=== PATIENT | female | born 1990 | race Caucasian/White ===

== ENCOUNTER 2022-09-09 07:00 | Outpatient (REF) | payer BC, SELFPAY ==
[2022-09-13 16:09] LABS: Age Gdln ACOG Testing Note (.); HPV Aptima Negative (Negative); IGP, Aptima HPV, rfx 16/18,45 Note (.)
== END 2022-09-10 03:10 | disposition home or self-care (01) ==
LOC: FBCO 07:00
PROVIDERS: PCP Obstetrics & Gynecology; Visit Provider Obstetrics & Gynecology
DX: Z01.419 Encounter for gynecological examination (general) (routine) without abnormal findings (principal)
CPT/HCPCS: 87624; G0145

== ENCOUNTER 2023-09-15 20:51 | Outpatient (REF) | payer BC, SELFPAY | END 2023-09-15 20:52 | disposition home or self-care (01) | LOC: LAB 20:51 | PROVIDERS: PCP Obstetrics & Gynecology; Visit Provider Obstetrics & Gynecology | DX: Z01.419 Encounter for gynecological examination (general) (routine) without abnormal findings (principal) | CPT/HCPCS: 87624; 88175 ==

== ENCOUNTER 2023-10-17 07:16 | Emergency (ER) | payer BC, SELFPAY ==
[2023-10-17 07:20] VITALS: BP 108/78; PULSE 108; TEMP 38.3; O2SAT 95; BMI 32.1
--- OUTSIDE RECORDS SUMMARY | 2023-10-17 07:30 | XMS_ITS | CCD ---
Author Organization [facility] Care Team Providers Care Manager Park Name Role Phone HARRISON, DR PEREZ Admitting Unavailable MISC, DR PEREZ Attending Unavailable REQUEST, DR TORREZ LISTED Primary Care Unavaila ble MISC, DR PEREZ Consulting Unavailable NAT, DR GERARD Consulting Unavailable NAT, DR GERARD Primary Care Unavailable NAT, DR GERARD Admitting Unavailable NAT, DR GERARD Attending Unavailable ZIEBER, DR WILMAN Jung Consulting Unavailable NAT, DR GERARD Attending Unavailable NAT, DR GERARD Primary Care Unavailable NAT, DR GERARD Admitting Unavailable WEST, DR ADRIANO Morton Consulting Unavailable NAT, DR GERARD Consulting Unavailable MISC, DR PEREZ Primary Care Unavailable HAY, DR RUBIO Admitting Unavailable HAY, DR RUBIO Attending Unavailable HAY, DR RUBIO Consulting Unavailable WEST, DR ADRIANO Morton Consulting Unavailable NAT, DR GERARD Primary Care Unavailable MIGUEL MORGAN Admitting Unavailable CATHY, MIGUEL Attending Unavailable MIGUEL MORGAN Consulting Unavailable MISC, DR PEREZ Admitting Unavailable MISC, DR PEREZ Attending Unavailable MISC, DR PEREZ Consulting Unavailable NAT, DR GERARD Primary Care Unavailable Unknown, Referring Provider Unavailable Unav ailable Unavailable Unavailable Unavailable Unavailable Unknown, Pcp Unavailable Unavailable Kamari Smith Unavailable Unavailable Unavailable Unavailable UNKNOWN, PCP Primary Care Unavailable Dr. Kamari Smith Attending Unavailable Dr. Kamari Smith Attending Unavailable UNKNOWN, PCP Primary Care Unavailable Torsten Victor Attending Unavailable Torsten Victor Referring Unavailable UNKNOWN, PCP Primary Care Unavailable UNKNOWN, PCP Primary Care Unavailable Dr. Kamari Smith Attending Unavailable UNKNOWN, PCP Primary Care Unavailable Dr. Kamari Smith Attending Unavailable UNKNOWN, PCP Primary Care Unavailable Dr. Kamari Smith Attending Unavailable Dr. YASH BREEN Attending Unavailable UNKNOWN, PCP Primary Care Unavailable UNKNOWN, PCP Primary Care Unavailable Abbas, Dr. Benites Referring Unavailable Lu, Ms. Guzman Attending Unavailable UNKNOWN, PCP Primary Care Unavailable Abbas, Dr. Benites Attending Unavailable UNKNOWN, PCP Primary Care Unavailable Abbas, Dr. Benites Attending Unavailable UNKNOWN, PCP Primary Care Unavailable Abbas, Dr. Benites Attending Unavailable Abbas, Dr. Benites Attending Unavailable Abbas, Dr. Benites Referring Unavailable UNKNOWN, PCP Primary Care Unavailable Abbas, Dr. Benites Attending Unavailable Abbas, Dr. Benites Referring Unavailable Abbas, Dr. Benites Admitting Unavailable UNKNOWN, PCP Primary Care Unavailable UNKNOWN, PCP Primary Care Unavailable Abbas, Dr. Benites Attending Unavailable Abbas, Dr. Benites Referring Unavailable Abbas, Dr. Benites Admitting Unavailable RAJANI JOHNS Attending Unavailable RAJANI JOHNS Attending Unavailable RAJANI JOHNS Attending Unavailable Medications Current Medications Medication Drug Class(es) Dates Sig (Normalized) Sig (Original) acetaminophen 32 mg/ml oral solution (1 source) Start: 02-14-2022 take 20.31 mL by mouth every four hours acetaminophen 160 mg/5 mL oral liquid ; 20.31 milliliter(s) orally every 4 hours Quantity: 0 Refills: 0 Ordered: 14-Feb-2022 Sunday Burrell Start: 14-Feb-2022 Generic Substitution Allowed oxyCODONE hydrochloride 1 mg/ml oral solution (1 source) Opioid Agonist Start: 02-14-2022 take 5 mL by mouth every six hours as needed oxyCODONE 5 mg/5 mL oral solution ; 5 milliliter(s) orally every 6 hours, As needed, Pain - Mod (4-6) Quantity: 0 Refills: 0 Ordered: 14-Feb-2022 Sunday Burrell Start: 14-Feb-2022 Generic Substitution Allowed Completed/Discontinued Medications Medication Drug Class(es) Dates Sig (Normalized) Sig (Original) 24 hr buPROPion hydrochloride 300 mg extended release oral tablet (2 sources) Aminoketone Start: 11-06-2021 take 1 tablet by mouth once daily buPROPion HCl ER (XL) 300 MG Oral Tablet Extended Release 24 Hour TAKE 1 TABLET DAILY DIRECTED. Quantity: 0 Refills: 0 Ordered: 06-Nov-2021 DO Start : 06-Nov-2021 Active calcium chloride 0.0014 meq/ml / potassium chloride 0.004 meq/ml / sodium chloride 0.103 meq/ml / sodium lactate 0.028 meq/ml injectable solution (4 sources) Start: 02-25-2022 Lactated Ringers Intravenous Solution Please infuse 2L of LR over 2-4 hours. Quantity: 2000 Refills: 0 Ordered: 25-Feb-2022 Kamari Smith MD Start : 25-Feb-2022 Active To be adminitered at [facility] omeprazole 40 mg delayed release oral capsule (11 sources) Proton Pump Inhibitor Start: 02-04-2022 take 1 capsule by mouth once daily Omeprazole 40 MG Oral Capsule Delayed Release TAKE 1 CAPSULE Daily Open capsule, sprinkle in SF applesauce or pudding, swallow. DO NOT CHEW Quantity: 30 Refills: 5 Ordered: 07-Feb-2022 Kamari Smith MD Start : 04-Feb-2022 Active ondansetron 4 mg disintegrating oral tablet (11 sources) Serotonin-3 Receptor Antagonist Start: 02-04-2022 Ondansetron 4 MG Oral Tablet Disintegrating 1-2 tablets every 6-8 hours as needed for nausea Quantity: 60 Refills: 5 Ordered: 07-Feb-2022 Kamari Smith MD Start : 04-Feb-2022 Active Problems Active Problems Problem Classification Problem Date Documented Da te Episodic/Chronic Abdominal pain (5 sources) Unspecified abdominal pain; Translations: [Pelvic and perineal pain] Onset: 07-05-2021 Episodic Complications of surgical procedures or medical care (3 sources) Post-surgical malabsorption; Translations: [Other and unspecified postsurgical nonabsorption] Chronic Contraceptive and procreative management (1 source) Presence of (intrauterine) contraceptive device; Translations: [PRESENCE IU CONTRACEPT DEVICE] Onset: 09-04-2021 Episodic Fever of unknown origin (3 sources) Fever, unspecified; Translations: [FEVER UNSPECIFIED] Onset: 08-31-2021 Episodic Fluid and electrolyte disorders (6 sources) Dehydration; Translations: [Dehydration] Episodic Mood disorders (16 sources) Depressive disorder; Translations: [Depressive disorder, not elsewhere classified] Chronic Mood disorders (1 source) Mood disorders; Translations: [Depression, unspecified] Onset: 12-12-2021 Nausea and vomiting (11 sources) Postoperative nausea and vomiting; Translations: [Nausea with vomiting] Episodic Other aftercare (1 source) 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 modeling 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 (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; Translations: [OTH PASTRY SUPERVISOR CURRENT DRUG THERAPY] Onset: 09-04-2021 Episodic Other endocrine disorders (16 sources) Polycystic ovary syndrome; Translations: [Polycystic ovaries] Chronic Other endocrine disorders (1 source) Polycystic ovarian syndrome; Translations: [Polycystic ovarian syndrome] Onset: 02-14-2022 Chronic Other gastrointestinal disorders (16 sources) History of bariatric surgical procedure; Translations: [Bariatric surgery status] Episodic Other gastrointestinal disorders (7 sources) History of sleeve gastrectomy; Translations: [Bariatric surgery status] Episodic Other nervous system disorders (11 sources) Postoperative pain ; Translations: [Other acute postoperative pain] Episodic Other nutritional; endocrine; and metabolic disorders (3 sources) Obesity, unspecified; Translations: [OBESITY UNSPECIFIED] Onset: 09-30-2021 Chronic Other nutritional; endocrine; and metabolic disorders (2 sources) Body mass index (BMI) 40.0-44.9, adult; Translations: [BODY MASS INDEX BMI 40.0-44.9 ADULT] Onset: 09-30-2021 Chronic Other nutritional; endocrine; and metabolic disorders (16 sources) Morbid obesity; Translations: [Morbid obesity] Chronic Other nutritional; endocrine; and metabolic disorders (4 sources) Morbid (severe) obesity due to excess calories; Translations: [Morbid (severe) obesity due to excess calories] Onset: 12-12-2021 Chronic Other screening for suspected conditions (not mental disorders or infectious disease) (16 sources) Patient encounter status; Translations: [Screening for other and unspecified endocrine, nutritional, metabolic, and immunity disorders] Episodic Ovarian cyst (1 source) Other ovarian cyst, left side; Translations: [OTHER OVARIAN CYST LEFT SIDE] Onset: 07-11-2021 Episodic Residual codes; unclassified (1 source) Sleep disorder, unspecified; Translations: [SLEEP DISORDER UNSPECIFIED] Onset: 09-30-2021 Episodic Unclassified (2 sources) COUGH, UNSPECIFIED; Translations: [COUGH, UNSPECIFIED] Onset: 02-05-2021 Unclassified (1 source) PERSONAL HISTORY OF COVID-19; Translations: [PERSONAL HISTORY OF COVID-19] Onset: 02-05-2021 Unclassified (1 source) CONTACT W/AND (SUSP) EXPOS COVID-19; Translations: [CONTACT W/AND (SUSP) EXPOS COVID-19] Onset: 02-05-2021 Unclassified (2 sources) GASTRIC SLEEVE 01-25-2022 Comment on above: GASTRIC SLEEVE Unclassified (6 sources) SLEEVE 02/1301-25-2022 Comment on above: SLEEVE 02/13 Urinary tract infections (1 source) Urinary tract infection, site not specified; Translations: [UTI SITE NOT SPECIFIED] Onset: 09-04-2021 Episodic Viral infection (1 source) COVID-19; Translations: [COVID-19] Onset: 12-11-2020 Past or Other Problems Problem Classification Problem Date Documented Da te Episodic/Chronic Immunizations and screening for infectious disease (3 sources) Contact with and (suspected) exposure to other viral communicable diseases; Translations: [CONTCT EXPS OTH VIRL COMMUNICABL DZ] Onset: 12-01-2020 Episodic Other and unspecified benign neoplasm (1 source) Polyp of stomach and duodenum; Translations: [Polyp of stomach and duodenum] Onset: 12-12-2021 Episodic Other gastrointestinal disorders (3 sources) Heartburn; Translations: [Heartburn] Onset: 12-12-2021 Episodic Other upper respiratory infections (1 source) Acute upper respiratory infection, unspecified; Translations: [ACUTE UP RESPIRATORY INFECTION UNS] Onset: 02-05-2021 Episodic Unclassified (1 source) COUGH, UNSPECIFIED; Translations: [COUGH, UNSPECIFIED] Onset: 02-02-2021 Results Test Name Value Interpretation Reference Range Facility Bariatric Surgery - Follow-U [facility] 08-13-2022 Bariatric Surgery - Follow-Up Diagnoses/Problems Assessed S/P laparoscopic sleeve gastrectomy (V45.86) (Z98.84) Orders S/P laparoscopic sleeve gastrectomy Complete Blood Count + Differential; Status:Active; Requested for:[id number]; Comprehensive Metabolic Panel; Status:Active; Requested for:[id number]; Ferritin, Serum; Status:Active; Requested for:[id number]; Folate, Serum; Status:Active; Requested for:[id number]; Hemoglobin A1C; Status:Active; Requested for:13Aug2022; Iron + TIBC, Serum; Status:Active; Requested for:[id number]; Parathormone Intact, Serum; Status:Active; Requested for:13Aug2022; Vitamin B1 - Thiamine, Whole Blood; Status:Active; Requested for:13Aug2022; Vitamin B12, Serum; Status:Active; Requested for:13Aug2022; Vitamin D 25-Hydroxy; Status:Active; Requested for:13Aug2022; Patient Discussion/Summary Remember to get 60g protein and 64 oz fluid daily Do not eat and drink at the same time. See the can dryer as much as you need too. Continue regular exercise. You can discontinue omeprazole as you have completed 6 months recommended post operatively. Take your Multivitamin, B12 and calcium tablets. 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 The patient is being seen today for a 6 month follow up visit. Type of surgery: Sleeve Gastrectomy . Surgery date: 02/13/22. A telephone visit (audio only) between the patient (at the originating site) and the provider (at the distant site) was utilized to provide this telehealth service. Verbal consent was requested and obtained from LIANE RILEY on this date, 08/13/2022 03:00 PM , for a telehealth visit. s/p sleeve gastrectomy 02/13/22 History of Present Illness Type of Surgery: lap sleeve gastrectomy, surgery Date: 02/13/22. Weight:. Initial weight: 246 lbs. Last visit weight: 192 lbs. Current weight: 182 lbs. The patient's weight was 243 lbs at pre-op visit. [place] weight 131 lbs. Target body weight 160 lbs. Severity of obesity is Class 2 which is a BMI of 35-39.9. 32 year old female presenting today for 6mon FUV s/p sleeve gastrectomy performed 02/13/22. Baseline approximate BMI of 42 with related comorbidities of morbid obesity, PCOS, and Depression. Diet: Meeting fluid AND protein goals with regular diet. 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 Supplements - Flintstones BID, calcium TID AND b12 500mcg every other day Any symptoms of reflux, nausea, vomiting, dysphagia - denies Any symptoms of bowel irregularity, diarrhea, constipation - denies Dumping - denies Smoking - denies Alcohol - denies Caffeine intake - denies NSAIDs - denies No cp, palpitations, sob, LE edema Active Problems Problems Bariatric surgery status (V45.86) (Z98.84) Dehydration (276.51) (E86.0) Depression (311) (F32.A) Encounter for vitamin deficiency screening (V77.99) (Z13.21) Obesity, morbid (more than 100 lbs over ideal weight or BMI > 40) (278.01) (E66.01) PCOS (polycystic ovarian syndrome) (256.4) (E28.2) Post-op pain (338.18) (G89.18) Postoperative malabsorption (579.3) (K91.2) Post-operative nausea and vomiting (787.01) (R11.2,Z98.890) Preoperative cardiovascular examination (V72.81) (Z01.810) Preoperative clearance (V72.84) (Z01.818) S/P laparoscopic sleeve gastrectomy (V45.86) (Z98.84) Surgical History Problems History of Dilation and curettage History of Pilonidal cyst removal History of Tonsillectomy with adenoidectomy Family History Mother No pertinent family history Social History Problems Non-smoker (V49.89) (Z78.9) Allergies NoKnown No Known Allergies Recorded By: Alexa Morton; 10/22/2021 3:08:48 PM Current Meds Medication NameInstruction Omeprazole 40 MG Oral Capsule Delayed ReleaseTAKE 1 CAPSULE Daily Open capsule, sprinkle in SF applesauce or pudding, swallow. DO NOT CHEW Ondansetron 4 MG Oral Tablet Disintegrating1-2 tablets every 6-8 hours as needed for nausea Physical Exam no PE Time Time spent directly with patient/family/caregiver: 11.5 minutes. Signatures Electronically signed by : JEFFERY Childress; Aug 13 2022 3:32PM EST (Author) [facility] Bariatric Surgery - Follow-U [facility] 06-21-2022 Bariatric Surgery - Follow-Up Diagnoses/Problems Assessed S/P laparoscopic sleeve gastrectomy (V45.86) (Z98.84) Orders S/P laparoscopic sleeve gastrectomy Complete Blood Count + Differential; Status:Active; Requested for:21Jun2022; Comprehensive Metabolic Panel; Status:Active; Requested for:21Jun2022; Ferritin, Serum; Status:Active; Requested for:21Jun2022; Folate, Serum; Status:Active; Requested for:21Jun2022; Hemoglobin A1C; Status:Active; Requested for:21Jun2022; Iron + TIBC, Serum; Status:Active; Requested for:21Jun2022; Parathormone Intact, Serum; Status:Active; Requested for:21Jun2022; Vitamin B1 - Thiamine, Whole Blood; Status:Active; Requested for:21Jun2022; Vitamin B12, Serum; Status:Active; Requested for:21Jun2022; Vitamin D 25-Hydroxy; Status:Active; Requested for:21Jun2022; Patient Discussion/Summary Remember to get 60g protein and 64 oz fluid daily Do not eat and drink at the same time. See the can dryer as much as you need too. Continue regular exercise. Take your omeprazole, open the capsule and sprinkle onto applesauce. Do not swallow whole. Take your Multivitamin, B12 and calcium tablets. 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 The patient is being seen today for a 6 month follow up visit. Type of surgery: Sleeve Gastrectomy . Surgery date: 02/13/22. An interactive audio and video telecommunication system which permits real time communications between the patient (at the originating site) and provider (at the distant site) was utilized to provide this telehealth service. Verbal consent was requested and obtained from LIANE RILEY on this date, 06/21/2022 08:15 AM , for a telehealth visit. s/p sleeve gastrectomy 02/13/22 History of Present Illness Type of Surgery: lap sleeve gastrectomy, surgery Date: 02/13/22. Weight:. Initial weight: 246 lbs. Last visit weight: 213 lbs. Current weight: 192 lbs. The patient's weight was 243 lbs at pre-op visit. [place] weight 131 lbs. Target body weight 160 lbs. Severity of obesity is Class 2 which is a BMI of 35-39.9. 32 year old female presenting today FUV s/p sleeve gastrectomy performed 02/13/22. Baseline approximate BMI of 42 with related comorbidities of morbid obesity, PCOS, and Depression. Diet: Meeting fluid AND protein goals with regular diet. 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 Supplements - Flintstones BID, calcium TID AND b12 500mcg every other day Any symptoms of reflux, nausea, vomiting, dysphagia - denies Any symptoms of bowel irregularity, diarrhea, constipation - denies Dumping - denies Smoking - denies Alcohol - denies Caffeine intake - denies NSAIDs - denies No cp, palpitations, sob, LE edema Active Problems Problems Bariatric surgery status (V45.86) (Z98.84) Dehydration (276.51) (E86.0) Depression (311) (F32.A) Encounter for vitamin deficiency screening (V77.99) (Z13.21) Obesity, morbid (more than 100 lbs over ideal weight or BMI > 40) (278.01) (E66.01) PCOS (polycystic ovarian syndrome) (256.4) (E28.2) Post-op pain (338.18) (G89.18) Postoperative malabsorption (579.3) (K91.2) Post-operative nausea and vomiting (787.01) (R11.2,Z98.890) Preoperative cardiovascular examination (V72.81) (Z01.810) Preoperative clearance (V72.84) (Z01.818) S/P laparoscopic sleeve gastrectomy (V45.86) (Z98.84) Surgical History Problems History of Dilation and curettage History of Pilonidal cyst removal History of Tonsillectomy with adenoidectomy Family History Mother No pertinent family history Social History Problems Non-smoker (V49.89) (Z78.9) Allergies NoKnown No Known Allergies Recorded By: Alexa Morton; 10/22/2021 3:08:48 PM Current Meds Medication NameInstruction Omeprazole 40 MG Oral Capsule Delayed ReleaseTAKE 1 CAPSULE Daily Open capsule, sprinkle in SF applesauce or pudding, swallow. DO NOT CHEW Ondansetron 4 MG Oral Tablet Disintegrating1-2 tablets every 6-8 hours as needed for nausea Vitals Vital Signs Recorded: 21Jun2022 08:26AM Anhrmt308 lb BMI Nztjckceuh60.96 BSA Calculated1.92 Physical Exam no PE Signatures Electronically signed by : Linda Nova, (more content not included)... [facility] Bariatric Surgery - Follow-U [facility] 05-10-2022 Bariatric Surgery - Follow-Up No report was sent [facility] Dietition Noteon 03-20-2022 Dietition Note Chief Complaint A telephone visit (audio only) between the patient (at the originating site) and the provider (at the distant site) was utilized to provide this telehealth service. Verbal consent was requested and obtained from LIANE RILEY on this date, 03/20/2022 11:00 AM , for a telehealth visit. S/p sleeve gastrectomy Active Problems Bariatric surgery status (V45.86) (Z98.84) Dehydration (276.51) (E86.0) Depression (311) (F32.A) Encounter for vitamin deficiency screening (V77.99) (Z13.21) Obesity, morbid (more than 100 lbs over ideal weight or BMI > 40) (278.01) (E66.01) PCOS (polycystic ovarian syndrome) (256.4) (E28.2) Post-op pain (338.18) (G89.18) Post-operative nausea and vomiting (787.01) (R11.2,Z98.890) Preoperative cardiovascular examination (V72.81) (Z01.810) Preoperative clearance (V72.84) (Z01.818) S/P laparoscopic sleeve gastrectomy (V45.86) (Z98.84) Surgical History History of Dilation and curettage History of Pilonidal cyst removal History of Tonsillectomy with adenoidectomy Allergies No Known Allergies Recorded By: Alexa Morton; 10/22/2021 3:08:48 PM Current Meds Omeprazole 40 MG Oral Capsule Delayed Release; TAKE 1 CAPSULE Daily Open capsule, sprinkle in SF applesauce or pudding, swallow. DO NOT CHEW; Therapy: 04Feb2022 to (Last Rx:07Feb2022) Requested for: 08Feb2022 Ordered Rx By: Kamari Smith; Dispense: 0 Days ; #:30 Capsule; Refill: 5;For: Bariatric surgery status; GORDO = N; Verified Transmission to [id number] Ondansetron 4 MG Oral Tablet Disintegrating; 1-2 tablets every 6-8 hours as needed for nausea; Therapy: 04Feb2022 to (Last Rx:07Feb2022) Requested for: 08Feb2022 Ordered Rx By: Kamari Smith; Dispense: 0 Days ; #:60 Tablet; Refill: 5;For: Post-operative nausea and vomiting; GORDO = N; Verified Transmission to [id number] Provider Impressions Follow Up Post-Op Bariatric Nutrition Assessment NAME: Liane Riley DATE: 03/15/2022 Surgeon: Cortes Surgery Type/Date: Sleeve on 2022 PROGRESS: Nutrition Interventions for last encounter (02/26/2022): 1.Stay on full liquids for another week- than start purred foods for 2 weeks. Soft comes next 2.Begin soft foods for the next 2 weeks. A soft food is anything you can mash with a fork. Avoid dry meats, stringy and gassy vegetables, and doughy breads/starches as these can be difficult to tolerate. 3.Start to wean self off the protein shakes as you soft/regular protein food intake increases 4.Begin the regular diet 8 weeks post-op. During this phase, you may introduce foods of any texture one at a time and in small amounts to determine tolerance. Eat proteins first, vegetables second, and starches last. 5.Increase to have a good source of protein first at each meal AND snack. Aim for 60-70 grams/day. 6.Increase to have 64oz of calorie-free, caffeine-free and non-carbonated beverages daily-water, powerade zero, crystal light, broth, decaf tea. 7.Stop drinking 30 minutes before meals, nothing with meals and wait 30 minutes after meals to drink again. Make meals last 30 minutes-chew thoroughly. 8.Ok- pause on these- start at 2 weeks post-op. Continue with daily multivitamin (2 Dobson COMPLETE MVI-both at breakfast), 1200-1500mg of calcium citrate per day (500-600mg at lunch, dinner AND before bed) and 500mcg of vitamin B12 per day (at breakfast). 9.Increase physical activity by 10-15 minutes as tolerated to an end goal of 60 minutes 5 x per week. 10.Come to support group monthly CHANGES IN TREATMENT: Patient met goals: MET Actions to implement previous interventions: 24 hour food recall: Breakfast: protein shake, Premier Snack: Lunch: pureed soup or egg salad Snack: Dinner: left over- soup or chili or refried beans Snack: Beverages: water, crystal light, Gatorade- meeting 64 oz READINESS TO LEARN: Motivation to learn: Interested Understanding of instruction: Good Anticipated Compliance: Good Family Support: Unable to assess-family not present EDUCATION MATERIALS: None Pre-op weight: 246# Pre-op Excess body weight: 101# Current weight: 216# Total Weight loss: 30# % Excess body weight loss: 29.7% Patient presents with post-op weight loss surgery a sleeve gastrectomy. Patient has lost 30 pounds since initial assessment accounting for 29.7% loss excess body weight. Patient is tolerating pureed foods with no issues. Diet recall indicates 60g of protein a day. Protein intake is adequate for post-op. Fluid intake is >64oz/day, meeting her requirements. The patient will be upgrading to soft foods per tolerance. She has been educated on the soft food diet. The patient continues to take her vitamin/mineral supplements every day. Noted that she goes back to work next week and her job requires her to walk around all throughout the day. With plans to increase her Physical activity outside of work as tolerated. With a follow up appointment scheduled for May 09. THIS WAS A PHON (more content not included)... Normal [facility] Visiton 03-20-2022 Follow-up visit Diagnoses/Problems S/P laparoscopic sleeve gastrectomy (V45.86) (Z98.84) Patient Discussion/Summary Remember to get 60g protein and 64 oz fluid daily Do not eat and drink at the same time. See the can dryer as must as you need too. Continue regular exercise. Take your omeprazole, open the capsule and sprinkle onto applesauce. Do not swallow whole. Take your Multivitamin, B12 and calcium tablets. Follow-up in 6 weeks for your 3 mo post op visit. Provider Impressions Patient presenting for 6 week POV up s/p LSG Doing well Tolerating diet, meeting protein and fluid goals with occ use of protein shake Taking supplements Taking PPI No GERD mild constipation but no acute issues Exercise:advised cleared to start light/moderate aerobic exercise work way up to 150-200 min/week Weight loss 243 (preop) --> 213 Plan: Continue high protein, low processed carbohydrate diet, follow up with dietitian for diet advancement Continue supplements Add fiber supplement 1-2 times per day to help with bowel regularity PPI will be continued Join support groups Exercise - start exercise, start with ligh/moderate aerobic activity 3x/week 20-30 min/session and increase to goal 5x/week 30-60 minutes per session of next 6-8 weeks Labs: at 3 mo POV Follow up: Chief Complaint An interactive audio and video telecommunication system which permits real time communications between the patient (at the originating site) and provider (at the distant site) was utilized to provide this telehealth service. Verbal consent was requested and obtained from LIANE RILEY on this date, 03/20/2022 01:45 PM , for a telehealth visit. 6 week post op- sleeve gastrectomy 02/13/22 The patient is being seen for post operative visit. The patient is being seen today for a 6 week post-op visit. Type of surgery: Sleeve Gastrectomy . Surgery date: 02/13/22. History of Present Illness 32 year old female presenting today for 6 week post op visit for sleeve gastrectomy performed 02/13/22. Baseline approximate BMI of 42 with related comorbidities of morbid obesity, PCOS, and Depression. Patient did received IV infusion at infusion center in the week following surgery. Diet: Meeting fluid AND protein shakes, still using protein shake here AND there , still on pureed diet. Exercise - Has not yet started exercise Supplements - Flintstones BID, calcium TID AND b12 500mcg Any symptoms of reflux, nausea, vomiting, dysphagia - denies Any symptoms of bowel irregularity, diarrhea, constipation - mild constipation, bm 2x/week Dumping - denies Smoking - denies Alcohol - denies Caffeine intake - denies NSAIDs - denies No cp, palpitations, sob, LE edema Type of Surgery: lap sleeve gastrectomy, surgery Date: 02/13/22. Weight:. Initial weight: 246 lbs. Last visit weight: 243 lbs. Current weight: 213 lbs. The patient's weight was 243 lbs at pre-op visit. [place] weight 131 lbs. Target body weight 160 lbs. Severity of obesity is Class 2 which is a BMI of 35-39.9. Active Problems Bariatric surgery status (V45.86) (Z98.84) Dehydration (276.51) (E86.0) Depression (311) (F32.A) Encounter for vitamin deficiency screening (V77.99) (Z13.21) Obesity, morbid (more than 100 lbs over ideal weight or BMI > 40) (278.01) (E66.01) PCOS (polycystic ovarian syndrome) (256.4) (E28.2) Post-op pain (338.18) (G89.18) Post-operative nausea and vomiting (787.01) (R11.2,Z98.890) Preoperative cardiovascular examination (V72.81) (Z01.810) Preoperative clearance (V72.84) (Z01.818) S/P laparoscopic sleeve gastrectomy (V45.86) (Z98.84) Surgical History History of Dilation and curettage History of Pilonidal cyst removal History of Tonsillectomy with adenoidectomy Allergies No Known Allergies Recorded By: Alexa Motron; 10/22/2021 3:08:48 PM Current Meds Medication NameInstruction Omeprazole 40 MG Oral Capsule Delayed ReleaseTAKE 1 CAPSULE Daily Open capsule, sprinkle in SF applesauce or pudding, swallow. DO NOT CHEW Ondansetron 4 MG Oral Tablet Disintegrating1-2 tablets every 6-8 hours as needed for nausea Vitals Vital Signs Recorded: [id number] 10:13AM Myoush136 lb BMI Xefdptpwsq87.56 BSA Calculated2.01 Physical Exam no PE Signatures Electronically signed by : Linda Nova, JIM-RENE; Mar 20 2022 10:18AM EST (Author) Normal [facility] Infusion Flowshe[place] 022 Infusion Flowsheet 106/71 MG-Amb ulator y [facility] 1599 DO Work Phone: Infusion Flowsheet 73 1 MG-Amb ulator y [place] [address] DO Work Phone: Infusion Flowsheet 18 1 MG-Amb ulator y [facility] 1599 DO Work Phone: Infusion Flowsheet 100% MG-Amb ulator y [facility] 1599 DO Work Phone: Infusion Flowsheet 2000mL 0.9% NaCl MG-Ambulator y Infusion [facility] 1599 DO Work Phone: Infusion Flowsheet Infusion Stopped MG-Ambulator y [place] [address] DO Work Phone: Infusion Flowsheet Infusion complete, tolerated well MG-Ambulator y Infusion [facility] 1599 DO Work Phone: Infusion Flowsheet HB MG-Amb ulator y Infusion [facility] 1599 DO Work Phone: Infusion Flowsheet Lactated Ringers MG-Ambulator y Infusion [facility] 1599 DO Work Phone: Infusion Flowsheet Infusion Started MG-Ambulator y Infusion [facility] 1599 DO Work Phone: Infusion Flowsheet 999mL/hr MG-Amb ulator y Infusion [facility] 1599 DO Work Phone: Infusion Flowsheet Comfort measures off ered, resting in chair, no distress MG-Ambulator y [facility] [address] DO Work Phone: Infusion Flowsheet HB MG-Amb ulator y [facility] 1600 DO Work Phone: Nurse Visit (Infusion-Inject ion Services)on 02-25-2022 Nurse Visit (Infusion-Injection Services) Orders-Cloth Weaver Medications Administered: Lactated Ringers Intravenous Solution Rx By: Kamari Smith;For: Dehydration; Dose of 2000 ML; Intravenous; GORDO = N; Administered by: Megan Leigh ENTRY LEVEL CHEMIST-MILK TREATER: 02/25/2022 1:30:00 PM; Last Updated By: Megan Leigh; 02/25/2022 1:41:26 PM AIC medication Reason For Visit IV fluid infusion post gastric sleeve on 02/13/[address] Smith. LIANE RILEY accompanied by: Self . Patient is here for Infusion. Name of Medication: Lactated Ringers. Diagnosis Assessed Dehydration (276.51) (E86.0) Bariatric surgery status (V45.86) (Z98.84) Allergies NoKnown No Known Allergies Recorded By: Alexa Morton; 10/22/2021 3:08:48 PM Current Meds Medication NameInstruction Lactated Ringers Intravenous SolutionPlease infuse 2L of LR over 2-4 hours. Omeprazole 40 MG Oral Capsule Delayed ReleaseTAKE 1 CAPSULE Daily Open capsule, sprinkle in SF applesauce or pudding, swallow. DO NOT CHEW Ondansetron 4 MG Oral Tablet Disintegrating1-2 tablets every 6-8 hours as needed for nausea Vitals Vital Signs Recorded: [id number] 01:20PM Yqubbzlusqk05.6 F Heart Rate94 Onxzzmrokkp92 Jvedyhnh096 Fakowowcz36 Xdioqq161 lb 15.01 oz BMI Gsowxtfpki71.47 kg/m2 BSA Calculated2.08 O2 Hpyxvbdqoc56, RA Pre-Procedure Checklist Pre-Procedure Checklist Allergies were reviewed: yes Medications were reviewed: yes Contraindications to Treatment: Recent illness: DENIES . Recent dental work: DENIES . Recent surgery: Bariatric sugery 02/13. Recent infections DENIES . Planned dental work: DENIES . Planned surgery: DENIES . : DENIES . PT IS NOT ON ANY ANTIBIOTICS OR ANTIMICROBIALS . Adult Risk Screening Initial Fall Risk Screening: LIANE has not fallen in the last 6 months. Fall Risk Screening: patient is not considered a fall risk. Review of Systems Constitutional: no fever, no chills, alert and oriented x 4 and behavior is appropriate. HEENT: no vision problems, no itchy/burning eyes and no hearing problems. Cardiovascular: no chest pain, no palpitations and no irregular rhythm. Respiratory: no shortness of breath, no cough and no labored breathing. Gastrointestinal: abdominal pain and nausea, but no vomiting and no diarrhea . r/t surgery, provider aware. Genitourinary: no dysuria, no hematuria and no burning when voiding . Reports dark urine r/t dehydration, provider aware. Musculoskeletal: no pain, no joint swelling and no muscle weakness. Integumentary: no rashes, no skin lesions and no itching. Neurological: dizziness, but no headaches and no numbness . due to surgery, provider aware. Infusion Procedure Peripheral IV Insertion IV start date/time: 02/25/22 1325 IV site location: RAC Gauge: #22 Number of attempts: 1 Blood return: Yes Vein visualization device used: No Inserted by: Megan Leigh APRN, FNP-C, RN Labs drawn from PIV? No PIV Patient Education: Yes, patient educated to report PIV pain, discomfort, itching, redness, burning or any IV concerns to nurse. PIV Site Check: Yes, site without redness, warmth, swelling, pain, drainage, dressing clean, dry AND intact, positive blood return, infuses without difficulty. Orders Verified By: (Name RN/DOLL WIG HACKLER) Megan Leigh APRN, FNP-C Orders Checked By: (Name RN/DOLL WIG HACKLER) Nicole Smith Medication: Induction. Pump Programmed By: Megan Leigh APRN, FNP-C Verified By: Nicole Smith Infusion Flowsheet Infusion Flowsheet [id number] 01:30PM Infusion Flowsheet Fluid: Lactated Ringers Infusion: Infusion Started Infusion Rate: 999mL/hr Comments: Comfort measures offered, resting in chair, no distress Initials: HB [id number] 03:35PM Initials: HB Comments: Infusion complete, tolerated well Resp Rate: 18 Pulse: 73 BP: 106/71 Infusion: Infusion Stopped Fluid: 2000mL 0.9% NaCl O2 Sat: 100% Post Infusion Peripheral IV Removal: Blood return: Yes Infiltration: None, Grade 0 Phlebitis: None, Grade 0 IV Discontinue Date/Time: 02/25. Patient Instructions Your Next Visit: One time visit. Instructions: Today you received: Lactated Ringers For: Dehydration (Tell all doctors including dentists that you are taking this medication) Go the emergency room or call 911 if: - You have signs of allergic reaction: o Rash, hives, itching. o Swollen, blistered, peeling skin. o Swelling of face, lips, mouth, tongue or throat. o Tightness of chest, trouble breathing, swallowing or talking Call your doctor: - If IV / injection site gets red, warm, swollen, itchy or leaks fluid or pus. (Leave dressing on your IV site for at least 2 hours and keep area clean and dry) - If you get sick or have symptoms of infection or are not feeling well for any reason. (Wash your hands often, stay away from people who are sick) - If you have side effects from your medication that do not go away or are bothersome. (Refer to the teaching your nurse gave you (more content not included)... Normal [facility] - Follow-U [facility] 02-21-2022 Bariatric Surgery - Follow-Up Diagnoses/Problems Assessed Bariatric surgery status (V45.86) (Z98.84) S/P laparoscopic sleeve gastrectomy (V45.86) (Z98.84) Patient Discussion/Summary Plan: Instructions / Recommendations: You should be drinking at least 60 oz of noncaffeinated fluid daily. Avoid carbonated beverages and those with sugar such as juices. You should be getting around 60 g of protein daily. Try to get as much of this through solid food as possible. Avoid shakes and use them when you are in a re[place] only. You should work your way off of the shakes and try to get all of your protein through food. Be sure to eat regular meals and get protein at every meal and snack. You should plan your meals for the week. You should make grocery lists and pack your lunches. Avoid fast food and picking convenience foods. Try to only eat what you have planned or packed. Do not skip meals. You will not be able to eat a large volume at any one meal. Therefore you will need to eat your protein and vegetables through the day. Aim for 3 meals and 2 snacks daily. Do not eat and drink at the same time. Eat 3 meals and 2 snacks daily. Eat your protein first, vegetables second and starch last. Set alarms to remind you to eat and drink throughout the day. After this surgery many patients do not feel hungry. By setting alarms you will remember it is time to eat or drink. Try to eat on this schedule to avoid weakness and malnutrition. Remember to take your vitamin supplements as directed. If you have any questions or concerns regarding your vitamins, please contact the can dryer. Remember to take your multivitamins 2 times daily, once in the morning and once in the evening. Take your calcium 2-3 times daily, at least 2 hours apart from the multivitamin. You need to increase your daily exercise. Your goal is 60 minutes/day. This is part of a healthy lifestyle. You can try walking, swimming, going to a local gym, or even chair dancing! The more movement you have in your day, the healthier you will feel. Once you reach 60 minutes then increase the intensity of your exercise. Come to support groups. The schedule is online. Instructed to call the office at [phone] for concerns, questions, or problems. The patient was instructed to follow up in 5 weeks. You are doing great! You may shower, let soap and water run over incisions, pat dry. Things will get easier over time. Remember to increase your fluids and protein to goals Do not eat and drink at the same time. Advance your diet to full liquids/pureed foods according to the diet guidelines. See the can dryer as must as you need too. Slowly increase your exercise and activity, as you get all your protein you will be able to have more energy. Take your omeprazole, open the capsule and sprinkle onto applesauce. Do not swallow whole. Take your Multivitamin, B12 and calcium tablets. Follow-up in 5 weeks for your 6 week post op visit. Provider Impressions Patient denies any N,V,F,D,CP or SOB. Tolerating liquid diet 50-60 Oz/day ambulating and eliminating well pain under control incisions healing well no sign of infection taking Vitamins and PPI imp: doing well recs: advance diet as advised advance activity as advised cont Vitamin supplementation, PPI FU with dietitian RTC 5 weeks. Chief Complaint The patient is being seen for post operative visit. The patient is being seen today for a 1 week post-op visit. Type of surgery: Sleeve Gastrectomy . Surgery date: 02/13/22. An interactive audio and video telecommunication system which permits real time communications between the patient (at the originating site) and provider (at the distant site) was utilized to provide this telehealth service. Verbal consent was requested and obtained from LIANE RILEY on this date, 02/21/2022 03:15 PM , for a telehealth visit. 1 week post op- sleeve gastrectomy 02/13/22 Adult Risk ScreeningThere are no spiritual/cultural practices/values/needs that are important to know Initial Fall Risk Screening: LIANE has not fallen in the last 6 months. Living Will. Living Will: No living will on file. Healthcare POA: No healthcare proxy on file. Declaration of Mental Health Treatment: No mental health treatment on file. Tobacco Screening: Has not used tobacco in the past 6 months. History of Present Illness Type of Surgery: lap sleeve gastrectomy, surgery Date: 02/13/22. Weight:. Initial weight: 246 lbs. Last visit weight: 243 lbs. The patient's weight was 243 lbs at pre-op visit. [place] weight 131 lbs. Target body weight 160 lbs. Severity of obesity is Class 3 which is a BMI of greater than or equal to 40. Food: does not drink carbonated beverage Fluid intake: 30 oz. Diet Stage: liquid. Symptoms: The patient reports loss of appetite and abdominal pain, but no hunger, no nausea, no vomiting, no diarrhea and no dumping syndrome. Comorbidities: depressed mood, infertility and polycystic o (more content not included)... Normal [facility] CBC AND DIFFERENTIALon 02-14 % AUTOMATED IMMATURE GRAN 0.6 % Normal 0.0 - 0.9 [facility] Comment on above: Result Comment: Larissa ture Granulocyte Count (IG) includes promyelocytes, myelocytes and metamyelocytes but does not include bands. Percent differential counts (%) should be interpreted in the context of the absolute cell counts (cells/L). Performed By: #### C BCDF #### [facility] [address] [place] [address] Basophils (Bld) [#/Vol] 0.01 10*3/uL Normal 0.00 - 0.10 [facility] Comment on above: Performed By: #### C BCDF #### [address] [address] Basophils/100 WBC (Bld) 0.1 % Normal 0.0 - 2.0 [facility] Comment on above: Performed By: #### C BCDF #### [address] [address] Eosinophils (Bld) [#/Vol] 0.01 10*3/uL Normal 0.00 - 0.70 [facility] Comment on above: Performed By: #### C BCDF #### [address] [address] Eosinophils/100 WBC (Bld) 0.1 % Normal 0.0 - 6.0 [facility] Comment on above: Performed By: #### C BCDF #### [address] [address] Erythrocyte distribution width (RBC) [Ratio] 12.5 % Normal 11.5 - 14.5 [facility] Comment on above: Performed By: #### C BCDF #### [address] [address] Hematocrit (Bld) [Volume fraction] 40.8 % Normal 36.0 - 46.0 [facility] Comment on above: Performed By: #### C BCDF #### [address] [address] Hemoglobin (Bld) [Mass/Vol] 13.2 g/dL Normal 12.0 - 16.0 [facility] Comment on above: Performed By: #### C BCDF #### [address] [address] Lymphocytes (Bld) [#/Vol] 1.90 10*3/uL Normal 1.20 - 4.80 [facility] Comment on above: Performed By: #### C BCDF #### [address] [address] Lymphocytes/100 WBC (Bld) 18.1 % Normal 13.0 - 44.0 [facility] Comment on above: Performed By: #### C BCDF #### [facility] [address] [place] [address], [place] [address] MCHC (RBC) [Mass/Vol] 32.4 g/dL Normal 32.0 - 36.0 [facility] Comment on above: Performed By: #### C BCDF #### [address] [place] [address] MCV (RBC) [Entitic vol] 92 fL Normal 80 - 100 [facility] Comment on above: Performed By: #### C BCDF #### [address] [place] [address] Monocytes (Bld) [#/Vol] 0.57 10*3/uL Normal 0.10 - 1.00 [facility] Comment on above: Performed By: #### C BCDF #### [address] [place] [address] Monocytes/100 WBC (Bld) 5.4 % Normal 2.0 - 10.0 [facility] Comment on above: Performed By: #### C BCDF #### [address] [place] [address] Neutrophils (Bld) [#/Vol] 7.97 10*3/uL High 1.20 - 7.70 [facility] Comment on above: Performed By: #### C BCDF #### [address] [place] [address] Neutrophils/100 WBC (Bld) 75.7 % Normal 40.0 - 80.0 [facility] Comment on above: Performed By: #### C BCDF #### [facility] [address] [place], [place] [address] [address] NUCLEATED RBC 0.0 /100 WBC Normal 0.0 - 0.0 [facility] Comment on above: Performed By: #### C BCDF #### [address] [place] [address] Platelets (Bld) [#/Vol] 317 10*3/uL Normal 150 - 450 [facility] Comment on above: Performed By: #### C BCDF #### [address] [address] RBC 4.43 x10E12/L Normal 4.00 - 5.20 [facility] Comment on above: Performed By: #### C BCDF #### [address] [address] WBC (Bld) [#/Vol] 10.5 10*3/uL Normal 4.4 - 11.3 [facility] Comment on above: Performed By: #### C BCDF #### [address] [address] COMPREHENSIVE PANELon 2021 Albumin [Mass/Vol] 3.8 g/dL Normal 3.4 - 5.0 [facility] Comment on above: Performed By: #### C MP #### [address] [address] ALP [Catalytic activity/Vol] 55 U/L Normal 33 - 110 [facility] Comment on above: Performed By: #### C MP #### [address] [address] ALT [Catalytic activity/Vol] 18 U/L Normal 7 - 45 [facility] Comment on above: Result Comment: [place] ents treated with Sulfasalazine may generate falsely decreased results for ALT. Performed By: #### C MP #### [address] [address] Anion gap [Moles/Vol] 11 mmol/L Normal 10 - 20 [facility] Comment on above: Performed By: #### C MP #### [address] [address] AST [Catalytic activity/Vol] 14 U/L Normal 9 - 39 [facility] Comment on above: Performed By: #### C MP #### [address] [address] Bilirubin [Mass/Vol] 0.3 mg/dL Normal 0.0 - 1.2 [facility] Comment on above: Performed By: #### C MP #### [address] [address] Calcium [Mass/Vol] 8.3 mg/dL Low 8.6 - 10.3 [facility] Comment on above: Performed By: #### C MP #### [address] [address] Chloride [Moles/Vol] 106 mmol/L Normal 98 - 107 [facility] Comment on above: Performed By: #### C MP #### [address] [address] Creatinine [Mass/Vol] 0.70 mg/dL Normal 0.50 - 1.05 [facility] Comment on above: Performed By: #### C MP #### [address] [place] [address] eGFR FEMALE >90 Normal >90 [facility] Comment on above: Result Comment: CALC ULATIONS OF ESTIMATED GFR ARE PERFORMED USING THE 2020 CKD-EPI STUDY REFIT EQUATION WITHOUT THE RACE VARIABLE FOR THE IDMS-TRACEABLE CREATININE METHODS. https://jasn.asnjournals.org/content//ASN.65044904 88 Performed By: #### C MP #### [address] [address] Glucose [Mass/Vol] 114 mg/dL High 74 - 99 [facility] Comment on above: Performed By: #### C MP #### [address] [address] HCO3 (Bld) [Moles/Vol] 27 mmol/L Normal 21 - 32 [facility] Comment on above: Performed By: #### C MP #### [address] [place] [address] Potassium [Moles/Vol] 4.1 mmol/L Normal 3.5 - 5.3 [facility] Comment on above: Performed By: #### C MP #### [address] [place] [address] Protein [Mass/Vol] 6.3 g/dL Low 6.4 - 8.2 [facility] Comment on above: Performed By: #### C MP #### [address] [place] [address] Sodium [Moles/Vol] 140 mmol/L Normal 136 - 145 [facility] Comment on above: Performed By: #### C MP #### [facility] [address] [place] [address] Urea nitrogen [Mass/Vol] 4 mg/dL Low 6 - 23 [facility] Comment on above: Performed By: #### C MP #### [facility] [address] [place] [address] Complete Blood Count + Diffe rentialon 02-14-2022 Basophils/100 WBC (Bld) 0.1 % 0.0 - 2.0 RX-Iluwtvj-V arma [id number] Work Phone: Erythrocyte distribution width (RBC) [Ratio] 12.5 % See Below DY-Ulpzmnw-Q arma MAC[address] Work Phone: Comment on above: Reference Range: 11. 5 - 14.5 Hematocrit (Bld) [Volume fraction] 40.8 % See Below SZ-Epzqvob-A arma MAC2 303 Work Phone: Comment on above: Reference Range: 36. 0 - 46.0 Hemoglobin (Bld) [Mass/Vol] 13.2 g/dL See Below IM-Iimlrxe-I arma MAC[address] Work Phone: Comment on above: Reference Range: 12. 0 - 16.0 Lymphocytes/100 WBC (Bld) 18.1 % See Below OF-Fkcfayc-N arma MAC2 303 Work Phone: Comment on above: Reference Range: 13. 0 - 44.0 MCHC (RBC) [Mass/Vol] 32.4 g/dL See Below SQ-Ezmyzjd-Y arma MAC2 303 Work Phone: Comment on above: Reference Range: 32. 0 - 36.0 MCV (RBC) [Entitic vol] 92 fL 80 - 100 ZF-Eckzepz-M arma [id number] 303 Work Phone: Monocytes/100 WBC (Bld) 5.4 % 2.0 - 10.0 CJ-Otwrrco-A arma [id number] 303 Work Phone: Neutrophils/100 WBC (Bld) 75.7 % See Below ZW-Ejjfuce-A arma [id number] 303 Work Phone: Comment on above: Reference Range: 40. 0 - 80.0 Platelets (Bld) [#/Vol] 317 10*3/uL 150 - 450 VT-Hoxvnqc-H arma MAC2 303 Work Phone: RBC (Bld) [#/Vol] 4.43 {x10E12/L} See Below MG -Surgery-P arma [id number] 303 Work Phone: Comment on above: Reference Range: 4.0 0 - 5.20 WBC (Bld) [#/Vol] 10.5 10*3/uL 4.4 - 11.3 MG-Wright rgery-P arma MAC2 303 Work Phone: Complete Blood Count + Differential 0.01 {x10E9/L} See Below MQ-Orznbyl-P arma MAC2 303 Work Phone: Comment on above: Reference Range: 0.0 0 - 0.10 Reference Range: 0.0 0 - 0.70 Complete Blood Count + Differential 0.57 {x10E9/L} See Below SP-Qnmfflz-Q arma [id number] Work Phone: Comment on above: Reference Range: 0.1 0 - 1.00 Complete Blood Count + Differential 1.90 {x10E9/L} See Below HB-Bhzvomb-N arma [id number] 303 Work Phone: Comment on above: Reference Range: 1.2 0 - 4.80 Complete Blood Count + Differential 7.97 {x10E9/L} above high threshold See Below MM-Wcsnewv-R arma MAC2 303 Work Phone: Comment on above: Reference Range: 1.2 0 - 7.70 Complete Blood Count + Differential 0.1 % 0.0 - 6.0 CL-Gvzzbuf-K arma MAC2 303 Work Phone: Complete Blood Count + Differential 0.6 % 0.0 - 0.9 SK-Khqzngz-N arma MAC2 303 Work Phone: Comment on above: Immature Granulocyte Count (IG) includes promyelocytes, myelocytes and metamyelocytes but does not include bands. Percent differential counts (%) should be interpreted in the context of the absolute cell counts (cells/L). Complete Blood Count + Differential 0.0 {/100_WBC} 0.0 - 0.0 OM-Uqmlhtr-G arma MAC2 303 Work Phone: Daily Progress Note-Surgeryo n 02-14-2022 Daily Progress Note-Surgery Service: Surgery Subjective Data: LIANE RILEY is a 32 year old Female who is Hospital Day # 2 and POD #1 for robotic sleeve gastrectomy;B/l tap block;egd; Additional Information: Patient seen and examined at the bedside. No acute events overnight. Patient denies fevers, chills, chest pain, shortness of breath, or diffuse abdominal pain. Tolerated fluids orally. Patient is ambulating, voiding, and using incentive spirometry. Pain and nausea well controlled with meds. Objective Data: Objective Information: T PRBPMAPSpO2 Value36.601777/745349% Date/Time02/14 4: 4: 4: 20: 4:10 Range(36.2C - 36.9C ) (64 - 88 ) (102 - 130 )/ (71 - 86 ) (83 - 103 ) (94% - 96% ) Highest temp of 36.9 C was recorded at 02/13 20:37 Pain reported at 02/13 22:00: 3 = Mild ---- Intake and Output ----- Mn/Dy/Year [facility]Int[facility]OutputAt[facility] 2022 10:00 [id number] 2022 2:00 [id number] The Intake and Output Totals for the last 24 hours are: IntakeOutnew mexico behavioral [facility] institute at las vegasNet [id number] Physical Exam Narrative: Physical Exam: Physical Exam: Constitutional: Morbid Obesity, no distress, alert and cooperative Eyes: EOMI, clear sclera Head/Neck: Neck supple, no apparent injury, No JVD, trachea midline Respiratory/Thorax: good chest expansion, thorax symmetric Cardiovascular: Regular heart rate Abdominal: Incisions intact and clean, nondistended, soft, normal incisional tenderness, large pannus Musculoskeletal: ROM intact, no joint swelling Extremities: Grossly normal extremities Neurological: alert and oriented x3, intact senses Psychological: Appropriate mood and behavior Skin: Warm and dry, no lesions, no rashes Recent Lab Results: Results: CBC: 02/14/2022 06:30 \ Hgb / \ 13.2 / WBC Plt 10.5 317 / Hct \ / 40.8 \ RBC: 4.43 MCV: 92 Neutrophil %: 75.7 Assessment and Plan: Comorbidities: Comorbidityobesity Obesitymorbid obesity (BMI 40+) BMI41.66 Code Status: Code StatusFull Code Assessment: 32F hx of class 3 obesity s/p robotic sleeve POD 1 - Advance diet to include full liquids if esophagram does not show leak or obstruction - Zofran every 6 hours for nausea - Protonix 40mg IV daily - Tylenol and oxycodone for pain. Dilaudid as needed for breakthrough pain - IV fluid support with lactated ringers - Encourage IS/Ambulation - Begin discharge planning Electronic Signatures: Kamari Smith) (Signed 15-Feb-2022 09:59) Co-Signer: Service, Subjective Data, Objective Data, Assessment and Plan, Note Completion Sunday Burrell) (Signed 14-Feb-2022 07:03) Authored: Service, Subjective Data, Objective Data, Assessment and Plan, Note Completion Last Updated: 15-Feb-2022 09:59 by Kamari Smith) Normal [facility] Discharge Crsyjhp6ly 11-24-2 022 Discharge Profile2 Discharge Orders: Anticipated Discharge Date: Anticipated Discharge [id number] DNAR: Code Status at Discharge: Full Code Additional Orders: Additional Instructions Medications: - Medications should be crushed and mixed with full liquids. Capsules may be opened and mixed with full liquids. - Extended release medications should not be taken. Please contact your primary care physician to convert extended release medications to immediate release form. - Take 650mg Tylenol (liquid preferred) every 6 hours for pain. Take between doses of your opioid pain medication. Try to limit the use of your opioid pain medication and only take as needed. - Slowly add your vitamins to your daily medication regimen as tolerated. You do not have to take them within the first few days after surgery if they are causing you nausea or other problems. - If you have medications that you still cannot tolerate by your first visit with your surgeon or dietitian, please discuss this. - You should be receiving or already have received the following medications for your postoperative course: a proton pump inhibitor for acid suppression (omeprazole, esomeprazole, pantoprazole), antinausea medication (ondansetron, metoclopramide), and pain medication (oxycodone, morphine, hydromorphone, hydrocodone). If you are missing any of these, please call the office immediately so we can prescribe them for you. - OPEN UP OMEPRAZOLE CAPSULES AND SPRINKLE THEM IN WATER PRIOR TO TAKING. IF YOU HAD BARIATRIC SURGERY, YOU WILL CONTINUE THIS MEDICATION FOR AT LEAST 6 MONTHS. Constipation - Take fiber (benefiber or metamucil) twice daily. Please also take colace (docusate) twice a day while taking oxycodone or other opiates. If you remain constipated despite these medications, please take milk of magnesia and call the office to notify us. Activity instructions: - No lifting, pulling, or pushing objects greater than 15 pounds for 4 weeks. - Activity otherwise as tolerated. - You may shower. Soap and water may run over your incisions. Pat dry. No submerging in baths or swimming (activities that keep your incisions underwater) for at least two weeks. - You may not drive while taking narcotics. Diet: - You will go home on a full liquid diet (similar to the diet you were on your final day in the hospital) - You will stay on this full liquid diet for two weeks. Acceptable full liquids include protein shakes, sugar free jello, sugar free pudding, and creamy soups (no chunks). You will continue to drink clear liquids including water and crystal light. You should aim for 64 ounces of fluid per day, with about half of this being full liquids and half of this being clear liquids. Do not exceed 8 oz per hour. - After two weeks, you should have a discussion with the can dryer about progressing to a combination of full liquid and pureed foods. - Follow a healthy bariatric diet. Target 5 meals per day (3 mid size meals and two small meals). Avoid concentrated sweets (candy, soda) and limit carbohydrate intake with a preference for healthy proteins (lean meats, beans - For further information, follow the diet instructions listed in your bariatric surgery instruction packet. Call Provider If: - Breathing faster or harder than normal. - Fever of 100.4 F (38 C) or higher or feeling of chills. - Feeling very sleepy and difficult to awaken. - Inability to drink or significant decrease in ability to drink since discharge. - Vomiting (throwing up) and not able to eat or drink for 12 hours. - Urinating much less than your normal. - More than 4 loose, watery bowel movements in 24 hours (diarrhea). - Any new concerning symptoms. Hospital Course (Home Care/Gold Form): Hospital Course: Hospital Course: include significant abnormal lab values The patient is a pleasant 32y/o female with class 3 obesity and obesity-related comorbidities who presented for elective laparoscopic sleeve gastrectomy on 02/14/22. The patient tolerated the procedure well with no complications post-operatively . The patient tolerated clear liquids. The patient then tolerated full liquids and continued to do well consuming at least 6-8 1oz cups of fluid over 3 hours consecutively, ambulating, voiding, and with pain and nausea under control. The patient was discharged home on POD#1 in satisfactory condition. Provider FINAL REVIEW of Orders: Final Review: Final Review of Medication Reconciliation and Orders Completedby Physician Reviewing ProviderSunday Burrell MD at 14-Feb-2022 07:06:14 Electronic Signatures: Kamari Smith) (Signed 15-Feb-2022 09:59) Co-Signer: Discharge Orders, Hospital Course (Home Care/Gold Form), Provider FINAL REVIEW of Orders, Gold Form - Aquatic Laborer Summary Sunday Burrell) (Signed 14-Feb-2022 07:06) Authored: Discharge Orders, Hospital Course (Home Care/Gold Form), Provide (more content not included)... Normal [facility] Laboratory - Chemistry and C hemistry - challengeon 02-14-2022 Albumin BCP dye [Mass/Vol] 3.8 g/dL 3.4 - 5.0 YL-Jneegeg-T arma [id number] 303 Work Phone: ALP [Catalytic activity/Vol] 55 U/L 33 - 110 KH-Beicxtk-J arma [id number] 303 Work Phone: ALT With P-5'-P [Catalytic activity/Vol] 18 U/L 7 - 45 HO-Eqkebpx-T arma MAC2 303 Work Phone: Comment on above: Patients treated wit h Sulfasalazine may generate falsely decreased results for ALT. Anion gap [Moles/Vol] 11 mmol/L 10 - 20 YQ-Lekebal-P arma MAC2 303 Work Phone: AST With P-5'-P [Catalytic activity/Vol] 14 U/L 9 - 39 RA-Wfqysva-G arma MAC2 303 Work Phone: Bilirubin [Mass/Vol] 0.3 mg/dL 0.0 - 1.2 IF-Znqjltm-Q arma MAC2 303 Work Phone: Calcium [Mass/Vol] 8.3 mg/dL below low threshold 8.6 - 10.3 BQ-Wsrjuiw-E arma MAC2 303 Work Phone: Chloride [Moles/Vol] 106 mmol/L 98 - 107 BB-Rcflqsc-L arma MAC2 303 Work Phone: CO2 [Moles/Vol] 27 mmol/L 21 - 32 MG-Surger y-P arma MAC2 303 Work Phone: Creatinine [Mass/Vol] 0.70 mg/dL See Below UY-Zfxichs-C arma MAC2 303 Work Phone: Comment on above: Reference Range: 0.5 0 - 1.05 Glucose [Mass/Vol] 114 mg/dL above high threshold 74 - 99 UE-Lktdyqo-Y arma MAC2 303 Work Phone: Potassium [Moles/Vol] 4.1 mmol/L 3.5 - 5.3 OS-Rdyjqej-Q arma MAC2 303 Work Phone: Protein [Mass/Vol] 6.3 g/dL below low threshold 6.4 - 8.2 CQ-Mwcmctu-H arma MAC2 303 Work Phone: Sodium [Moles/Vol] 140 mmol/L 136 - 145 MG-Danica jose-P arma MAC2 303 Work Phone: Urea nitrogen [Mass/Vol] 4 mg/dL below low threshold 6 - 23 DD-Ocbobzn-J arma MAC2 303 Work Phone: No Panel Informationon 02-14 >90 >90 GK-Evcxlak-A arma MAC2 303 Work Phone: Comment on above: CALCULATIONS OF YOGI MATED GFR ARE PERFORMED USING THE 2020 CKD-EPI STUDY REFIT EQUATION WITHOUT THE RACE VARIABLE FOR THE IDMS-TRACEABLE CREATININE METHODS.https://jasn.asnjournals.org/content//ASN. 5904032382 Order Reconciliationon 02-14 Order Reconciliation Page 1 Discharge Reconciliation Document Reconciliation Type: Discharge requested on behalf of Sunday Burrell (Physician) done by Sunday Burrell) Discharge - Reconciliation: 14-Feb-2022 07:05 by: Sunday Burrell) Current OrdersDateHOME MEDICATIONS AT DISCHARGE DateReconciliation Comment/ Additional Information Acetaminophen Oral Liquid (TYLENOL)DOSE = 650 mg Oral Every 4 Hours 12-Feb-2022 12:40 acetaminophen 160 mg/5 mL oral liquid 20.31 milliliter(s) orally every 4 hours 14-Feb-2022 07:04 Acetaminophen Oral Liquid is continued as acetaminophen 160 mg/5 mL oral liquid ceFAZolin 2 gram/ D5W 100 mL Premix IVPB (ANCEF)OnceRecommended Infusion Time: 30 minute(s)Clinician Notes: PRE-OP 02/13/2212-Feb-2022 10:09 ceFAZolin 2 gram/ D5W 100 mL Premix IVPB is not required ceFAZolin 2 gram/ D5W 100 mL Premix IVPB (ANCEF)OnceRecommended Infusion Time: 30 minute(s)Clinician Notes: To be given 1 hour preoperatively when patient is placed on-call to the OR. 12-Feb-2022 12:37 ceFAZolin 2 gram/ D5W 100 mL Premix IVPB is not required Dextrose 5% - NaCL 0.45% with Potassium CL 20 mEq Premix Fluid IV Bag Volume = 1,000 mL Run at: 150 mL/hr IntraVenous 13-Feb-2022 13:38 Dextrose 5% - NaCL 0.45% with Potassium CL 20 mEq Premix Fluid is not required Heparin SubCutaneous DOSE = 5,000 unit(s) SubCutaneous Every 8 HoursNotes from Pharmacy: Note Concentration Prior to Administration 12-Feb-2022 12:40 Heparin SubCutaneous is not required hydrALAZINE (APRESOLINE) Injectable DOSE = 5 mg IntraVenous Push Every 4 Hours, PRN SBP >160 12-Feb-2022 12:40 hydrALAZINE (APRESOLINE) Injectable is not required HYDROmorphone Injectable (DILAUDID)DOSE = 0.5 mg IntraVenous Push Every 2 Hours, PRN Breakthrough pain 12-Feb-2022 12:40 HYDROmorphone Injectable is not required Ketorolac Injectable (TORADOL)DOSE = 15 mg IntraVenous Push Every 6 HoursStop After 6 Doses 12-Feb-2022 12:40 Ketorolac Injectable is not required Metoclopramide Injectable (REGLAN)DOSE = 5 mg IntraVenous Push Every 6 Hours 12-Feb-2022 12:40 Metoclopramide Injectable is not required Ondansetron Injectable (ZOFRAN)DOSE = 4 mg IntraVenous Push Every 6 Hours 12-Feb-2022 12:40 Ondansetron Injectable is not required oxyCODONE Oral Liquid (ROXICODONE)DOSE = 5 mg Oral Every 6 Hours, PRN Pain - Mod (4-6) 12-Feb-2022 12:40 oxyCODONE 5 mg/5 mL oral solution 5 milliliter(s) orally every 6 hours, As needed, Pain - Mod (4-6) 14-Feb-2022 07:04 oxyCODONE Oral Liquid is continued as oxyCODONE 5 mg/5 mL oral solution Pantoprazole Injectable (PROTONIX)DOSE = 40 mg IntraVenous Push Every 24 Hours 12-Feb-2022 12:40 Pantoprazole Injectable is not required All Active Home Medications at time of Discharge Reconciliation: 14-Feb-2022 07:05 acetaminophen 160 mg/5 mL oral liquid 20.31 milliliter(s) orally every 4 hours oxyCODONE 5 mg/5 mL oral solution 5 milliliter(s) orally every 6 hours, As needed, Pain - Mod (4-6) Normal [facility] ABO/RH GROUP TESTon 11-23-20 22 ABO TYPE O Normal [facility] Comment on above: Performed By: #### V ERAB #### [facility] [address] [place] [address] RH TYPE Positive Normal [facility] Comment on above: Performed By: #### V ERAB #### [facility] [address] [place] [address] Admission Risk Screen - Adul ton 2022 Admission Risk Screen - Adult Allergies: Allergies: No Known Allergies: Patient Verification: New W ID Band Applied in my Departmentno Type of ID Patient is WearingW wristband, but not applied here Patient Transferred from Other Facility ([facility], [facility],etc)no Patient Identity Verified Bypatient ID Band FULL Name, include Middle, spelling matches patient's ID used for verificationyes ID Band Matches Patient ID used for Verficationyes ID Band MRN Matches EMR MRNyes Visitor Restriction: Coronavirus Visitor Restriction: Reasonable restrictions to in-person visitors will be observed due to current coronavirus pandemic. Travel History: COVID-19 Screening Completedno exposure or symptoms(1) Travel or Exposure Past 30 DaysNO travel to International locations in the past 30 days Ebola AlertFor Ebola-like Symptoms: Isolate Patient and Notify Provider/Hairspring I Inspector For Contact: Notify Provider/Hairspring I Inspector Advance Directive: Advance Directive/DNRno Advance Directive Information Givenpatient/family declined Gray Fall Screen: History of falling (immediate or previous)no (0) Secondary Diagnosisyes (15) Intravenous Therapy/ Heparin/Saline Lockyes (20) Gait/Transferringnormal/be drest/wheelchair (0) Ambulatory Aidsnone/bedrest/nurse assist (0) Mental Statusoriented to own ability (0) Score: Low risk (<25). Moderate risk (25-44). High risk (>44).35 Gray InterventionsMODERATE INTERVENTIONS: *Low Interventions Plus: * falls risk band/sticker applied to patient, *yellow non-skid footwear, *instruct to call for assistance before getting out of bed, *bed/chair/bedside commode/toilet alarms, *sensory devices/ambulatory aides available and in reach, *medications reviewed for potential side effects and care planning. Family Violence Screen: Are you or have you been threatened or abused physically, emotionally, or sexually by anyoneno Do you feel UNSAFE going back to the place where you are livingno Clinical assessment: Are there any apparent signs of injuries/behaviors that could be related to abuse/neglectno Social Service Consult for abuse/neglect needed this visitno Functional Screen: Functional Screen: In the recent/past 2-4 weeks, patient or family have noticedno issues that require a speech/language consult at this time AM-PAC- Basic Mobility/Daily Activity: Patient baseline bedboundno Turning from your back to your side while in a flat bed without using bedrailsnone Moving from lying on your back to sitting on the side of a flat bed without using bedrailsa little Moving to and from bed to chair (including a wheelchair)a little Standing up from a chair using your arms (e.g. wheelchair or bedside chair)a little To walk in hospital rooma little Climbing 3-5 steps with railinga little Basic Mobility - Total Score19 Putting on and taking off regular lower body clothinga little Bathing (including washing, rinsing, drying)a little Putting on and taking off regular upper body clothingnone Toileting, which includes using toilet, bedpan or urinala little Taking care of personal grooming such as brushing teethnone Eating Mealsnone Daily Activity - Total Score21 Learning Assessment (Patient): Patient is Able to be Assessed for Learningyes Factors Influencing Readiness to Learnacuteness of illness Factors that Impact Ability to Learnnone Devices/Methods Used to Communicatenone Learning Preferencesverbal instruction; written material Cultural Considerationsnone Developmental Considerationsnone Shinto Considerationsnone Other Learnerssignificant other Learning Assessment (Other Learner): Other learner availableyes... Learnersignificant other Factors Influencing Readiness to Learnacuteness of illness Factors that Impact Ability to Learnnone Devices/Methods Used to Communicatenone Learning Preferencesverbal instruction, written material Cultural Considerationsnone Developmental Considerationsnone Shinto Considerationsnone Depression Screen: During the past month, have you often been bothered by feeling down, depressed or hopelessno During the past month, have you often had little interest or pleasure in doing thingsno Have you had any thoughts of harming anyone elseno [place] Suicide: Risk Screen Not Applicable/Able to Answerable to be screened In the Past Month: Have you wished you were or could go to sleep and not wake upno(1) In the Past Month: Have you had any actual thoughts of killing yourself no(1) Lifetime: Have you ever done, started to do, or prepared to do anything to end your lifeno(1) [place] Suicide Risknegative Adult Nutrition Screen: Have you recently lost weight without tryingno Have you been eating poorly because of a decreased appetiteno Malnutrition Screening Tool Score0 Malnutrition Screening Tool RiskMST = 0 or 1 Not at risk. Eating well with little or n (more content not included)... Normal [facility] Laboratory - Blood bankon ABO group Nom (Bld) O MG-Wright rgery-P arma MAC2 303 Work Phone: Rh immune globulin screen (Bld) [Interp] Positive RW-Gyqleto-W arma MAC2 303 Work Phone: No Panel Informationon 02-13 GU-Izbdajr-W arma MAC2 303 Work Phone: Order Reconciliationon 02-13 Order Reconciliation Page 1 Admission Reconciliation Document Reconciliation Type: Admission requested on behalf of Sunday Burrell (Physician) done by Sunday Burrell) Admission - Reconciliation: 13-Feb-2022 10:05 by: Sunday Burrell) No Current Medications. Additional Current Orders Acetaminophen Oral Liquid (TYLENOL)DOSE = 650 mg Oral Every 4 Hours ceFAZolin 2 gram/ D5W 100 mL Premix IVPB (ANCEF)Every 8 HoursRecommended Infusion Time: 30 minute(s)Stop After 2 DosesClinician Notes: Start 8 hours after preop dose given. ceFAZolin 2 gram/ D5W 100 mL Premix IVPB (ANCEF)OnceRecommended Infusion Time: 30 minute(s)Clinician Notes: PRE-OP 02/13/22 ceFAZolin 2 gram/ D5W 100 mL Premix IVPB (ANCEF)OnceRecommended Infusion Time: 30 minute(s)Clinician Notes: To be given 1 hour preoperatively when patient is placed on-call to the OR. Dextrose 5% - NaCL 0.45% with Potassium CL 20 mEq Premix Fluid IV Bag Volume = 1,000 mL Run at: 150 mL/hr IntraVenous Dextrose 5% - NaCL 0.45% with Potassium CL 20 mEq Premix Fluid IV Bag Volume = 1,000 mL Run at: 150 mL/hr IntraVenous Heparin SubCutaneous DOSE = 5,000 unit(s) SubCutaneous Every 8 Hours Heparin SubCutaneous DOSE = 5,000 unit(s) SubCutaneous OnceClinician Notes: preop hydrALAZINE (APRESOLINE) Injectable DOSE = 5 mg IntraVenous Push Every 4 Hours, PRN SBP >160 HYDROmorphone Injectable (DILAUDID)DOSE = 0.5 mg IntraVenous Push Every 2 Hours, PRN Breakthrough pain Ketorolac Injectable (TORADOL)DOSE = 15 mg IntraVenous Push Every 6 HoursStop After 6 Doses Metoclopramide Injectable (REGLAN)DOSE = 5 mg IntraVenous Push Every 6 Hours Ondansetron Injectable (ZOFRAN)DOSE = 4 mg IntraVenous Push Every 6 Hours oxyCODONE Oral Liquid (ROXICODONE)DOSE = 5 mg Oral Every 6 Hours, PRN Pain - Mod (4-6) Pantoprazole Injectable (PROTONIX)DOSE = 40 mg IntraVenous Push Every 24 Hours Normal [facility] Patient Profile - Adult v2on 2022 Patient Profile - Adult v2 Profile: Initial Info: How to be AddressedSAM(1) Spoken Language PreferredEnglish (1) Source of Informationpatient; family Stated Reason for AdmissionI had surgery Wants Family/Rep Notified of Admissionn/a; family present Notify PCPnotify PCP Informed of Patient Visiting Rightsyes Arrived Fromemergency department Patient Belongingsremains with patient Patient Belongings Remaining with Patientvision aids Medications Brought to Hospitalno General Health: Blood Avoidance/Restrictionsnone (1) Previous Transfusion Reactionnot applicable(1) Weight in kg110 kilogram(s) Weight in jgv744.5 pound(s) Weight Methodactual (measured) Scale Typestanding Height in cm162.5 centimeter(s) Height in feet5 feet Height in inches3.98 inch(es) Height Methodstated BMI (kg/m2)41.656 square meter RSP Based Care: How would you like to participate in your care/ What is the number one concern for you during this hospitalization/ What is the most important thing we can do to support you during this hospitalization/ Is there anything we need to know to best care for you/ Substance: Smoking Statusnever smoker Alcohol Usedenies Health Mgmt: Symptoms/Conditions Managed at [facility] Are You no (2) Are You Currently Breastfeedingno (2) Relationship/Environ: Resource/Environmental Concernsnone Primary Source of Support/Comfortsignificant other Lives Withsignificant other; dependent child(remi) Living Arrangementshouse Services Anticipated at Transitionnone Anticipated Transition Tohome Significant IndicatorsComplete Information Review: Allergies, Home Meds and Significant Events have been Reviewed and Verified with Patient/Familyyes ALLERGY, INTOLERANCE, ADVERSE EVENT: Allergies: No Known Allergies: Active Electronic Signatures: Sushila Lacey (LIZANDRO) (Signed 13-Feb-2022 12:39) Authored: Initial Info, General Health, RSP Based Care, Substance, Health Mgmt, Relationship/Environ, Additional Information Last Updated: 13-Feb-2022 12:39 by Sushila Lacey (LIZANDRO) References: 1. Data Referenced From Patient Profile - Preop v3 12-Feb-2022 12:08 2. Data Referenced From History and Physical - Surgical Update < 30 days 12-Feb-2022 12:34 Normal [facility] Surgical Pathology Depar tmenton 2022 [facility] Surgical Pathology Department Name LIANE RILEY Pathologist: RILEY ARREDONDO MD Date of Procedure: 2022 Date Received: 2022 Date Reported 02/26/2022 Submitting Physician: KAMARI SMITH MD Location: [facility] Other External # FINAL DIAGNOSIS A. PORTION OF STOMACH, SLEEVE GASTRECTOMY: -- GASTRIC BODY TYPE MUCOSA WITH NO SIGNIFICANT DIAGNOSTIC ALTERATION. -- NO MORPHOLOGIC EVIDENCE OF HELICOBACTER PYLORI-LIKE ORGANISMS. Electronically Signed Out By RILEY ARREDONDO MD/SKRISTA By the signature on this report, the individual or group listed as making the Final Interpretation/Diagnosis certifies that they have reviewed this case. Diagnostic interpretation performed at [facility] [address] [place] [address] Clinical History: Physician Contact Number: [phone] Ischemic Time (A): 09:52 Fixative (A): Formalin Fixative Time (A): 09:59 Clinical Diagnosis History OBESE Specimens Submitted As: A: PORTION OF STOMACH Gross Description: Received in formalin, labeled with the patient's name and hospital number and A, portion of stomach , is an un-oriented portion of stomach with a minimal amount of attached fibroadipose tissue measuring 24.7 x 4.2 x 2.7 cm. The stomach contains blood. Along one edge are multiple staple lines. The serosal aspect is predominantly smooth and glistening. The wall measures 0.2 cm in thickness. The mucosa demonstrates normal rugal folds. Upon palpation of the attached fibroadipose tissue, lymph nodes are not identified. Corporate Trainer sections are submitted in 3 cassettes. ROSHAN roshan/02/14/2022 [facility] Department of Pathology [address] [place] [address] Normal [facility] Comment on above: Performed By: #### P TH #### [address] [id number] CORONAVIRUS 2019, SCREEN ASY MPTOMATICon 02-12-2022 SARS-CoV-2 (COVID-19) RNA SHAR+probe Ql (Unsp spec) Not detected Normal Not Detected [facility] Comment on above: Result Comment: . This assay is designed to detect the ORF1a/b and E genes of SARS-CoV-2 via nucleic acid amplification. A Not Detected result does not preclude 2019-nCoV infection since the adequacy of sample collection and/or low viral burden may result in presence of viral nucleic acids below the clinical sensitivity of this test method. Fact sheet for providers: https://www.fda.gov/media/578839/download Fact sheet for patients: https://www.fda.gov/media/471857/download This test has received FDA Emergency Use Authorization (EUA) and has been verified for use by [facility] ([facility]). This test is only authorized for the duration of time that circumstances exist to justify the authorization of the emergency use of in vitro diagnostic tests for the detection of SARS-CoV-2 virus and/or diagnosis of COVID-19 infection under section 564(b)(1) of the Act, 21 U.S.C. 360bbb-3(b)(1), unless the authorization is terminated or revoked sooner. [facility] is certified under CLIA-88 as qualified to perform high complexity testing. Testing is performed in the [facility] laboratories located at [id number] [place] [address]. Performed By: #### C OVSC #### [address] [place] [address] Covid 19 Resultson 2 SARS-CoV-2 (COVID-19) RNA SHAR+probe Ql (Unsp spec) NEGATIVE COVID-19 Test Coronaviruses are common world-wide and are the cause of many common colds. SARS-COV2 is a new coronavirus that began circulating worldwide in 2019 so we are calling it COVID-19. It has been estimated that four out of five patients with COVID-19 will recover at home without the need for medical attention. Symptoms of COVID-19 may include cough, fever, shortness of breath, loss of taste or smell and other flu-like symptoms including chills, sore muscles, sore throat, and headache. Severe illness is more common in older people and people with other health problems such as high blood pressure, obesity, and immune system problems. If the test is positive, you have COVID-19. You will be contacted by the ordering physicians office and instructed to remain on home isolation, in accordance with CDC guidelines. You may also be contacted by the [place] Department of Health to see if any of your close contacts may have been exposed to the virus and need to quarantine. If the test is negative, you likely do not have COVID-19 at this time, but you still may have a different illness that can spread to other people (like Influenza, or the Flu) and could still be at risk for getting COVID-19. We recommend that you stay away from other people to limit the spread of illness until your symptoms are improving and you are fever-free for 24 hours without the use of fever lowering medications such as acetaminophen or ibuprofen. No test is 100% accurate so if you are still concerned you may have COVID-19, talk to your doctor about the need to continue to stay away from others. Medicines Unless your provider told you not to use the following: Acetaminophen (Tylenol and others) is generally safe. Anti-inflammatory medications, such as Ibuprofen (Advil or Motrin) or Naproxen (Aleve) can also be used. Iexp-lem-bevtzhy cough and cold medicines can be used according to the instructions on the package. Some rzos-mzk-faswzus medicines also contain acetaminophen. Make sure you are not taking more than your recommended dose. For those not hospitalized, there is no specific treatment available for this illness. Antibiotics do not treat Coronaviruses. Follow-Up Follow up with your doctor by scheduling a virtual visit or consider follow-up at one of our urgent care fever clinics. If you are having difficulty breathing, or are very weak and having difficulty standing, this is a medical emergency. Call 911 or have someone take you to the nearest emergency room immediately. If possible, wear a facemask. Additional guidance from the CDC for patients who tested POSITIVE for COVID-19 How to isolate: Isolate yourself in a specific room at home and limit your contact with others. Use a separate bathroom from other members of the household, when possible. Leave home only to get essential medical care. Do not go to work, school or public areas. Avoid using public transportation, ride-sharing, or taxis. Restrict contact with pets and other animals. If you must care for your pet or be around animals while you are sick, wash your hands before and after your interaction and wear a facemask. Make sure that shared spaces in the home have good airflow, such as by an air conditioner or an opened window, weather permitting. Personal Hygiene Procedures: Wear a face mask when in the same room as other people or pets. If a face mask interferes with your breathing, others should wear a mask when sharing space with you. Frequent hand-washing: wash your hands with soap and water for at least 20 seconds. If soap and water are not available, use alcohol-based hand furniture packer. Avoid touching your eyes, nose, and mouth with unwashed hands. Household Hygiene Procedures: Avoid sharing personal household items such as dishes, glassware, cups, eating utensils, towels or bedding with other people or pets in your home. After use, these items should be washed with soap and hot water. Disinfect all high-touch surfaces every day with antibacterial cleaning solutions such as Lysol wipes, bleach, cleansers, etc. High-touch surfaces include tabletops, doorknobs, bathroom fixtures, toilets, phones, keyboards, tablets and bedside tables. Immediately clean any surfaces that may have blood, poop or body fluids on them, using antibacterial cleaning solutions such as Lysol wipes, bleach, cleansers, etc. If clothing or bedding come into contact with blood, poop or body fluids, they should be washed immediately. Follow the directions on the laundry detergent and clothing labels but hot water is recommended when possible. Stopping home isolation precautions: If possible, consult your doctor before stopping home isolation precautions. According to the CDC, you can discontinue home isolation precautions when you have met both of these criteria: Your fever and respiratory symptoms have been gone for 24 yesi (more content not included)... Normal [facility] Patient Profile - Preop v3on 02-12-2022 Patient Profile - Preop v3 Patient Profile - Preop: Initial Info: Patient DemographicsName: LIANE RILEY Date: 1990 [facility] [place] [address] Primary Phone [phone] Call Attemptedleft message Instructions Giventime to arrive, Left message with arrival time of 0745 for surgery time of 0900. Pt instructed to review preop instructions and call back to confirm she received message. How to be AddressedSAM Spoken Language PreferredEnglish Source of Informationpatient Stated Reason for Admissionbariatric sleeve surgery Primary Contact Name and Numbersee face sheet Limitations on Visitors/Phone Callsnone Medications Brought to Hospitalno General Health: Weight in kg110 kilogram(s) Weight in stm315.5 pound(s) Height in feet5 feet Height in inches3.98 inch(es) Height in cm162.5 centimeter(s) BMI (kg/m2)41.656 square meter Patient or Family Member Reaction to Anesthesiano previous reaction Blood Avoidance/Restrictionsnone Previous Transfusion Reactionnot applicable Health Mgmt: Symptoms/Conditions Managed at Homegastrointestinal; obstetric/gynecologic Are You no Are You Currently Breastfeedingno Gastrointestinal Symptoms/ConditionsEGD 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 Symptoms/Conditionsc-secti on Barriers to Managing Healthnone Relationship/Environ: Lives Withsignificant other Living Arrangementshouse Resource/Environmental Concernsnone Anticipated Transition Toinpatient acute unit Services Anticipated at Transitionnone Tobacco Use: Tobacco Useno Pre-op Checklist: Arrival [id number] Arrival Time07:45 Procedure Typesleeve bariatric surgery NPOyes Last Food [id number] 19:00 Last Clear Fluid [id number] 19:00 ID Band On Patientpatient ID (name) Consent Signedyes H&P Completeyes Anesthesia Assessment Completedpending EKG Performedsee results tab Preop Antibioticssent to OR COVID 19 Results in Last 7 daysnegative HCG Urine TestComplete Chlorhexadine Bath Givencompleted at home Surgical Site Infection Preventionyes Pain Scales and Managementyes Additional Information: Information Review: Allergies, Home Meds and Significant Events have been Reviewed and Verified with Patient/Familyyes Allergy, Intolerance, Adverse Event: Allergies: No Known Allergies: Active Electronic Signatures: Lisa Duran (MIKE) (Signed 13-Feb-2022 07:57) Authored: Initial Info, General Health, Health Mgmt, Relationship/Environ, Tobacco Use, Pre-op Checklist, Additional Information Roxanne Leblanc) (Signed 12-Feb-2022 12:11) Authored: Initial Info, Additional Information Last Updated: 13-Feb-2022 07:57 by Lisa Duran (MIKE) Normal [facility] CORONAVIRUS 2019, SCREEN ASY MPTOMATICon 02-11-2022 Lab Specimen Source Nasal, Nasopharyngeal Normal [facility] Comment on above: Performed By: #### C OVSC #### [facility] [address] [place] [address] Coronavirus 2019 RNA by PCR, Screening Asymptomticon 02-11-2022 Coronavirus 2019 RNA by PCR, Screening Asymptomtic Not detected Normal See Below BM-Xqezqio-C arma MAC2 303 Work Phone: Comment on above: SOURCE: Nasal, Nasop haryngealReference Range: Not Detected.This assay is designed to detect the ORF1a/b and E genes of SARS-CoV-2 via nucleic acid amplification. A Not Detected result does not preclude 2019-nCoV infection since the adequacy of sample collection and/or low viral burden may result in presence of viral nucleic acids below the clinical sensitivity of this test method. Fact sheet for providers: https://www.fda.gov/media/909534/download Fact sheet for patients: https://www.fda.gov/media/634648/download This test has received FDA Emergency Use Authorization (EUA) and has been verified for use by [facility] ([facility]). This test is only authorized for the duration of time that circumstances exist to justify the authorization of the emergency use of in vitro diagnostic tests for the detection of SARS-CoV-2 virus and/or diagnosis of COVID-19 infection under section 564(b)(1) of the Act, 21 U.S.C. 360bbb-3(b)(1), unless the authorization is terminated or revoked sooner.[facility] is certified under CLIA-88 as qualified to perform high complexity testing. Testing is performed in the [facility] laboratories located at [address] [place] [address]. Bariatric Surgery - Pre Opon 02-07-2022 Bariatric Surgery - Pre Op Diagnoses/Problems Assessed Bariatric surgery status (V45.86) (Z98.84) Obesity, morbid (more than 100 lbs over ideal weight or BMI > 40) (278.01) (E66.01) PCOS (polycystic ovarian syndrome) (256.4) (E28.2) Orders Bariatric surgery status Start: Omeprazole 40 MG Oral Capsule Delayed Release; TAKE 1 CAPSULE Daily Open capsule, sprinkle in SF applesauce or pudding, swallow. DO NOT CHEW CARE AFTER WEIGHT LOSS SURGERY - SHIRLENE; Status:In Progress; Done: 04Feb2022 Post-operative nausea and vomiting Start: Ondansetron 4 MG Oral Tablet Disintegrating; 1-2 tablets every 6-8 hours as needed for nausea Patient Discussion/Summary Surgery planned: gastric sleeve surgery. Pre Op Patient Discussion Reread your pre op manual to be familiar with pre op and post op expectations. Follow the pre op diet exactly so your liver shrinks down prior to your surgery. Obtain the over the counter items you need in the home prior to your surgery. Purchase a variety of clear and full liquids as your taste may differ after surgery. Freeze foods in ice cube trays so you have meals ready for after surgery. 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 Be certain you have an appointment with your medical doctors who will need to tweak your prescription medications after surgery as you drop weight rapidly. Make sure you have follow up appointments 1-2 weeks after surgery and at the 6 week trace. Call phone # [phone] for any questions. You are scheduled for a: Sleeve Gastrectomy with Dr. Smith on 2022 YOU DO NOT NEED TO DO A BOWEL PREP. You will receive a phone call the day prior to surgery with your OR arrival time. Be sure to read over your Pre-Op book for final preparation for surgery. Make a shopping list and pick up driver your supplements prior to surgery. Electronic prescriptions were sent to your pharmacy. Prescriptions for Omeprazole (antacid), Oxycodone (pain), and Ondansetron (anti-Nausea) have been sent to your retail pharmacy. Pick these up, these are for after surgery. Be sure to take the omeprazole, open the capsule and sprinkle over SF applesauce and take every day. DO NOT MISS A DOSE. Call with any questions! [phone] for Jennifer. COVID-19 Risk Consent for: Provider has reviewed the risk of jonathan COVID-19 and the impact during the post-operative or post-procedure recovery process. Provider Impressions Patient ready for surgery preop assessments reviewed, labs reviewed and no contraindications noted to proceed with surgery. Patient is scheduled for Robotic/laparoscopic SG. RBAs discussed again. All questions answered. Tara-op care discussed. Consent obtained. Scripts given. Life style modification, diet, exercise for custodial success reiterated. Vitamin supplementation and dietitian followup for custodial success reiterated. Will proceed as planned. Risks including and not limited to bleeding, nausea, vomiting, weight regain, suboptimal weight loss, nutritional deficiencies, severe vitamin deficiencies, post op GERD and its sequelae including Vargas's esophagus, hair loss, lose skin, psychiatric issues, drinking problem and even discussed and all question answered. Chief Complaint The patient is being seen for pre operative visit. Type of surgery: Sleeve Gastrectomy . Surgery date: 02/13/22. Final pre op visit - sleeve gastrectomy scheduled for 02/13/22 Adult Risk ScreeningThere are no spiritual/cultural practices/values/needs that are important to know Initial Fall Risk Screening: LIANE has not fallen in the last 6 months. Living Will. Living Will: No living will on file. Healthcare POA: No healthcare proxy on file. Declaration of Mental Health Treatment: No mental health treatment on file. Tobacco Screening: Has not used tobacco in the past 6 months. History of Present Illness Type of Surgery: lap sleeve gastrectomy, surgery Date: 02/13/22. Weight:. Initial weight: 246 lbs. Last visit weight: 241 lbs. [place] weight 131 lbs. Target body weight 160 lbs. Severity of obesity is Class 3 which is a BMI of greater than or equal to 40. The following clearances were received - Cardiac: cleared and Psych: cleared. Sleep study results: no apnea. EGD findings: Z line regular @37; multiple 1-3mm semi-sessile polyps. no hiatal hernia, Vargas's esophagus not present. H. Pylori is negative. Lab results: Hgb: 14.6, Iron: 67/385/17, B12: 244, Vitamin D: 31, Hbg A1C: 5.1 and B1: 136. Lifestyle: tox screen negative. Comorbidities: depressed mood, infertility and polycystic ovarian syndrome. 31 year old female presenting today for final pre-op visit for sleeve gastrectomy. Patient has approximate BMI of 42 with related comorbidities of morbid obesity, PCOS, and Depression. Patient has met insurance requirements and has been medically optimized for surgery. Review of Systems Constitutional: no chills and no fever. Eyes: no blurred vision and no eyesight problems. (more content not included)... Normal [facility] CBC AND DIFFERENTIALon 02-07 % AUTOMATED IMMATURE GRAN 0.1 % Normal 0.0 - 0.9 [facility] Comment on above: Result Comment: Larissa ture Granulocyte Count (IG) includes promyelocytes, myelocytes and metamyelocytes but does not include bands. Percent differential counts (%) should be interpreted in the context of the absolute cell counts (cells/L). Performed By: #### C BCDF ####[facility] [place] [address] Basophils (Bld) [#/Vol] 0.02 10*3/uL Normal 0.00 - 0.10 [facility] Comment on above: Performed By: #### C BCDF ####[facility] [place] [address] Basophils/100 WBC (Bld) 0.2 % Normal 0.0 - 2.0 [facility] Comment on above: Performed By: #### C BCDF ####[address] [address] Eosinophils (Bld) [#/Vol] 0.04 10*3/uL Normal 0.00 - 0.70 [facility] Comment on above: Performed By: #### C BCDF ####[address] [address] Eosinophils/100 WBC (Bld) 0.5 % Normal 0.0 - 6.0 [facility] Comment on above: Performed By: #### C BCDF ####[address] [address] Erythrocyte distribution width (RBC) [Ratio] 12.3 % Normal 11.5 - 14.5 [facility] Comment on above: Performed By: #### C BCDF ####[address] [address] Hematocrit (Bld) [Volume fraction] 42.4 % Normal 36.0 - 46.0 [facility] Comment on above: Performed By: #### C BCDF ####[address] [address] Hemoglobin (Bld) [Mass/Vol] 14.2 g/dL Normal 12.0 - 16.0 [facility] Comment on above: Performed By: #### C BCDF ####[address] [address] Lymphocytes (Bld) [#/Vol] 2.48 10*3/uL Normal 1.20 - 4.80 [facility] Comment on above: Performed By: #### C BCDF ####[address] [address] Lymphocytes/100 WBC (Bld) 30.0 % Normal 13.0 - 44.0 [facility] Comment on above: Performed By: #### C BCDF ####[address] [address] MCHC (RBC) [Mass/Vol] 33.5 g/dL Normal 32.0 - 36.0 [facility] Comment on above: Performed By: #### C BCDF ####[address] [address] MCV (RBC) [Entitic vol] 89 fL Normal 80 - 100 [facility] Comment on above: Performed By: #### C BCDF ####[facility] [place] [address] Monocytes (Bld) [#/Vol] 0.39 10*3/uL Normal 0.10 - 1.00 [facility] Comment on above: Performed By: #### C BCDF ####[address] [address] Monocytes/100 WBC (Bld) 4.7 % Normal 2.0 - 10.0 [facility] Comment on above: Performed By: #### C BCDF ####[address] [address] Neutrophils (Bld) [#/Vol] 5.34 10*3/uL Normal 1.20 - 7.70 [facility] Comment on above: Performed By: #### C BCDF ####[address] [address] Neutrophils/100 WBC (Bld) 64.5 % Normal 40.0 - 80.0 [facility] Comment on above: Performed By: #### C BCDF ####[address] [address] NUCLEATED RBC 0.0 /100 WBC Normal 0.0 - 0.0 [facility] Comment on above: Performed By: #### C BCDF ####[address] [address] Platelets (Bld) [#/Vol] 305 10*3/uL Normal 150 - 450 [facility] Comment on above: Performed By: #### C BCDF ####[facility] [place] [address] RBC 4.74 x10E12/L Normal 4.00 - 5.20 [facility] Comment on above: Performed By: #### C BCDF ####[address] [address] WBC (Bld) [#/Vol] 8.3 10*3/uL Normal 4.4 - 11.3 [facility] Comment on above: Performed By: #### C BCDF ####[facility] [place] [address] COMPREHENSIVE PANELon 2021 Albumin [Mass/Vol] 4.4 g/dL Normal 3.4 - 5.0 [facility] Comment on above: Performed By: #### C MP #### [facility] [address] [place] [address] ALP [Catalytic activity/Vol] 62 U/L Normal 33 - 110 [facility] Comment on above: Performed By: #### C MP #### [facility] [address] [place] [address] ALT [Catalytic activity/Vol] 12 U/L Normal 7 - 45 [facility] Comment on above: Result Comment: [place] ents treated with Sulfasalazine may generate falsely decreased results for ALT. Performed By: #### C MP #### [facility] [address] [place] [address] Anion gap [Moles/Vol] 9 mmol/L Low 10 - 20 [facility] Comment on above: Performed By: #### C MP #### [facility] [address] [place], [place] [address] [address] AST [Catalytic activity/Vol] 13 U/L Normal 9 - 39 [facility] Comment on above: Performed By: #### C MP #### [facility] [address] [place] [address] Bilirubin [Mass/Vol] 0.4 mg/dL Normal 0.0 - 1.2 [facility] Comment on above: Performed By: #### C MP #### [facility] [address] [place] [address] Calcium [Mass/Vol] 9.1 mg/dL Normal 8.6 - 10.3 [facility] Comment on above: Performed By: #### C MP #### [facility] [address] [place] [address] Chloride [Moles/Vol] 104 mmol/L Normal 98 - 107 [facility] Comment on above: Performed By: #### C MP #### [facility] [address] [place] [address] Creatinine [Mass/Vol] 0.62 mg/dL Normal 0.50 - 1.05 [facility] Comment on above: Performed By: #### C MP #### [address] [address] eGFR FEMALE >90 Normal >90 [facility] Comment on above: Result Comment: CALC ULATIONS OF ESTIMATED GFR ARE PERFORMED USING THE 2020 CKD-EPI STUDY REFIT EQUATION WITHOUT THE RACE VARIABLE FOR THE IDMS-TRACEABLE CREATININE METHODS. https://jasn.asnjournals.org/content/early//ASN.22515253 88 Performed By: #### C MP #### [address] [address] Glucose [Mass/Vol] 87 mg/dL Normal 74 - 99 [facility] Comment on above: Performed By: #### C MP #### [address] [address] HCO3 (Bld) [Moles/Vol] 30 mmol/L Normal 21 - 32 [facility] Comment on above: Performed By: #### C MP #### [address] [address] Potassium [Moles/Vol] 4.2 mmol/L Normal 3.5 - 5.3 [facility] Comment on above: Performed By: #### C MP #### [address] [address] Protein [Mass/Vol] 6.9 g/dL Normal 6.4 - 8.2 [facility] Comment on above: Performed By: #### C MP #### [address] [place] [address] Sodium [Moles/Vol] 139 mmol/L Normal 136 - 145 [facility] Comment on above: Performed By: #### C MP #### [address] [address] Urea nitrogen [Mass/Vol] 13 mg/dL Normal 6 - 23 [facility] Comment on above: Performed By: #### C MP #### [address] [place] [address] Complete Blood Count + Diffe rentialon 02-07-2022 Basophils/100 WBC (Bld) 0.2 % 0.0 - 2.0 HV-Rmkkhpa-I arma MAC2 303 Work Phone: Erythrocyte distribution width (RBC) [Ratio] 12.3 % See Below OJ-Jnuzbkw-T arma MAC2 303 Work Phone: Comment on above: Reference Range: 11. 5 - 14.5 Hematocrit (Bld) [Volume fraction] 42.4 % See Below YE-Ekbzpxu-X arma MAC2 303 Work Phone: Comment on above: Reference Range: 36. 0 - 46.0 Hemoglobin (Bld) [Mass/Vol] 14.2 g/dL See Below PR-Qgwbgsl-R arma MAC2 303 Work Phone: Comment on above: Reference Range: 12. 0 - 16.0 Lymphocytes/100 WBC (Bld) 30.0 % See Below MZ-Psnnzlh-F arma MAC2 303 Work Phone: Comment on above: Reference Range: 13. 0 - 44.0 MCHC (RBC) [Mass/Vol] 33.5 g/dL See Below XK-Ncqkggl-O arma MAC2 303 Work Phone: Comment on above: Reference Range: 32. 0 - 36.0 MCV (RBC) [Entitic vol] 89 fL 80 - 100 TH-Pvpbnhl-L arma MAC2 303 Work Phone: Monocytes/100 WBC (Bld) 4.7 % 2.0 - 10.0 QH-Lgqnvwd-F arma MAC2 303 Work Phone: Neutrophils/100 WBC (Bld) 64.5 % See Below YT-Nuznkui-Q arma MAC2 303 Work Phone: Comment on above: Reference Range: 40. 0 - 80.0 Platelets (Bld) [#/Vol] 305 10*3/uL 150 - 450 BS-Dflozrr-L arma MAC2 303 Work Phone: RBC (Bld) [#/Vol] 4.74 {x10E12/L} See Below MG -Surgery-P arma MAC2 303 Work Phone: Comment on above: Reference Range: 4.0 0 - 5.20 WBC (Bld) [#/Vol] 8.3 10*3/uL 4.4 - 11.3 MG-Danica jose-P arma MAC2 303 Work Phone: Complete Blood Count + Differential 0.02 {x10E9/L} See Below NU-Agzpzhm-F arma MAC2 303 Work Phone: Comment on above: Reference Range: 0.0 0 - 0.10 Complete Blood Count + Differential 0.04 {x10E9/L} See Below JL-Ysoewdw-P arma MAC2 303 Work Phone: Comment on above: Reference Range: 0.0 0 - 0.70 Complete Blood Count + Differential 0.39 {x10E9/L} See Below JX-Koftewi-S arma MAC2 303 Work Phone: Comment on above: Reference Range: 0.1 0 - 1.00 Complete Blood Count + Differential 2.48 {x10E9/L} See Below WV-Oqacepb-E arma MAC2 303 Work Phone: Comment on above: Reference Range: 1.2 0 - 4.80 Complete Blood Count + Differential 5.34 {x10E9/L} See Below TB-Sokokfi-Q arma MAC2 303 Work Phone: Comment on above: Reference Range: 1.2 0 - 7.70 Complete Blood Count + Differential 0.5 % 0.0 - 6.0 ZH-Qymfnze-I arma MAC2 303 Work Phone: Complete Blood Count + Differential 0.1 % 0.0 - 0.9 AP-Nxkmtxm-U arma MAC2 303 Work Phone: Comment on above: Immature Granulocyte Count (IG) includes promyelocytes, myelocytes and metamyelocytes but does not include bands. Percent differential counts (%) should be interpreted in the context of the absolute cell counts (cells/L). Complete Blood Count + Differential 0.0 {/100_WBC} 0.0 - 0.0 KX-Pkhqhwe-I arma MAC2 303 Work Phone: Cult, Urineon 02-07-2022 Bacteria identified Cx Nom (U) YH-Idcyedh-O arma MAC2 303 Work Phone: Laboratory - Blood bankon ABO group Nom (Bld) O MG-Wright rgery-P arma MAC2 303 Work Phone: Blood group antibody screen Ql Negative WM-Bkgwzfd-G arma MAC2 303 Work Phone: Rh immune globulin screen (Bld) [Interp] Positive VZ-Awihice-I arma MAC2 303 Work Phone: Laboratory - Chemistry and C hemistry - challengeon 02-07-2022 Albumin BCP dye [Mass/Vol] 4.4 g/dL 3.4 - 5.0 EA-Fwzsaxv-E arma MAC2 303 Work Phone: ALP [Catalytic activity/Vol] 62 U/L 33 - 110 QU-Lbyulrq-A arma MAC2 303 Work Phone: ALT With P-5'-P [Catalytic activity/Vol] 12 U/L 7 - 45 DY-Kxuwusj-F arma MAC2 303 Work Phone: Comment on above: Patients treated wit h Sulfasalazine may generate falsely decreased results for ALT. Anion gap [Moles/Vol] 9 mmol/L below low threshold 10 - 20 WG-Sgvfvif-J arma MAC2 303 Work Phone: AST With P-5'-P [Catalytic activity/Vol] 13 U/L 9 - 39 SF-Wgxhzuj-N arma MAC2 303 Work Phone: Bilirubin [Mass/Vol] 0.4 mg/dL 0.0 - 1.2 OC-Umvzzob-J arma MAC2 303 Work Phone: Calcium [Mass/Vol] 9.1 mg/dL 8.6 - 10.3 MG-Danica jose-P arma MAC2 303 Work Phone: Chloride [Moles/Vol] 104 mmol/L 98 - 107 BO-Bfflqcg-P arma MAC2 303 Work Phone: CO2 [Moles/Vol] 30 mmol/L 21 - 32 MG-Surger y-P arma MAC2 303 Work Phone: Creatinine [Mass/Vol] 0.62 mg/dL See Below PC-Prxtenk-A arma MAC2 303 Work Phone: Comment on above: Reference Range: 0.5 0 - 1.05 Glucose [Mass/Vol] 87 mg/dL 74 - 99 MG-Danica jose-P arma MAC2 303 Work Phone: Potassium [Moles/Vol] 4.2 mmol/L 3.5 - 5.3 WJ-Mteqdmt-W arma MAC2 303 Work Phone: Protein [Mass/Vol] 6.9 g/dL 6.4 - 8.2 MG-Danica jose-P arma MAC2 303 Work Phone: Sodium [Moles/Vol] 139 mmol/L 136 - 145 MG-Danica jose-P arma MAC2 303 Work Phone: Urea nitrogen [Mass/Vol] 13 mg/dL 6 - 23 DF-Thnvrii-P arma MAC2 303 Work Phone: No Panel Informationon 02-07 >90 >90 CB-Xlftkyp-T arma MAC2 303 Work Phone: Comment on above: CALCULATIONS OF YOGI MATED GFR ARE PERFORMED USING THE 2020 CKD-EPI STUDY REFIT EQUATION WITHOUT THE RACE VARIABLE FOR THE IDMS-TRACEABLE CREATININE METHODS.https://jasn.asnjournals.org/content//ASN. 0238032275 TYPE + SCREENon 02-07-2022 ABO TYPE O Normal [facility] Comment on above: Performed By: #### T +S ####[facility] [place] [address] RH TYPE Positive Normal [facility] Comment on above: Performed By: #### T +S ####[facility] [place] [address] Tobacco Screening.on 022 Fall risk assessment a) No falls within the last year XZ-Xaxqttt-Y arma MAC2 303 Work Phone: Tobacco use status CPHS b) No MM-Wwbynhv-R arma MAC2 303 Work Phone: Tobacco Screening. Large MG-Danica jose-P arma MAC2 303 Work Phone: UA MICROSCOPICon 02-07-2022 BACTERIA 1+ /HPF Abnormal [facility] Comment on above: Performed By: #### U AMIC #### [facility] [address] [place] [address] Mucus Ql (Urine sed) 3+ /LPF Normal [facility] Comment on above: Performed By: #### U AMIC #### [address] [address] RBC 2 /HPF Normal 0-5 [facility] Comment on above: Performed By: #### U AMIC #### [address] [address] SQUAMOUS EPITH. CELLS 7 /HPF Normal [facility] Comment on above: Performed By: #### U AMIC #### [facility] [address] [place] [address], [place] [address] WBC 1 /HPF Normal 0-5 [facility] Comment on above: Performed By: #### U AMIC #### [address] [address] URINALYSIS WITH CULTURE IF I NDICATEDon 02-07-2022 Appearance (U) HAZY Normal CLEAR [facility] Comment on above: Performed By: #### U ARFX #### [facility] [address] [place] [address] Bilirubin Ql (U) Negative Normal NEGATIVE [facility] Comment on above: Performed By: #### U ARFX #### [address] [place] [address] Color (U) YELLOW Normal STRAW,YELLO W [facility] Comment on above: Performed By: #### U ARFX #### [address] [address] Glucose Ql (U) Negative Normal NEGATIVE [facility] Comment on above: Performed By: #### U ARFX #### [address] [address] Hemoglobin Ql (U) Negative Normal NEGATIVE [facility] Comment on above: Performed By: #### U ARFX #### [address] [address] Ketones Ql (U) 20 (1+) Abnormal NEGATIVE [facility] Comment on above: Performed By: #### U ARFX #### [address] [address] Leukocyte esterase Test strip Ql (U) TRACE Abnormal NEGATIVE [facility] Comment on above: Performed By: #### U ARFX #### [address] [address] Nitrite Ql (U) Negative Normal NEGATIVE [facility] Comment on above: Performed By: #### U ARFX #### [address] [address] pH (U) 5.0 [pH] Normal 5.0 - 8.0 [facility] Comment on above: Performed By: #### U ARFX #### [address] [address] Protein Ql (U) Negative Normal NEGATIVE [facility] Comment on above: Performed By: #### U ARFX #### [address] [address] Specific gravity (U) [Rel density] 1.024 Normal 1.005 - 1.035 [facility] Comment on above: Performed By: #### U ARFX #### [address] [address] Urobilinogen (U) [Mass/Vol] mg/dL Normal 0.0 - 1.9 [facility] Comment on above: Performed By: #### U ARFX #### [address] [address] Lab Specimen Source Normal [facility] Comment on above: Performed By: #### U ARFX #### [facility] [address] [place] [address] Performed By: #### U AMIC #### [facility] [address] [place] [address] Color (U) YELLOW See Below HG-Iyiwhid-M arma MAC2 303 Work Phone: Comment on above: SOURCE: Reference Ra nge: STRAW,YELLOW Glucose Ql (U) Negative NEGATIVE MG-Surgery -P arma MAC2 303 Work Phone: Ketones Ql (U) 20 (1+) Abnormal NEGATIVE MG-Surgery -P arma MAC2 303 Work Phone: Leukocyte esterase Test strip Ql (U) TRACE Abnormal NEGATIVE HM-Auqbjma-Y arma MAC2 303 Work Phone: pH (U) 5.0 [pH] 5.0 - 8.0 LZ-Cjcwndr-N arma MAC2 303 Work Phone: Protein (U) [Mass/Vol] Negative NEGATIVE ZT-Ncdtyqd-C arma MAC2 303 Work Phone: RBC (U) [#/Vol] Negative NEGATIVE MG-Surger y-P arma MAC2 303 Work Phone: Specific gravity (U) [Rel density] 1.024 1 See Below VS-Uxmlwpn-U arma MAC2 303 Work Phone: Comment on above: Reference Range: 1.0 05 - 1.035 URINALYSIS WITH CULTURE IF INDICATED Negative NEGATIVE IM-Cbnpojn-V arma MAC2 303 Work Phone: URINALYSIS WITH CULTURE IF INDICATED <2.0 0.0 - 1.9 NA-Mywpwug-T arma MAC2 303 Work Phone: URINALYSIS WITH CULTURE IF INDICATED HAZY CLEAR FX-Rencqst-R arma MAC2 303 Work Phone: URINE CULTURE,BACTERIALon URINE CULTURE,BACTERIAL PATIENT: LIANE RILEY LOCATION: [facility] BILL#: [id number] : 89 AGE: SEX: F ORDERED BY: KAMARI SMITH SOURCE: URINE COLLECTED: 02/07/22 11:16 ANTIBIOTICS AT [facility].: RECEIVED : 02/07/22 17:54 SITE: [facility] URINE CULTURE,BACTERIAL FINAL 02/09/22 08:31 MIXED URETHRAL BRITANY. Normal [facility] Comment on above: Performed By: #### U [facility] ####[id number] [place] [address] Urinalysis, Microscopicon Urinalysis, Microscopic 3+ TH-Ffopgqs-G arma MAC2 303 Work Phone: Urinalysis, Microscopic 1+ Abnormal NZ-Kicqbma-R arma MAC2 303 Work Phone: Urinalysis, Microscopic 7 {/HPF} UL-Wtdlrzj-B arma MAC2 303 Work Phone: Urinalysis, Microscopic 2 {/HPF} 0-5 IN-Htqevgl-C arma MAC2 303 Work Phone: Urinalysis, Microscopic 1 {/HPF} 0-5 XS-Gxdaxux-S arma MAC2 303 Work Phone: Comment on above: SOURCE: Dietition Noteon 12-20-2021 Dietition Note Chief Complaint A telephone visit (audio only) between the patient (at the originating site) and the provider (at the distant site) was utilized to provide this telehealth service. pre-op weight loss surgery (Gastric sleeve) nutrition follow-up session Active Problems Bariatric surgery status (V45.86) (Z98.84) Depression (311) (F32.A) Encounter for vitamin deficiency screening (V77.99) (Z13.21) Obesity, morbid (more than 100 lbs over ideal weight or BMI > 40) (278.01) (E66.01) PCOS (polycystic ovarian syndrome) (256.4) (E28.2) Preoperative cardiovascular examination (V72.81) (Z01.810) Preoperative clearance (V72.84) (Z01.818) Surgical History History of Dilation and curettage History of Pilonidal cyst removal History of Tonsillectomy with adenoidectomy Allergies No Known Allergies Recorded By: Alexa Morton; 10/22/2021 3:08:48 PM Provider Impressions Follow Up Bariatric Nutrition Assessment NAME: Liane Riley DATE: 12-20-2021 Surgeon: Cortes PROGRESS: Nutrition Interventions for last encounter (date): 11-07-2021 1.Structure meal patterns, eating three meals and 1-2 snacks per day. No skipping meals- Ok to use a protein shake for a meal replacement 2.Have a good source of protein first at each meal AND snack. Aim for 60-70 grams/day. 3.Drink 64oz of calorie-free, caffeine-free, and non-carbonated beverages- crystal light, Gatorade zero is best, watch the coffee and unsweet ice tea. 4.Stop drinking 30 minutes before meals, nothing with meals and wait 30 minutes after meals to drink again. Make meals last 30 minutes-chew thoroughly. 5.Increase daily multivitamin (2 a day), increase 1200-1500mg of calcium citrate per day (500-600mg at lunch, dinner AND before bed), steps 500mcg of vitamin B12 per day (at breakfast) or monthly vitamin B12 6.Continue with tracking steps -20,000 steps a day. Pre-op Goal weight: need to lose #10-15 by your final pre-op appointment CHANGES IN TREATMENT: Patient met goals: Yes Actions to implement previous interventions: 24 HOUR RECALL/DIET HISTORY: Breakfast: protein shake (fairlife) Snack: fruit Lunch: stuffed pepper with beef Snack: crackers Dinner: chicken enqudials Snack: none Beverages: water, crystal light, Gatorade zero Alcohol: none Vitamins: daily MVI (1), calcium (three a day) Physical Activity: tracking steps still 20,000 steps a day Motivation to learn: Interested Understanding of instruction: Good Anticipated Compliance: Good Family Support: Unable to assess-family not present Educational Materials Provided: None Patient presents with excessive calorie obesity seeking weight loss surgery-Gastric sleeve. Weight loss of #4 past 1 month. Less amount of tea and coffee- having 32 oz of water and crystal light first before the caffeine intake, Then finish the rest of non- caffeinated fluids. Meals are consistent- protein at all meals now. Using the right protein shakes for pre-op and post-op. Patient is taking most of the vitamins needed for post-op. Movement is high with 20,000 steps a day- tracking on fit bit. Patient is following the nutrition goals well- high compliance is expected to continue. Patient was receptive to nutritional recommendations, asked numerous questions, and verbalized understanding of the weight loss surgery diet. Patient expressed understanding about the importance of strict dietary compliance post-surgery to avoid nutritional deficiencies and achieve optimal weight loss and verbalized intent to follow dietary recommendations. Pre-op: #246 Current weight: #241 Excess body weight: #126 Target Post-Op weight goal: #164-183 (50-65% EBW Sleeve) THIS WAS A PHONE SESSION DUE TO COVID 19 Malnutrition Screening: Significant unintentional weight loss? No Eating less than 75% of usual intake for more than 2 weeks? No Nutrition Diagnosis: 1.Overweight/obesity related to excess energy intake as evidenced by BMI = 40 kg/m2. 2.Food- and nutrition-related knowledge deficit related to lack of prior exposure to surgical weight loss information as evidenced pt new to surgical program. Nutrition Interventions: 1.Modify type and amount of food and nutrients within meals and snacks. 2.Comprehensive Nutrition Education Recommendations 1.Continue with structure meal patterns, eating three meals and 1-2 snacks per day. 2.Continue to have a good source of protein first at each meal AND snack. Aim for 60-70 grams/day. 3.Continue to drink 64oz of calorie-free, caffeine-free, and non-carbonated beverages-water, Gatorade zero. 4.Continue with these: Stop drinking 30 minutes before meals, nothing with meals and wait 30 minutes after meals to drink again. Make meals last 30 minutes-chew thoroughly. 5.Increase to daily multivitamin (2 Dobson COMPLETE MVI-both at breakfast), continue with 1200-1500mg of calcium citrate per day (500-600mg at lunch, dinner AND before bed), start 500mcg of vitamin B12 per day (at breakfast) 6.Continue with (more content not included)... Normal [facility] VITAMIN Aon 12-20-2021 VITAMIN A 33.1 ug/dL Normal 18.9-57.3 [facility] Comment on above: Result Comment: Refe rence intervals for vitamin A determined from [facility] internal studies. Individuals with vitamin A less than 20 ug/dL are considered vitamin A deficient and those with serum concentrations less than 10 ug/dL are considered severely deficient. This test was developed and its performance characteristics determined by [facility]. It has not been cleared or approved by the Food and Drug Administration. Performed By: #### V TA #### [facility] [address] [place], [place] [id number] VIT B1-THIAMINE WHOLE BLDon 12-17-2021 VIT B1-THIAMINE WHOLE BLD 136 nmol/L Normal 70-180 [facility] Comment on above: Result Comment: INTE RPRETIVE INFORMATION: Vitamin B1, Whole Blood This assay measures the concentration of thiamine diphosphate (TDP), the primary active form of vitamin B1. Approximately 90 percent of vitamin B1 present in whole blood is TDP. Thiamine and thiamine monophosphate, which comprise the remaining 10 percent, are not measured. This test was developed and its performance characteristics determined by [facility]. It has not been cleared or approved by the [place] Food and Drug Administration. This test was performed in a CLIA certified laboratory and is intended for clinical purposes. Performed By: [facility] [address] [place] [address] [employer] Business Development Officer: Alberto Yusuf MD, PhD Performed By: #### P TH #### [address] [id number] COPPERon 12-14-2021 COPPER 123 ug/dL Normal 80-158 [facility] Comment on above: Result Comment: Dete ction Limit = 5 Test(s) 383343-Cjrvrn, Serum or Plasma; 706567-Admj, Plasma or Serum was developed and its performance characteristics determined by [facility]. It has not been cleared or approved by the Food and Drug Administration. Performed By: #### D RUGR #### [address] [id number] NICOTINE+METABOLITES,Son COTININE <5 Normal [facility] Comment on above: Performed By: #### N I+ME #### [facility] [address] [place] [address] NICOTINE <5 Normal [facility] Comment on above: Result Comment: Cons istent with abstinence from nicotine-containing products for at least 1 week. INTERPRETIVE INFORMATION: Nicotine and Metabolites, Serum or Plasma, Quantitative Methodology: Quantitative Liquid Chromatography-Tandem Mass Spectrometry Positive cutoff: 5 ng/mL For medical purposes only; not valid for forensic use. This test is designed to evaluate recent use of nicotine-containing products. Passive and active exposure cannot be discriminated definitively, although a cutoff of 10 ng/mL cotinine is frequently used for surgery qualification purposes. For smoking cessation programs or compliance testing, the absence of expected drug(s) and/or drug metabolite(s) may indicate non-compliance, inappropriate timing of specimen collection relative to drug administration, poor drug absorption, or limitations of testing. This test cannot distinguish between use of tobacco and purified nicotine products. The concentration value must be greater than or equal to the cutoff to be reported as positive. This test was developed and its performance characteristics determined by [facility]. It has not been cleared or approved by the [place] Food and Drug Administration. This test was performed in a CLIA certified laboratory and is intended for clinical purposes. Performed By: [facility] [address] [place] [address] [employer] Business Development Officer: Alberto Yusuf MD, PhD Performed By: #### N I+ME #### [facility] [address] [place] [address] ZINCon 12-14-2021 ZINC 75 ug/dL Normal 44-115 [facility] Comment on above: Result Comment: Dete ction Limit = 5 Test(s) 293138-Rmkrmi, Serum or Plasma; 835930-Evex, Plasma or Serum was developed and its performance characteristics determined by [facility]. It has not been cleared or approved by the Food and Drug Administration. Performed By: #### Z INC #### [facility] [place] [facility] [place], [place] [id number] No Panel Informationon 12-12 VS-Ofapqns-E arma MAC2 303 Work Phone: [email or web address]} KP-Lvoxqtn-E arma MAC2 303 Work Phone: FQ-Bwhdgps-A arma MAC2 303 Work Phone: [facility] Surgical Pathology Depar tmenton 12-12-2021 [facility] Surgical Pathology Department Name LIANE RILEY Pathologist: TRACE BURTON MD Date of Procedure: 12/12/2021 Date Received: 12/12/2021 Date Reported 12/17/2021 Submitting Physician: KAMARI SMITH MD Location: [facility] Other External # FINAL DIAGNOSIS A. STOMACH, BIOPSIES: --OXYNTIC AND ANTRAL MUCOSA WITH NO SIGNIFICANT HISTOPATHOLOGICAL ABNORMALITIES. --HELICOBACTER IS NOT IDENTIFIED. B. GASTRIC FUNDUS, POLYPECTOMY: --FUNDIC GLAND POLYP, NO DYSPLASIA IDENTIFIED. Electronically Signed Out By TRACE BURTON MD/[facility] By the signature on this report, the individual or group listed as making the Final Interpretation/Diagnosis certifies that they have reviewed this case. Diagnostic interpretation performed at [place] [address] Clinical History: Pre-op screening and heartburn A)Rule out H.Pylori Specimens Submitted As: A: ANTRUM,COLD BIOPSY B: FUNDUS POLYPS,COLD BIOPSY Gross Description: A: Received in formalin, labeled with the patient's name and hospital number and antrum biopsy , are multiple fragments of calderón, soft tissue aggregating to 0.5 x 0.3 x 0.2 cm. The specimen is submitted in toto in one cassette. RCC B: Received in formalin, labeled with the patient's name and hospital number and fundus polyps bxs , is a fragment of calderón, soft tissue measuring 0.4 x 0.3 x 0.2 cm. The specimen is submitted in toto in one cassette. RCC rcc/12/13/2021 [facility] Department of Pathology [id number] [place] [address] Normal [facility] Comment on above: Performed By: #### P #### [address] [id number] Upper GI endoscopyon 022 Upper GI endoscopy PATIENTNAME Patient Name: Liane Riley EXAMDATE Procedure Date: 12/12/2021 8:14 AM PATIENTID PATIENTACCOUNTNUM PATIENTDOB Date of : 1990 ADMITTYPE Admit Type: Outpatient PATIENTROOM Site: [facility] Endoscopy Room 2 ETHNICITY Ethnicity: Unknown RACE Race: White PROVDR Attending MD: Kamari Smith MD ENDOPROCEDURENAME Procedure: Upper GI endoscopy INDICATION Indications: Heartburn, Preoperative assessment for bariatric surgery to treat morbid obesity, obesity PRIMARYPROVIDER Providers: Kamari Smith MD (Doctor), Sushila Gallegos RN (Nurse) , Rosita Henry RN (Nurse) , Jen Salter LPN EDREFPROVIDER Referring: CURRENT_MEDS Medicines: Monitored Anesthesia Care COMPLIC Complications: No immediate complications. ENDOPROCEDURETEXT Procedure: Pre-Anesthesia Assessment: - Prior to the procedure, a History and Physical was performed, and patient medications and allergies were reviewed. The patient's tolerance of previous anesthesia was also reviewed. The risks and benefits of the procedure and the sedation options and risks were discussed with the patient. All questions were answered, and informed consent was obtained. Prior Anticoagulants: The patient has taken no anticoagulant or antiplatelet agents. ASA Grade Assessment: II - A patient with mild systemic disease. After reviewing the risks and benefits, the patient was deemed in satisfactory condition to undergo the procedure. After obtaining informed consent, the endoscope was passed under direct vision. Throughout the procedure, the patient's blood pressure, pulse, and oxygen saturations were monitored continuously. The endoscope was introduced through the mouth, and advanced to the second part of duodenum. The upper GI endoscopy was accomplished without difficulty. The patient tolerated the procedure well. FINDING Findings: The Z-line was regular and was found 37 cm from the incisors. The gastroesophageal flap valve was visualized endoscopically and classified as Hill Grade II (fold present, opens with respiration). Multiple 1-3 mm semi-sessile polyps ( hyperplastic in appearance) with no bleeding and no stigmata of recent bleeding were found in the entire examined stomach, mostly along greater curvature. Biopsies were taken with a cold forceps for histology. Estimated blood loss was minimal. The exam of the stomach was otherwise normal. Biopsies were taken with a cold forceps in the prepyloric region of the stomach for Helicobacter pylori testing. Estimated blood loss was minimal. The ampulla, duodenal bulb, first portion of the duodenum and second portion of the duodenum were normal. EBL Estimated Blood Loss: Estimated blood loss was minimal. IMPRESS Impression: - Z-line regular, 37 cm from the incisors. - Gastroesophageal flap valve classified as Hill Grade II (fold present, opens with respiration). - Multiple gastric polyps. Biopsied. - Normal ampulla, duodenal bulb, first portion of the duodenum and second portion of the duodenum. - Biopsies were taken with a cold forceps for Helicobacter pylori testing. ENDORECOMMENDATION Recommendation: - Resume previous diet. - Continue present medications. - Await pathology results. CPT_CODES Procedure Code(s): --- Professional --- 46668, Esophagogastroduodenoscopy , flexible, transoral; with biopsy, single or multiple ICD_CODES Diagnosis Code(s): --- Professional --- K31.7, Polyp of stomach and duodenum R12, Heartburn Z01.818, Encounter for other preprocedural examination E66.01, Morbid (severe) obesity due to excess calories CODINGSTMT CPT copyright 2020 [employer]. All rights reserved. The codes documented in this report are preliminary and upon hedge fund manager review may be revised to meet current compliance requirements. ATTDRPART Attending Participation: I was present and participated during the entire procedure, including non-tavarez portions. SIGNATURENAME Kamari Smith MD SIGNATUREDATE 12/12/2021 8:38:53 AM SIGNATUREONFILEIND This report has been signed electronically. NUMADDENDA Number of Addenda: 0 INITIATEDON Note Initiated On: 12/12/2021 8:14 AM TOTPROCTIME Total Procedure Duration Time 0 hours 7 minutes 20 seconds Normal [facility] FERRITINon 12-11-2021 FERRITIN 61 ug/L Normal 8 - 150 [facility] Comment on above: Performed By: #### D RUGR #### [address] [id number] FREE T4 INDEXon 12-11-2021 FREE T4 INDEX 2.6 Normal 1.6 - 4.7 [facility] Comment on above: Performed By: #### D RUGR #### [address] [id number] T3 UPTAKE 30 % Normal 24 - 41 [facility] Comment on above: Performed By: #### D RUGR #### [address], [place] [id number] T4 [Mass/Vol] 8.8 ug/dL Normal 4.5 - 11.1 [facility] Comment on above: Performed By: #### D RUGR #### [address] [id number] H. PYLORI BREATH TESTon 11-23 H. PYLORI BREATH TEST Negative Normal NEGATIVE [facility] Comment on above: Result Comment: ANTI MICROBIALS, PROTON PUMP INHIBITORS AND BISMUTH PREPARATIONS ARE KNOWN TO SUPPRESS H. PYLORI AND INGESTION OF THESE WITHIN 2 WEEKS PRIOR TO PERFORMING THE BREATHTEK BUT MAY GIVE FALSE NEGATIVES. THE BREATHTEK UBT SHOULD NOT BE USED UNTIL 4 WEEKS OR MORE AFTER THE END OF TREATMENT FOR THE ERADICATION OF H. PYLORI, EARLIER POST-TREATMENT ASSESSMENT MAY GIVE FALSE NEGATIVES. Performed By: #### D RUGR #### [address] [id number] HEMOGLOBIN A1Con 12-11-2021 Glucose [Mass/Vol] 100 mg/dL Normal [facility] Comment on above: Performed By: #### H BA1E #### [facility] [address] [place] [address] HbA1c (Bld) [Mass fraction] 5.1 % Normal [facility] Comment on above: Result Comment: Diag nosis of Diabetes-Adults Non-Diabetic: < or = 5.6% Increased risk for developing diabetes: 5.7-6.4% Diagnostic of diabetes: > or = 6.5% . Monitoring of Diabetes Age (y) Therapeutic Goal (%) Adults: >18 <7.0 Pediatrics: 13-18 <7.5 7-12 <8.0 0- 6 7.5-8.5 [employer]. Diabetes Care 33(S1), Mar 2009. Performed By: #### H BA1E #### [facility] [address] [place] [address] C Reactive Protein, Serumon 12-10-2021 CRP [Mass/Vol] 0.57 mg/dL [facility]-Surgery -P arma [id number] Work Phone: Comment on above: REF VALUE< 1.00 C-REACTIVE PROTEINon 022 C-REACTIVE PROTEIN 0.57 mg/dL Normal [facility] Comment on above: Result Comment: REF VALUE < 1.00 Performed By: #### P TH #### [address] [id number] CBC AND DIFFERENTIALon 12-10 % AUTOMATED IMMATURE GRAN 0.3 % Normal 0.0 - 0.9 [facility] Comment on above: Result Comment: Larissa ture Granulocyte Count (IG) includes promyelocytes, myelocytes and metamyelocytes but does not include bands. Percent differential counts (%) should be interpreted in the context of the absolute cell counts (cells/L). Performed By: #### P TH #### [address] [id number] Basophils (Bld) [#/Vol] 0.04 10*3/uL Normal 0.00 - 0.10 [facility] Comment on above: Performed By: #### P TH #### [address] [id number] Basophils/100 WBC (Bld) 0.4 % Normal 0.0 - 2.0 [facility] Comment on above: Performed By: #### P TH #### [address] [id number] Eosinophils (Bld) [#/Vol] 0.05 10*3/uL Normal 0.00 - 0.70 [facility] Comment on above: Performed By: #### P TH #### [address] [id number] Eosinophils/100 WBC (Bld) 0.5 % Normal 0.0 - 6.0 [facility] Comment on above: Performed By: #### P TH #### [address] [id number] Erythrocyte distribution width (RBC) [Ratio] 12.7 % Normal 11.5 - 14.5 [facility] Comment on above: Performed By: #### P TH #### [address] [id number] Hematocrit (Bld) [Volume fraction] 43.3 % Normal 36.0 - 46.0 [facility] Comment on above: Performed By: #### P TH #### [address] [id number] Hemoglobin (Bld) [Mass/Vol] 14.6 g/dL Normal 12.0 - 16.0 [facility] Comment on above: Performed By: #### P TH #### [address] [id number] Lymphocytes (Bld) [#/Vol] 2.79 10*3/uL Normal 1.20 - 4.80 [facility] Comment on above: Performed By: #### P TH #### [address] [id number] Lymphocytes/100 WBC (Bld) 26.0 % Normal 13.0 - 44.0 [facility] Comment on above: Performed By: #### P TH #### [address] [id number] MCHC (RBC) [Mass/Vol] 33.7 g/dL Normal 32.0 - 36.0 [facility] Comment on above: Performed By: #### P TH #### [address] [id number] MCV (RBC) [Entitic vol] 91 fL Normal 80 - 100 [facility] Comment on above: Performed By: #### P TH #### [address] [id number] Monocytes (Bld) [#/Vol] 0.50 10*3/uL Normal 0.10 - 1.00 [facility] Comment on above: Performed By: #### P TH #### [address] [id number] Monocytes/100 WBC (Bld) 4.7 % Normal 2.0 - 10.0 [facility] Comment on above: Performed By: #### P TH #### [address] [place] [id number] Neutrophils (Bld) [#/Vol] 7.33 10*3/uL Normal 1.20 - 7.70 [facility] Comment on above: Performed By: #### P TH #### [address] [id number] Neutrophils/100 WBC (Bld) 68.1 % Normal 40.0 - 80.0 [facility] Comment on above: Performed By: #### P TH #### [address] [id number] Platelets (Bld) [#/Vol] 357 10*3/uL Normal 150 - 450 [facility] Comment on above: Performed By: #### P TH #### [address] [id number] RBC 4.76 x10E12/L Normal 4.00 - 5.20 [facility] Comment on above: Performed By: #### P TH #### [address] [id number] WBC (Bld) [#/Vol] 10.7 10*3/uL Normal 4.4 - 11.3 [facility] Comment on above: Performed By: #### P TH #### [address] [id number] COAGULATION SCREENon 022 aPTT Coag (Bld) [Time] 40 s High 26 - 39 [facility] Comment on above: Result Comment: THE APTT IS NO LONGER USED FOR MONITORING UNFRACTIONATED HEPARIN THERAPY. FOR MONITORING HEPARIN THERAPY, USE THE HEPARIN ASSAY. Performed By: #### D RUGR #### [address] [phone] PT Coag (PPP) [Time] 12.0 s Normal 9.8 - 13.4 [facility] Comment on above: Performed By: #### D RUGR #### [address] [id number] PT, INR 1.0 Normal 0.9 - 1.1 [facility] Comment on above: Performed By: #### D RUGR #### [address] [id number] COMPREHENSIVE PANELon 2021 Albumin [Mass/Vol] 4.3 g/dL Normal 3.4 - 5.0 [facility] Comment on above: Performed By: #### P TH #### [address] [id number] ALP [Catalytic activity/Vol] 70 U/L Normal 33 - 110 [facility] Comment on above: Performed By: #### P TH #### [address] [id number] ALT [Catalytic activity/Vol] 13 U/L Normal 7 - 45 [facility] Comment on above: Result Comment: [place] ents treated with Sulfasalazine may generate falsely decreased results for ALT. Performed By: #### P TH #### [address] [id number] Anion gap [Moles/Vol] 12 mmol/L Normal 10 - 20 [facility] Comment on above: Performed By: #### P TH #### [address] [id number] AST [Catalytic activity/Vol] 14 U/L Normal 9 - 39 [facility] Comment on above: Performed By: #### P TH #### [address] [id number] Bilirubin [Mass/Vol] 0.5 mg/dL Normal 0.0 - 1.2 [facility] Comment on above: Performed By: #### P TH #### [address] [id number] Calcium [Mass/Vol] 8.9 mg/dL Normal 8.6 - 10.3 [facility] Comment on above: Performed By: #### P TH #### [address] [id number] Chloride [Moles/Vol] 101 mmol/L Normal 98 - 107 [facility] Comment on above: Performed By: #### P TH #### [address] [id number] Creatinine [Mass/Vol] 0.61 mg/dL Normal 0.50 - 1.05 [facility] Comment on above: Performed By: #### P TH #### [address] [id number] eGFR FEMALE >90 Normal >90 [facility] Comment on above: Result Comment: CALC ULATIONS OF ESTIMATED GFR ARE PERFORMED USING THE 2020 CKD-EPI STUDY REFIT EQUATION WITHOUT THE RACE VARIABLE FOR THE IDMS-TRACEABLE CREATININE METHODS. https://jasn.asnjournals.org/content/early//ASN.81487826 88 Performed By: #### P TH #### [address] [id number] Glucose [Mass/Vol] 86 mg/dL Normal 74 - 99 [facility] Comment on above: Performed By: #### P TH #### [address] [id number] HCO3 (Bld) [Moles/Vol] 29 mmol/L Normal 21 - 32 [facility] Comment on above: Performed By: #### P TH #### [address] [id number] Potassium [Moles/Vol] 3.8 mmol/L Normal 3.5 - 5.3 [facility] Comment on above: Performed By: #### P TH #### [address] [id number] Protein [Mass/Vol] 7.2 g/dL Normal 6.4 - 8.2 [facility] Comment on above: Performed By: #### P TH #### [address] [id number] Sodium [Moles/Vol] 138 mmol/L Normal 136 - 145 [facility] Comment on above: Performed By: #### P TH #### [address] [id number] Urea nitrogen [Mass/Vol] 9 mg/dL Normal 6 - 23 [facility] Comment on above: Performed By: #### P #### [address] [id number] Complete Blood Count + Diffe palak 12-10-2021 Basophils/100 WBC (Bld) 0.4 % 0.0 - 2.0 MO-Orwvhud-S arma [id number] 303 Work Phone: Erythrocyte distribution width (RBC) [Ratio] 12.7 % See Below UT-Aexvdnv-Z arma MAC2 [address] Work Phone: Comment on above: Reference Range: 11. 5 - 14.5 Hematocrit (Bld) [Volume fraction] 43.3 % See Below SY-Uaeiejg-K arma MAC2 [address] Work Phone: Comment on above: Reference Range: 36. 0 - 46.0 Hemoglobin (Bld) [Mass/Vol] 14.6 g/dL See Below EY-Alrdvde-T arma MAC2 [address] Work Phone: Comment on above: Reference Range: 12. 0 - 16.0 Lymphocytes/100 WBC (Bld) 26.0 % See Below TZ-Bfiefvw-W arma MAC2 [address] Work Phone: Comment on above: Reference Range: 13. 0 - 44.0 MCHC (RBC) [Mass/Vol] 33.7 g/dL See Below FI-Ctiwtnh-S arma MAC2 [address] Work Phone: Comment on above: Reference Range: 32. 0 - 36.0 MCV (RBC) [Entitic vol] 91 fL 80 - 100 NI-Fsrcoqv-P arma MAC2 303 Work Phone: Monocytes/100 WBC (Bld) 4.7 % 2.0 - 10.0 XN-Fvzztek-Q arma MAC2 [address] Work Phone: Neutrophils/100 WBC (Bld) 68.1 % See Below WZ-Ghgspnm-M arma MAC2 [address] Work Phone: Comment on above: Reference Range: 40. 0 - 80.0 Platelets (Bld) [#/Vol] 357 10*3/uL 150 - 450 BO-Nmscfty-F arma MAC2 303 Work Phone: RBC (Bld) [#/Vol] 4.76 {x10E12/L} See Below MG -Surgery-P arma MAC2 [address] Work Phone: Comment on above: Reference Range: 4.0 0 - 5.20 WBC (Bld) [#/Vol] 10.7 10*3/uL 4.4 - 11.3 MG-Wright rgery-P arma MAC2 303 Work Phone: Complete Blood Count + Differential 0.04 {x10E9/L} See Below AO-Kahsmww-I arma MAC2 [address] Work Phone: Comment on above: Reference Range: 0.0 0 - 0.10 Complete Blood Count + Differential 0.05 {x10E9/L} See Below BD-Hiqxfad-B arma MAC2 [address] Work Phone: Comment on above: Reference Range: 0.0 0 - 0.70 Complete Blood Count + Differential 0.50 {x10E9/L} See Below CD-Szlafod-V arma MAC2 [address] Work Phone: Comment on above: Reference Range: 0.1 0 - 1.00 Complete Blood Count + Differential 2.79 {x10E9/L} See Below QC-Aahkajw-K arma MAC2 [address] Work Phone: Comment on above: Reference Range: 1.2 0 - 4.80 Complete Blood Count + Differential 7.33 {x10E9/L} See Below BI-Ndbrcji-I arma MAC2 [address] Work Phone: Comment on above: Reference Range: 1.2 0 - 7.70 Complete Blood Count + Differential 0.5 % 0.0 - 6.0 WM-Xkiyugz-S arma MAC2 303 Work Phone: Complete Blood Count + Differential 0.3 % 0.0 - 0.9 VV-Zmnyvve-R arma MAC2 303 Work Phone: [phone] Comment on above: Immature Granulocyte Count (IG) includes promyelocytes, myelocytes and metamyelocytes but does not include bands. Percent differential counts (%) should be interpreted in the context of the absolute cell counts (cells/L). Copper, Serumon 12-10-2021 Copper [Mass/Vol] 123 ug/dL 80-158 MG-Surg leonel-P arma MAC2 303 Work Phone: Comment on above: Detection Limit = 5T est(s) 205525-Fheudm, Serum or Plasma; 029937-Mrxk, Plasma or Serumwas developed and its performance characteristics determinedby [employer]!. It has not been cleared or approved by the Foodand Drug Administration. DRUG SCREEN,URINE WITH REFLE X TO CONFIRMATIONon 12-10-2021 AMPHETAMINE SCREEN,U Negative Normal NEGATIVE [facility] Comment on above: Result Comment: CUTO FF LEVEL: 500 NG/ML Cross-reactivity has been reported with high concentrations of the following drugs: buproprion, chloroquine, chlorpromazine, ephedrine, mephentermine, fenfluramine, phentermine, phenylpropanolamine, pseudoephedrine, and propranolol. Performed By: #### D RUGR #### [address] [id number] BARBITURATES SCREEN,U Negative Normal NEGATIVE [facility] Comment on above: Result Comment: CUTO FF LEVEL: 200 NG/ML Performed By: #### D RUGR #### [address] [id number] BENZODIAZEPINES SCREEN,U Negative Normal NEGATIVE [facility] Comment on above: Result Comment: CUTO FF LEVEL: 200 NG/ML Performed By: #### D RUGR #### [address] [id number] CANNABINOIDS SCREEN,U Negative Normal NEGATIVE [facility] Comment on above: Result Comment: CUTO FF LEVEL: 50 NG/ML Performed By: #### D RUGR #### [address] [id number] COCAINE METABOLITE SCREEN,U Negative Normal NEGATIVE [facility] Comment on above: Result Comment: CUTO FF LEVEL: 150 NG/ML Performed By: #### D RUGR #### [address] [id number] DRUG SCREEN COMMENT SEE BELOW Normal [facility] Comment on above: Result Comment: Drug screen results are presumptive and should not be used to assess compliance with prescribed medication. Definitive confirmatory drug testing has been added to this sample for any positive screen result and will be reported separately. . Toxicology screening results are reported qualitatively. The concentration must be greater than or equal to the cutoff to be reported as positive. The concentration at which the screening test can detect an individual drug or metabolite varies. The absence of expected drug(s) and/or drug metabolite(s) may indicate non-compliance, inappropriate timing of specimen collection relative to drug administration, poor drug absorption, diluted/adulterated urine, or limitations of testing. For medical purposes only; not valid for forensic use. . Interpretive questions should be directed to the laboratory medical directors. Performed By: #### D RUGR #### [address] [id number] FENTANYL SCREEN,URINE Negative Normal NEGATIVE [facility] Comment on above: Result Comment: CUTO FF LEVEL: 5 NG/ML Performed By: #### D RUGR #### [address] [id number] METHADONE SCREEN,U Negative Normal NEGATIVE [facility] Comment on above: Result Comment: CUTO FF LEVEL: 150 NG/ML The metabolite U-hifku-lnefqztirlvunw (LAAM) is not detected by this method in concentrations that would be found in the urine of patients on LAAM therapy. Performed By: #### D RUGR #### [address] [id number] OPIATES SCREEN,U Negative Normal NEGATIVE [facility] Comment on above: Result Comment: CUTO FF LEVEL: 300 NG/ML The opiate screen does not detect fentanyl, meperidine, or tramadol. Oxycodone is not consistently detected (refer to Oxycodone Screen, Urine result). Performed By: #### D RUGR #### [address] [place] [id number] OXYCODONE SCREEN,U Negative Normal NEGATIVE [facility] Comment on above: Result Comment: CUTO FF LEVEL: 100 NG/ML This test will accurately detect both oxycodone and oxymorphone. Performed By: #### D RUGR #### [address] [id number] PCP SCREEN,U Negative Normal NEGATIVE [facility] Comment on above: Result Comment: CUTO FF LEVEL: 25 NG/ML Cross-reactivity has been reported with dextromethorphan. Performed By: #### D RUGR #### [address] [id number] FOLATE, SERUMon 12-10-2021 Folate [Mass/Vol] 9.0 ng/mL Normal >5.0 [facility] Comment on above: Result Comment: Low <3.4 Borderline 3.4-5.0 Normal >5.0 . Patients receiving more than 5 mg/day of biotin may have interference in test results. A sample should be taken no sooner than eight hours after previous dose. Contact the testing laboratory for additional information. Performed By: #### P TH #### [address] [id number] Ferritin, Serumon 12-10-2021 Ferritin [Mass/Vol] 61 ug/L 8 - 150 MG-Wright rgery-P arma MAC2 303 Work Phone: Folate, Serumon 12-10-2021 Folate [Mass/Vol] 9.0 ng/mL >5.0 MG-Surg leonel-P arma MAC2 303 Work Phone: Comment on above: Low <3.4Borderline 3 .4-5.0Normal >5.0. Patients receiving more than 5 mg/day of biotin may have interference in test results. A sample should be taken no sooner than eight hours after previous dose. Contact the testing laboratory for additional information. HELICOBACTER PYLORI BREATH T ESTon 12-10-2021 CO2 post dose urea Ql (Exhl gas) Negative NEGATIVE YL-Hnzjzqa-A arma MAC2 303 Work Phone: Comment on above: ANTIMICROBIALS, PROT ON PUMP INHIBITORS ANDBISMUTH PREPARATIONS ARE KNOWN TO SUPPRESSH. PYLORI AND INGESTION OF THESE WITHIN 2WEEKS PRIOR TO PERFORMING THE BREATHTEK BUTMAY GIVE FALSE NEGATIVES.THE BREATHTEK UBT SHOULD NOT BE USED UNTIL4 WEEKS OR MORE AFTER THE END OF TREATMENTFOR THE ERADICATION OF H. PYLORI, ASEARLIER POST-TREATMENT ASSESSMENT MAY GIVEFALSE NEGATIVES. Hemoglobin A1Con 12-10-2021 Glucose [Mass/Vol] 100 mg/dL MG-Danica jose-P arma MAC2 303 Work Phone: HbA1c (Bld) [Mass fraction] 5.1 % CN-Sprwtdy-F arma MAC2 303 Work Phone: Comment on above: Diagnosis of Diabete s-Adults Non-Diabetic: < or = 5.6% Increased risk for developing diabetes: 5.7-6.4% Diagnostic of diabetes: > or = 6.5%. Monitoring of Diabetes Age (y) Therapeutic Goal (%) Adults: >18 <7.0 Pediatrics: 13-18 <7.5 7-12 <8.0 0- 6 7.5-8.5 [employer]. Diabetes Care 33(S1), Mar 2009. IRON + TIBCon 12-10-2021 % SATURATION 17 % Low 25 - 45 [facility] Comment on above: Performed By: #### D RUGR #### [address] [id number] Iron [Mass/Vol] 67 ug/dL Normal 35 - 150 [facility] [place] Comment on above: Performed By: #### D RUGR #### [address] [id number] TIBC 385 ug/dL Normal 240 - 445 [facility] Comment on above: Performed By: #### D RUGR #### [address] [id number] LIPID PANEL (CORONARY RISK 2 )on 12-10-2021 Cholesterol [Mass/Vol] 174 mg/dL Normal 0 - 199 [facility] Comment on above: Result Comment: . AGE DESIRABLE BORDERLINE HIGH HIGH 0-19 Y 0 - 169 170 - 199 >/= 200 20-24 Y 0 - 189 190 - 224 >/= 225 >24 Y 0 - 199 200 - 239 >/= 240 All ranges are based on fasting samples. Specific therapeutic targets will vary based on patient-specific cardiac risk. . Pediatric guidelines reference:Pediatrics 2011, 128(S5). Adult guidelines reference: NCEP ATPIII Guidelines, RUSSEL 2001, 258:2486-97 . Venipuncture immediately after or during the administration of Metamizole may lead to falsely low results. Testing should be performed immediately prior to Metamizole dosing. Performed By: #### L IPID #### [address] [id number] Cholesterol in HDL [Mass/Vol] 39.0 mg/dL Abnormal [facility] Comment on above: Result Comment: . AGE VERY LOW LOW NORMAL HIGH 0-19 Y < 35 < 40 40-45 ---- 20-24 Y ---- < 40 >45 ---- >24 Y ---- < 40 40-60 >60 . Performed By: #### L IPID #### [address] [id number] Cholesterol in LDL [Mass/Vol] 101 mg/dL High 0 - 99 [facility] Comment on above: Result Comment: . NEAR BORD AGE DESIRABLE OPTIMAL HIGH HIGH VERY HIGH 0-19 Y 0 - 109 --- 110-129 >/= 130 ---- 20-24 Y 0 - 119 --- 120-159 >/= 160 ---- >24 Y 0 - 99 100-129 130-159 160-189 >/=190 . Performed By: #### L IPID #### [address] [id number] Cholesterol in VLDL [Mass/Vol] 34 mg/dL Normal 0 - 40 [facility] Comment on above: Performed By: #### L IPID #### [address] [id number] Cholesterol.total/C holesterol in HDL [Mass ratio] 4.5 {ratio} Normal [facility] Comment on above: Result Comment: REF VALUES DESIRABLE < 3.4 HIGH RISK > 5.0 Performed By: #### L IPID #### [facility] [address] [place], [place] [id number] Triglyceride [Mass/Vol] 169 mg/dL High 0 - 149 [facility] Comment on above: Result Comment: . AGE DESIRABLE BORDERLINE HIGH HIGH VERY HIGH 0 D-90 D 19 - 174 ---- ---- ---- 91 D- 9 Y 0 - 74 75 - 99 >/= 100 ---- 10-19 Y 0 - 89 90 - 129 >/= 130 ---- 20-24 Y 0 - 114 115 - 149 >/= 150 ---- >24 Y 0 - 149 150 - 199 200- 499 >/= 500 . Venipuncture immediately after or during the administration of Metamizole may lead to falsely low results. Testing should be performed immediately prior to Metamizole dosing. Performed By: #### L IPID #### [address] [id number] Laboratory - Chemistry and C hemistry - challengeon 12-10-2021 Albumin BCP dye [Mass/Vol] 4.3 g/dL 3.4 - 5.0 HE-Mrbobpo-Z arma MAC2 303 Work Phone: ALP [Catalytic activity/Vol] 70 U/L 33 - 110 MY-Erjmzfv-W arma MAC2 303 Work Phone: ALT With P-5'-P [Catalytic activity/Vol] 13 U/L 7 - 45 LE-Rnsmfyn-L arma MAC2 303 Work Phone: Comment on above: Patients treated wit h Sulfasalazine may generate falsely decreased results for ALT. Anion gap [Moles/Vol] 12 mmol/L 10 - 20 IK-Cxsgnfz-G arma MAC2 303 Work Phone: AST With P-5'-P [Catalytic activity/Vol] 14 U/L 9 - 39 DL-Amyygjx-V arma MAC2 303 Work Phone: Bilirubin [Mass/Vol] 0.5 mg/dL 0.0 - 1.2 RT-Owueelk-K arma MAC2 [address] Work Phone: Calcium [Mass/Vol] 8.9 mg/dL 8.6 - 10.3 MG-Danica jose-P arma MAC2 [address] Work Phone: Chloride [Moles/Vol] 101 mmol/L 98 - 107 PR-Bpnfxgm-M arma MAC2 303 Work Phone: CO2 [Moles/Vol] 29 mmol/L 21 - 32 MG-Surger y-P arma MAC2 303 Work Phone: Creatinine [Mass/Vol] 0.61 mg/dL See Below KI-Tnaunwq-O arma MAC2 [address] Work Phone: Comment on above: Reference Range: 0.5 0 - 1.05 Glucose [Mass/Vol] 86 mg/dL 74 - 99 MG-Danica jose-P arma MAC2 [address] Work Phone: Iron [Mass/Vol] 67 ug/dL 35 - 150 MG-Surger y-P arma MAC2 303 Work Phone: Iron binding capacity [Mass/Vol] 385 ug/dL 240 - 445 KI-Msbrtfj-F arma MAC2 [address] Work Phone: Potassium [Moles/Vol] 3.8 mmol/L 3.5 - 5.3 VP-Jgwkbsp-O arma MAC2 [address] Work Phone: Protein [Mass/Vol] 7.2 g/dL 6.4 - 8.2 MG-Danica jose-P arma MAC2 [address] Work Phone: Sodium [Moles/Vol] 138 mmol/L 136 - 145 MG-Danica jose-P arma MAC2 303 Work Phone: T3RU 30 % 24 - 41 VC-Ddyefbu-Q arma MAC2 303 Work Phone: T4 [Mass/Vol] 8.8 ug/dL 4.5 - 11.1 MG-Surgery- P arma MAC2 303 Work Phone: Thiamine (Bld) [Mass/Vol] 136 nmol/L 70-180 CC-Yloiwyk-B arma MAC2 303 Work Phone: Comment on above: INTERPRETIVE INFORMA TION: Vitamin B1, Whole BloodThis assay measures the concentration of thiamine diphosphate (TDP), the primary active form of vitamin B1. Approximately 90 percent of vitamin B1 present in whole blood is TDP. Thiamine and thiamine monophosphate, which comprise the remaining 10 percent, are not measured.This test was developed and its performance characteristics determined by [employer]. It has not been cleared or approved by the [place] Food and Drug Administration. This test was performed in a CLIA certified laboratory and is intended for clinical purposes.Performed By: [employer] [place] [address] [id number] Director: Alberto Yusuf MD, PhD Urea nitrogen [Mass/Vol] 9 mg/dL 6 - 23 YE-Pbsferi-C arma MAC2 303 Work Phone: Laboratory - Coagulationon 0 12-10-2021 aPTT Coag (PPP) [Time] 40 s above high threshold 26 - 39 ZJ-Fgbheva-D arma MAC2 [address] Work Phone: Comment on above: THE APTT IS NO LONGE R USED FOR MONITORING UNFRACTIONATED HEPARIN THERAPY. FOR MONITORING HEPARIN THERAPY, USE THE HEPARIN ASSAY. INR Coag (PPP) [Relative time] 1.0 {INR} 0.9 - 1.1 RC-Kjmkjxo-R arma [id number] 303 Work Phone: PT Coag (PPP) [Time] 12.0 s 9.8 - 13.4 EW-Wmdunib-J arma MAC2 303 Work Phone: Laboratory - Drug toxicology on 12-10-2021 Amphetamines Screen Ql (U) Negative NEGATIVE YU-Hjuobfs-C arma MAC2 303 Work Phone: Comment on above: CUTOFF LEVEL: 500 NG /ML Cross-reactivity has been reported with high concentrations of the following drugs: buproprion, chloroquine, chlorpromazine, ephedrine, mephentermine, fenfluramine, phentermine, phenylpropanolamine, pseudoephedrine, and propranolol. Barbiturates Screen Ql (U) Negative NEGATIVE NW-Rwlbpnj-R arma MAC2 303 Work Phone: Comment on above: CUTOFF LEVEL: 200 NG /ML Benzodiazepines Ql (U) Negative NEGATIVE CO-Maxwwfo-D arma MAC2 303 Work Phone: Comment on above: CUTOFF LEVEL: 200 NG /ML Benzoylecgonine Screen Ql (U) Negative NEGATIVE UH-Ecdpovq-Q arma MAC2 303 Work Phone: Comment on above: CUTOFF LEVEL: 150 NG /ML Cannabinoids Screen Ql (U) Negative NEGATIVE GM-Dkwgeie-T arma MAC2 303 Work Phone: Comment on above: CUTOFF LEVEL: 50 NG/ ML Methadone Screen Ql (U) Negative NEGATIVE SF-Zmvctnd-B arma MAC2 303 Work Phone: Comment on above: CUTOFF LEVEL: 150 NG /ML The metabolite E-ubkkn-ezgzyuqkeceoui (LAAM) is not detected by this method in concentrations that would be found in the urine of patients on LAAM therapy. Opiates Screen Ql (U) Negative NEGATIVE YI-Zsdlhgl-M arma MAC2 303 Work Phone: Comment on above: CUTOFF LEVEL: 300 NG /ML The opiate screen does not detect fentanyl, meperidine, or tramadol. Oxycodone is not consistently detected (refer to Oxycodone Screen, Urine result). oxyCODONE+oxyMORpho ne Screen Ql (U) Negative NEGATIVE DM-Spsougz-Y arma MAC2 303 Work Phone: Comment on above: CUTOFF LEVEL: 100 NG /ML This test will accurately detect both oxycodone and oxymorphone. Phencyclidine Ql (U) Negative NEGATIVE UM-Erlrnhb-H arma MAC2 303 Work Phone: Comment on above: CUTOFF LEVEL: 25 NG/ ML Cross-reactivity has been reported with dextromethorphan. Lipid Panelon 12-10-2021 Cholesterol [Mass/Vol] 174 mg/dL 0 - 199 KS-Dbsfcfq-V arma MAC2 303 Work Phone: Comment on above: . AGE DESIRABLE BORD MARICRUZ HIGH HIGH 0-19 Y 0 - 169 170 - 199 >/= 200 20-24 Y 0 - 189 190 - 224 >/= 225 >24 Y 0 - 199 200 - 239 >/= 240 All ranges are based on fasting samples. Specific therapeutic targets will vary based on patient-specific cardiac risk.. Pediatric guidelines reference:Pediatrics 2011, 128(S5). Adult guidelines reference: NCEP ATPIII Guidelines, RUSSEL 2001, 258:2486-97. Venipuncture immediately after or during the administration of Metamizole may lead to falsely low results. Testing should be performed immediately prior to Metamizole dosing. Cholesterol in HDL [Mass/Vol] 39.0 mg/dL Abnormal ZE-Bgjndwi-P arma MAC2 303 Work Phone: Comment on above: . AGE VERY LOW LOW N ORMAL HIGH 0-19 Y < 35 < 40 40-45 ---- 20- 24 Y ---- < 40 >45 ---- >24 Y ---- < 40 40-60 >60. Cholesterol in LDL [Mass/Vol] 101 mg/dL above high threshold 0 - 99 ZS-Zwqaznl-J arma MAC2 303 Work Phone: Comment on above: . NEAR BORD AGE MINDA RABLE OPTIMAL HIGH HIGH VERY HIGH 0-19 Y 0 - 109 --- 110-129 >/= 130 ---- 20-24 Y 0 - 119 --- 120-159 >/= 160 ---- >24 Y 0 - 99 100-129 130-159 160-189 >/=190. Cholesterol.total/C holesterol in HDL [Mass ratio] 4.5 {ratio} RN-Nfqrxwd-L arma MAC2 303 Work Phone: Comment on above: REF VALUESDESIRABLE < 3.4HIGH RISK > 5.0 Triglyceride [Mass/Vol] 169 mg/dL above high threshold 0 - 149 YK-Ilvlpbe-A arma MAC2 303 Work Phone: Comment on above: . AGE DESIRABLE BORD MARICRUZ HIGH HIGH VERY HIGH 0 D-90 D 19 - 174 ---- ---- ----91 D- 9 Y 0 - 74 75 - 99 >/= 100 ---- 10-19 Y 0 - 89 90 - 129 >/= 130 ---- 20-24 Y 0 - 114 115 - 149 >/= 150 ---- >24 Y 0 - 149 150 - 199 200- 499 >/= 500. Venipuncture immediately after or during the administration of Metamizole may lead to falsely low results. Testing should be performed immediately prior to Metamizole dosing. Lipid Panel 34 mg/dL 0 - 40 BQ-Ybppqsn-I arma MAC2 303 Work Phone: Nicotine+Metabolites, Serumo n 12-10-2021 Cotinine [Mass/Vol] <5 MG-Wright rgery-P arma MAC2 303 Work Phone: Nicotine [Mass/Vol] <5 MG-Wright rgery-P arma MAC2 303 Work Phone: Comment on above: Consistent with abst inence from nicotine-containingproducts for at least 1 week.INTERPRETIVE INFORMATION: Nicotine and Metabolites, Serum or Plasma, QuantitativeMethodology: Quantitative Liquid Chromatography-Tandem Mass SpectrometryPositive cutoff: 5 ng/mLFor medical purposes only; not valid for forensic use. This test is designed to evaluate recent use of nicotine-containing products. Passive and active exposure cannot be discriminated definitively, although a cutoff of 10 ng/mL cotinine is frequently used for surgery qualification purposes. For smoking cessation programs or compliance testing, the absence of expected drug(s) and/or drug metabolite(s) may indicate non-compliance, inappropriate timing of specimen collection relative to drug administration, poor drug absorption, or limitations of testing. This test cannot distinguish between use of tobacco and purified nicotine products. The concentration value must be greater than or equal to the cutoff to be reported as positive. This test was developed and its performance characteristics determined by [facility]. It has not been cleared or approved by the [place] Food and Drug Administration. This test was performed in a CLIA certified laboratory and is intended for clinical purposes.Performed By: [facility] [place] [address] [id number] Director: Alberto Yusuf MD, PhD No Panel Informationon 12-10 >90 >90 SX-Nnzfksf-V arma MAC2 303 Work Phone: Comment on above: CALCULATIONS OF YOGI MATED GFR ARE PERFORMED USING THE 2020 CKD-EPI STUDY REFIT EQUATION WITHOUT THE RACE VARIABLE FOR THE IDMS-TRACEABLE CREATININE METHODS.https://jasn.asnjournals.org/content//ASN. 1130463363 Negative NEGATIVE UX-Rxsrhhi-J arma MAC2 303 Work Phone: Comment on above: CUTOFF LEVEL: 5 NG/M L SEE BELOW QJ-Lhgdpsz-B arma MAC2 303 Work Phone: Comment on above: Drug screen results are presumptive and should not be used to assess compliance with prescribed medication. Definitive confirmatory drug testing has been added to this sample for any positive screen result and will be reported separately. .Toxicology screening results are reported qualitatively. The concentration must be greater than or equal to the cutoff to be reported as positive. The concentration at which the screening test can detect an individual drug or metabolite varies. The absence of expected drug(s) and/or drug metabolite(s) may indicate non-compliance, inappropriate timing of specimen collection relative to drug administration, poor drug absorption, diluted/adulterated urine, or limitations of testing. For medical purposes only; not valid for forensic use. .Interpretive questions should be directed to the laboratory medical directors. 2.6 1 1.6 - 4.7 PZ-Fmflssw-O arma MAC2 303 Work Phone: 17 % below low threshold 25 - 45 XL-Vwqvewa-C arma MAC2 303 Work Phone: Office Visit (Cardiology)on 12-10-2021 Follow-up visit Diagnoses/Problems Assessed Preoperative cardiovascular examination (V72.81) (Z01.810) Patient Instructions Continue current medications Monitor blood pressure and pulse rate Remain as active as possible Call if problems or questions Follow-up as needed Please note that due to the inherent weaknesses of voice recognition technology and human error, the above note may not accurately reflect the care of the patient Chief Complaint Cardiac clearance for Bariatrics surgery Adult Risk Screening Initial Fall Risk Screening: LIANE has not fallen in the last 6 months. Her fall did not result in injury. LIANE does not have a fear of falling. She does not need assistance with sitting, standing or walking. Does not need assistance walking in her home. She does not need assistance in an unfamiliar setting. The patient is not using an assistive device. History of Present Illness 31-year-old woman needs an evaluation prior to gastric bypass surgery from a cardiac standpoint. She is physically very active. She walks 12,000 steps per day. 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 She had no angina syncope chest pain leg edema cough mopped to sputum production wheeze or arrhythmias. Past medical history is negative hypertension, diabetes, stroke, heart attack, reticulocyte fever, heart murmur, claudication or deep vein thrombosis. She did have gestational diabetes. Past surgical hist includes a pilonidal cyst x6, she had a tonsillectomy adenoidectomy, DANDC, . No known drug allergies Medications reviewed Active Problems Problems Bariatric surgery status (V45.86) (Z98.84) Depression (311) (F32.A) Encounter for vitamin deficiency screening (V77.99) (Z13.21) Obesity, morbid (more than 100 lbs over ideal weight or BMI > 40) (278.01) (E66.01) PCOS (polycystic ovarian syndrome) (256.4) (E28.2) Preoperative clearance (V72.84) (Z01.818) Surgical History Problems History of Dilation and curettage History of Pilonidal cyst removal History of Tonsillectomy with adenoidectomy Allergies NoKnown No Known Allergies Recorded By: Alexa Morton; 10/22/2021 3:08:48 PM Review of Systems She lives in a house with her boyfriend and her son. 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 Occasional Alcohol. No tobacco history. Brother is healthy. Father is 57 has hypertension and prediabetes. Mother is 55 and healthy. Gen.: There is no weight change, appetite is normal, there are no colds, flus, fevers or chills. Significantly overweight Eyes: Vision is normal and there is no eye pain. ENT: No sore throat, sinus congestion or nasal drainage Cardiac: See history of present illness Pulmonary: No shortness of breath, cough, hemoptysis, sleep apnea, wheeze, asthma or emphysema Heme/lymph: No swollen glands, cancer GI: No abdominal pain, change in bowel habits, melena, hematemesis, hematochezia, nausea, vomiting, diarrhea. : No discharge, dysuria, frequency, urgency, hematuria, kidney failure or kidney stones. She has polycystic ovarian syndrome Musculoskeletal: No limb pain, joint pain, joint swelling, arthritis Skin: No rashes, bruising or bleeding Psych: History of depression but no anxiety. There is no memory loss Endocrine; no diabetes or thyroid disease, she had gestational diabetes. Neurologic: No weakness, numbness, loss of balance, seizure disorder or history of stroke Review of systems is otherwise negative unless stated above or in history of present illness. Vitals Vital Signs Recorded: [id number] 12:30PM Heart Rate77 Uxyklwse972 Qemmdospo56 Height5 ft 4 in Ojzzsy504 lb BMI Onhnkztbsv36.4 kg/m2 BSA Calculated2.14 Tobacco Useb) No Falls Screening (Age 18+)a) No falls within the last year O2 Qzpzndmtct22 Physical Exam Physical Exam: Significantly overweight Appearance: Well-developed, well-nourished in no apparent distress Skin: Intact, dry skin, no lesions, rash, petechiae or purpura. Skin is warm and dry with good color Eyes: PERRLA, EOMs intact, Conjunctiva pink with no redness or exudates, Eyelids without lesions. No scleral icterus. ENT: Hearing grossly intact. Mask Neck: Supple, without meningismus. Thyroid not palpable. Trachea at midline. No lymphadenopathy. Normal carotid upstroke without bruit no jugular venous distention Pulmonary: Clear bilaterally with good chest wall excursion. No rales, rhonchi or wheezing. No accessory muscle use or stridor. No deformity Cardiac: Normal S1, S2 without murmur, rub, gallop or extrasystole. Point of maximal impulse is not palpable Abdomen: Soft, nontender, active bowel sounds. No palpable organomegaly. No rebound or guarding. No CVA tenderness. Genitourinary: Exam deferred. Musculoskeletal: No obvious deformity. Extremities: No cyanosis, clubbing, edema Neurological: Facial muscles symmetric, p (more content not included)... Normal Touchworks PARATHYROID HORMONE,INTACTon 12-10-2021 PARATHYROID HORMONE,INTACT 81.8 pg/mL Normal 12.0 - 88.0 [facility] Comment on above: Performed By: #### P TH #### [address] [id number] Parathormone Intact, Serumon 12-10-2021 Parathyrin.intact [Mass/Vol] 81.8 pg/mL See Below VA-Gsblcjq-N arma MAC2 303 Work Phone: Comment on above: Reference Range: 12. 0 - 88.0 TSHon 12-10-2021 TSH Qn 1.87 m[IU]/L Normal 0.44 - 3.98 [facility] Comment on above: Result Comment: TSH testing is performed using different testing methodology at [facility] than at other [facility]. Direct result comparisons should only be made within the same method. Performed By: #### P TH #### [address] [id number] TSH - Thyroid Stimulating Ho rmone, Serumon 12-10-2021 TSH Qn 1.87 m[IU]/L See Below DO-Rrnxjlz-P arma MAC2 303 Work Phone: Comment on above: Reference Range: 0.4 4 - 3.98 TSH testing is performed using different testing methodology at [facility] than at other [facility]. Direct result comparisons should only be made within the same method. Tobacco Screening.on 022 Fall risk assessment a) No falls within the last year [facility] [address] Work Phone: Tobacco use status [facility] b) No [facility] [address] Work Phone: VITAMIN B12on 12-10-2021 Cobalamin (Vitamin B12) [Mass/Vol] 244 pg/mL Normal 211 - 911 [facility] Comment on above: Performed By: #### V TB12 #### [address] [phone] VITAMIN D, 25-HYDROXYon 11-22 VITAMIN D, 25-HYDROXY 31 ng/mL Normal [facility] Comment on above: Result Comment: . DEFICIENCY: < 20 NG/ML INSUFFICIENCY: 20-29 NG/ML SUFFICIENCY: 30-100 NG/ML THIS ASSAY ACCURATELY QUANTIFIES THE SUM OF VITAMIN D3, 25-HYDROXY AND VIT D2,25-HYDROXY. Performed By: #### V TDOH #### [address] [id number] Vitamin B12, Serumon 022 Cobalamin (Vitamin B12) [Mass/Vol] 244 pg/mL 211 - 911 BP-Okinnnv-P arma MAC2 303 Work Phone: Vitamin D 25-Hydroxyon 12-10 25-hydroxyvitamin D3 [Mass/Vol] 31 ng/mL RX-Enncssh-W arma MAC2 303 Work Phone: Comment on above: .DEFICIENCY: < 20 NG /MLINSUFFICIENCY: 20-29 NG/MLSUFFICIENCY: 30-100 NG/MLTHIS ASSAY ACCURATELY QUANTIFIES THE SUM OFVITAMIN D3, 25-HYDROXY AND VIT D2,25-HYDROXY. Zinc, Serumon 12-10-2021 Zinc [Mass/Vol] 75 ug/dL 44-115 MG-Surger y-P arma MAC2 303 Work Phone: Comment on above: Detection Limit = 5T est(s) 301936-Tffpqg, Serum or Plasma; 959125-Zocg, Plasma or Serumwas developed and its performance characteristics determinedby [employer]. It has not been cleared or approved by the Foodand Drug Administration. Narrative Note - Outpatiento n 12-03-2021 Narrative Note - Outpatient Narrative Note: Description I spoke with pt reminding her of her upcoming EGD procedure with Dr Smith on 12/12. 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 Electronic Signatures: Zayra Gabriel (MIKE) (Signed 03-Dec-2021 14:23) Authored: Narrative Note - OP Last Updated: 03-Dec-2021 14:23 by Zayra Gabriel) Normal [facility] Dietition Noteon 11-07-2021 Dietition Note Chief Complaint A telephone visit (audio only) between the patient (at the originating site) and the provider (at the distant site) was utilized to provide this telehealth service. pre-op weight loss surgery (Gastric sleeve) initial nutrition session Active Problems Bariatric surgery status (V45.86) (Z98.84) Depression (311) (F32.A) Encounter for vitamin deficiency screening (V77.99) (Z13.21) Obesity, morbid (more than 100 lbs over ideal weight or BMI > 40) (278.01) (E66.01) PCOS (polycystic ovarian syndrome) (256.4) (E28.2) Preoperative clearance (V72.84) (Z01.818) Surgical History History of Dilation and curettage History of Pilonidal cyst removal History of Tonsillectomy with adenoidectomy Allergies No Known Allergies Recorded By: Alexa Morton; 10/22/2021 3:08:48 PM Current Meds buPROPion HCl ER (XL) 300 MG Oral Tablet Extended Release 24 Hour; TAKE 1 TABLET DAILY DIRECTED; Therapy: [id number] to Recorded Dispense: 0 Days ; #: Sufficient Tablet; Refill: 0;For: Depression; GORDO = N; Record; Last Updated By: Alexa Morton; 11/06/2021 3:32:04 PM Provider Impressions Initial Bariatric Nutrition Assessment NAME:Liane Phillip: 11-07-2021 Surgeon: Cortes Patient is considering: RNYGB Gastric sleeve Current weight: #246 Height: 5?4 Food allergies/intolerance: None Chewing/Swallowing/Dentiti on: None Nausea / Vomiting / Hx Gastroparesis: None Diarrhea/ Constipation: None Exercise level: walking at work and home 3 times a week- tracking steps-20,000 steps a day Smoking/Tobacco use: none Vitamins/Minerals supplements: daily MVI, calcium Past diet attempts: keto, weight watchers, intermittent fasting Hours of sleep/night: 5-6 hrs 24 HOUR RECALL/DIET HISTORY: Breakfast: skips Snack: none Lunch: ham and cheese sandwich or skips or brownie or candy Snack: none Dinner: meatloaf, mashed potatoes and corn Snack: none Beverages: coffee, crystal light, unsweet ice tea, Gatorade (zero or regular) Alcohol: on occasion- 1-2 drinks a week Person responsible for cooking AND shopping: self How often do you eat sweet snacks? Yes- a couple times a week How often do you eat savory snacks? None How often do you eat out? 1 time a week Do you feel overly stuffed? No Binge Eating? No Night Eating? No Emotional Eating? No READINESS TO LEARN: Motivation to learn: Interested Understanding of instruction: Good Anticipated Compliance: Good Family Support: Unable to assess-family not present Educational Materials Provided: 2 week Pre-op Diet Nutrition Guidelines for Gastric Bypass and Sleeve Gastrectomy Support Group info Patient presents with excessive calorie obesity seeking weight loss surgery-Gastric sleeve. Meals are inconsistent-usually eating 1 meal a day. Patient has used protein shakes in the past. Main fluid is crystal light- is aware of caffeine post-op. Patient is aware if following the 30-30-30 rule. Patient is very activity- tracks steps and obtains 20,000 steps a day. Patient is taking most of the vitamins needed for post-op. Patient has been on keto diet in the past- is aware of protein sources. Patient has been attending the [facility] classes. Very motivated and asking several questions today. Provider hopes to clear patient at next nutrition session. Patient was receptive to nutritional recommendations, asked numerous questions, and verbalized understanding of the weight loss surgery diet. Patient expressed understanding about the importance of strict dietary compliance post-surgery to avoid nutritional deficiencies and achieve optimal weight loss and verbalized intent to follow dietary recommendations. Pre-op/current weight: #246 [place] body weight: #120 Excess body weight: #126 Target Post-Op weight goal: #164-183 (50-65% EBW Sleeve) Malnutrition Screening: Significant unintentional weight loss? No Eating less than 75% of usual intake for more than 2 weeks? No Nutrition Diagnosis: Food- and nutrition-related knowledge deficit related to lack of prior exposure to bariatric surgery-specific dietary information as evidenced by a new patient to the program and Overweight/obesity related to excess energy intake as evidenced by BMI > 25. Recommendations 1.Structure meal patterns, eating three meals and 1-2 snacks per day. No skipping meals- Ok to use a protein shake for a meal replacement 2.Have a good source of protein first at each meal AND snack. Aim for 60-70 grams/day. 3.Drink 64oz of calorie-free, caffeine-free, and non-carbonated beverages- crystal light, Gatorade zero is best, watch the coffee and unsweet ice tea. 4.Stop drinking 30 minutes before meals, nothing with meals and wait 30 minutes after meals to drink again. Make meals last 30 minutes-chew thoroughly. 5.Increase daily multivitamin (2 a day), increase 1200-1500mg of calcium citrate per day (500-600mg at lunch, dinner AND before bed), steps 500mcg of vitamin B12 per day (at breakfast) or monthly vitami (more content not included)... Normal Touchworks Bariatric Surgery - Initialo n 11-06-2021 Bariatric Surgery - Initial Diagnoses/Problems Assessed Bariatric surgery status (V45.86) (Z98.84) Obesity, morbid (more than 100 lbs over ideal weight or BMI > 40) (278.01) (E66.01) PCOS (polycystic ovarian syndrome) (256.4) (E28.2) Encounter for vitamin deficiency screening (V77.99) (Z13.21) *Orders Bariatric surgery status, Obesity, morbid (more than 100 lbs over ideal weight or BMI > 40), Preoperative clearance Adult Sleep Medicine Referral Evaluation and Treatment Evaluate AND Treat prior to Bariatric Surgery. CPAP download as needed. Status: Hold For - Scheduling,Retrospective By Protocol Authorization Requested for: [id number] Cardiology - General Referral Evaluation and Treatment Evaluate AND Treat to provide clearance letter with risk stratification for Bariatric Surgery. Status: Active Requested for: [id number] AMA Intake Activity Log Entry by Jenelle Ugalde ([email or web address]) on 2021-11-05 19:05 Status Change: To Closed - Unable To Schedule-Patient Will Schedule With Encounter for vitamin deficiency screening C Reactive Protein, Serum; Status:Active - Retrospective By Protocol Authorization; Requested for:[id number]; Coagulation Screen; Status:Active - Retrospective By Protocol Authorization; Requested for:[id number]; Complete Blood Count + Differential; Status:Active - Retrospective Authorization; Requested for:[id number]; Comprehensive Metabolic Panel; Status:Active - Retrospective Authorization; Requested for:30Oct2021; Copper, Serum; Status:Active - Retrospective Authorization; Requested for:30Oct2021; Drug Screen, Urine With Reflex To Confirmation; Status:Active - Retrospective Authorization; Requested for:[id number]; Ferritin, Serum; Status:Active - Retrospective Authorization; Requested for:30Oct2021; Folate, Serum; Status:Active - Retrospective Authorization; Requested for:30Oct2021; Free T4 Index; Status:Active - Retrospective Authorization; Requested for:30Oct2021; HELICOBACTER PYLORI BREATH TEST; Status:Active - Retrospective By Protocol Authorization; Requested for:30Oct2021; Hemoglobin A1C; Status:Active - Retrospective Authorization; Requested for:30Oct2021; Iron + TIBC, Serum; Status:Active - Retrospective Authorization; Requested for:30Oct2021; Lipid Panel; Status:Active - Retrospective Authorization; Requested for:30Oct2021; Nicotine+Metabolites, Serum; Status:Active - Retrospective Authorization; Requested for:30Oct2021; Parathormone Intact, Serum; Status:Active - Retrospective Authorization; Requested for:30Oct2021; TSH - Thyroid Stimulating Hormone, Serum; Status:Active - Retrospective Authorization; Requested for:30Oct2021; Vitamin A, Serum; Status:Active - Retrospective Authorization; Requested for:30Oct2021; Vitamin B1 - Thiamine, Whole Blood; Status:Active - Retrospective By Protocol Authorization; Requested for:30Oct2021; Vitamin B12, Serum; Status:Active - Retrospective Authorization; Requested for:30Oct2021; Vitamin D 25-Hydroxy; Status:Active - Retrospective Authorization; Requested for:30Oct2021; Zinc, Serum; Status:Active - Retrospective Authorization; Requested for:30Oct2021; Obesity, morbid (more than 100 lbs over ideal weight or BMI > 40) (278.01) (E66.01) Bariatric surgery status (V45.86) (Z98.84) Preoperative clearance (V72.84) (Z01.818) Patient Discussion/Summary Eliminate soda and other carbonated beverages from your diet. Carbonation will not be well tolerated after surgery. Try Propel, Vitamin Water Zero, Sobe Lifewater, Crystal Light or water. Increase fluid consumption to 64 oz daily. Do not drink within 30 minutes of eating as this will liquefy your food and make you hungry more quickly. Exercise for 30-60 minutes daily. Brisk walking, bike riding and swimming are all examples of healthy exercise. If you are unable to exercise we recommend seated exercise. Do not skip meals. Take a multivitamin daily. Lose weight. In preparation for your surgery it is important that you begin making healthier food choices now. Our dietitian will meet with you to help you select foods lower in calories and higher in nutrition. We would like you to lose at least 1015 lbs prior to surgery. Increase your protein intake to 60 grams per day. Get Your HgA1C <8 . Alcohol is empty calories. Please eliminate while preparing for surgery. Plan your meals. Stop smoking. General Instruction: 1) Use the information we gave you today to work through your insurance requirements and medical clearances. 2) These documents need to get faxed to the program navigators so they can submit them for approval from your insurance company. 3) Obtain labs today at a facility. We will call you with any abnormalities and corrections you need to make. 4) Continue to work with your primary care doctor and other specialist so your other health problems are well controlled prior to your surgery. 5) Adopt the recommendations of the program can dryer so you develop healthy eating patterns. 6) Work with t (more content not included)... Normal [facility] AMYLASEon 08-31-2021 Amylase [Catalytic activity/Vol] 39 U/L Normal 25-115 [facility] Comment on above: Performed By: #### C VDTBH #### [facility] [address] [place] [address] Dr. Candi Bhatti CBC AUTO DIFFon 08-31-2021 BASO # 0.0 103/ul Normal 0.0-0.1 [facility] Comment on above: Performed By: #### C VDTBH #### [facility] [address] [place] [address] Dr. Candi Bhatti Basophils/100 WBC (Bld) 0.5 % Normal 0.2-2.0 [facility] Comment on above: Performed By: #### C VDTBH #### [facility] [address] [place] [address] Dr. Candi Bhatti EO # 0.0 103/ul Normal 0.0-0.7 [facility] Comment on above: Performed By: #### C VDTBH #### [facility] [address] [place] [address] Dr. Candi Bhatti Eosinophils/100 WBC (Bld) 0.3 % Critically low 0.9-7.0 [facility] Comment on above: Performed By: #### C VDTBH #### [facility] [address] [place] [address] Dr. Candi Bhatti Erythrocyte distribution width (RBC) [Ratio] 12.2 % Normal 11.0-15.0 [facility] Comment on above: Performed By: #### C VDTBH #### [facility] [address] [place] [address] Dr. Candi Bhatti Hematocrit (Bld) [Volume fraction] 46.3 % Normal 36.0-48.0 [facility] Comment on above: Performed By: #### C VDTBH #### [facility] [address] [place] [address] Dr. Candi Bhatti Hemoglobin (Bld) [Mass/Vol] 15.8 g/dL Normal 12.0-16.0 [facility] Comment on above: Performed By: #### C VDTBH #### [facility] [address] [place] [address] Dr. Candi Bhatti IG # 0.03 10e3/ul Normal 0.00-0.03 [facility] Comment on above: Performed By: #### C VDTBH #### [facility] [address] [place] [address] Dr. Candi Bhatti IG % 0.5 % Normal 0.0-0.5 [facility] Comment on above: Performed By: #### C VDTBH #### [facility] [address] [place] [address] Dr. Candi Bhatti LYMPH # 0.8 103/ul Critically low 1.2-3.8 [facility] Comment on above: Performed By: #### C VDTBH #### [facility] [address] [place] [address] Dr. Candi Bhatti Lymphocytes/100 WBC (Bld) 12.3 % Critically low 20.5-60.0 [facility] Comment on above: Performed By: #### C VDTBH #### [facility] [address] [place] [address] Dr. Candi Bhatti MANUAL DIFF REQ NO Normal [facility] Comment on above: Performed By: #### C VDTBH #### [facility] [address] [place] [address] Dr. Candi Bhatti MCH (RBC) [Entitic mass] 30.8 pg Normal 26.7-34.0 [facility] Comment on above: Performed By: #### C VDTBH #### [facility] [address] [place] [address] Dr. Candi Bhatti MCHC (RBC) [Mass/Vol] 34.1 g/dL Normal 29.9-35.2 [facility] Comment on above: Performed By: #### C VDTBH #### [facility] [address] [place] [address] Dr. Candi Bhatti MCV (RBC) [Entitic vol] 90.3 fL Normal 81.0-99.0 [facility] Comment on above: Performed By: #### C VDTBH #### [facility] [address] [place] [address] Dr. Candi Bhatti MONO # 0.4 103/ul Normal 0.3-0.8 [facility] Comment on above: Performed By: #### C VDTBH #### [facility] [address] [place] [address] Dr. Candi Bhatti Monocytes/100 WBC (Bld) 6.3 % Normal 1.7-12.0 [facility] Comment on above: Performed By: #### C VDTBH #### [facility] [address] [place] [address] Dr. Candi Bhatti NEUT # 5.1 103/ul Normal 1.4-6.5 [facility] Comment on above: Performed By: #### C VDTBH #### [facility] [address] [place] [address] Dr. Candi Bhatti Neutrophils/100 WBC (Bld) 80.1 % Critically high 43.0-75.0 [facility] Comment on above: Performed By: #### C VDTBH #### [facility] [address] [address] [address] Candi Bhatti Platelet mean volume (Bld) [Entitic vol] 9.8 fL Normal 9.5-13.5 [facility] Comment on above: Performed By: #### C VDTBH #### [facility] [address] [place] [address] Dr. Candi Bhatti PLT 207 103/ul Normal 150-450 [facility] Comment on above: Performed By: #### C VDTBH #### [facility] [address] [place] [address] Dr. Candi Bhatti RBC 5.13 106/ul Normal 4.20-5.40 [facility] Comment on above: Performed By: #### C VDTBH #### [facility] [address] [place] [address] Dr. Candi Bhatti WBC 6.3 103/ul Normal 4.0-11.0 [facility] Comment on above: Performed By: #### C VDTBH #### [facility] [address] [place] [address] Dr. Candi Bhatti CULTURE URINEon 08-31-2021 CULTURE URINE Culture Observations : LIGHT GROWTH OF MIXED GENITAL BRITANY. NO POTENTIAL PATHOGENS SEEN. Normal [facility] Comment on above: Performed By: #### U RCX #### [facility] [address] [place] [address] Dr. Candi Bhatti ER URINE PROFILEon 2 Bilirubin Ql (U) Negative Normal NEGATIVE [facility] Comment on above: Performed By: #### P REGUBRICERO, ERUR #### [facility] [address] [place] [address] Dr. Candi Bhatti Clarity (U) CLEAR Normal CLEAR [facility] Comment on above: Performed By: #### P REGUDIPTIICRO, ERUR #### [facility] [address] [place] [address] Dr. Candi Bhatti Color (U) LT. YELLOW Normal YELLOW [facility] Comment on above: Performed By: #### P REGUDIPTIICSAHIL, ERUR #### [facility] [address] [address] [address] Candi AL A micrscopic examina tion will be performed if indicated. Normal [facility] Comment on above: Performed By: #### P REGU UMICRO, ERUR #### [facility] [address] [address] [address] Candi Bhatti Glucose Ql (U) Negative Normal NEGATIVE [facility] Comment on above: Performed By: #### P REGU UMICRO, ERUR #### [facility] [address] [address] [address] Candi Bhatti Hemoglobin Ql (U) Negative Normal NEGATIVE [facility] Comment on above: Performed By: #### P REGAngela UMICRO, ERUR #### [facility] [address] [address] [address] Candi Bhatti Ketones Ql (U) Negative Normal NEGATIVE [facility] Comment on above: Performed By: #### P REGAngela UMICRO, ERUR #### [facility] [address] [address] [address] Candi Bhatti LEUKOCYTES SMALL Abnormal NEGATIVE [facility] Comment on above: Performed By: #### P DIPTI RICARDOICRO, ERUR #### [facility] [address] [address] [address] Candi Bhatti Nitrite Ql (U) Negative Normal NEGATIVE [facility] Comment on above: Performed By: #### P REGDIPTI MillerICRO, ERUR #### [facility] [address] [address] [address] Candi Bhatti pH (U) 6.0 [pH] Normal 5-9 [facility] Comment on above: Performed By: #### P REGUDIPTIICRO, ERUR #### [facility] [address] [address] [address] Candi Bhatti SPEC GRAVITY 1.025 Normal 1.005-<=1.0 25 [facility] Comment on above: Performed By: #### P MALAUDIPTIICRO, ERUR #### [facility] [address] [place] [address] Dr. Candi Bhatti UA PROTEIN Negative Normal NEGATIVE/ TRACE [facility] Comment on above: Performed By: #### P SHERIE RICARDO, ERUR #### [facility] [address] [place] [address] Dr. Candi Bhatti UR MICRO IND INDICATED Normal [facility] Comment on above: Performed By: #### P SHERIE RICARDO, ERUR #### [facility] [address] [place] [address] Dr. Candi Bhatti Urobilinogen Qn (U) 0.2 {Tsering'U}/dL Normal 0.2 - 1. 0 [facility] Comment on above: Performed By: #### P SHERIE RICARDO, ERUR #### [facility] [address] [place] [address] Dr. Candi Bhatti LIPASEon 08-31-2021 Lipase [Catalytic activity/Vol] 56.0 U/L Critically low 73.0-393.0 [facility] Comment on above: Performed By: #### C MP, SOLEDAD, LIPA #### [facility] [address] [place] [address] Dr. Candi Bhatti URon 08-31-2021 , QUAL Negative Normal NEGATIVE [facility] Comment on above: Performed By: #### P SHERIE RICARDO, ERUR #### [facility] [address] [place] [address] Dr. Candi Bhatti PROF 14(COMP METB)on 022 Albumin [Mass/Vol] 3.9 g/dL Normal 3.4-5.0 [facility] Comment on above: Performed By: #### C VDTBH #### [facility] [address] [place] [address] Dr. Candi Bhatti Albumin/Globulin [Mass ratio] 0.9 {ratio} Normal [facility] Comment on above: Performed By: #### C VDTBH #### [facility] [address] [place] [address] Dr. Candi Bhatti ALP [Catalytic activity/Vol] 86 U/L Normal 46-116 [facility] Comment on above: Performed By: #### C VDTBH #### [facility] [address] [place] [address] Dr. Candi Bhatti ALT [Catalytic activity/Vol] 21 U/L Normal 14-59 [facility] Comment on above: Performed By: #### C VDTBH #### [facility] [address] [place] [address] Dr. Candi Bhatti Anion gap [Moles/Vol] 11.5 mmol/L Normal [facility] Comment on above: Performed By: #### C VDTBH #### [facility] [address] [place] [address] Dr. Candi Bhatti AST [Catalytic activity/Vol] 13 U/L Critically low 15-37 [facility] Comment on above: Performed By: #### C VDTBH #### [facility] [address] [place] [address] Dr. Candi Bhatti Bilirubin [Mass/Vol] 0.5 mg/dL Normal 0.2-1.0 [facility] Comment on above: Performed By: #### C VDTBH #### [facility] [address] [place] [address] Dr. Candi hBatti Calcium [Mass/Vol] 8.6 mg/dL Normal 8.5-10.1 [facility] Comment on above: Performed By: #### C VDTBH #### [facility] [address] [place] [address] Dr. Candi Bhatti Chloride [Moles/Vol] 100 mmol/L Normal 98-107 [facility] Comment on above: Performed By: #### C VDTBH #### [facility] [address] [place] [address] Dr. Candi Bhatti CO2 [Moles/Vol] 28.1 mmol/L Normal 21.0-32.0 [facility] Comment on above: Performed By: #### C VDTBH #### [facility] [address] [place] [address] Dr. Candi Bhatti Creatinine [Mass/Vol] 0.79 mg/dL Normal 0.55-1.02 [facility] Comment on above: Performed By: #### C VDTBH #### [facility] [address] [place] [address] Dr. Candi Bhatti EGFR-AF RWANDAN >60 Normal >=60 [facility] Comment on above: Performed By: #### C VDTBH #### [facility] [address] [place] [address] Dr. Candi Bhatti EGFR-NON AF RWANDAN >60 Normal >=60 [facility] Comment on above: Performed By: #### C VDTBH #### [facility] [address] [place] [address] Dr. Candi Bhatti Globulin (S) [Mass/Vol] 4.4 g/dL Normal [facility] Comment on above: Performed By: #### C VDTBH #### [facility] [address] [place] [address] Dr. Candi Bhatti Glucose [Mass/Vol] 99 mg/dL Normal 74-106 [facility] Comment on above: Performed By: #### C VDTBH #### [facility] [address] [place] [address] Dr. Candi Bhatti Potassium [Moles/Vol] 3.6 mmol/L Normal 3.5-5.1 [facility] Comment on above: Performed By: #### C VDTBH #### [facility] [address] [place] [address] Dr. Candi Bhatti Protein [Mass/Vol] 8.3 g/dL Critically high 6.4-8.2 [facility] Comment on above: Performed By: #### C VDTBH #### [facility] [address] [place] [address] Dr. Candi Bhatti Sodium [Moles/Vol] 136 mmol/L Normal 136-145 [facility] Comment on above: Performed By: #### C VDTBH #### [facility] [address] [place] [address] Dr. Candi Bhatti Urea nitrogen [Mass/Vol] 7.0 mg/dL Normal 7.0-18.0 [facility] Comment on above: Performed By: #### C VDTBH #### [facility] [address] [place] [address] Dr. Candi Bhatti Urea nitrogen/Creatinine [Mass ratio] 8.9 mg/mg Normal [facility] Comment on above: Performed By: #### C VDTBH #### [facility] [address] [place] [address] Dr. Candi Bhatti URINE MICROSCOPIC ONLYon BACTERIA SMALL Abnormal NONE SEEN [facility] Comment on above: Performed By: #### P REGU, UMICRO, ERUR #### [facility] [address] [place] [address] Dr. Candi Bhatti Bacteria identified Cx Nom (U) INDICATED Normal [facility] Comment on above: Performed By: #### P REGU, UMICRO, ERUR #### [facility] [address] [place] [address] Dr. Candi Bhatti CAST NONE SEEN Normal NONE SEEN [facility] Comment on above: Performed By: #### P REGU, UMICRO, ERUR #### [facility] [address] [place] [address] Dr. Candi Bhatti Crystals LM Nom (Urine sed) NONE SEEN Normal NONE SEEN [facility] Comment on above: Performed By: #### P REGU, UMICRO, ERUR #### [facility] [address] [place] [address] Dr. Candi Bhatti Epithelial cells LM Ql (Urine sed) MODERATE Abnormal NONE SEEN /RARE [facility] Comment on above: Performed By: #### P REGU, UMICRO, ERUR #### [facility] [address] [place] [address] Dr. Candi Bhatti MUCOUS MODERATE Abnormal NONE SEEN [facility] Comment on above: Performed By: #### P REGU, UMICRO, ERUR #### [facility] [address] [place] [address] Dr. Candi Bhatti RBC NONE SEEN Abnormal 0-2 [facility] Comment on above: Performed By: #### P SHERIE RICARDO ERUR #### [facility] [address] [place], [place] [address] Dr. Candi Bhatti WBC 2-5 Abnormal NONE SEEN [facility] Comment on above: Performed By: #### P SHERIE RICARDO, PERRIR #### [facility] [address] [place], [place] [address] Dr. Candi Bhatti XR ABD FLAT UP_PA Xu 08-31 XR ABD FLAT UP_PA CH EXAMINATION: XR ABD FLAT UP_PA CH HISTORY: NAUSEA WITH VOMITING, UNSPECIFIED COMPARISON: No relevant comparison available. FINDINGS: LUNGS: No infiltrate, pneumothorax, or pleural effusion. MEDIASTINUM: No abnormal widening. BOWEL GAS PATTERN: Non-obstructed. Paucity of air in the bowel FREE AIR: None. CALCIFICATIONS: None significant. BONES: No fracture or visible bone lesion. OTHER: IUD projects of the pelvis IMPRESSION: Clear lungs Nonobstructive bowel gas pattern Electronically authenticated by: ADRIANO MARSHALL Date: 2021-08-31 13:14 Normal [facility] US PELVIS AND TRANSVAGon US PELVIS AND TRANSVAG EXAMINATION: US PELVIS AND TRANSVAG HISTORY: Pelvic and perineal pain COMPARISON: 03/14/2021 FINDINGS: The uterus is normal in size, contour and echotexture measuring 7.7 x 3.0 x 4.3 cm. Anteverted. Linear hyperechogenicity within the endometrial cavity with acoustic shadowing, normally positioned IUD limiting evaluation of the posterior endometrium. Endometrium is grossly normal measuring 6.4 mm thick. The right ovary is normal in size, contour and echotexture measuring 3.3 x 1.7 x 1.7 cm. Normal color and Doppler flow. Normal resistive index of 0.37. The left ovary is normal in size, contour and echotexture measuring 2.7 x 2.7 x 2.6 cm. Normal color and Doppler flow. Normal resistive index of 0.56. Area of anechoic echogenicity measuring 1.7 x 1.5 x 1.0 cm, simple cyst. IMPRESSION: Interval resolution of right ovarian cystic lesion 1.7 cm left ovarian simple cyst Electronically authenticated by: ADRIANO MARSHALL Date: 2021-07-05 14:43 Normal [facility] US PELVIS AND TRANSVAGon US PELVIS AND TRANSVAG EXAMINATION: US PELVIS AND TRANSVAG HISTORY: Pelvic and perineal pain COMPARISON: No relevant comparison available. TECHNIQUE: Transabdominal and transvaginal sonographic examination. FINDINGS: UTERUS: Normal size and appearance. Uterus size: 8.4 x 3.6 x 5.1 cm ENDOMETRIUM: IUD within endometrial cavity appearing in appropriate position. Normal homogeneous appearance. Endometrial thickness: 6 mm RIGHT OVARY: Contains an irregular thick-walled cystic structure, 4.0 x 1.3 x 1.8 cm. Duplex Doppler demonstrates normal waveform and flow; resistive index 0.47. Ovary size: 4.0 x 1.9 x 1.8 cm LEFT OVARY: Normal size and appearance. Duplex Doppler demonstrates normal waveform and flow; resistive index 0.61. Ovary size: 3.3 x 1.7 x 1.6 cm CUL-DE-SAC: Moderate amount of free fluid within the cul-de-sac and right adnexa. BLADDER: Unremarkable. OTHER: None. IMPRESSION: 1. Suspect collapsing complex cyst within right ovary accounting for appearance of right ovary and free fluid. 2. Normal-appearing uterus and endometrium with IUD in place. 3. Unremarkable left ovary. Electronically authenticated by: WILMAN SIMEON Date: 2021-03-15 08:47 Normal [facility] CULTURE THROATon 02-02-2021 CULTURE THROAT Culture Observations : NORMAL RESPIRATORY BRITANY. Normal [facility] Comment on above: Performed By: #### C VDTB #### [facility] [address] [place] [address] Dr. Candi Bhatti Covid-19 PCR ([facility])on 01-22 SARS-CoV-2 (COVID-19) RNA SHAR+probe Ql (Unsp spec) Not detected Normal NOT DETECTED [facility] Comment on above: Result Comment: This test is not yet approved or cleared by the [place] FDA. When there are no FDA-approved or cleared tests available, and other criteria are met, FDA can make tests available under an emergency access mechanism called an Emergency Use Authorization (EUA). The EUA for this test is supported by the [place] of Health and Human Service's (HHS's) declaration that circumstances exist to justify the emergency use of in vitro diagnostics for the detection and/or diagnosis of the virus that causes COVID-19. This EUA will remain in effect (meaning this test can be used) for the duration of the COVID-19 declaration justifying emergency of IVDs, unless it is terminated or revoked by FDA (after which the test may no longer be used). When diagnostic testing is negative, the possibility of a false negative should be considered in the context of a patient's recent exposures and the presence of clinical signs and symptoms consistent with SARS-CoV-2. Performed By: #### C VDTBH #### [facility] [address] [place] [address] Dr. Candi Bhatti INFLUENZA A AND B [facility] 02-02 [facility] SEE BELOW Normal [facility] Comment on above: Result Comment: Nega tive for Flu A protein angiten. Infection due to Flu A cannot be ruled out. Flu A angiten in the sample may be below the detection limit of the test. Performed By: #### C VDTBH #### [facility] [address] [place] [address] Dr. Candi Bhatti [facility] SEE BELOW Normal [facility] Comment on above: Result Comment: Nega tive for Flu B protein antigen. Infection due to Flu B cannot be ruled out. Flu B antigen in the sample may be below the detection limit of the test. Performed By: #### C VDTBH #### [facility] [address] [place] [address] Dr. Candi Bhatti INFLUENZA A AG Negative Normal NEGATIVE SEE COMMENT [facility] Comment on above: Performed By: #### C VDTBH #### [facility] [address] [place] [address] Dr. Candi Bhatti INFLUENZA B AG Negative Normal NEGATIVE SEE COMMENT [facility] Comment on above: Performed By: #### C VDTBH #### [facility] [address] [place] [address] Dr. Candi Bhatti INTERNAL CONTROLS Within Normal Limits Normal Wi thin Normal Limits [facility] Comment on above: Performed By: #### C VDTBH #### [facility] [address] [place], [place] [id number] Dr. Candi Bhatti STREPT SCREENon 02-02-2021 STREP SCREEN A Negative Normal NEGATIVE [facility] Comment on above: Performed By: #### C VDTB #### [facility] [address] [place] [address] Dr. Candi Bhatti Covid-19 PCR ([facility])on 11-22 SARS-CoV-2 (COVID-19) RNA SHAR+probe Ql (Unsp spec) Detected Critically abnormal NOT DETECTED [facility] Comment on above: Result Comment: This test is not yet approved or cleared by the [place] FDA. When there are no FDA-approved or cleared tests available, and other criteria are met, FDA can make tests available under an emergency access mechanism called an Emergency Use Authorization (EUA). The EUA for this test is supported by the [place] of Health and Human Service's (HHS's) declaration that circumstances exist to justify the emergency use of in vitro diagnostics for the detection and/or diagnosis of the virus that causes COVID-19. This EUA will remain in effect (meaning this test can be used) for the duration of the COVID-19 declaration justifying emergency of IVDs, unless it is terminated or revoked by FDA (after which the test may no longer be used). Performed By: #### C VDTBH #### [facility] [address] [place], [place] [id number] Carol Short Vital Signs Date Time Vital Sign Value Performing Clinician Facility 06-21-2022 08:26-0400 Body mass index (BMI) [Ratio] 32.96 kg/m2 Referring Provider Unknown VQ-Ghdrvok-Kivyxxhq [address]99[facility] Work Phone: 06-21-2022 08:26-0400 Body surface area Derived from formula 1.92 m2 Referring Provider Unknown WI-Ninndzf-Pjkjmpbq [address] [facility] Work Phone: 06-21-2022 08:26-0400 Body weight 87.09 kg Referring Provider Unknown VG-Xzyfezi-Yooggblt [address] [facility] Work Phone: 03-20-2022 10:13-0500 Body mass index (BMI) [Ratio] 36.56 kg/m2 Referring Provider Unknown YK-Cemicqu-Uuxvk MAC2 303 Work Phone: 03-20-2022 10:13-0500 Body surface area Derived from formula 2.01 m2 Referring Provider Unknown CP-Cgguhii-Tmkrt MAC2 303 Work Phone: 03-20-2022 10:13-0500 Body weight 96.62 kg Referring Provider Unknown EE-Jvycwtc-Zkkxf MAC2 303 Work Phone: 02-25-2022 13:20-0500 Body mass index (BMI) [Ratio] 39.47 kg/m2 Referring Provider Unknown [facility] [place] [address] DO Work Phone: 02-25-2022 13:20-0500 Body surface area Derived from formula 2.08 m2 Referring Provider Unknown [facility] [place] 1600 DO Work Phone: 02-25-2022 13:20-0500 Body temperature 97.6 [degF] Referring Provider Unknown [facility] [place] 1600 DO Work Phone: 02-25-2022 13:20-0500 Body weight 104.3 kg Referring Provider Unknown [facility] [place] [address] DO Work Phone: 02-25-2022 13:20-0500 Diastolic blood pressure 76 mm[Hg] Referring Provider Unknown [facility] [place] 1600 DO Work Phone: 02-25-2022 13:20-0500 Heart rate 94 /min Referring Provider Unknown [facility] [place] 1600 DO Work Phone: 02-25-2022 13:20-0500 Respiratory rate 20 /min Referring Provider Unknown [facility] [place] 1600 DO Work Phone: 02-25-2022 13:20-0500 SaO2% (BldA) [Mass fraction] 98 % Referring Provider Unknown [facility] [place] 1600 DO Work Phone: 02-25-2022 13:20-0500 Systolic blood pressure 110 mm[Hg] Referring Provider Unknown [facility] [place] 1600 DO Work Phone: 02-14-2022 18:47-0500 Body temperature 99.86 [degF] Pcp Unknown [facility] Other Phone (unformatted): [phone] 02-14-2022 18:47-0500 Diastolic blood pressure 69 mm[Hg] Pcp Unknown [facility] Other Phone (unformatted): [phone] 02-14-2022 18:47-0500 Heart rate 72 /min Pcp Unknown [facility] Other Phone (unformatted): [phone] 02-14-2022 18:47-0500 Respiratory rate 18 /min Pcp Unknown [facility] Other Phone (unformatted): [phone] 02-14-2022 18:47-0500 SaO2% (BldA) [Mass fraction] 95 % Pcp Unknown [facility] Other Phone (unformatted): [phone] 02-14-2022 18:47-0500 Systolic blood pressure 122 mm[Hg] Pcp Unknown [facility] Other Phone (unformatted): [phone] 02-07-2022 10:15-0500 Body height 162.56 cm Referring Provider Unknown ER-Dwbikak-Hhyrp MAC2 303 Work Phone: 02-07-2022 10:15-0500 Body mass index (BMI) [Ratio] 41.71 kg/m2 Referring Provider Unknown IP-Cqgwfof-Zlomx MAC2 303 Work Phone: 02-07-2022 10:15-0500 Body surface area Derived from formula 2.12 m2 Referring Provider Unknown NP-Hxkvznd-Rvafs MAC2 303 Work Phone: 02-07-2022 10:15-0500 Body weight 110.22 kg Referring Provider Unknown KH-Oovausd-Ndgyt MAC2 303 Work Phone: 02-07-2022 10:15-0500 Diastolic blood pressure 77 mm[Hg] Referring Provider Unknown HW-Tvrwlck-Yceze MAC2 303 Work Phone: 02-07-2022 10:15-0500 Heart rate 68 /min Referring Provider Unknown SD-Ucofppm-Amoun MAC2 303 Work Phone: 02-07-2022 10:15-0500 SaO2% (BldA) [Mass fraction] 98 % Referring Provider Unknown FI-Qxlokhz-Lswme MAC2 303 Work Phone: 02-07-2022 10:15-0500 Systolic blood pressure 111 mm[Hg] Referring Provider Unknown FR-Bnjijcx-Migqw MAC2 303 Work Phone: 12-10-2021 12:30-0400 Body height 162.56 cm Referring Provider Unknown CA-Iomggohmjt-Eozvy martha 320 Work Phone: 12-10-2021 12:30-0400 Body mass index (BMI) [Ratio] 42.4 kg/m2 Referring Provider Unknown GS-Nrsiumezlx-Bwbjk martha 320 Work Phone: 12-10-2021 12:30-0400 Body surface area Derived from formula 2.14 m2 Referring Provider Unknown RF-Kixctnkaiq-Cpnhj martha 320 Work Phone: 12-10-2021 12:30-0400 Body weight 112.04 kg Referring Provider Unknown JA-Fwahfztydp-Wjmol martha 320 Work Phone: 12-10-2021 12:30-0400 Diastolic blood pressure 90 mm[Hg] Referring Provider Unknown WC-Mxajlfhspe-Bqoip martha 320 Work Phone: 12-10-2021 12:30-0400 Heart rate 77 /min Referring Provider Unknown MB-Tjdibhrrag-Cyvbu martha 320 Work Phone: 12-10-2021 12:30-0400 SaO2% (BldA) [Mass fraction] 98 % Referring Provider Unknown RF-Ozkidhkgpb-Pzjzd martha 320 Work Phone: 12-10-2021 12:30-0400 Systolic blood pressure 116 mm[Hg] Referring Provider Unknown KL-Jwgkhigveh-Ffpri martha 320 Work Phone: 11-06-2021 13:28-0400 Body height 162.56 cm Referring Provider [facility] [address] [facility] Work Phone: 11-06-2021 13:28-0400 Body mass index (BMI) [Ratio] 42.23 kg/m2 Referring Provider Unknown [facility] [address] [facility] Work Phone: 11-06-2021 13:28-0400 Body surface area Derived from formula 2.14 m2 Referring Provider Unknown [facility] [address] [facility] Work Phone: [phone] Body weight 111.59 kg Referring Provider Unknown SA-Vqgtjwk-Dlievli[address] Work Phone: Encounters Encounter Date Encounter Type Care Provider Facility Start: 09-15-2023 End: 09-15-2023 ambulatory RAJANI NAT Not Available Start: 07-28-2023 End: 07-28-2023 ambulatory RAJANI NAT Not Available Start: 03-12-2023 End: 03-12-2023 ambulatory RAJANI NAT Not Available Start: 06-21-2022 Office outpatient vi sit 25 minutes Referring Provider Unknown AP-Yhueoto-Fjwqckcp [address] Work Phone: Start: 06-21-[address] Kamari Smith Faci lity:[id number] Start: 05-24-2022 Patient encounter procedure Referring Provider Unknown [facility]mcm[facility]ct[facility] Work Phone: Start: 05-10-2022 Current tobacco non- user cad cap copd pv dm Referring Provider Unknown GN-Wjbmuqw-Kyztl MAC2 303 Work Phone: Start: 03-20-2022 ambulatory PCP UNKNOWN Facility:1 5395 Start: 03-20-2022 Postop follow up vis it related to original px Referring Provider Unknown TU-Rvcmqyg-Xewlt MAC2 303 Work Phone: Start: 03-20-2022 ambulatory PCP UNKNOWN Facility:1 53 Start: 02-25-2022 Patient encounter procedure Referring Provider Unknown [facility] 1600 DO Work Phone: Start: 02-25-2022 ambulatory PCP UNKNOWN Facility:1 9810 Start: 02-21-2022 ambulatory PCP UNKNOWN Facility:1 5388 Start: 02-21-2022 Patient encounter procedure Referring Provider [facility] [address] [facility] Work Phone: Start: 02-21-2022 ambulatory PCP UNKNOWN Facility:1 5338 Start: 02-15-2022 Chart Update Referring Prov ider Unknown VL-Fwrqlnz-Wrurt MAC2 303 Work Phone: Start: 2022 End: 02-14-2022 Evaluation and management of inpatient Nubiad Cortes [facility] 734 01 Other Phone (unformatted): [phone] Start: 02-12-2022 Chart Update Referring Prov ider Unknown VR-Adtixww-Rqcsy MAC2 303 Work Phone: Start: 02-07-2022 ambulatory PCP UNKNOWN Facility:9 531 Start: 02-07-2022 [facility] Start: 02-07-2022 Encounter for preprocedural laboratory examination [facility] Start: 02-07-2022 Office outpatient vi sit 25 minutes Referring Provider Unknown JH-Fwjiopi-Qekez MAC2 303 Work Phone: Start: 02-07-2022 ambulatory PCP UNKNOWN Facility:9 545 Start: 12-20-[address] YASH Cano ity:[id number] Start: 12-20-2021 Patient encounter procedure Referring Provider Unknown [facility] [address] [facility] Work Phone: Start: 12-20-2021 YAMILETH, Provider : Lexi Gannon, Status: Pen, Time: 2:00 PM Referring Provider Unknown KW-Zkbwyyw-Wkpmr MAC2 303 Work Phone: Start: 12-18-2021 Chart Update Referring Prov ider Unknown TJ-Kbgkswt-Zqrxh MAC2 303 Work Phone: Start: 12-12-2021 Encounter for other preprocedural examination Dr. Kamari Smith [facility] Start: 12-12-2021 EGDANS, Provider: Kamari Smith, Status: Pen, Time: 7:30 AM Referring Provider Unknown GW-Rqnhrcrpxs-Jekfyax e 320 Work Phone: Start: 12-12-2021 End: 12-12-2021 ambulatory PCP UNKNOWN Facility:9531 Start: 12-10-2021 Office outpatient ne w 30 minutes Referring Provider Unknown KP-Ucfmestytv-Owdgsyt e 320 Work Phone: Start: 12-10-2021 ambulatory Torsten Kayleigh Facility:9 360 Start: 11-07-2021 Patient encounter procedure Referring Provider Unknown [facility] I Work Phone: Start: 11-07-2021 ambulatory PCP UNKNOWN Facility:1 5338 Start: 11-06-[address] Kamari Smith Faci lity:[facility] Start: 10-31-2021 AUDIT Referring Prov ider Unknown LI-Odjauob-Ygjaa MAC2 303 Work Phone: Start: 09-30-2021 Encounter for other preprocedural examination DR DOCTOR TERRY [facility] Start: 09-25-2021 End: 09-26-[address] DOCTOR TERRY Facility:H1 Start: 09-25-2021 End: 09-26-2021 Encounter for other preprocedural examination DR DOCTOR TERRY Facility:H1 Start: 08-31-2021 End: 08-31-[address] ADRIANO MARSHALL Facility:H1 Start: 07-05-2021 End: 07-06-[address] RAJANI JOHNS Facility:H1 Start: 03-14-2021 End: 03-15-[address] RAJANI JOHNS Facility:H1 Start: 02-02-2021 End: 02-02-[address] DOCTOR TERRY Facility:H1 Start: 12-01-2020 End: 12-01-[address] DOCTOR TERRY Facility:H1 Patient encounter status Referri ng Provider Unknown NW-Ddmazovyyj-Iaedrmr e 320 Work Phone: Preoperative state Referring Pro vider Unknown TE-Nvdswud-Vwkgxkp [facility] [address] [facility] Work Phone: Procedures Date Procedure Procedure Detail Performing Clinician Start: 02-07-2022 Antibody screen PCP BISHOP SALCEDO Comment on above: Performed By: #### T +S ####[facility] [place] [id number] Dilation and curettage Refer ring Provider Unknown Removal of pilonidal cyst Re ferring Provider Unknown Tonsillectomy and adenoidectomy Referring Provider Unknown Plan of Treatment Date Care Activity Detail Author Start: 08-13-2022 VIRFUVHOME, Provider : Linda Nova, Status: Pen, Time: 3:00 PM VIRFUVDIAE, Provider: Linda Nova, Status: Pen, Time: 3:00 PM OJ-Vvyhcql-M[facility]my [facility] Work Phone: Start: 08-13-2022 VIRFUSARAE, Provider : Meredith Snider, Status: Pen, Time: 2:00 PM VIRFUVHOME, Provider: Meredith Snider, Status: Pen, Time: 2:00 PM [facility] Work Phone: Start: 06-20-2022 VIRFUVHOME, Provider : Kamari Smith, Status: Pen, Time: 3:15 PM VIRFUVHOME, Provider: Kamari Smith, Status: Pen, Time: 3:15 PM HB[facility]rmpvni[facility] Work Phone: Start: 05-10-2022 Patient encounter procedure [facility] Start: 05-10-2022 VIRFUVDIAE, Provider : Kamari Smith, Status: Pen, Time: 8:45 AM VIRFUVHOME, Provider: Kamari Smith, Status: Pen, Time: 8:45 AM HZ-Lsczcxm-Opdcg MAC2 303 Work Phone: Start: 05-09-2022 Patient encounter procedure [facility] Start: 05-09-2022 VIRFUVHOME, Provider : Lexi Gannon, Status: Pen, Time: 9:30 AM VIRFUVHOME, Provider: Lexi Gannon, Status: Pen, Time: 9:30 AM OH-Wydkelm-Rjbgp MAC2 303 Work Phone: Start: 03-28-2022 VIRFUVHOME, Provider : Lexi Gannon, Status: Pen, Time: 9:30 AM VIRFUVHOME, Provider: Lexi Gannon, Status: Pen, Time: 9:30 AM MJ-Zsfzbth-Klrwhyp [facility] [address] [facility] Work Phone: Start: 03-20-2022 VIRFUVHOME, Provider : Linda Nova, Status: Pen, Time: 1:45 PM VIRFUVHOME, Provider: Linda Nova, Status: Pen, Time: 1:45 PM WW-Pjlhzbi-Htpfn MAC2 303 Work Phone: Start: 03-20-2022 Patient encounter procedure [facility] Start: 03-20-2022 VIRFUVHOME, Provider : Lexi Gannon, Status: Pen, Time: 11:00 AM VIRFUVHOME, Provider: Lexi Gannon, Status: Pen, Time: 11:00 AM EG-Suhiduh-Mvrgp MAC2 303 Work Phone: Start: 02-21-2022 Patient encounter procedure [facility] Start: 02-21-2022 VIRFUVHOME, Provider : Kamari Smith, Status: Pen, Time: 3:15 PM VIRFUVHOME, Provider: Kamari Smith, Status: Pen, Time: 3:15 PM SH-Tvuotzv-Gmceg MAC2 303 Work Phone: Start: 02-21-2022 Patient encounter procedure [facility] Start: 02-21-2022 VIRFUVHOME, Provider : Lexi Gannon, Status: Pen, Time: 8:30 AM VIRFUVHOME, Provider: Lexi Gannon, Status: Pen, Time: 8:30 AM SF-Rmjltla-Lfiha MAC2 303 Work Phone: Start: 2022 End: 02-14-2023 [facility] Other Phone (unformatted): [phone] Comment on above: PRE-OP 02/13/22 To be given 1 hour p reoperatively when patient is placed on-call to the OR. Start: 12-20-2021 VIRFUDARCY, Provider : Lexi Gannon, Status: Pen, Time: 2:00 PM VIRFUVASH, Provider: Lexi Gannon, Status: Pen, Time: 2:00 PM KX-Gvafhoh-Uusbh MAC2 303 Work Phone: Start: 12-12-2021 VIRNILDA, Provider : Lexi Gannon, Status: Pen, Time: 3:00 PM VIRFUDARCY, Provider: Lexi Gannon, Status: Pen, Time: 3:00 PM [facility] [address] [facility] Work Phone: Start: 12-12-2021 EGDANS, Provider: Kamari Smith, Status: Pen, Time: 7:30 AM EGDANS, Provider: Kamari Smith, Status: Pen, Time: 7:30 AM PM-Ontvnpg-Zemqu MAC2 303 Work Phone: Start: 12-10-2021 NPV, Provider: Torsten Victor, Status: Pen, Time: 12:30 PM NPV, Provider: Torsten Victor, Status: Pen, Time: 12:30 PM [facility] [address] [facility] Work Phone: Payers Date Payer Category Payer Unknown [id number] 2.16.84 [id number] 1990 Unknown [id number] 2.16.84 0.1.734260.3.579.2.593 1990 Unknown [id number] 2.16.84 0.1.220505.3.579.2.593 1990 Unknown [id number] 2.16.84 0.1.468089.3.579.2.593 1990 Unknown [id number] 2.16.84 0.1.455124.3.579.2.593 1990 Unknown [id number] 2.16.84 0.1.770203.3.579.2.593 1990 Unknown [id number] 2.16. 840.1.171442.3.579.2.356 1990 Unknown [id number] 2.16. 840.1.339532.3.579.2.356 1990 Unknown [id number] 2.16. 840.1.992190.3.579.2.356 1990 Unknown [id number] 2.16. 840.1.876772.3.579.2.356 1990 Unknown [id number] 2.16. 840.1.291416.3.579.2.356 1990 Unknown [id number] 2.16. 840.1.167774.3.579.2.356 1990 Unknown [id number] 2.16. 840.1.570686.3.579.2.356 1990 Unknown [id number] 2.16. 840.1.077714.3.579.2.356 1990 Unknown [id number] 2.16. 840.1.420357.3.579.2.356 1990 Unknown [id number] 2.16.8 40.1.482200.3.579.2.1046 1990 Unknown [id number] 2.16.8 40.1.921234.3.579.2.6 1990 Unknown [id number] 2.16.8 40.1.658827.3.579.2.1046 1990 Unknown [id number] 2.16.8 40.1.744834.3.579.2.1046 1990 Unknown [id number] 2.16.8 40.1.785321.3.579.2.1046 1990 Unknown [id number] 2.16.84 0.1.776625.3.579.2.1259 1990 Unknown [id number] 2.16.84 0.1.146406.3.579.2.9 1990 Unknown [id number] 2.16.840 .1.274726.3.579.2.1259 1959 Unknown [id number] Unknown Social History Date Type Detail Facility [facility] Other Phone (unformatted): [phone] Tobacco smoking consumption unknown [facility] Other Phone (unformatted): [phone] Non-smoker Non-smoker QY-Fccmlix-Kyoh a MAC2 303 Work Phone: Functional Status Date Assessment Result Facility Functional observable [facility] Other Phone (unformatted): [phone] Mental Status Date Assessment Result Facility 02-14-2022 Cognitive functi ons :04 [facility] Other Phone (unformatted): [phone] Clinical Notes 02-12-2022 to 08-13-2022 <item> Note Date & Type Note Facility 08-13-2022 Note Chief Complaint An interactive audio and video telecommunication system which permits real time communications between the patient (at the originating site) and provider (at the distant site) was utilized to provide this telehealth service. Verbal consent was requested and obtained from LIANE RILEY on this date, 08/13/2022 02:00 PM , for a telehealth visit. obesity nutrition follow-up post-op sleeve gastrectomy Active Problems Bariatric surgery status (V45.86) (Z98.84) Dehydration (276.51) (E86.0) Depression (311) (F32.A) Encounter for vitamin deficiency screening (V77.99) (Z13.21) Obesity, morbid (more than 100 lbs over ideal weight or BMI > 40) (278.01) (E66.01) PCOS (polycystic ovarian syndrome) (256.4) (E28.2) Post-op pain (338.18) (G89.18) Postoperative malabsorption (579.3) (K91.2) Post-operative nausea and vomiting (787.01) (R11.2,Z98.890) Preoperative cardiovascular examination (V72.81) (Z01.810) Preoperative clearance (V72.84) (Z01.818) S/P laparoscopic sleeve gastrectomy (V45.86) (Z98.84) Surgical History History of Dilation and curettage History of Pilonidal cyst removal History of Tonsillectomy with adenoidectomy Family History No pertinent family history Social History Non-smoker (V49.89) (Z78.9) Allergies No Known Allergies Recorded By: Alexa Morton; 10/22/2021 3:08:48 PM Current Meds Omeprazole 40 MG Oral Capsule Delayed Release; TAKE 1 CAPSULE Daily Open capsule, sprinkle in SF applesauce or pudding, swallow. DO NOT CHEW; Therapy: 04Feb2022 to (Last Rx:07Feb2022) Requested for: 08Feb2022 Ordered Rx By: Kamari Smith; Dispense: 0 Days ; #:30 Capsule; Refill: 5;For: Bariatric surgery status; GORDO = N; Verified Transmission to [facility] Ondansetron 4 MG Oral Tablet Disintegrating; 1-2 tablets every 6-8 hours as needed for nausea; Therapy: 04Feb2022 to (Last Rx:07Feb2022) Requested for: 08Feb2022 Ordered Rx By: Kamari Smith; Dispense: 0 Days ; #:60 Tablet; Refill: 5;For: Post-operative nausea and vomiting; GORDO = N; Verified Transmission to [facility] Provider Impressions Surgery Date:02-13-22 Surgeon: Cortes Procedure: sleeve gastrectomy ASSESSMENT: Current weight: 182 lbs Ht: 64 in. BMI: 31 Previous weight: 199.8 lbs (3..) Initial start weight in pounds: 246.0 11-06-21 EBW in pounds: 101.0 Total weight change: -64 lbs %EBW Lost: 63% PROGRESS: Nutrition Interventions for last encounter (3.3.23) 1. Continue to eat 60 to 70 g of protein per day 2. Continue to drink 64 oz. of zero calorie beverages per day 3. Continue no drinking 30 min before, during the meal and for 30 minutes after the meal 4. Increase intensity and duration of exercise 5. Continue current vit/min regimen and lower B12 to 500 mcg. daily. 6. Complete lab order as directed. 7. Great job! Attend support groups as needed. CHANGES IN TREATMENT: Patient met goals: Yes Actions to meet previous goals: 24 hour food recall: 64oz, Breakfast: 1-1.5 egg bites (turkey sausage, cheese, peppers) Snack: deli meat and cheese Lunch: leftovers - 1-2 oz bison burger, veggies - no bun Snack: Dinner: 2oz salmon fillet, vegetable Snack: Beverages: 32oz x2 water CL Alcohol: none Vitamins: 2 MVI, 1500 mg calcium, and 500 mcg. B12 Medications: see list Physical Activity: walking in afternoon with son, not enough energy for resistance training Nausea/Vomiting/Diarrhea/Constipat ion: none READINESS TO LEARN: Motivation to learn: Interested Understanding of instruction: Good Anticipated Compliance: Good Family Support: Unable to assess-family not present Patient presents with post--op sleeve gastrectomy. Pt is 6 months postop. Weight today is self reported. Patient has lost 64 pounds since initial assessment accounting for 63 loss excess body weight. Tolerating a Regular diet without difficulty. Protein intake is adequate for post-op individual. Encouraged to aim for 3oz protein at meals. Fluid consumption is adequate. Patient is supplementing recommended vitamin/minerals. Pt states no concerns/difficulties at this time. Feels exercise is hard to incorporate at this time d/t busier workload. Encouraged Resistance training in the next few months as she can fit in more time. Encouraged monthly SG meetings. Malnutrition Screening Significant unintentional weight loss? n/a Eating less than 75% of usual intake for more than 2 weeks? n/a Nutrition Diagnosis: 1.Increased protein and nutrition needs related to altered GI function as evidenced by pt. s/p sleeve gastrectomy. 2.Food- and nutrition-related knowledge deficit related to lack of prior exposure to surgical weight loss information as evidenced by diet recall. Nutrition Interventions: 1.Modify type and amount of food and nutrients within meals and snacks. 2.Comprehensive Nutrition Education -Nutrition education materials: SG Schedule, today's recap Recommendations: 1. Great Job! You have lost (more content not included)... [place] 05-24-2022 Chief complaint Narrative - Reported An interactive audio and video telecommunication system which permits real time communications between the patient (at the originating site) and provider (at the distant site) was utilized to provide this telehealth service.Verbal consent was requested and obtained from LIANE RILEY on this date, 05/24/2022 03:30 PM , for a telehealth visit.obesitynutrition follow-up post-op sleeve gastrectomy SA-Wdmjwrj-Hqogqr [facility] Work Phone: 05-24-2022 Note Chief Complaint An interactive audio and video telecommunication system which permits real time communications between the patient (at the originating site) and provider (at the distant site) was utilized to provide this telehealth service. Verbal consent was requested and obtained from LIANE RILEY on this date, 05/24/2022 03:30 PM , for a telehealth visit. obesity nutrition follow-up post-op sleeve gastrectomy Active Problems Bariatric surgery status (V45.86) (Z98.84) Dehydration (276.51) (E86.0) Depression (311) (F32.A) Encounter for vitamin deficiency screening (V77.99) (Z13.21) Obesity, morbid (more than 100 lbs over ideal weight or BMI > 40) (278.01) (E66.01) PCOS (polycystic ovarian syndrome) (256.4) (E28.2) Post-op pain (338.18) (G89.18) Postoperative malabsorption (579.3) (K91.2) Post-operative nausea and vomiting (787.01) (R11.2,Z98.890) Preoperative cardiovascular examination (V72.81) (Z01.810) Preoperative clearance (V72.84) (Z01.818) S/P laparoscopic sleeve gastrectomy (V45.86) (Z98.84) Surgical History History of Dilation and curettage History of Pilonidal cyst removal History of Tonsillectomy with adenoidectomy Family History No pertinent family history Social History Non-smoker (V49.89) (Z78.9) Allergies No Known Allergies Recorded By: Alexa Morton; 10/22/2021 3:08:48 PM Current Meds Omeprazole 40 MG Oral Capsule Delayed Release; TAKE 1 CAPSULE Daily Open capsule, sprinkle in SF applesauce or pudding, swallow. DO NOT CHEW; Therapy: 04Feb2022 to (Last Rx:07Feb2022) Requested for: 08Feb2022 Ordered Rx By: Kamari Smith; Dispense: 0 Days ; #:30 Capsule; Refill: 5;For: Bariatric surgery status; GORDO = N; Verified Transmission to [facility] Ondansetron 4 MG Oral Tablet Disintegrating; 1-2 tablets every 6-8 hours as needed for nausea; Therapy: 04Feb2022 to (Last Rx:07Feb2022) Requested for: 08Feb2022 Ordered Rx By: Kamari Smith; Dispense: 0 Days ; #:60 Tablet; Refill: 5;For: Post-operative nausea and vomiting; GORDO = N; Verified Transmission to [facility] Provider Impressions Follow Up Bariatric Nutrition Assessment Surgery Date:02-13-22 Surgeon: Cortes Procedure: sleeve gastrectomy ASSESSMENT: Current weight in pounds: 199.8 Ht: 64 in. BMI: Previous weight in pounds: 216.0 03-04-23 Initial start weight in pounds: 246.0 11-06-21 EBW in pounds: 101.0 Total weight change in pounds: 46.3 %EBW Lost: 45.8 PROGRESS: Nutrition Interventions for last encounter: 03-20-22 Recommendations: 1.Focus on having a good source of protein first at each meal AND snack. Aim for 60-70 grams/day. 2.Upgrade to soft foods per tolerance. 3.Upgrade to regular foods per tolerance starting on 04/03/2022. 4.Continue to have 64oz of calorie-free, caffeine free and non-carbonated beverages daily. 5.Stop drinking 30 minutes before meals, nothing with meals and wait 30 minutes after meals to drink again. Make meals last 30 minutes-chew thoroughly. 6.Continue with daily multivitamin (suggest purchasing 2 Dobson COMPLETE MVI-both at breakfast), 4598-6507 mg of calcium citrate per day (500-600 mg at lunch, dinner AND before bed) and 500 mcg of vitamin B12 per day (at breakfast). 7.Increase physical activity by 10-15 minutes as tolerated to an end goal of 60 minutes 5 x per week outside of work. 8.Come to support group monthly CHANGES IN TREATMENT: Patient met goals: Yes Actions to meet previous goals: 64 oz. fluid and 60 grams protein 24 hour food recall: Breakfast: egg muffin with cheese, peppers and low sodium ham , turkey sausage Snack: string cheese and 2 salami Lunch: 2 oz. salmon with lettuce with light dressing Snack: same as morning Dinner: same as lunch Snack: no Beverages: water, CL. tea Alcohol: no Vitamins: 2 MVI, 1500 mg calcium, and 3000 mcg. B12 (will lower to 500 mcg. 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 READINESS TO LEARN: Motivation to learn: Interested Understanding of instruction: Good Anticipated Compliance: Good Family Support: Unable to assess-family not present Patient presents with post-op weight loss surgery sleeve gastrectomy. Patient is 3 months post op. Patient has lost 46.3 pounds since initial assessment accounting for 45.8% loss excess body weight. Tolerating regular diet without difficulty. Protein intake is adequate for post-op individual. Fluid consumption is adequate. Patient is supplementing recommended vitamin/minerals, with the exception of B12. Patient states she is feeling well and is not having any difficulties. Malnutrition Screening Significant unintentional weight loss? n/a Eating less than 75% of usual intake for more than 2 weeks? n/a Nutrition Diagnosis: 1. Increased protein and nutrition needs related to altered GI function as evidenced by pt. s/p sleeve gastrectomy. 2. Food- and nutrition-related knowledge deficit r (more content not included)... [facility] 03-20-2022 Chief complaint Narrative - Reported An interactive audio and video telecommunication system which permits real time communications between the patient (at the originating site) and provider (at the distant site) was utilized to provide this telehealth service.Verbal consent was requested and obtained from LIANE RILEY on this date, 03/20/2022 01:45 PM , for a telehealth visit.6 week post op- sleeve gastrectomy 02/13/22The patient is being seen for post operative visit.The patient is being seen today for a 6 week post-op visit. Type of surgery: Sleeve Gastrectomy . Surgery date: 02/13/22. EY-Plftyvy-Vanxm MAC[facility] [address] Work Phone: 02-21-2022 Note Chief Complaint An interactive audio and video telecommunication system which permits real time communications between the patient (at the originating site) and provider (at the distant site) was utilized to provide this telehealth service. post-op weight loss surgery (Gastric sleeve) 1 week nutrition follow-up session Active Problems Bariatric surgery status (V45.86) (Z98.84) Depression (311) (F32.A) Encounter for vitamin deficiency screening (V77.99) (Z13.21) Obesity, morbid (more than 100 lbs over ideal weight or BMI > 40) (278.01) (E66.01) PCOS (polycystic ovarian syndrome) (256.4) (E28.2) Post-op pain (338.18) (G89.18) Post-operative nausea and vomiting (787.01) (R11.2,Z98.890) Preoperative cardiovascular examination (V72.81) (Z01.810) Preoperative clearance (V72.84) (Z01.818) Surgical History History of Dilation and curettage History of Pilonidal cyst removal History of Tonsillectomy with adenoidectomy Allergies No Known Allergies Recorded By: Alexa Morton; 10/22/2021 3:08:48 PM Current Meds Omeprazole 40 MG Oral Capsule Delayed Release; TAKE 1 CAPSULE Daily Open capsule, sprinkle in SF applesauce or pudding, swallow. DO NOT CHEW; Therapy: 04Feb2022 to (Last Rx:07Feb2022) Requested for: 08Feb2022 Ordered Rx By: Kamari Smith; Dispense: 0 Days ; #:30 Capsule; Refill: 5;For: Bariatric surgery status; GORDO = N; Verified Transmission to [facility] Ondansetron 4 MG Oral Tablet Disintegrating; 1-2 tablets every 6-8 hours as needed for nausea; Therapy: 04Feb2022 to (Last Rx:07Feb2022) Requested for: 08Feb2022 Ordered Rx By: Kamari Smith; Dispense: 0 Days ; #:60 Tablet; Refill: 5;For: Post-operative nausea and vomiting; GORDO = N; Verified Transmission to [facility] Provider Impressions Follow Up Bariatric Nutrition Assessment NAME:Liane Riley DATE: 02-21-2022 Surgery Date/Procedure: Gastric sleeve 2022 Surgeon:Cortes PROGRESS: Nutrition Interventions for last encounter (12-20-2021): 1.Continue with structure meal patterns, eating three meals and 1-2 snacks per day. 2.Continue to have a good source of protein first at each meal AND snack. Aim for 60-70 grams/day. 3.Continue to drink 64oz of calorie-free, caffeine-free, and non-carbonated beverages-water, Gatorade zero. 4.Continue with these: Stop drinking 30 minutes before meals, nothing with meals and wait 30 minutes after meals to drink again. Make meals last 30 minutes-chew thoroughly. 5.Increase to daily multivitamin (2 Dobson COMPLETE MVI-both at breakfast), continue with 1200-1500mg of calcium citrate per day (500-600mg at lunch, dinner AND before bed), start 500mcg of vitamin B12 per day (at breakfast) 6.Continue with tracking steps- 20,000 a day. 7.Start the pre-op diet 2 weeks before surgery and follow the post-op diet progression after surgery CHANGES IN TREATMENT: Patient met goals: Yes Actions to implement previous interventions: 24 hour food recall: Breakfast: premier or failife (1 to 1 ) Snack: Lunch: Snack: Dinner: Snack: Beverages: powderzero zero, broth, water, crystal light Alcohol: READINESS TO LEARN: Motivation to learn: Interested Understanding of instruction: Good Anticipated Compliance: Good Family Support: Unable to assess-family not present EDUCATION MATERIALS: None Pre-op weight: #246 Pre-op Excess body weight: #241 Target Post-Op weight goal: #164-183 (50-65% EBW Sleeve) Patient presents with post-op weight loss surgery Gastric sleeve. Tolerating full liquid diet without difficulty. Diet recall indicates small sips multiple times a day. Protein intake is 30-40 gram a day, inadequate for post-op. Protein amount has been improving each day. Patient ordered unflavored protein powder (coming in 2 day) to add to drinks/purred foods also to increase protein amount. Fluid consumption 52 oz per day, inadequate for post-op. Counting protein shakes are well. Each day drinking more and more water, crystal light and broth. Patient is taking calcium only vitamin/mineral supplements. Vitamins are times are harder to get down with nausea. Patient states difficulty or concerns with Nausea- taking Zofran in AM to prevent. No vomiting or dry heaves. Urine clearer as day goes on and with increased fluid. Patient had a rough first few days but seems to be improving. Patient is well educated on the purred and soft diet texture phase. Discussed timing and restrictions of soft food phase and regular food phase in depth. Identified good high protein foods for each stage. Malnutrition Screening Significant unintentional weight loss? No-post-op weight loss surgery Eating less than 75% of usual intake for more than 2 weeks? No-post-op weight loss surgery Nutrition Diagnosis: Overweight related to excess energy intake as evidence by BMI/age>25, Inadequate protein intake related to weight loss surgery as evidence by reports of insufficient protein intake Nutrition Interventions: 1.Modif (more content not included)... Touchworks 02-14-2022 Note Send Summary: Discharge Summary Providers: Provider RoleProvider Name Kamari Dumont ReferringKamari Smith PrimaryUnknown, Pcp Note Recipients: Kamari Smith MD Unknown, Pcp, Discharge: Summary: Admission Date: .13-Feb-2022 07:35:00 Discharge Date: 14-Feb-2022 Admission Reason: morbid obesity Final Discharge Diagnoses: morbid obesity Procedures: Date: 13-Feb-2022 10:03:00 Procedure Name: robotic sleeve gastrectomy B/l tap block egd Hospital Course: The patient is a pleasant 32y/o female with class 3 obesity and obesity-related comorbidities who presented for elective laparoscopic sleeve gastrectomy on 02/14/22. The patient tolerated the procedure well with no complications post-operatively . The patient tolerated clear liquids. The patient then tolerated full liquids and continued to do well consuming at least 6-8 1oz cups of fluid over 3 hours consecutively, ambulating, voiding, and with pain and nausea under control. The patient was discharged home on POD#1 in satisfactory condition. Discharge Information: and Continuing Care: Lab Results - Pending: Comprehensive Metabolic Panel Drawn at 14-Feb-2022 06:30:00 Surgical Pathology Drawn at 13-Feb-2022 09:52:00 Radiology Results - Pending: None Discharge Instructions: Additional Orders: Additional Instructions: Medications: - Medications should be crushed and mixed with full liquids. Capsules may be opened and mixed with full liquids. - Extended release medications should not be taken. Please contact your primary care physician to convert extended release medications to immediate release form. - Take 650mg Tylenol (liquid preferred) every 6 hours for pain. Take between doses of your opioid pain medication. Try to limit the use of your opioid pain medication and only take as needed. - Slowly add your vitamins to your daily medication regimen as tolerated. You do not have to take them within the first few days after surgery if they are causing you nausea or other problems. - If you have medications that you still cannot tolerate by your first visit with your surgeon or dietitian, please discuss this. - You should be receiving or already have received the following medications for your postoperative course: a proton pump inhibitor for acid suppression (omeprazole, esomeprazole, pantoprazole), antinausea medication (ondansetron, metoclopramide), and pain medication (oxycodone, morphine, hydromorphone, hydrocodone). If you are missing any of these, please call the office immediately so we can prescribe them for you. - OPEN UP OMEPRAZOLE CAPSULES AND SPRINKLE THEM IN WATER PRIOR TO TAKING. IF YOU HAD BARIATRIC SURGERY, YOU WILL CONTINUE THIS MEDICATION FOR AT LEAST 6 MONTHS. Constipation - Take fiber (benefiber or metamucil) twice daily. Please also take colace (docusate) twice a day while taking oxycodone or other opiates. If you remain constipated despite these medications, please take milk of magnesia and call the office to notify us. Activity instructions: - No lifting, pulling, or pushing objects greater than 15 pounds for 4 weeks. - Activity otherwise as tolerated. - You may shower. Soap and water may run over your incisions. Pat dry. No submerging in baths or swimming (activities that keep your incisions underwater) for at least two weeks. - You may not drive while taking narcotics. Diet: - You will go home on a full liquid diet (similar to the diet you were on your final day in the hospital) - You will stay on this full liquid diet for two weeks. Acceptable full liquids include protein shakes, sugar free jello, sugar free pudding, and creamy soups (no chunks). You will continue to drink clear liquids including water and crystal light. You should aim for 64 ounces of fluid per day, with about half of this being full liquids and half of this being clear liquids. Do not exceed 8 oz per hour. - After two weeks, you should have a discussion with the can dryer about progressing to a combination of full liquid and pureed foods. - Follow a healthy bariatric diet. Target 5 meals per day (3 mid size meals and two small meals). Avoid concentrated sweets (candy, soda) and limit carbohydrate intake with a preference for healthy proteins (lean meats, beans - For further information, follow the diet instructions listed in your bariatric surgery instruction packet. Call Provider If: - Breathing faster or harder than normal. - Fever of 100.4 F (38 C) or higher or feeling of chills. - Feeling very sleepy and difficult to awaken. - Inability to drink or significant decrease in ability to drink since discharge. - Vomiting (throwing up) and not able to eat or drink for 12 hours. - Urinating much less than your normal. - More than 4 loose, watery bowel movements in 24 hours (diarrhea). - Any new concerning symptoms. Discharge Medications (more content not included)... [facility] 2022 History of Present illness Narrative 32 year old female presenting today for 6 week post op visit for sleeve gastrectomy performed 02/13/22.Baseline approximate BMI of 42 with related comorbidities of morbid obesity, PCOS, and Depression.Patient did received IV infusion at infusion center in the week following surgery.Diet: Meeting fluid & protein shakes, still using protein shake here & there , still on pureed diet.Exercise - Has not yet started exerciseSupplements - Flintstones BID, calcium TID & b12 500mcgAny symptoms of reflux, nausea, vomiting, dysphagia - deniesAny symptoms of bowel irregularity, diarrhea, constipation - mild constipation, bm 2x/weekDumping - deniesSmoking - deniesAlcohol - deniesCaffeine intake - deniesNSAIDs - deniesNo cp, palpitations, sob, LE edemaType of Surgery: lap sleeve gastrectomy, surgery Date: 02/13/22.Weight:.Initial weight: 246 lbs.Last visit weight: 243 lbs.Current weight: 213 lbs.The patient's weight was 243 lbs at pre-op visit.[place] weight 131 lbs.Target body weight 160 lbs.Severity of obesity is Class 2 which is a BMI of 35-39.9. OW-Nctebbl-Pgnhx MAC2 303 Work Phone: 2022 History of Present illness Narrative Type of Surgery: lap sleeve gastrectomy, surgery Date: 02/13/22.Weight:.Initial weight: 246 lbs.Last visit weight: 243 lbs.Current weight: 213 lbs.The patient's weight was 243 lbs at pre-op visit.[place] weight 131 lbs.Target body weight 160 lbs.Severity of obesity is Class 2 which is a BMI of 35-39.9.Diet Stage: regular food.Supplements: taking Omeprazole.Patient is using medications for reflux omeprazole.32 year old female presenting today for 3 month post op visit for sleeve gastrectomy performed 02/13/22.Baseline approximate BMI of 42 with related comorbidities of morbid obesity, PCOS, and Depression.3 month labs ordered [facility] [address] Work Phone: 2022 History of Present illness Narrative Type of Surgery: lap sleeve gastrectomy, surgery Date: 02/13/22.Weight:.Initial weight: 246 lbs.Last visit weight: 213 lbs.Current weight: 192 lbs.The patient's weight was 243 lbs at pre-op visit.[place] weight 131 lbs.Target body weight 160 lbs.Severity of obesity is Class 2 which is a BMI of 35-39.9.32 year old female presenting today FUV s/p sleeve gastrectomy performed 02/13/22.Baseline approximate BMI of 42 with related comorbidities of morbid obesity, PCOS, and Depression.Diet: Meeting fluid & protein goals with regular diet.Exercise - No exercise 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, 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.Supplements - Flintstones BID, calcium TID & b12 500mcg every other dayAny symptoms of reflux, nausea, vomiting, dysphagia - deniesAny symptoms of bowel irregularity, diarrhea, constipation - deniesDumping - deniesSmoking - deniesAlcohol - deniesCaffeine intake - deniesNSAIDs - deniesNo cp, palpitations, sob, LE edema KE-Atkrngz-Vshra[facility] [address] [facility] Work Phone: 2022 Note PROCEDURE DETAILS Preoperative Diagnosis: class 3 obesity Postoperative Diagnosis: class 3 obesity Surgeon: cortes Resident/Fellow/Other Installer Helper: [place] Procedure: robotic sleeve gastrectomy B/l tap block egd Estimated Blood Loss: 20cc Findings: Sleeve gastrectomy created in standard fashion with 36Fr ViSiGi tube; EGD hemostatic with no narrowing at incisura, negative leak test. Specimens(s) Collected: yes, gastric sleeve Operative Report: Ms. Riley was scheduled on elective basis for a sleeve gastrectomy and related procedures. On the day of surgery after verification of informed consent and anesthesia evaluation she was given subcutaneous heparin and was taken to the operating room and placed in supine position on the table. Timeout was done. Preoperative antibiotic was given, general anesthesia was established, standard sterile prepping and draping of abdominal area was performed. Entry into abdominal cavity was obtained after a pre-incision was using 0 5 mm scope through an optical trocar in the left MCL without technical problems. Pneumoperitoneum was established and there was no iatrogenic injuries. 12 mm port was placed above umbilicus, additional 8 mm robotic trocars were placed in the right upper quadrant and left anterior axillary line areas. Entry site trocar was replaced with a robotic trocar as well. Hiatus was inspected and no gross hiatal hernia was identified. Xi Robot was docked now from right side of pt. Dissection was started in the prepyloric area using vessel sealer device the omentum was dissected from greater curvature of stomach all the way to the fundus and fundus was completely mobilized and left lizbeth was dissected to make sure there was no hiatal hernia . 36 Tajik ViSiGi tube was inserted by anesthesiologist and guided into the pyloric channel. Now a sleeve gastrectomy was created. First black load was fired starting 5 cm from the pylorus in the antrum area staying at least 3 centimeter away from lesser curve line. Second Black load was fired against the incisura making sure no narrowing was created. Then serially green loads covered with seam guard were fired all the way to the angle of His leaving a cuff of stomach tissue in that area. Seamguard was used on all loads. Staple line was inspected and no technical issues were noted. Robot was undocked at this point. And leak test was performed through the ViSiGi-tube which was negative. Specimen was retrieved through the 12 mm port site. Fascial defect in that area was closed with 2 interrupted 0 Vicryl sutures. Now the tube was removed and a gastroscopy was performed and scope was advanced all the way to the gastric pylorus, there was no narrowing, active bleeding or other technical issues and leak test was negative again. Scope was removed fluid was aspirated, local anesthetic was injected at all the incision sites and in tap block fashion. After final satisfactory examination abdominal cavity, there was no iatrogenic injuries or any active bleeding noted. Trocars were removed. Pneumoperitoneum was discontinued. Skin was closed with 3-0 Monocryl. Liquid bandage was applied. Patient tolerated the operation well and was extubated in the OR and transferred to recovery room in stable condition. Dr. Burrell was scrubbed and actively assisted in entire case with introduction of laparoscopic and robotic instruments, dissection, stapling and performing of endoscopy. There was no qualified resident available. Attestation: Note Completion: Attending AttestationI was present for the entire procedure Electronic Signatures: Kamari Smith) (Signed 15-Feb-2022 10:47) Authored: Post-Operative Note, Chart Review, Note Completion Sunday Burrell) (Signed 13-Feb-2022 10:05) Authored: Post-Operative Note, Chart Review, Note Completion Last Updated: 15-Feb-2022 10:47 by Kamari Smith) [facility] 02-12-2022 Note History & Physical R eviewed: /Lactating: Are You no Are You Currently Breastfeedingno I have reviewed the History and Physical dated: 07-Feb-2022 History and Physical reviewed and relevant findings noted. Patient examined to review pertinent physical findings.: No significant changes Home Medications Reviewed: no changes noted Allergies Reviewed: no changes noted ERAS (Enhanced Recovery After Surgery): ERAS Patient: no Consent: COVID-19 Consent: COVID-19 Risk ConsentSurgeon has reviewed tavarez risks related to the risk of jonathan COVID-19 and if they contract COVID-19 what the risks are. Electronic Signatures: Kamari Smith) (Signed 13-Feb-2022 07:49) Co-Signer: History & Physical Reviewed, ERAS, Consent, Note Completion Sunday Burrell) (Signed 12-Feb-2022 12:35) Authored: History & Physical Reviewed, ERAS, Consent, Note Completion Last Updated: 13-Feb-2022 07:49 by Kamari Smith) [facility] Chief complaint Narrative - Reported An interactive audio and video telecommunication system which permits real time communications between the patient (at the originating site) and provider (at the distant site) was utilized to provide this telehealth service.post-op weight loss surgery (Gastric sleeve) 1 week nutrition follow-up session [facility] [address] [facility] Work Phone: History of Present illness Narrative 31-year-old woman needs an evaluation prior to gastric bypass surgery from a cardiac standpoint. She is physically very active. She walks 12,000 steps per day. 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 She had no angina syncope chest pain leg edema cough mopped to sputum production wheeze or arrhythmias.Past medical history is negative hypertension, diabetes, stroke, heart attack, reticulocyte fever, heart murmur, claudication or deep vein thrombosis. She did have gestational diabetes.Past surgical hist includes a pilonidal cyst x6, she had a tonsillectomy adenoidectomy, D&C, .No known drug allergiesMedications reviewed GA-Lgccwtbyfz-Gbxxtutd [address] Work Phone: History of Present illness Narrative Type of Surgery: lap sleeve gastrectomy, surgery Date: 02/13/22.Weight:.Initial weight: 246 lbs.Last visit weight: 241 lbs.[place] weight 131 lbs.Target body weight 160 lbs.Severity of obesity is Class 3 which is a BMI of greater than or equal to 40.The following clearances were received - Cardiac: cleared and Psych: cleared.Sleep study results: no apnea.EGD findings: Z line regular @37; multiple 1-3mm semi-sessile polyps.no hiatal hernia, Vargas's esophagus not present.H. Pylori is negative.Lab results: Hgb: 14.6, Iron: 67/385/17, B12: 244, Vitamin D: 31, Hbg A1C: 5.1 and B1: 136.Lifestyle: tox screen negative.Comorbidities: depressed mood, infertility and polycystic ovarian syndrome.31 year old female presenting today for final pre-op visit for sleeve gastrectomy. Patient has approximate BMI of 42 with related comorbidities of morbid obesity, PCOS, and Depression. Patient has met insurance requirements and has been medically optimized for surgery. YI-Inpavzr-Phewv MAC2 [address] Work Phone: History of Present illness Narrative Type of Surgery: lap sleeve gastrectomy, surgery Date: 02/13/22.Weight:.Initial weight: 246 lbs.Last visit weight: 241 lbs.[place] weight 131 lbs.Target body weight 160 lbs.Severity of obesity is Class 3 which is a BMI of greater than or equal to 40.The following clearances were received - Cardiac: cleared and Psych: cleared.Sleep study results: no apnea.EGD findings: Z line regular @37; multiple 1-3mm semi-sessile polyps.no hiatal hernia, Vargas's esophagus not present.H. Pylori is negative.Lab results: Hgb: 14.6, Iron: 67/385/17, B12: 244, Vitamin D: 31, Hbg A1C: 5.1 and B1: 136.Lifestyle: tox screen negative.Comorbidities: depressed mood, infertility and polycystic ovarian syndrome.31 year old female presenting today for final pre-op visit for sleeve gastrectomy. Patient has approximate BMI of 42 with related comorbidities of morbid obesity, PCOS, and Depression. Patient has met insurance requirements and has been medically optimized for surgery. [facility] [address] Work Phone: History of Present illness Narrative Pre-Procedure ChecklistAllergies were reviewed: yesMedications were reviewed: yesContraindications to Treatment:Recent illness: DENIES .Recent dental work: DENIES .Recent surgery: Bariatric sugery 02/13.Recent infections DENIES .Planned dental work: DENIES .Planned surgery: DENIES .: DENIES .PT IS NOT ON ANY ANTIBIOTICS OR ANTIMICROBIALS . [facility] [address] DO Work Phone: History of Present illness Narrative Pre-Procedure ChecklistAllergies were reviewed: yesMedications were reviewed: yesContraindications to Treatment:Recent illness: DENIES .Recent dental work: DENIES .Recent surgery: Bariatric sugery 02/13.Recent infections DENIES .Planned dental work: DENIES .Planned surgery: DENIES .: DENIES .PT IS NOT ON ANY ANTIBIOTICS OR ANTIMICROBIALS . [id number] Work Phone: Hospital Discharge instructions Additional Orders:Additional Instructions: Medications:- Medications should be crushed and mixed with full liquids. Capsules may be opened and mixed with full liquids.- Extended release medications should not be taken. Please contact your primary care physician to convert extended release medications to immediate release form. - Take 650mg Tylenol (liquid preferred) every 6 hours for pain. Take between doses of your opioid pain medication. Try to limit the use of your opioid pain medication and only take as needed.- Slowly add your vitamins to your daily medication regimen as tolerated. You do not have to take them within the first few days after surgery if they are causing you nausea or other problems. - If you have medications that you still cannot tolerate by your first visit with your surgeon or dietitian, please discuss this. - You should be receiving or already have received the following medications for your postoperative course: a proton pump inhibitor for acid suppression (omeprazole, esomeprazole, pantoprazole), antinausea medication (ondansetron, metoclopramide), and pain medication (oxycodone, morphine, hydromorphone, hydrocodone). If you are missing any of these, please call the office immediately so we can prescribe them for you.- OPEN UP OMEPRAZOLE CAPSULES AND SPRINKLE THEM IN WATER PRIOR TO TAKING. IF YOU HAD BARIATRIC SURGERY, YOU WILL CONTINUE THIS MEDICATION FOR AT LEAST 6 MONTHS.Constipation- Take fiber (benefiber or metamucil) twice daily. Please also take colace (docusate) twice a day while taking oxycodone or other opiates. If you remain constipated despite these medications, please take milk of magnesia and call the office to notify us.Activity instructions: - No lifting, pulling, or pushing objects greater than 15 pounds for 4 weeks.- Activity otherwise as tolerated. - You may shower. Soap and water may run over your incisions. Pat dry. No submerging in baths or swimming (activities that keep your incisions underwater) for at least two weeks. - You may not drive while taking narcotics. Diet: - You will go home on a full liquid diet (similar to the diet you were on your final day in the hospital)- You will stay on this full liquid diet for two weeks. Acceptable full liquids include protein shakes, sugar free jello, sugar free pudding, and creamy soups (no chunks). You will continue to drink clear liquids including water and crystal light. You should aim for 64 ounces of fluid per day, with about half of this being full liquids and half of this being clear liquids. Do not exceed 8 oz per hour.- After two weeks, you should have a discussion with the can dryer about progressing to a combination of full liquid and pureed foods. - Follow a healthy bariatric diet. Target 5 meals per day (3 mid size meals and two small meals). Avoid concentrated sweets (candy, soda) and limit carbohydrate intake with a preference for healthy proteins (lean meats, beans- For further information, follow the diet instructions listed in your bariatric surgery instruction packet. Call Provider If:- Breathing faster or harder than normal. - Fever of 100.4 F (38 C) or higher or feeling of chills. - Feeling very sleepy and difficult to awaken. - Inability to drink or significant decrease in ability to drink since discharge. - Vomiting (throwing up) and not able to eat or drink for 12 hours. - Urinating much less than your normal.- More than 4 loose, watery bowel movements in 24 hours (diarrhea). - Any new concerning symptoms. [facility] Other Phone (unformatted): [phone] Summary Purpose Family History No Family History Records FoundUnknown Family Member Name Dates Details No pertinent family history: Mother(V49.89, Z78.9) Status:Active Unknown Family Member Name Dates Details No pertinent family history: Mother(V49.89, Z78.9) Status:Active Unknown Family Member Name Dates Details No pertinent family history: Mother(V49.89, Z78.9) Status:Active Advance Directives No Advanced Directives Records FoundNo Advanced Directives Records FoundNo Advanced Directives Records FoundNo Advanced Directives Records FoundNo Advanced Directives Records Found Chief Complaint * A telephone visit (audio only) between the patient (at the originating site) and the provider (at the distant site) was utilized to provide this telehealth service. * pre-op weight loss surgery (Gastric sleeve) initial nutrition session Cardiac clearance for Bariatrics surgery* A telephone visit (audio only) between the patient (at the originating site) and the provider (at the distant site) was utilized to provide this telehealth service. * pre-op weight loss surgery (Gastric sleeve) nutrition follow-up session * The patient is being seen for pre operative visit. Type of surgery: Sleeve Gastrectomy . Surgery date: 02/13/22. * Final pre op visit - sleeve gastrectomy scheduled for 02/13/22 * The patient is being seen for pre operative visit. Type of surgery: Sleeve Gastrectomy . Surgery date: 02/13/22. * Final pre op visit - sleeve gastrectomy scheduled for 02/13/22 * The patient is being seen for post operative visit. * The patient is being seen today for a 3 month post-op visit. Type of surgery: Sleeve Gastrectomy . Surgery date: 02/13/22. * An interactive audio and video telecommunication system which permits real time communications between the patient (at the originating site) and provider (at the distant site) was utilized to providethis telehealth service. * Verbal consent was requested and obtained from LIANE RILEY on this date, 05/10/2022 08:45 AM , for a telehealth visit. * 3 month post op- sleeve gastrectomy 02/13/22 * The patient is being seen for follow up. * The patient is being seen today for a 6 month follow up visit. Type of surgery: Sleeve Gastrectomy . Surgery date: 02/13/22. * An interactive audio and video telecommunication system which permits real time communications between the patient (at the originating site) and provider (at the distant site) was utilized to providethis telehealth service. * Verbal consent was requested and obtained from LIANE RILEY on this date, 06/21/2022 08:15 AM , for a telehealth visit. * s/p sleeve gastrectomy 02/13/22 Additional Source Comments INFORMATION SOURCE (unrecogn ized section and content) DATE CREATED AUTHOR 09/30/2021 [facility] DATE CREATED AUTHOR AUTHOR'S ORGANIZ ATION 03/20/2022 [facility] DATE CREATED AUTHOR AUTHOR'S ORGANIZ ATION 06/24/2022 [facility] DATE CREATED AUTHOR AUTHOR'S ORGANIZ ATION 08/31/2022 [facility] DATE CREATED AUTHOR AUTHOR'S ORGANIZ ATION 09/16/2023 [facility] EPIC <item> Privacy Markings (unrecogniz ed section and content) Section Author: Elizabeth Boateng PROHIBITION ON REDISCLOSURE OF CONFIDENTIAL INFORMATION This notice accompanies a disclosure of information concerning a client made to you with the consent of such client. Reason for Visit (unrecogniz ed section and content) IV fluid infusion post gastr ic sleeve on 02/13/22Ordered by Dr. Smith.LIANE RILEY accompanied by: Self .Patient is here for Infusion.Name of Medication: Lactated Ringers.IV fluid infusion post gastric sleeve on 02/13/22Ordered by Dr. Smith.LIANE RILEY accompanied by: Self .Patient is here for Infusion.Name of Medication: Lactated Ringers. FOR RECORDS PERTAINING TO PATIENTS WHO ARE OR HAVE BEEN ENROLLED IN A CHEMICAL DEPENDENCY/SUBSTANCEABUSE PROGRAM, SOME INFORMATION MAY BE OMITTED. This clinical summary was aggregated from multiple sources. Caution should be exercised in using it in the provision of clinical care. This summary normalizes information from multiple sources, and as a consequence, information in this document may materially change the coding, format and clinical context of patient data. In addition, data may be omitted in some cases. CLINICAL DECISIONS SHOULD BE BASED ON THE PRIMARY CLINICAL RECORDS. [employer] provides no warranty or guarantee of the accuracy or completeness of information in this document.
--- NOTE | 2023-10-17 07:32 | ED_ITS ---
HPI - Fever General Chief Complaint: Fever Stated Complaint: FEVER/ GENERAL WEAKNESS Time Seen by Provider: 10/17/23 07:20 Source: patient Mode of arrival: walk-in Limitations: no limitations History of Present Illness HPI Narrative: 33-year-old female presents to the emergency department for a fever that she has had for 4 days. She last had Tylenol last night. She has had some tingling in her fingers and the fever but no other specific symptoms such as cough or vomiting. She feels like some of her lymph nodes are enlarged but she does not have a sore throat. No ear pain. No known ill contacts and she took a home COVID test last night and she states it was negative. Related Data Home Medications ?Medication ?Instructions ?Recorded ?Confirmed bupropion HCl 300 mg 24 hr tablet, 300 mg PO DAILY 10/17/23 10/17/23 extended release escitalopram oxalate 10 mg tablet 10 mg PO DAILY 10/17/23 10/17/23 Allergies Allergy/AdvReac Type Severity Reaction Status Date / Time NSAIDS (Non-Steroidal AdvReac Severe Unknown Verified 10/17/23 07:20 Anti-Inflamma Review of Systems ROS Narrative A ten point review of systems is negative except as noted above. Exam Narrative Exam Narrative: Nurses note and vital signs reviewed and patient is not hypoxic. General: The patient appears well and in no apparent distress. Patient is resting comfortably on cart. Skin: Warm, dry, no pallor noted. There is no rash noted. Head: Normocephalic, atraumatic Eye: Normal conjunctiva, no drainage Ears, Nose, Mouth, and Throat: oral mucosa is moist. Nares patent. No pharyngeal erythema or exudate. No appreciable cervical adenopathy Cardiovascular: Regular Rate and Rhythm Respiratory: Patient is in no distress, no accessory muscle use, lungs are clear to auscultation, no wheezing, rales or rhonchi Back: non-tender GI: Soft and nontender Musculoskeletal: The patient has no evidence of calf tenderness, no pitting edema, symmetrical pulses noted bilaterally Neurological: A&O, normal speech Psychiatric: Cooperative Constitutional Vital Signs, click to edit/add: Last Vital Signs Temp 101 F H 10/17/23 07:20 Pulse 108 H 10/17/23 07:20 Resp 16 10/17/23 07:20 BP 108/78 10/17/23 07:20 Pulse Ox 98 07/26/24 07:41 O2 Del Method Room Air 10/17/23 07:41 Course Vital Signs Vital signs: Vital Signs Temperature 101 F H 10/17/23 07:20 Pulse Rate 108 H 10/17/23 07:20 Respiratory Rate 16 10/17/23 07:20 Blood Pressure 108/78 10/17/23 07:20 Pulse Oximetry 95 10/17/23 07:20 Oxygen Delivery Method Room Air 10/17/23 07:20 Temperature 101 F H 10/17/23 07:20 Pulse Rate 108 H 10/17/23 07:20 Respiratory Rate 16 10/17/23 07:20 Blood Pressure 108/78 10/17/23 07:20 Pulse Oximetry 98 10/17/23 07:41 Oxygen Delivery Method Room Air 10/17/23 07:41 MDM - Fever MDM Narrative Medical decision making narrative: Her workup including COVID and Monospot are negative. My clinical impression is that she has a viral illness. Treatment diagnosis and follow-up were discussed with the patient. There is no indication for an antibiotic. Differential Diagnosis Differential diagnosis: Likely fever of unknown origin, viral infection and other (COVID, mono) Lab Data Attestation: I reviewed the patient's lab results. Labs: Lab Results 10/17/23 10/17/23 Range/Units 07:36 07:41 WBC 4.3 (4.0-11.0) 10^3/uL RBC 4.68 (4.20-5.40) 10^6/uL Hgb 14.9 (12.0-16.0) g/dL Hct 42.3 (36.0-48.0) % MCV 90.4 (81.0-99.0) fL MCH 31.8 (26.7-34.0) pg MCHC 35.2 (29.9-35.2) g/dL RDW 11.8 (11.0-15.0) % Plt Count 153 (150-450) 10^3/uL MPV 9.1 L (9.5-13.5) fL Sodium 137 (136-145) mmol/L Potassium 3.7 (3.5-5.1) mmol/L Chloride 102 (98-107) mmol/L Carbon Dioxide 26.6 (21.0-32.0) mmol/L Anion Gap 12.1 BUN 9.0 (7.0-18.0) mg/dL Creatinine 0.78 (0.55-1.02) mg/dL Est GFR ( Amer) >60 (>=60) Est GFR (Non-Af Amer) >60 (>=60) BUN/Creatinine Ratio 11.5 Glucose 115 H (74-106) mg/dL Calcium 8.4 L (8.5-10.1) mg/dL Monoscreen Negative (NEGATIVE) SARS-CoV-2 Ag (CV2AG) Negative (NEGATIVE) Discharge Plan Discharge Stand Alone Forms: Portal Instructions Chief Complaint: Fever Clinical Impression: Viral infection Patient Disposition: Home, Self-Care Time of Disposition Decision: 08:22 Condition: Good Mode of Transportation: Private Vehicle Prescriptions / Home Meds: No Action bupropion HCl 300 mg tablet extended release 24 hr 300 mg PO DAILY escitalopram oxalate 10 mg tablet 10 mg PO DAILY Print Language: Belizean Instructions: Viral Syndrome (ED) Referrals: Physician,Non-Staff, MD [Primary Care Provider] - 1 week
[2023-10-17] MEDS: ACETAMINOPHEN 325 MG TABLET 650 MG PO (07:38)
[2023-10-17 07:41] VITALS: O2SAT 98
[2023-10-17 07:46] LABS: Hematocrit 42.3 % (36.0-48.0); Hemoglobin 14.9 g/dL (12.0-16.0); Mean Corpuscular HGB Conc 35.2 g/dL (29.9-35.2); Mean Corpuscular Hemoglobin 31.8 pg (26.7-34.0); Mean Corpuscular Volume 90.4 fL (81.0-99.0); Mean Platelet Volume 9.1 fL (9.5-13.5); Platelet Count 153 10^3/uL (150-450); Red Blood Count 4.68 10^6/uL (4.20-5.40); Red Cell Distribution Width 11.8 % (11.0-15.0); White Blood Count 4.3 10^3/uL (4.0-11.0)
[2023-10-17 08:05] LABS: Anion Gap 12.1; BUN Creatinine Ratio 11.5; Calcium 8.4 mg/dL (8.5-10.1); Carbon Dioxide 26.6 mmol/L (21.0-32.0); Chloride 102 mmol/L (98-107); Estimated GFR (African America >60 (>=60); Estimated GFR (Non-African Ame >60 (>=60); Glucose 115 mg/dL (74-106); Potassium 3.7 mmol/L (3.5-5.1); Sodium 137 mmol/L (136-145)
[2023-10-17 08:07] LABS: Internal Control Within Normal Limits; Mono Screen NEGATIVE (NEGATIVE)
[2023-10-17 08:07] LABS: Internal Control Within Normal Limits; SARS-CoV-2 Ag NEGATIVE (NEGATIVE)
[2023-10-17 08:23] LABS: Lymphocytes Absolute Manual 0.38 10^3/uL (1.20-3.80); Monocytes Absolute Manual 0.21 10^3/uL (0.30-0.80); Segmented Neut Absolute Manual 3.69 10^3/uL (1.4-6.5)
[2023-10-17 08:28] VITALS: PULSE 100; TEMP 37.2; O2SAT 97
== END 2023-10-17 08:31 | disposition home or self-care (01) ==
PROVIDERS: Emergency Provider Emergency Medicine
DX: B34.9 Viral infection, unspecified (principal); Z20.822 Contact with and (suspected) exposure to COVID-19
CPT/HCPCS: 36415; 80048; 85007; 85027; 86308; 87811; 99283

== ENCOUNTER 2024-09-20 21:55 | Outpatient (REF) | payer BC, SELFPAY ==
--- OUTSIDE RECORDS SUMMARY | 2012-05-07 12:30 | XMS_ITS | Continuity of Care Document ---
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 Role Phone iLnda Jose DO Unavailable Unavailable Medications Medication Instructions Dosage Effective Dates (start - stop) Status Comments Cipro 500 mg Tab take 1 tablet (500MG ) by oral route every 12 hours 500 MG - Active Motrin 800 mg Tab Take one tablet by mouth three times per day - Active phenazopyridine 100 mg Tab take 1 tablet (100MG) by ORAL route 3 times every day after meals 100 MG - Active Procedures Procedure Date PREVENTIVE COUNSELING, INDIV URINE TEST URINE TEST URINALYSIS, AUTO, W/O SCOPE PREV VISIT, EST, AGE 18-39 OBTAINING PAP SMEAR URINALYSIS, AUTO, W/O SCOPE SMEAR, WET MOUNT, SALINE/INK ASSAY OF BODY FLUID ACIDITY Office/outpatient visit,est, mod 2010 Urinalysis, automated, w/o scope 2010 Urinalysis, automated, w/o scope 2010 Office/outpatient visit,est, mod 2010 Urinalysis, automated, w/o scope 2010 Office/outpatient visit,est, mod 2010 Urine test Urinalysis, automated, w/o scope 2010 Office/outpatient visit,est, mod 2010 Office/outpatient visit,est, mod 2010 Preventive checkup, est,12-17 yrs Office/outpatient visit,laron lowry 2005 Advance Directives Directive Yes / No Effective Date File Name No Information Encounters Encounter Description Practice Location Reason(s) For Visit Diagnoses Date Provider Providers Copied on Encounter PREVENTIVE COUNSELING, INDIV [facility], [address], [place], [place], [id number] , tel: [phone] [facility] No Information [address] [place], [place], [id number], [place]. tel:[phone] Referring Provider: Linda Cronin, [address] [place], [address]. tel:[phone] [facility], [address] [place] [address] [address], [place], [place], [id number] , tel: [phone] [facility] No Information [address] [place], [place], [id number], [place]. tel:[phone] Referring Provider: Linda Cronin, [address] [place], [address]. tel:[phone] PREV VISIT, EST, AGE 18-39 [facility], [address] [place] [address] Rd [address], [place], [place], [id number] , [place] tel: [phone] [facility] No Information 2 No Information Office/outpa tient visit,est, [facility], [address], [place], [place], [address] , [place] tel: [phone] [facility] back pain (chief complaint) Urinary tract infectionPelv ic pain in femaleConstip ation 1 No Information Office/outpa tient visit,[facility], [facility], [address] [place] [address] [address], [place], [place], [address] , [place] tel:[phone] Lilian Almeida [facility] back pain (chief complaint) BackacheFrequ ency of urination 3 1 Deyanira er RENE Patel. [facility], [place], [place], [id number], [place]. [phone] Referring Provider: Amanda kaplan CNP, [facility], [place], [address]. [phone] Office/outpa tient visit,[facility], [facility], [address] [place] [address] [address], [place], [place], [address] , [place] tel:[phone] Lilian Almeida [facility] urinary frequency (chief complaint) URINARY FREQUENCYAbse nce of menstruation 1 Elba er RENE Patel. [facility], [place], [place], [id number], [place]. tel:[phone] Referring Provider: Amanda kaplan CNP, [facility], [place], [address]. tel:[phone] [facility], [address] [place] [address] B, [place], [place], [id number] , [place] tel:[phone] Lilian Almeida [facility] No Information 1 Gwendolyn Mortensen. [facility], [place], [place], [id number], [place]. [phone] Office/outpa tient visit,[facility], [address] [place] [address] [address], [place], [place], [address] , [place] tel:[phone] Lilian Almeida [facility] UTI (chief complaint) Frequent urination 1 Vic Sarmiento. [address] [facility] [address] [facility], [place], [address], [place]. [phone] Referring Provider: Torsten Ho MD, [address], [address]. tel:[phone] Office/outpa tient visit,[facility], [address] [place] [address] [address], [place], [place], [address] , tel:[phone] [facility] CYST (chief complaint) OPEN WOUND OF BUTTOCK Mar-0 8-201 1 Vic Sarmiento. [address] [place] [address], [address], [place]. tel:[phone] Referring Provider: Torsten Ho MD, [address] [place] [address], [place], [address]. tel:[phone] [facility], [address] [place] [address] [address], [place], [place], [id number] , [place] tel:[phone] [facility] Cough / URI (chief complaint) ACUTE SINUSITIS NOSACUTE PHARYNGITISTH ROAT PAINCOUGH 9-200 8 Gwendolyn Mortensen. [facility] [address], [place], [place], [address], [place]. tel:[phone] Referring Provider: Balbina Hollingsworth, [address], [place], [address]. tel:[phone] Preventive checkup, [facility],12-17 [facility], [address] [place] [address] [address], [place], [place], [address] , [place] tel:[phone] [facility] sports physical (chief complaint)c yst on buttocks (chief complaint) LOCAL SKIN INFECTION NOSLOCAL SKIN INFECTION NOS Steven- 4-200 6 Gwendolyn Mortensen. [facility], [place], [place], [address], [place]. tel:[phone] Referring Provider: Balbina Hollingsworth, [address], [place], [address]. tel:[phone] Office/outpa tient visit,[facility], [address] [place] [address] [address], [place], [place], [address] , tel:[phone] [facility] hemorrhoid (chief complaint) LOCAL SKIN INFECTION NOS 1-200 6 Gwendolyn Mortensen. [address], [place], [place], [id number], [place]. tel:[phone] Referring Provider: Balbina Hollingsworth, [address], [place], [address]. tel:[phone] Family History Family Member Type Diagnosis Age At Onset Paternal grandfather Problem (finding) raised blood li pids Maternal grandmother Problem (finding) Diabetes mellit us Father Problem (finding) Alive and well Mother Problem (finding) Alive and well Payers Payer name Insurance type Covered republican ID Vanna galeano(s) [facility] [id number] Social History Type Description Quantity Date Captured Comments Sex Female Smoking Status No Information Chief Complaint And Reason For Visit No Information Reason For Referral Reason For Referral No Information Plan Of Treatment Date Type Action Status Referral Ordered: Ultrasnd Pelvis, Transvaginal If Needed ordered History Of Present Illness Encounter Date Complaint History Of Prese nt Illness No Information Functional Status Date Functional Assessmen t No Information Instructions Date Instruction Additional Infor mation Review medication side effects Prescribe medications Call if symptoms persist Related to ACUTE SINUSITIS NOS Review medication side effects R elated to ACUTE SINUSITIS NOS Prescribe medications Related to ACUTE SINUSITIS NOS Review medication side effects R elated to Routine /Child Health Visit Prescribe medications Related to Routine /Child Health Visit Assessments Type Assessment Date No Information Patient Care Teams Name Effective Dates (start - stop) Status Members No Information
--- OUTSIDE RECORDS SUMMARY | 2024-09-20 14:00 | XMS_ITS | Encounter Summary ---
Author Organization [facility] Address [address] [place] [address] Care Team Providers Care Silverware Etcher Name Role Phone Tsering Richmond Neil LARSON Unavailable [phone] Reason for Visit * Reason Comments Gynecologic Exam Encounter Details Date Type Department Care Team (Late Contact Info) Description 09/20/2024 2:00 PM EDT Office Visit [facility] [address] [place] [address] Rachid Starr, DO [address] [place] [address] Well woman exam with routine gynecological exam Social History Tobacco Use Types Packs/Day Years Used Date Smoking Tobacco: Never Comments No Sex and Gender Information Value Date Recorded Sex Assigned at Female 09/08/2022 11:34 AM EDT Legal Sex Female 11:22 PM EDT Gender Identity Female 09/08/2022 11:34 AM EDT Sexual Orientation Not on file documented as of this encounter Last Filed Vital Signs Vital Sign Reading Time Taken Comments Blood Pressure 116/76 09/20/2024 2:30 PM EDT Pulse - - Temperature - - Respiratory Rate - - Oxygen Saturation - - Inhaled Oxygen Concentration - - Weight 92.5 kg (204 lb) 09/20/2024 2:30 PM EDT Height 162.6 cm (5' 4 ) 09/20/2024 2:30 PM EDT Body Mass Index 35.02 09/20/2024 2:30 PM EDT documented in this encounter Plan of Treatment Upcoming Encounters Date Type Department Care Team (Late Contact Info) Description 08/31/2025 1:30 PM EDT Procedure Visit [facility] [address] [place] [id number] Rachid Starr, DO [address] [place] [address] 09/28/2025 1:00 PM EDT Office Visit [facility] [address] [place] [address] Rachid Starr, DO [address] [place] [place], [place] [id number] Scheduled Orders Name Type Priority Associated Diagnoses Orde r Schedule Pap Smear Pathology and Cytology Routine Well woman exam with routine gynecological exam Ordered: 09/20/2024 HPV DNA probe, amplified Microbiology Routine Well woman exam with routine gynecological exam Ordered: 09/20/2024 documented as of this encounter Visit Diagnoses Diagnosis Well woman exam with routine gynecological exam Routine gynecological examination documented in this encounter Care Teams Silverware Etcher Relationship Specialty Start Date End Date Tsering Richmond NP [address] [place] [address] PCP - Perez Costa 07/22/24 documented as of this encounter
--- OUTSIDE RECORDS SUMMARY | 2024-09-20 21:58 | XMS_ITS | Encounter Summary ---
Author Organization [facility] Address [address] [place] [address] Phone Care Team Providers Care Steam Drier Tender Name Role Phone Linda Nova APRN-RENE Unavailable Unavai lable Encounter Details Date Type Department Care Team (Late st Contact Info) Description 09/25/2023 Patient Risk Score ACO Care Management [address] [place] [address] Social History Tobacco Use Types Packs/Day Years Used Date Smoking Tobacco: Never Assessed Comments Unknown Sex and Gender Information Value Date Recorded Sex Assigned at Not on file Legal Sex Female 2:25 PM EST Gender Identity Not on file Sexual Orientation Not on file documented as of this encounter Plan of Treatment Not on file documented as of this encounter Visit Diagnoses Not on filedocumented in this encounter Care Teams Steam Drier Tender Relationship Specialty Start Date End Date Linda Nova APRN-CNP Office Address Unavailable as of 05/20/2023 PCP - Perez ACO PCP 11/22/22 documented as of this encounter
--- OUTSIDE RECORDS SUMMARY | 2024-09-20 21:58 | XMS_ITS | Encounter Summary ---
Author Organization [facility] Address [address] [place] [address] Phone Care Team Providers Care Measurement Advisor Name Role Phone Linda Nova APRN-RENE Unavailable Unavai lable Encounter Details Date Type Department Care Team (Late st Contact Info) Description 03/26/2023 Patient Risk Score ACO Care Management [address] [place] [address] Social History Tobacco Use Types [...] on filedocumented in this encounter Care Teams Measurement Advisor Relationship Specialty Start Date End Date Linda Nova APRN-CNP Office Address Unavailable as of 05/20/2023 PCP - Perez ACO PCP 11/22/22 documented as of this encounter
--- OUTSIDE RECORDS SUMMARY | 2024-09-20 21:58 | XMS_ITS | Encounter Summary ---
Author Organization [facility] Address [address] [place] [address] Phone Care Team Providers Care Folder Machine Name Role Phone Linda Nova APRN-RENE Unavailable Unavai lable Encounter Details Date Type Department Care Team (Late st Contact Info) Description 08/26/2023 Patient Risk Score ACO Care Management [address] [place] [address] Social History Tobacco Use Types [...] on filedocumented in this encounter Care Teams Folder Machine Relationship Specialty Start Date End Date Linda Nova APRN-CNP Office Address Unavailable as of 05/20/2023 PCP - Perez ACO PCP 11/22/22 documented as of this encounter
--- OUTSIDE RECORDS SUMMARY | 2024-09-20 21:58 | XMS_ITS | Encounter Summary ---
Author Organization [facility] Address [address] [place] [address] Phone Care Team Providers Care Handstitching Machine Armhole Feller Name Role Phone Linda Nova APRN-RENE Unavailable Unavai lable Encounter Details Date Type Department Care Team (Late st Contact Info) Description 02/23/2023 Patient Risk Score ACO Care Management [address] [place] [address] Social History Tobacco Use Types [...] on filedocumented in this encounter Care Teams Handstitching Machine Armhole Feller Relationship Specialty Start Date End Date Linda Nova APRN-CNP Office Address Unavailable as of 05/20/2023 PCP - Perez ACO PCP 11/22/22 documented as of this encounter
--- OUTSIDE RECORDS SUMMARY | 2024-09-20 21:58 | XMS_ITS | Encounter Summary ---
Author Organization [facility] Address [address] [place] [address] Phone Care Team Providers Care Drapery Operator Name Role Phone Linda Nova APRN-RENE Unavailable Unavai lable Encounter Details Date Type Department Care Team (Late st Contact Info) Description 04/27/2023 Patient Risk Score ACO Care Management [address] [place] [address] Social History Tobacco Use Types [...] on filedocumented in this encounter Care Teams Drapery Operator Relationship Specialty Start Date End Date Linda Nova APRN-CNP Office Address Unavailable as of 05/20/2023 PCP - Perez ACO PCP 11/22/22 documented as of this encounter
--- OUTSIDE RECORDS SUMMARY | 2024-09-20 21:59 | XMS_ITS | Clinical Summary ---
Author Organization [facility] Address [address] [place] [address] Care Team Providers Care Warehouse Distribution Associate Name Role Phone Tsering [place] Neil FINANCIAL COMPLIANCE MANAGER Unavailable [phone] Allergies Active Allergy Reactions Criticality Noted Date Comments Nsaids 03/29/2024 Pt had bariatric surgery and cannot have Medications Levonorgestrel (Mirena, 52 MG,) 20 MCG/DAY intrauterine device 1 Intra Uterine Device by Intrauterine route yearly. Active FLUoxetine (PROzac) 10 MG capsuleIndicatio ns:Anxiety, generalized Take 1 capsule (10 mg) by mouth in the morning. 30 capsule 11 3 Active Additional Information Patient not taking.Reported on 03/29/2024 valACYclovir (Valtrex) 1 g tablet TAKE 2 TABLETS BY MOUTH EVERY 12 HOURS for 1 day. This dose is for when you have an outbreak. this is enough for 3 outbreaks 3 Active azithromycin (Zithromax) 250 MG tabletIndication s:Cough, unspecified type,Bronchitis Take 1 tablet (250 mg) by mouth Daily Take 2 tabs on day 1 and 1 tab on days 2-5 then stop 6 tablet 5 Active buPROPion XL (Wellbutrin XL) 300 MG 24 hr tabletIndication s:Encounter for medication refill,Anxiety, generalized Take 1 tablet (300 mg) by mouth Daily Do not crush, chew, or split. 30 tablet 6 5 025 Active escitalopram (Lexapro) 10 MG tabletIndication s:Encounter for medication refill,Anxiety, generalized Take 1 tablet (10 mg) by mouth Daily 30 tablet 11 026 Active Encounters Date Type Department Care Team Description 09/20/2024 2:00 PM EDT Office Visit [facility] [address] [place] [address] Rachid Starr DO Well woman exam with routine gynecological exam 09/20/2024 Bamboo flowsheet [facility] [address] [place] [address] Rachid Starr DO 07/05/2024 1:50 PM EDT Office Visit [facility] [address] [place] [address] Rachid Starr DO Encounter for medication refill; Anxiety, generalized 07/05/2024 Bamboo flowsheet [facility] [address] [facility] [place] [address] Rachid Starr DO from Last 3 Months Family History Medical History Relation Name Comments Hypertension Father Relation Name Status Comments Brother (1) Father Alive Mother Alive Son Alive Social History Tobacco Use Types Packs/Day Years Used Date Smoking Tobacco: Never Tobacco Cessation:Counseling Given: Not Answered Comments No Sex and Gender Information Value Date Recorded Sex Assigned at Female 09/08/2022 11:34 AM EDT Legal Sex Female 11:22 PM EDT Gender Identity Female 09/08/2022 11:34 AM EDT Sexual Orientation Not on file Last Filed Vital Signs Vital Sign Reading Time Taken Comments Blood Pressure 116/76 09/20/2024 2:30 PM EDT Pulse 89 03/29/2024 3:32 PM EST Temperature 36.7 C (98 F) 03/29/2024 3:32 PM EST Respiratory Rate - - Oxygen Saturation - - Inhaled Oxygen Concentration - - Weight 92.5 kg (204 lb) 09/20/2024 2:30 PM EDT Height 162.6 cm (5' 4 ) 09/20/2024 2:30 PM EDT Body Mass Index 35.02 09/20/2024 2:30 PM EDT Plan of Treatment Upcoming Encounters Date Type Department Care Team (Late st Contact Info) Description 08/31/2025 1:30 PM EDT Procedure Visit [facility] [address] [facility] [place] [id number] Rachid Starr, [address] [place], [place] [id number] 09/28/2025 1:00 PM EDT Office Visit [facility] [address] [facility] [place] [address] Rachid Starr, [address] [place] [place], [place] [id number] Health Maintenance Due Date Last Done Comments Cervical Cancer Screening 09/14/2024 HPV/Cotest 09/14/2024 Pap Smear 09/14/2024 09/15/2023, 09/09/2022 Influenza Vaccine (Season Ended) 2024 Procedures Procedure Name Priority Date/Time Associated Diagnosis Comments POCT URINALYSIS DIPSTICK Routine 07/05/2024 2:12 PM EDT Encounter for medication refill PAP SMEAR Routine 09/15/2023 12:00 AM EDT from Last 3 Months or Most Recently Relevant to Health Maintenance Results * POCT urinalysis dipstick manually resulted (07/05/2024 2:12 PM EDT) Color, UA Yellow Clarity, UA Clear Glucose, UA Negative Negative - 1999(110) ++++ mg/dL Bilirubin, UA Negative Negative - 4(70) +++ mg/dL Ketones, UA Negative Negative - 160(16) ++++ mg/dL Spec Grav, UA 1.030 1 - 1.03 Blood, UA Negative Negative - 50 Brian/mcL pH, UA 6.0 5 - 9 Protein, UA Negative Negative - 1999(20) ++++ mg/dL Urobilinogen, UA 0.2 0.2 - 12 mg/dL Leukocytes, UA Negative Negative - 500+++ Salena/mcL Nitrite, UA Negative Negative - Positive Urine 07/05/2024 2:12 PM EDT us Rachid Matty DO POINT OF CARE TEST ENTER/EDIT OR DERABLES Final Result * Pap Smear (09/15/2023 12:00 AM EDT) Swab Cervical swab / Unknown us Rachid Matty DO LAB CYTOLOGY ORDERABLES Final Re sult EXTERNAL LAB from Last 3 Months or Most Recently Relevant to Health Maintenance Insurance [facility] Care Teams Warehouse Distribution Associate Relationship Specialty Start Date End Date Tsering Richmond NP [address] [place] [address] PCP - [place] Commercial 07/22/24
--- OUTSIDE RECORDS SUMMARY | 2024-09-20 21:59 | XMS_ITS | Encounter Summary ---
Author Organization [facility] Address [address] [place] [address] Phone Care Team Providers Care Purchasing Internship Name Role Phone Linda Nova APRN-RENE Unavailable Unavai lable Encounter Details Date Type Department Care Team (Late st Contact Info) Description 08/25/2024 Patient Risk Score ACO Care Management [address] [place] [address] Social History Tobacco Use Types [...] on filedocumented in this encounter Care Teams Purchasing Internship Relationship Specialty Start Date End Date Linda Nova APRN-CNP Office Address Unavailable as of 05/20/2023 PCP - Perez ACO PCP 11/22/22 documented as of this encounter
--- OUTSIDE RECORDS SUMMARY | 2024-09-20 21:59 | XMS_ITS | Encounter Summary ---
Author Organization [facility] Address [address] [place] [address] Phone Care Team Providers Care Medical Massage Therapist Name Role Phone Linda Nova APRN-RENE Unavailable Unavai lable Encounter Details Date Type Department Care Team (Late st Contact Info) Description 07/25/2024 Patient Risk Score ACO Care Management [address] [place] [address] Social History Tobacco Use Types [...] on filedocumented in this encounter Care Teams Medical Massage Therapist Relationship Specialty Start Date End Date Linda Nova APRN-CNP Office Address Unavailable as of 05/20/2023 PCP - Perez ACO PCP 11/22/22 documented as of this encounter
--- OUTSIDE RECORDS SUMMARY | 2024-09-20 21:59 | XMS_ITS | Encounter Summary ---
Author Organization [facility] Address [address] [place] [address] Phone Care Team Providers Care Ecological Modeler Name Role Phone Linda Nova APRN-RENE Unavailable Unavai lable Encounter Details Date Type Department Care Team (Late st Contact Info) Description 04/27/2024 Patient Risk Score ACO Care Management [address] [place] [address] Social History Tobacco Use Types [...] on filedocumented in this encounter Care Teams Ecological Modeler Relationship Specialty Start Date End Date Linda Nova APRN-CNP Office Address Unavailable as of 05/20/2023 PCP - Perez ACO PCP 11/22/22 documented as of this encounter
--- OUTSIDE RECORDS SUMMARY | 2024-09-20 21:59 | XMS_ITS | Encounter Summary ---
Author Organization [facility] Address [address] [place] [address] Phone Care Team Providers Care Trial Consultant Name Role Phone Linda Nova APRN-RENE Unavailable Unavai lable Encounter Details Date Type Department Care Team (Late st Contact Info) Description 06/25/2024 Patient Risk Score ACO Care Management [address] [place] [address] Social History Tobacco Use Types [...] on filedocumented in this encounter Care Teams Trial Consultant Relationship Specialty Start Date End Date Linda Nova APRN-CNP Office Address Unavailable as of 05/20/2023 PCP - Perez ACO PCP 11/22/22 documented as of this encounter
--- OUTSIDE RECORDS SUMMARY | 2024-09-20 21:59 | XMS_ITS | Encounter Summary ---
Author Organization [facility] Address [address] [place] [address] Phone Care Team Providers Care Endocrinology Teacher Name Role Phone Linda Nova APRN-RENE Unavailable Unavai lable Encounter Details Date Type Department Care Team (Late st Contact Info) Description 11/26/2023 Patient Risk Score ACO Care Management [address] [place] [address] Social History Tobacco Use Types [...] on filedocumented in this encounter Care Teams Endocrinology Teacher Relationship Specialty Start Date End Date Linda Nova APRN-CNP Office Address Unavailable as of 05/20/2023 PCP - Perez ACO PCP 11/22/22 documented as of this encounter
--- OUTSIDE RECORDS SUMMARY | 2024-09-20 21:59 | XMS_ITS | Encounter Summary ---
Author Organization [facility] Address [address] [place] [address] Care Team Providers Care Air Export Logistics Manager Name Role Phone Tsering Richmond UTILITY ASSEMBLER Unavailable [phone] Encounter Details Date Type Department Care Team (Late st Contact Info) Description 10/31/2022 Abstract [facility] [address] [place] [address] Rachid Starr DO [facility] [address] [place], [facility] Social History Tobacco Use Types Packs/Day Years Used Date Smoking Tobacco: Never Comments Unknown Sex and Gender Information Value Date Recorded Sex Assigned at Female 09/08/2022 11:34 AM EDT Legal Sex Female 11:22 PM EDT Gender Identity Female 09/08/2022 11:34 AM EDT Sexual Orientation Not on file documented as of this encounter Plan of Treatment Upcoming Encounters Date Type Department Care Team (Late st Contact Info) Description 08/31/2025 1:30 PM EDT Procedure Visit [facility] [address] [place] [address] Rachid Starr DO [address] [place], [facility] 09/28/2025 1:00 PM EDT Office Visit [facility] [address] [place] [address] Rachid Starr DO [address] [place] [address] documented as of this encounter Visit Diagnoses Not on filedocumented in this encounter Care Teams Air Export Logistics Manager Relationship Specialty Start Date End Date Tsering [place] NP [address] [place] [address] PCP - [place] Commercial 07/22/24 documented as of this encounter
--- OUTSIDE RECORDS SUMMARY | 2024-09-20 21:59 | XMS_ITS | Clinical Summary ---
Author Organization [facility] Address [address] [place] [address] Phone Care Team Providers Care Offender Job Retention Specialist Name Role Phone Mikel Novavanita Cronin PIPE MAKER-SYSTEM DESIGNER Unavailable Unavai lable Encounters Date Type Department Care Team Description 08/25/2024 Patient Risk Score ACO Care Management [address] [place] [address] 07/25/2024 Patient Risk Score ACO Care Management [address] [facility] [address] [place] [address] 06/25/2024 Patient Risk Score ACO Care Management [address] [facility] [address] [place] [address] from Last 3 Months Social History Tobacco Use Types Packs/Day Years Used Date Smoking Tobacco: Never Assessed Comments Unknown Sex and Gender Information Value Date Recorded Sex Assigned at Not on file Legal Sex Female 2:25 PM EST Gender Identity Not on file Sexual Orientation Not on file Last Filed Vital Signs Vital Sign Reading Time Taken Comments Blood Pressure 110/76 02/25/2022 1:20 PM EST Pulse 94 02/25/2022 1:20 PM EST Temperature 36.4 C (97.6 F) 02/25/2022 1:20 PM EST Respiratory Rate 20 02/25/2022 1:20 PM EST Oxygen Saturation 98% 02/25/2022 1:20 PM EST Inhaled Oxygen Concentration - - Weight 87.1 kg (192 lb) 06/21/2022 8:26 AM EDT Height 162.6 cm (5' 4 ) 02/07/2022 10:15 AM EST Body Mass Index 32.96 02/07/2022 10:15 AM EST Plan of Treatment Health Maintenance Due Date Last Done Comments HIV Screening 1990 MMR Vaccines (1 of 1 - Standard series) 1991 Varicella Vaccines (1 of 2 - 13+ 2-dose series) 2003 Hepatitis C Screening 02/14/2008 Hepatitis B Vaccines (1 of 3 - 19+ 3-dose series) 2009 HPV/Cotest 2011 DTaP/Tdap/Td Vaccines (1 - Tdap) 02/14/2012 COVID-19 Vaccine (1 - season) 2023 Yearly Adult Physical 09/15/2024 09/15/2023 , 09/09/2022, 07/04/2021, Additional history exists Influenza Vaccine (Season Ended) 2024 Cervical Cancer Screening 09/14/2026 Pap Smear 09/14/2026 09/15/2023, 09/09/2022 Lipid Panel 12/10/2026 12/10/2021 Zoster Vaccines (1 of 2) 02/14/2040 Irritable Bowel Syndrome Discontinued 12/12/2021 HIB Vaccines Aged Out No longer eligi ble based on patient's age to complete this topic HPV Vaccines (No Doses Required) Completed Hepatitis A Vaccines Aged Out No long er eligible based on patient's age to complete this topic IPV Vaccines Aged Out No longer eligi ble based on patient's age to complete this topic Meningococcal Vaccine Aged Out No ed elham eligible based on patient's age to complete this topic Pneumococcal Vaccine: Pediatrics and At-Risk Adult Patients Aged Out No longer eligible based on patient's age to complete this topic Rotavirus Vaccines Aged Out No longer eligible based on patient's age to complete this topic Procedures Procedure Name Priority Date/Time Associated Diagnosis Comments EGD Routine 12/12/2021 8:14 AM EDT LIPID PANEL Routine 12/10/2021 2:18 PM EDT from Last 3 Months or Most Recently Relevant to Health Maintenance Results * Esophagogastroduodenoscopy (EGD) (12/12/2021 8:14 AM EDT) Anatomical Region Laterality Modality Endoscopy 12/12/2021 8:14 AM EDT Narrative 05/02/2022 10:02 AM EST Patient Name: Liane Riley Procedure Date: 12/12/2021 8:14 AM Date of : 1990 Admit Type: Outpatient Site: [facility] Endoscopy Room 2 Ethnicity: Unknown Race: White Attending MD: Kamari Bauman MD, [id number] Procedure: Upper GI endoscopy Indications: Heartburn, Preoperative assessment for bariatric surgery to treat morbid obesity, obesity Providers: Kamari Bauman MD (Doctor), Sushila Gallegos RN (Nurse) , Rosita Henry RN (Nurse) , Jen Salter LPN Referring: Medicines: Monitored Anesthesia Care Complications: No immediate complications. Procedure: Pre-Anesthesia Assessment: - Prior to the [...] difficulty. The patient tolerated the procedure well. Findings: The Z-line was regular and was [...] second portion of the duodenum were normal. Estimated Blood Loss: Estimated blood loss was minimal. Impression: - Z-line regular, 37 cm from the incisors. - Gastroesophageal flap valve classified as Hill Grade II (fold present, opens with respiration). - Multiple gastric polyps. Biopsied. - Normal ampulla, duodenal bulb, first portion of the duodenum and second portion of the duodenum. - Biopsies were taken with a cold forceps for Helicobacter pylori testing. Recommendation: - Resume previous diet. - Continue present medications. - Await pathology results. Procedure Code(s): --- Professional --- 53120, Esophagogastroduodenoscopy, flexible, transoral; with biopsy, single or multiple Diagnosis Code(s): --- Professional --- K31.7, Polyp of stomach and duodenum R12, Heartburn Z01.818, Encounter for other preprocedural examination E66.01, Morbid (severe) obesity due to excess calories CPT copyright 2021 [employer]. All rights reserved. The codes documented in this report are preliminary and upon china decorator review may be revised to meet current compliance requirements. Attending Participation: I was present and participated during the entire procedure, including non-tavarez portions. Kamari Bauman MD 12/12/2021 8:38:53 AM This report has been signed electronically. Number of Addenda: 0 Note Initiated On: 12/12/2021 8:14 AM Total Procedure Duration Time 0 hours 7 minutes 20 seconds Procedure Note Kamari Bauman MD - 04/26/2024 Patient Name: Liane Riley Procedure Date: 12/12/2021 8:14 AM Date of : 1990 Admit Type: Outpatient Site: [facility] Endoscopy Room 2 Ethnicity: Unknown Race: White Attending MD: Kamari Bauman MD, [id number] Procedure: Upper GI endoscopy Indications: Heartburn, Preoperative assessment for bariatric surgery to treat morbid obesity, obesity Providers: Kamari Bauman MD (Doctor), Sushila Gallegos RN(Nurse) , Rosita Henry RN (Nurse) , Jen Salter LPN Referring: Medicines: Monitored Anesthesia Care Complications: No immediate complications. Procedure: Pre-Anesthesia Assessment: - Prior to the procedure, a History and Physicalwas performed, and patient medications and allergieswere reviewed. The patient's tolerance of previous anesthesia was also reviewed. The risks andbenefits of the procedure and the sedation options and risks were discussed with the patient. All questions were answered, and informed consent was obtained. Prior Anticoagulants: The patient has taken noanticoagulant or antiplatelet agents. ASA Grade Assessment: II -A patient with mild systemic disease. After reviewing the risks and benefits, the patient was deemed in satisfactory condition to undergo the procedure. After obtaining informed consent, the endoscope was passed under direct vision. Throughout theprocedure, the patient's blood pressure, pulse, and oxygen saturations were monitored continuously. Theendoscope was introduced through the mouth, and advanced tothe second part of duodenum. The upper GI endoscopy was accomplished without difficulty. The patienttolerated the procedure well. Findings: The Z-line was regular and was found 37 cm from the incisors. The gastroesophageal flap valve was visualized endoscopically and classified as Hill Grade II (fold present, opens with respiration). Multiple 1-3 mm semi-sessile polyps ( hyperplastic in appearance)with no bleeding and no stigmata of recent bleeding were found in theentire examined stomach, mostly along greater curvature. Biopsies were taken with a cold forceps for histology. Estimated blood loss wasminimal. The exam of the stomach was otherwise normal. Biopsies were taken with a cold forceps in the prepyloric region ofthe stomach for Helicobacter pylori testing. Estimated blood loss was minimal. The ampulla, duodenal bulb, first portion of the duodenum and second portion of the duodenum were normal. Estimated Blood Loss: Estimated blood loss was minimal. Impression: - Z-line regular, 37 cm from the incisors. - Gastroesophageal flap valve classified as HillGrade II (fold present, opens with respiration). - Multiple gastric polyps. Biopsied. - Normal ampulla, duodenal bulb, first portion ofthe duodenum and second portion of the duodenum. - Biopsies were taken with a cold forceps for Helicobacter pylori testing. Recommendation: - Resume previous diet. - Continue present medications. - Await pathology results. Procedure Code(s): --- Professional --- 83477, Esophagogastroduodenoscopy, flexible, transoral; with biopsy, single or multiple Diagnosis Code(s): --- Professional --- K31.7, Polyp of stomach and duodenum R12, Heartburn Z01.818, Encounter for other preproceduralexamination E66.01, Morbid (severe) obesity due to excesscalories CPT copyright 2021 [employer]. All rights reserved. The codes documented in this report are preliminary and upon china decorator reviewmay be revised to meet current compliance requirements. Attending Participation: I was present and participated during the entire procedure, including non-tavarez portions. Kamari Bauman MD 12/12/2021 8:38:53 AM This report has been signed electronically. Number of Addenda: 0 Note Initiated On: 12/12/2021 8:14 AM Total Procedure Duration Time 0 hours 7 minutes 20 seconds us Provation Conversion ENDOSCOPY PROCEDURE ORDERAB LES Edited Result - Final * (ABNORMAL) Lipid Panel (12/10/2021 2:18 PM EDT) Cholesterol 174 0 - 199 mg/dL [facility] Comment: . AGE DESIRABLE BORDERLINE HIGH HIGH [...] be performed immediately prior to Metamizole dosing. HDL 39.0(A) mg/dL [facility] Comment: . AGE VERY LOW LOW NORMAL HIGH 0-19 Y < 35 < 40 40-45 ---- 20-24 Y ---- < 40 >45 ---- >24 Y ---- < 40 40-60 >60 . Cholesterol/HDL Ratio 4.5 [facility] Comment: REF VALUES DESIRABLE < 3.4 HIGH RISK > 5.0 LDL 101(H) 0 - 99 mg/dL [facility] Comment: . NEAR BORD AGE DESIRABLE OPTIMAL HIGH HIGH VERY HIGH 0-19 Y 0 - 109 --- 110-129 >/= 130 ---- 20-24 Y 0 - 119 --- 120-159 >/= 160 ---- >24 Y 0 - 99 100-129 130-159 160-189 >/=190 . VLDL 34 0 - 40 mg/dL [facility] Triglycerides 169(H) 0 - 149 mg/dL [facility] Comment: . AGE DESIRABLE BORDERLINE HIGH HIGH [...] be performed immediately prior to Metamizole dosing. 12/10/2021 2:18 PM EDT 12/10/2021 8:27 PM EDT us Kamari Bauman MD LAB BLOOD ORDERABLES Final Res ult [facility] [address] [place], [place] [id number] from Last 3 Months or Most Recently Relevant to Health Maintenance Care Teams Offender Job Retention Specialist Relationship Specialty Start Date End Date Linda Nova, PIPE MAKER-SYSTEM DESIGNER Office Address Unavailable as of 05/20/2023 PCP - Perez SAM PCP 11/22/22
--- OUTSIDE RECORDS SUMMARY | 2024-09-20 21:59 | XMS_ITS | Encounter Summary ---
Author Organization [facility] Address [address] [place] [address] Phone Care Team Providers Care Talent Development Manager Name Role Phone Linda Nova APRN-RENE Unavailable Unavai lable Encounter Details Date Type Department Care Team (Late st Contact Info) Description 12/26/2023 Patient Risk Score ACO Care Management [address] [place] [address] Social History Tobacco Use Types [...] on filedocumented in this encounter Care Teams Talent Development Manager Relationship Specialty Start Date End Date Linda Nova APRN-CNP Office Address Unavailable as of 05/20/2023 PCP - Perez ACO PCP 11/22/22 documented as of this encounter
--- OUTSIDE RECORDS SUMMARY | 2024-09-20 21:59 | XMS_ITS | Encounter Summary ---
Author Organization [facility] Address [address] [place] [address] Phone Care Team Providers Care Call Box Wirer Name Role Phone Linda Nova APRN-RENE Unavailable Unavai lable Encounter Details Date Type Department Care Team (Late st Contact Info) Description 05/25/2024 Patient Risk Score ACO Care Management [address] [place] [address] Social History Tobacco Use Types [...] on filedocumented in this encounter Care Teams Call Box Wirer Relationship Specialty Start Date End Date Linda Nova APRN-CNP Office Address Unavailable as of 05/20/2023 PCP - [place] ACO PCP 11/22/22 documented as of this encounter
--- OUTSIDE RECORDS SUMMARY | 2024-09-20 21:59 | XMS_ITS | Encounter Summary ---
Author Organization [facility] Address [address] [place] [address] Phone Care Team Providers Care Meat Press Operator Name Role Phone Linda Nova APRN-RENE Unavailable Unavai lable Encounter Details Date Type Department Care Team (Late st Contact Info) Description 05/26/2023 Patient Risk Score ACO Care Management [address] [place] [address] Social History Tobacco Use Types [...] on filedocumented in this encounter Care Teams Meat Press Operator Relationship Specialty Start Date End Date Linda Nova APRN-CNP Office Address Unavailable as of 05/20/2023 PCP - Perez ACO PCP 11/22/22 documented as of this encounter
--- OUTSIDE RECORDS SUMMARY | 2024-09-20 21:59 | XMS_ITS | Encounter Summary ---
Author Organization [facility] Address [address] [place] [address] Phone Care Team Providers Care Cashier And Waiter/Waitress Name Role Phone Linda Nova APRN-RENE Unavailable Unavai lable Encounter Details Date Type Department Care Team (Late st Contact Info) Description 10/26/2023 Patient Risk Score ACO Care Management [address] [place] [address] Social History Tobacco Use Types [...] on filedocumented in this encounter Care Teams Cashier And Waiter/Waitress Relationship Specialty Start Date End Date Linda Nova APRN-CNP Office Address Unavailable as of 05/20/2023 PCP - Perez ACO PCP 11/22/22 documented as of this encounter
--- OUTSIDE RECORDS SUMMARY | 2024-09-20 21:59 | XMS_ITS | Encounter Summary ---
Author Organization [facility] Address [address] [place] [address] Care Team Providers Care Sweater Operator Name Role Phone Tsering Richmond GLASS FINISHER Unavailable [phone] Encounter Details Date Type Department Care Team (Late st Contact Info) Description 09/20/2024 Bamboo flowsheet [facility] [address] [place] [address] Rachid Starr DO [facility] [place], [id number] Social History Tobacco Use Types Packs/Day Years [...] EDT Procedure Visit [facility] [address] [place] [address] Rachid Starr DO [address] [place] [address] [place] [address] 09/28/2025 1:00 PM EDT Office Visit [facility] [address] [place] [address] Rachid Starr [address] [place] [address] documented as of this encounter Visit Diagnoses Not on filedocumented in this encounter Care Teams Sweater Operator Relationship Specialty Start Date End Date Tsering Richmond NP [address] [place] [address] PCP - Perez Commercial 07/22/24 documented as of this encounter
--- OUTSIDE RECORDS SUMMARY | 2024-09-20 21:59 | XMS_ITS | Encounter Summary ---
Author Organization [facility] Address [address] [place] [address] Phone Care Team Providers Care Automobile Travel Club Counselor Name Role Phone Linda Nova APRN-RENE Unavailable Unavai lable Encounter Details Date Type Department Care Team (Late st Contact Info) Description 06/26/2023 Patient Risk Score [facility] Care Management [address] [place] [address] Social History Tobacco Use Types [...] on filedocumented in this encounter Care Teams Automobile Travel Club Counselor Relationship Specialty Start Date End Date Linda Nova APRN-CNP Office Address Unavailable as of 05/20/2023 PCP - Perez ACO PCP 11/22/22 documented as of this encounter
--- OUTSIDE RECORDS SUMMARY | 2024-09-20 21:59 | XMS_ITS | Encounter Summary ---
Author Organization [facility] Address [address] [place] [address] Phone Care Team Providers Care Oracle Soa Developer Name Role Phone Linda Nova APRN-RENE Unavailable Unavai lable Encounter Details Date Type Department Care Team (Late st Contact Info) Description 03/26/2024 Patient Risk Score ACO Care Management [address] [place] [address] Social History Tobacco Use Types [...] on filedocumented in this encounter Care Teams Oracle Soa Developer Relationship Specialty Start Date End Date Linda Nova APRN-CNP Office Address Unavailable as of 05/20/2023 PCP - Perez ACO PCP 11/22/22 documented as of this encounter
--- OUTSIDE RECORDS SUMMARY | 2024-09-20 21:59 | XMS_ITS | Encounter Summary ---
Author Organization [facility] Address [address] [place] [address] Phone Care Team Providers Care Keeper Head Name Role Phone Linda Nova APRN-RENE Unavailable Unavai lable Encounter Details Date Type Department Care Team (Late st Contact Info) Description 07/26/2023 Patient Risk Score ACO Care Management [address] [place] [address] Social History Tobacco Use Types [...] on filedocumented in this encounter Care Teams Keeper Head Relationship Specialty Start Date End Date Linda Nova APRN-CNP Office Address Unavailable as of 05/20/2023 PCP - Perez ACO PCP 11/22/22 documented as of this encounter
--- OUTSIDE RECORDS SUMMARY | 2024-09-20 21:59 | XMS_ITS | Encounter Summary ---
Author Organization [facility] Address [address] [place] [address] Phone Care Team Providers Care Industrial Engineering Analyst Name Role Phone Linda Nova APRN-RENE Unavailable Unavai lable Encounter Details Date Type Department Care Team (Late st Contact Info) Description 01/26/2024 Patient Risk Score ACO Care Management [address] [place] [address] Social History Tobacco Use Types [...] on filedocumented in this encounter Care Teams Industrial Engineering Analyst Relationship Specialty Start Date End Date Linda Nova APRN-CNP Office Address Unavailable as of 05/20/2023 PCP - Perez ACO PCP 11/22/22 documented as of this encounter
--- OUTSIDE RECORDS SUMMARY | 2024-09-20 21:59 | XMS_ITS | Encounter Summary ---
Author Organization [facility] Address [address] [place] [address] Phone Care Team Providers Care Autocad Draftsman Name Role Phone Linda Nova APRN-RENE Unavailable Unavai lable Encounter Details Date Type Department Care Team (Late st Contact Info) Description 02/25/2024 Patient Risk Score ACO Care Management [address] [place] [address] Social History Tobacco Use Types [...] on filedocumented in this encounter Care Teams Autocad Draftsman Relationship Specialty Start Date End Date Linda Nova APRN-CNP Office Address Unavailable as of 05/20/2023 PCP - Perez ACO PCP 11/22/22 documented as of this encounter
--- OUTSIDE RECORDS SUMMARY | 2024-09-20 22:00 | XMS_ITS | CCD ---
Author Organization [facility] Care Team Providers Care Global Program Manager Name Role Phone BERTC, DR PEREZ Admitting Unavailable MISC, DR PEREZ Attending Unavailable REQUEST, DR TORREZ LISTED Primary Care Unavaila ble MISC, DR PEREZ Consulting Unavailable MATTY, DR GERARD Consulting Unavailable MATTY, DR GERARD Primary Care Unavailable MATTY, DR GERARD Admitting Unavailable MATTY, DR GERARD Attending Unavailable ZIEBER, DR WILMAN Jung Consulting Unavailable MATTY, DR GERARD Attending Unavailable MATTY, DR GERARD Primary Care Unavailable MATTY, DR GERARD Admitting Unavailable WEST, DR ADRIANO Morton Consulting Unavailable MATTY, DR GERARD Consulting Unavailable MISC, DR PEREZ Primary Care Unavailable HAY, DR RUBIO Admitting Unavailable HAY, DR RUBIO Attending Unavailable HAY, DR RUBIO Consulting Unavailable WEST, DR ADRIANO Morton Consulting Unavailable MATTY, DR GERARD Primary Care Unavailable CATHY, MIGUEL Admitting Unavailable CATHY, MIGUEL Attending Unavailable CATHY, MIGUEL Consulting Unavailable MISC, DR PEREZ Admitting Unavailable MISC, DR PEREZ Attending Unavailable MISC, DR PEREZ Consulting Unavailable MATTY, DR GERARD Primary Care Unavailable Unknown, Referring [...] Unavailable UNKNOWN, PCP Primary Care Unavailable Dr. Nubia Smithd Attending Unavailable NUHA, Dr. BERRIOS Attending Unavailable UNKNOWN, PCP Primary Care Unavailable UNKNOWN, PCP Primary Care Unavailable Cortes, Dr. Benites Referring Unavailable Lu Rogerio Megan Attending Unavailable UNKNOWN, PCP Primary Care Unavailable [...] Care Unavailable UNKNOWN, PCP Primary Care Unavailable Abbvijaya, Dr. Benites Attending Unavailable Abbas, Dr. Benites Referring Unavailable Abbas, Dr. Benites Admitting Unavailable Unavailable Primary Care Provider UnavailRACHID Crews Attending Unavailable RACHID STARR Attending Unavailable STEVE MAJOR Attending Unavailable RACHID STARR Attending Unavailable Basilio BOTANY TECHNICIANSteve Unavailable [phone] Allergies Allergy Classification Reported Allergen(s) Allergy Type Date of Onset Reaction(s) Facility (6 sources) Non-steroidal anti-inflammator y agent Propensity to adverse reactions 5 [facility] Medications Current Medications Medication Drug Class(es) Dates Sig (Normalized) Sig (Original) acetaminophen 32 mg/ml oral solution (1 source) Start: 02-14-2022 take 20.31 mL by mouth every four hours acetaminophen 160 mg/5 mL oral liquid ; 20.31 milliliter(s) orally every 4 hours Quantity: 0 Refills: 0 Ordered: 14-Feb-2022 Sunday Burrell Start: 14-Feb-2022 Generic Substitution Allowed azithromycin 250 mg oral tablet (6 sources) Macrolide Antimicrobial Start: 03-29-2024 azithromycin (Zithromax) 250 MG tablet Indications: Cough, unspecified type , Bronchitis Take 1 tablet (250 mg) by mouth Daily Take 2 tabs on day 1 and 1 tab on days 2-5 then stop 6 tablet 03/29/2024 Active 24 hr buPROPion hydrochloride 300 mg extended release oral tablet (10 sources) Aminoketone Start: 08-06-2023 End: 01-31-2025 take 1 tablet by mouth once daily for anxiety buPROPion XL (Wellbutrin XL) 300 MG 24 hr tablet Indications: Encounter for medication refill , Anxiety, generalized Take 1 tablet (300 mg) by mouth Daily Do not crush, chew, or split. 30 tablet 07/05/2024 01/31/2025 Active Start: 11-06-2021 take 1 tablet by brodie th once daily buPROPion HCl ER (XL) 300 MG Oral Tablet Extended Release 24 Hour TAKE 1 TABLET DAILY DIRECTED. Quantity: 0 Refills: 0 Ordered: 06-Nov-2021 DO Start : 06-Nov-2021 Active escitalopram 10 mg oral tablet (8 sources) Serotonin Reuptake Inhibitor Start: 07-28-2023 End: 07-05-2025 take 1 tablet by mouth once daily for anxiety escitalopram (Lexapro) 10 MG tablet Indications: Encounter for medication refill , Anxiety, generalized Take 1 tablet (10 mg) by mouth Daily 30 tablet 07/05/2024 07/05/2025 Active FLUoxetine 10 mg oral capsule (6 sources) Serotonin Reuptake Inhibitor Start: 02-17-2023 take 1 capsule by mouth in the morning FLUoxetine (PROzac) 10 MG capsule Indications: Anxiety, generalized Take 1 capsule (10 mg) by mouth in the morning. 30 capsule 02/17/2023 Active levonorgestrel 0.561191 mg/hr intrauterine system (6 sources) Progestin, Progestin-containi ng Intrauterine Device Levonorgestrel (Mirena, 52 MG,) 20 MCG/DAY intrauterine device 1 Intra Uterine Device by Intrauterine route yearly. Active oxyCODONE hydrochloride 1 mg/ml oral solution (1 source) Opioid Agonist Start: 02-14-2022 take 5 mL by mouth every six hours as needed oxyCODONE 5 mg/5 mL oral solution ; 5 milliliter(s) orally every 6 hours, As needed, Pain - Mod (4-6) Quantity: 0 Refills: 0 Ordered: 14-Feb-2022 Sunady Burrell Start: 14-Feb-2022 Generic Substitution Allowed valACYclovir 1000 mg oral tablet (6 sources) Herpesvirus Nucleoside Analog DNA Polymerase Inhibitor, Herpes Simplex Virus Nucleoside Analog DNA Polymerase Inhibitor, Herpes Zoster Virus Nucleoside Analog DNA Polymerase Inhibitor Start: 04-27-2022 valACYclovir (Valtrex) 1 g tablet TAKE 2 TABLETS BY MOUTH EVERY 12 HOURS for 1 day. This dose is for when you have an outbreak. this is enough for 3 outbreaks 04/27/2022 Active Completed/Discontinued Medications Medication Drug Class(es) Dates Sig (Normalized) Sig (Original) calcium chloride 0.0014 meq/ml / potassium chloride 0.004 meq/ml / sodium chloride 0.103 meq/ml / sodium lactate 0.028 meq/ml injectable solution (4 sources) Start: 02-25-2022 Lactated Ringers Intravenous Solution Please infuse 2L of LR over 2-4 hours. Quantity: 2000 Refills: 0 Ordered: 25-Feb-2022 Kamari Smith MD Start : 25-Feb-2022 Active To be adminitered at [facility] omeprazole 40 mg delayed [...] [Pelvic and perineal pain] Onset: 07-05-2021 Episodic Administrative/social admission (2 sources) Repeated prescription; Translations: [Encounter for issue of repeat prescription] 07-05-2024 Episodic Anxiety disorders (2 sources) Generalized anxiety disorder; Translations: [Generalized anxiety disorder] 07-05-2024 Chronic Chronic obstructive pulmonary disease and bronchiectasis (2 sources) Bronchitis; Translations: [Bronchitis, not specified as acute or chronic] 03-29-2024 Episodic Complications of surgical procedures or medical [...] vomiting] Episodic Other aftercare (1 source) Other assisted (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; Translations: [OTH INTERMEDIATE CURRENT DRUG THERAPY] Onset: 09-04-2021 Episodic Other endocrine disorders (16 sources) Polycystic ovary syndrome; Translations: [Polycystic ovaries] Chronic Other endocrine disorders (1 source) Polycystic ovarian syndrome; Translations: [Polycystic ovarian syndrome] Onset: 02-14-2022 Chronic Other gastrointestinal disorders (16 sources) History of bariatric surgical procedure; Translations: [Bariatric surgery status] Episodic Other gastrointestinal disorders (7 sources) History of sleeve gastrectomy; Translations: [Bariatric surgery status] Episodic Other lower respiratory disease (2 sources) Cough; Translations: [Cough, unspecified type] 03-29-2024 Episodic Other nervous system disorders (11 sources) [...] Test Name Value Interpretation Reference Range Facility Urinalysis macro (dipstick) panel (U)on 07-05-2024 Bilirubin, UA Negative Negative - 4(70) +++ mg/dL [facility] Blood, UA Negative Negative - 50 Brian/mcL [facility] Clarity, UA Clear [facility] Color, UA Yellow [facility] Glucose, UA Negative Negative - 2000(110) ++++ mg/dL [facility] Interpretation and review of laboratory results Normal [facility] Ketones, UA Negative Negative - 160(16) ++++ mg/dL [facility] Leukocytes, UA Negative Negative - 500+++ Salena/mcL [facility] Nitrite, UA Negative Negative - Positive [facility] pH, UA 6 5 - 9 [facility] Protein, UA Negative Negative - 2000(20) ++++ mg/dL [facility] Spec Grav, UA 1.03 1 - 1.03 [facility] Urobilinogen, UA 0.2 0.2 - 12 mg/dL [facility] - Microbiology an d Antimicrobial susceptibilityon 03-29-2024 SARS-CoV-2 (COVID-19) RNA SHAR+probe Ql (Unsp spec) Negative [facility] No Panel Informationon 03-29 FLU A Negative [facility] FLU B Negative [facility] Interpretation and review of laboratory results Normal [facility] Cytology Cervical or vaginal smear or scraping studyOrdered By: Philly Cortez on 09-15-2023 [facility] Bariatric Surgery - Follow-U lidya 08-13-2022 Bariatric Surgery - Follow-Up Diagnoses/Problems Assessed S/P laparoscopic sleeve gastrectomy (V45.86) (Z98.84) Orders S/P laparoscopic sleeve gastrectomy Complete Blood Count + Differential; Status:Active; Requested for:13Aug2022; Comprehensive Metabolic Panel; Status:Active; Requested for:13Aug2022; Ferritin, Serum; Status:Active; Requested for:13Aug2022; Folate, Serum; Status:Active; Requested for:13Aug2022; Hemoglobin A1C; Status:Active; Requested for:13Aug2022; Iron + TIBC, Serum; Status:Active; Requested for:13Aug2022; Parathormone Intact, Serum; Status:Active; Requested for:13Aug2022; Vitamin B1 - Thiamine, Whole Blood; Status:Active; Requested for:13Aug2022; Vitamin B12, Serum; Status:Active; Requested for:13Aug2022; Vitamin D 25-Hydroxy; Status:Active; Requested for:13Aug2022; Patient Discussion/Summary Remember to get 60g protein and 64 oz fluid daily Do not eat and drink at the same time. See the staking press operator as much as you need too. Continue [...] weight was 243 lbs at pre-op visit. [place] weight 131 lbs. Target body weight 160 [...] Aug 13 2022 3:32PM EST (Author) Normal [facility] Bariatric Surgery - Follow-U lidya 06-21-2022 Bariatric [...] drink at the same time. See the staking press operator as much as you need too. Continue [...] weight was 243 lbs at pre-op visit. [place] weight 131 lbs. Target body weight 160 [...] NoKnown No Known Allergies Recorded By: Alexa oMrton; 10/22/2021 3:08:48 PM Current Meds Medication NameInstruction Omeprazole 40 MG Oral Capsule Delayed ReleaseTAKE 1 CAPSULE Daily Open capsule, sprinkle in SF applesauce or pudding, swallow. DO NOT CHEW Ondansetron 4 MG Oral Tablet Disintegrating1-2 tablets every 6-8 hours as needed for nausea Vitals Vital Signs Recorded: 21Jun2022 08:26AM Xtktkv985 lb BMI Olitaoijqa57.96 BSA Calculated1.92 Physical Exam no PE Signatures Electronically signed by : Linda Nova, (more content not included)... Normal [facility] Bariatric Surgery - Follow-U lidya 05-10-2022 Bariatric Surgery - Follow-Up No report was sent Normal [facility] Dietition Noteon 03-20-2022 Dietition Note Chief Complaint [...] status; GORDO = N; Verified Transmission to [facility] Ondansetron 4 MG Oral Tablet Disintegrating; 1-2 tablets every 6-8 hours as needed for nausea; Therapy: 04Feb2022 to (Last Rx:07Feb2022) Requested for: 08Feb2022 Ordered Rx By: Kamari Smith; Dispense: 0 Days ; #:60 Tablet; Refill: 5;For: Post-operative nausea and vomiting; GORDO = N; Verified Transmission to [facility] Provider Impressions Follow Up Post-Op Bariatric Nutrition Assessment NAME: Liane Osvaldo DATE: 03/15/2022 Surgeon: Cortes Surgery Type/Date: Sleeve [...] weeks post-op. Continue with daily multivitamin (2 Riner COMPLETE MVI-both at breakfast), 1200-1500mg of calcium [...] A PHON (more content not included)... Normal [facility] Office Visiton 03-20-2022 Follow-up visit Diagnoses/Problems S/P laparoscopic sleeve gastrectomy (V45.86) (Z98.84) Patient Discussion/Summary Remember to get 60g protein and 64 oz fluid daily Do not eat and drink at the same time. See the staking press operator as must as you need too. Continue [...] weight was 243 lbs at pre-op visit. [place] weight 131 lbs. Target body weight 160 [...] needed for nausea Vitals Vital Signs Recorded: [id number] 10:13AM Xzvpzl627 lb BMI Qielptgdan25.56 BSA Calculated2.01 Physical Exam no PE Signatures Electronically signed by : Linda Nova APRN-RENE; Mar 20 2022 10:18AM EST (Author) Normal [facility]eton 022 Infusion Flowsheet 106/71 MG-Amb ulator y [facility] 1600 DO Work Phone: Infusion Flowsheet 73 1 MG-Amb ulator y [facility] 1599 DO Work Phone: Infusion Flowsheet 18 1 MG-Amb ulator y [facility] 1599 DO Work Phone: Infusion Flowsheet 100% MG-Amb ulator y [facility] 1599 DO Work Phone: Infusion Flowsheet 2000mL 0.9% NaCl MG-Ambulator y Infusion [facility] 1599 DO Work Phone: Infusion Flowsheet Infusion Stopped MG-Ambulator y [facility] 1599 DO Work Phone: Infusion Flowsheet Infusion complete, tolerated well MG-Ambulator y [facility] 1599 DO Work Phone: Infusion Flowsheet HB MG-Amb ulator y Infusion [facility] 1599 DO Work Phone: Infusion Flowsheet Lactated Ringers MG-Ambulator y Infusion [facility] 1600 DO Work Phone: Infusion Flowsheet Infusion Started MG-Ambulator y Infusion [facility] 1599 DO Work Phone: Infusion Flowsheet 999mL/hr MG-Amb ulator y Infusion [facility] 1600 DO Work Phone: Infusion Flowsheet Comfort measures off ered, resting in chair, no distress MG-Ambulator y [facility] 1600 DO Work Phone: Infusion Flowsheet HB MG-Amb ulator y [facility]fusion [facility] 1600 DO Work Phone: Nurse Visit (Infusion-Inject ion Services)on 02-25-2022 Nurse Visit (Infusion-Injection Services) Orders-Aquarium Tank Attendant Medications Administered: Lactated Ringers Intravenous Solution Rx By: Kamari Smith;For: Dehydration; Dose of 2000 ML; Intravenous; GORDO = N; Administered by: Megan Leigh WAITER WAITRESS-LOGGING EQUIPMENT MECHANIC: 02/25/2022 1:30:00 PM; Last Updated By: Megan [...] needed for nausea Vitals Vital Signs Recorded: 26Ovd4686 01:20PM Epllozncvls20.6 F Heart Rate94 Czyxqwcznsu14 Jynedtcp950 Lnozkqqnd40 Ucrbfp761 lb 15.01 oz BMI Njxkpceuui33.47 kg/m2 BSA Calculated2.08 O2 Kjsbfqgbeq26, RA Pre-Procedure Checklist Pre-Procedure Checklist Allergies were [...] infuses without difficulty. Orders Verified By: (Name RN/INSEAM TRIMMER) Megan Leigh APRN, FNP-C Orders Checked By: (Name RN/INSEAM TRIMMER) Nicole Smith Medication: Induction. Pump Programmed By: Megan Leigh APRN, FNP-C Verified By: Nicole Smith Infusion Flowsheet Infusion Flowsheet [id number] 01:30PM Infusion Flowsheet Fluid: Lactated Ringers Infusion: Infusion Started Infusion Rate: 999mL/hr Comments: Comfort measures offered, resting in chair, no distress Initials: HB [id number] 03:35PM Initials: HB Comments: Infusion complete, tolerated [...] gave you (more content not included)... Normal [employer] Bariatric Surgery - Follow-U [facility] 02-21-2022 Bariatric Surgery - Follow-Up Diagnoses/Problems Assessed [...] concerns regarding your vitamins, please contact the staking press operator. Remember to take your multivitamins 2 times [...] online. Instructed to call the office at [phone] for concerns, questions, or problems. The patient [...] according to the diet guidelines. See the staking press operator as must as you need too. Slowly [...] weight was 243 lbs at pre-op visit. [place] weight 131 lbs. Target body weight 160 [...] polycystic o (more content not included)... Normal [employer] CBC AND DIFFERENTIALon 02-14 % AUTOMATED IMMATURE GRAN 0.6 % Normal 0.0 - 0.9 [facility] Comment on above: Result Comment: Larissa ture Granulocyte Count (IG) includes promyelocytes, myelocytes and metamyelocytes but does not include bands. Percent differential counts (%) should be interpreted in the context of the absolute cell counts (cells/L). Performed By: #### C BCDF #### [facility] [address] [place] [address] Basophils (Bld) [#/Vol] 0.01 10*3/uL Normal 0.00 - 0.10 [facility] Comment on above: Performed By: #### C BCDF #### [facility] [address] [place] [address] Basophils/100 WBC (Bld) 0.1 % Normal 0.0 - 2.0 [facility] Comment on above: Performed By: #### C BCDF #### [facility] [address] [place] [address] Eosinophils (Bld) [#/Vol] 0.01 10*3/uL Normal 0.00 - 0.70 [facility] Comment on above: Performed By: #### C BCDF #### [facility] [address] [place] [address] Eosinophils/100 WBC (Bld) 0.1 % Normal 0.0 - 6.0 [facility] Comment on above: Performed By: #### C BCDF #### [address] [place] [address] Erythrocyte distribution width (RBC) [Ratio] 12.5 % Normal 11.5 - 14.5 [facility] Comment on above: Performed By: #### C BCDF #### [facility] [address] [place] [address] Hematocrit (Bld) [Volume fraction] 40.8 % Normal 36.0 - 46.0 [facility] Comment on above: Performed By: #### C BCDF #### [facility] [address] [place] [address] Hemoglobin (Bld) [Mass/Vol] 13.2 g/dL Normal 12.0 - 16.0 [facility] Comment on above: Performed By: #### C BCDF #### [facility] [address] [place] [address] Lymphocytes (Bld) [#/Vol] 1.90 10*3/uL Normal 1.20 - 4.80 [facility] Comment on above: Performed By: #### C BCDF #### [facility] [address] [place] [address] Lymphocytes/100 WBC (Bld) 18.1 % Normal 13.0 - 44.0 [facility] Comment on above: Performed By: #### C BCDF #### [facility] [address] [place] [address], [place] [address] MCHC (RBC) [Mass/Vol] 32.4 g/dL Normal 32.0 - 36.0 [facility] Comment on above: Performed By: #### C BCDF #### [address] [place] [address] MCV (RBC) [Entitic vol] 92 fL Normal 80 - 100 [facility] Comment on above: Performed By: #### C BCDF #### [address] [place] [address] Monocytes (Bld) [#/Vol] 0.57 10*3/uL Normal 0.10 - 1.00 [facility] Comment on above: Performed By: #### C BCDF #### [address] [place] [address] Monocytes/100 WBC (Bld) 5.4 % Normal 2.0 - 10.0 [facility] Comment on above: Performed By: #### C BCDF #### [address] [place] [address] Neutrophils (Bld) [#/Vol] 7.97 10*3/uL High 1.20 - 7.70 [facility] Comment on above: Performed By: #### C BCDF #### [address] [place] [address] Neutrophils/100 WBC (Bld) 75.7 % Normal 40.0 - 80.0 [facility] Comment on above: Performed By: #### C BCDF #### [address] [place] [address] NUCLEATED RBC 0.0 /100 WBC Normal 0.0 - 0.0 [facility] Comment on above: Performed By: #### C BCDF #### [address] [place] [address] Platelets (Bld) [#/Vol] 317 10*3/uL Normal 150 - 450 [facility] Comment on above: Performed By: #### C BCDF #### [address] [place] [address] RBC 4.43 x10E12/L Normal 4.00 - 5.20 [facility] Comment on above: Performed By: #### C BCDF #### [address] [address] WBC (Bld) [#/Vol] 10.5 10*3/uL Normal 4.4 - 11.3 [facility] Comment on above: Performed By: #### C BCDF #### [address] [address] COMPREHENSIVE PANELon 2021 Albumin [Mass/Vol] 3.8 g/dL Normal 3.4 - 5.0 [facility] Comment on above: Performed By: #### C MP #### [address] [address] ALP [Catalytic activity/Vol] 55 U/L Normal 33 - 110 [facility] Comment on above: Performed By: #### C MP #### [address] [address] ALT [Catalytic activity/Vol] 18 U/L Normal 7 - 45 [facility] Comment on above: Result Comment: [place] ents treated with Sulfasalazine may generate falsely decreased results for ALT. Performed By: #### C MP #### [address] [address] Anion gap [Moles/Vol] 11 mmol/L Normal 10 - 20 [facility] Comment on above: Performed By: #### C MP #### [address] [address] AST [Catalytic activity/Vol] 14 U/L Normal 9 - 39 [facility] Comment on above: Performed By: #### C MP #### [address] [address] Bilirubin [Mass/Vol] 0.3 mg/dL Normal 0.0 - 1.2 [facility] Comment on above: Performed By: #### C MP #### [address] [address] Calcium [Mass/Vol] 8.3 mg/dL Low 8.6 - 10.3 [facility] Comment on above: Performed By: #### C MP #### [address] [address] Chloride [Moles/Vol] 106 mmol/L Normal 98 - 107 [facility] Comment on above: Performed By: #### C MP #### [address] [address] Creatinine [Mass/Vol] 0.70 mg/dL Normal 0.50 - 1.05 [facility] Comment on above: Performed By: #### C MP #### [address] [address] eGFR FEMALE >90 Normal >90 [facility] Comment on above: Result Comment: CALC ULATIONS OF ESTIMATED GFR ARE PERFORMED USING THE 2020 CKD-EPI STUDY REFIT EQUATION WITHOUT THE RACE VARIABLE FOR THE IDMS-TRACEABLE CREATININE METHODS. https://jasn.asnjournals.org/content/early//ASN.85486852 88 Performed By: #### C MP #### [address] [address] Glucose [Mass/Vol] 114 mg/dL High 74 - 99 [facility] Comment on above: Performed By: #### C MP #### [address] [address] HCO3 (Bld) [Moles/Vol] 27 mmol/L Normal 21 - 32 [facility] Comment on above: Performed By: #### C MP #### [address] [address] Potassium [Moles/Vol] 4.1 mmol/L Normal 3.5 - 5.3 [facility] Comment on above: Performed By: #### C MP #### [address] [address] Protein [Mass/Vol] 6.3 g/dL Low 6.4 - 8.2 [facility] Comment on above: Performed By: #### C MP #### [address] [address] Sodium [Moles/Vol] 140 mmol/L Normal 136 - 145 [facility] Comment on above: Performed By: #### C MP #### [facility] [address] [place] [address] Urea nitrogen [Mass/Vol] 4 mg/dL Low 6 - 23 [facility] Comment on above: Performed By: #### C MP #### [facility] [address] [place], [place] [id number] Complete Blood Count + Diffe rentialon 02-14-2021 Basophils/100 WBC (Bld) 0.1 % 0.0 - 2.0 TZ-Ejvgbym-S arma MAC[address] Work Phone: Erythrocyte distribution width (RBC) [Ratio] 12.5 % See Below IJ-Wjkchvh-I arma [facility] Work Phone: Comment on above: Reference Range: 11. 5 - 14.5 Hematocrit (Bld) [Volume fraction] 40.8 % See Below SW-Zrktmau-W arma [facility] Work Phone: Comment on above: Reference Range: 36. 0 - 46.0 Hemoglobin (Bld) [Mass/Vol] 13.2 g/dL See Below KG-Vippymk-Q arma [facility] Work Phone: Comment on above: Reference Range: 12. 0 - 16.0 Lymphocytes/100 WBC (Bld) 18.1 % See Below BX-Qsblrry-P arma [facility] Work Phone: Comment on above: Reference Range: 13. 0 - 44.0 MCHC (RBC) [Mass/Vol] 32.4 g/dL See Below XM-Teycvrl-O arma [facility] [address] Work Phone: Comment on above: Reference Range: 32. 0 - 36.0 MCV (RBC) [Entitic vol] 92 fL 80 - 100 KH-Foilmsl-K arma [facility] Work Phone: Monocytes/100 WBC (Bld) 5.4 % 2.0 - 10.0 BW-Tdkvxou-Z arma [facility] Work Phone: Neutrophils/100 WBC (Bld) 75.7 % See Below EO-Inqrbon-Y arma [facility] [address] Work Phone: Comment on above: Reference Range: 40. 0 - 80.0 Platelets (Bld) [#/Vol] 317 10*3/uL 150 - 450 XL-Lcfiqbx-Q arma [facility] [address] Work Phone: RBC (Bld) [#/Vol] 4.43 {x10E12/L} See Below MG -Surgery-P arma [facility] [address] Work Phone: Comment on above: Reference Range: 4.0 0 - 5.20 WBC (Bld) [#/Vol] 10.5 10*3/uL 4.4 - 11.3 MG-Wright rgery-P arma MAC[facility] [address] Work Phone: Complete Blood Count + Differential 0.01 {x10E9/L} See Below ZU-Eaqxpdn-O arma MAC[facility] [address] Work Phone: Comment on above: Reference Range: 0.0 0 - 0.10 Reference Range: 0.0 0 - 0.70 Complete Blood Count + Differential 0.57 {x10E9/L} See Below SR-Bxtlxmb-B arma [facility] [address] Work Phone: Comment on above: Reference Range: 0.1 0 - 1.00 Complete Blood Count + Differential 1.90 {x10E9/L} See Below PA-Vcaqvvy-M arma [facility] [address] Work Phone: Comment on above: Reference Range: 1.2 0 - 4.80 Complete Blood Count + Differential 7.97 {x10E9/L} above high threshold See Below MK-Guvyknp-D arma MAC2 303 Work Phone: Comment on above: Reference Range: 1.2 0 - 7.70 Complete Blood Count + Differential 0.1 % 0.0 - 6.0 YZ-Juggfvw-O arma MAC2 303 Work Phone: Complete Blood Count + Differential 0.6 % 0.0 - 0.9 OQ-Tyemafe-G arma MAC2 303 Work Phone: Comment on above: Immature Granulocyte Count (IG) includes promyelocytes, myelocytes and metamyelocytes but does not include bands. Percent differential counts (%) should be interpreted in the context of the absolute cell counts (cells/L). Complete Blood Count + Differential 0.0 {/100_WBC} 0.0 - 0.0 AM-Vpqntqf-N arma MAC2 303 Work Phone: Daily Progress [...] meds. Objective Data: Objective Information: T PRBPMAPSpO2 Value36.203582/327297% Date/Time02/14 4: 4: 4: 20: 4:10 Range(36.2C - 36.9C ) (64 - 88 ) (102 - 130 )/ (71 - 86 ) (83 - 103 ) (94% - 96% ) Highest temp of 36.9 C was recorded at 02/13 20:37 Pain reported at 02/13 22:00: 3 = Mild ---- Intake and Output ----- Mn/Dy/[facility]Int[facility]OutputNov[facility] 20[facility] 10:00 [id number] 2022 2:00 [id number] The Intake and Output Totals for the last 24 hours are: IntakeOutputNet [id number] Physical Exam Narrative: Physical Exam: Physical Exam: [...] Last Updated: 15-Feb-2022 09:59 by Kamari Smith) [facility] Discharge Zsseruz9xs -24-2 022 Discharge Profile2 Discharge Orders: Anticipated Discharge Date: Anticipated Discharge [id number] DNAR: Code Status at Discharge: Full Code [...] you should have a discussion with the staking press operator about progressing to a combination of full [...] FINAL REVIEW of Orders, Gold Form - Cutting Machine Tender Summary Sunday Burrell) (Signed 14-Feb-2022 07:06) Authored: Discharge Orders, Hospital Course (Home Care/Gold Form), Provide (more content not included)... Normal [facility] Laboratory - Chemistry and C hemistry - challengeon 02-14-2022 Albumin BCP dye [Mass/Vol] 3.8 g/dL 3.4 - 5.0 TH-Joqmdfl-D arma MAC2 303 Work Phone: ALP [Catalytic activity/Vol] 55 U/L 33 - 110 CG-Yisuldf-D arma MAC2 303 Work Phone: ALT With P-5'-P [Catalytic activity/Vol] 18 U/L 7 - 45 CY-Szrpqcc-Y arma MAC2 303 Work Phone: Comment on above: Patients treated wit h Sulfasalazine may generate falsely decreased results for ALT. Anion gap [Moles/Vol] 11 mmol/L 10 - 20 OF-Xzpecze-P arma MAC2 303 Work Phone: AST With P-5'-P [Catalytic activity/Vol] 14 U/L 9 - 39 QS-Shtbwtx-Y arma MAC2 303 Work Phone: Bilirubin [Mass/Vol] 0.3 mg/dL 0.0 - 1.2 LZ-Ioqamts-M arma MAC2 303 Work Phone: Calcium [Mass/Vol] 8.3 mg/dL below low threshold 8.6 - 10.3 WZ-Axohplm-R arma MAC2 303 Work Phone: Chloride [Moles/Vol] 106 mmol/L 98 - 107 QF-Mxxaxdd-B arma MAC2 303 Work Phone: CO2 [Moles/Vol] 27 mmol/L 21 - 32 MG-Surger y-P arma MAC2 303 Work Phone: Creatinine [Mass/Vol] 0.70 mg/dL See Below FH-Daiewwp-I arma MAC2 303 Work Phone: Comment on above: Reference Range: 0.5 0 - 1.05 Glucose [Mass/Vol] 114 mg/dL above high threshold 74 - 99 BS-Ditucej-B arma MAC2 303 Work Phone: Potassium [Moles/Vol] 4.1 mmol/L 3.5 - 5.3 TM-Lvjrpvp-M arma MAC2 303 Work Phone: Protein [Mass/Vol] 6.3 g/dL below low threshold 6.4 - 8.2 YT-Tfngtwe-O arma MAC2 303 Work Phone: Sodium [Moles/Vol] 140 mmol/L 136 - 145 MG-Danica jose-P arma MAC2 303 Work Phone: Urea nitrogen [Mass/Vol] 4 mg/dL below low threshold 6 - 23 PA-Fvrbvlp-Z arma MAC2 303 Work Phone: No Panel Informationon 02-14 >90 >90 KZ-Kuhfycq-K arma MAC2 303 Work Phone: Comment on above: CALCULATIONS OF YOGI MATED GFR ARE PERFORMED USING THE 2020 CKD-EPI STUDY REFIT EQUATION WITHOUT THE RACE VARIABLE FOR THE IDMS-TRACEABLE CREATININE METHODS.https://jasn.asnjournals.org/content/early//ASN. 7721925874 Order Reconciliationon 02-14 Order Reconciliation Page 1 [...] As needed, Pain - Mod (4-6) Normal [facility] ABO/RH GROUP TESTon 02-14-20 22 ABO TYPE O Normal [facility] Comment on above: Performed By: #### V ERAB #### [facility] [address] [place] [address] RH TYPE Positive Normal [facility] Comment on above: Performed By: #### V ERAB #### [facility] [address] [place] [address] Admission Risk Screen - Adul ton 2022 Admission Risk Screen - Adult Allergies: Allergies: No Known Allergies: Patient Verification: New W ID Band Applied in my Departmentno Type of ID Patient is WearingW wristband, but not applied here Patient Transferred from Other Facility ([facility], [facility],etc)no Patient Identity Verified Bypatient [...] AlertFor Ebola-like Symptoms: Isolate Patient and Notify Provider/Contact Printer Dry Film For Contact: Notify Provider/Contact Printer Dry Film Advance Directive: Advance Directive/DNRno Advance Directive Information [...] instruction; written material Cultural Considerationsnone Developmental Considerationsnone Taoist Considerationsnone Other Learnerssignificant other Learning Assessment (Other Learner): Other learner availableyes... Learnersignificant other Factors Influencing Readiness to Learnacuteness of illness Factors that Impact Ability to Learnnone Devices/Methods Used to Communicatenone Learning Preferencesverbal instruction, written material Cultural Considerationsnone Developmental Considerationsnone Taoist Considerationsnone Depression Screen: During the past month, have you often been bothered by feeling down, depressed or hopelessno During the past month, have you often had little interest or pleasure in doing thingsno Have you had any thoughts of harming anyone elseno [place] Suicide: Risk Screen Not Applicable/Able to Answerable to be screened In the Past Month: Have you wished you were or could go to sleep and not wake upno(1) In the Past Month: Have you had any actual thoughts of killing yourself no(1) Lifetime: Have you ever done, started to do, or prepared to do anything to end your lifeno(1) [place] Suicide Risknegative Adult Nutrition Screen: Have you recently lost weight without tryingno Have you been eating poorly because of a decreased appetiteno Malnutrition Screening Tool Score0 Malnutrition Screening Tool RiskMST = 0 or 1 Not at risk. Eating well with little or n (more content not included)... Normal [facility] Laboratory - Blood bankon ABO group Nom (Bld) O MG-Wright rgery-P arma MAC2 303 Work Phone: Rh immune globulin screen (Bld) [Interp] Positive VI-Duupgyj-I arma MAC2 303 Work Phone: No Panel Informationon 02-13 VT-Zsyialc-Y arma MAC2 303 Work Phone: Order Reconciliationon [...] mg IntraVenous Push Every 24 Hours Normal [facility] Patient Profile - Adult v2on 2022 Patient [...] applicable(1) Weight in kg110 kilogram(s) Weight in tfb779.5 pound(s) Weight Methodactual (measured) Scale Typestanding Height [...] Update < 30 days 12-Feb-2022 12:34 Normal [facility] Surgical Pathology Depar tmenton 2022 [facility] Surgical Pathology Department Name LIANE RILEY Pathologist: RILEY ARREDONDO MD Date of Procedure: 2022 Date Received: 2022 Date Reported 02/26/2022 Submitting Physician: KAMARI SMITH MD Location: [facility] Other External # FINAL DIAGNOSIS A. PORTION OF STOMACH, SLEEVE GASTRECTOMY: -- GASTRIC BODY TYPE MUCOSA WITH NO SIGNIFICANT DIAGNOSTIC ALTERATION. -- NO MORPHOLOGIC EVIDENCE OF HELICOBACTER PYLORI-LIKE ORGANISMS. Electronically Signed Out By RILEY ARREDONDO MD/SXM By the signature on this report, the individual or group listed as making the Final Interpretation/Diagnosis certifies that they have reviewed this case. Diagnostic interpretation performed at [facility] [address] [id number] Clinical History: Physician Contact Number: [phone] Ischemic Time (A): 09:52 Fixative (A): Formalin [...] fibroadipose tissue, lymph nodes are not identified. Chemist Water Purification sections are submitted in 3 cassettes. ROSHAN roshan/02/14/2022 [facility] Department of Pathology [address] [place] [address] Normal [facility] Comment on above: Performed By: #### P #### [address] [id number] CORONAVIRUS 2019, SCREEN ASY MPTOMATICon 02-12-2022 SARS-CoV-2 (COVID-19) RNA SHAR+probe Ql (Unsp spec) Not detected Normal Not Detected [facility] Comment on above: Result Comment: . This assay is designed to detect the ORF1a/b and E genes of SARS-CoV-2 via nucleic acid amplification. A Not Detected result does not preclude 2019-nCoV infection since the adequacy of sample collection and/or low viral burden may result in presence of viral nucleic acids below the clinical sensitivity of this test method. Fact sheet for providers: https://www.fda.gov/media/311658/download Fact sheet for patients: https://www.fda.gov/media/744188/download This test has received FDA Emergency Use Authorization (EUA) and has been verified for use by [facility] ([facility]). This test is only authorized for the duration of time that circumstances exist to justify the authorization of the emergency use of in vitro diagnostic tests for the detection of SARS-CoV-2 virus and/or diagnosis of COVID-19 infection under section 564(b)(1) of the Act, 21 U.S.C. 360bbb-3(b)(1), unless the authorization is terminated or revoked sooner. [facility] is certified under CLIA-88 as qualified to perform high complexity testing. Testing is performed in the [facility] laboratories located at [address] [place] [address] [place] [address]. Performed By: #### C OVSC #### [facility] [address] [place] [id number] Covid 19 Resultson 2 SARS-CoV-2 (COVID-19) RNA [...] You may also be contacted by the [facility] of Health to see if any of [...] or Naproxen (Aleve) can also be used. Tyqp-jnu-ienximb cough and cold medicines can be used according to the instructions on the package. Some rkos-zwe-sotbfbm medicines also contain acetaminophen. Make sure you [...] water are not available, use alcohol-based hand electrician second. Avoid touching your eyes, nose, and mouth [...] 24 yesi (more content not included)... Normal [facility] Patient Profile - Preop v3on 02-12-2022 Patient Profile - Preop v3 Patient Profile - Preop: Initial Info: Patient DemographicsName: LIANE RILEY Date: 1990 Address: [facility] [place] [address] Primary Phone [phone] Call Attemptedleft message Instructions Giventime to arrive, [...] Health: Weight in kg110 kilogram(s) Weight in ivp574.5 pound(s) Height in feet5 feet Height in inches3.98 inch(es) Height in cm162.5 centimeter(s) BMI (kg/m2)41.656 square meter Patient or Family Member Reaction to Anesthesiano previous reaction Blood Avoidance/Restrictionsnone Previous Transfusion Reactionnot applicable Health Mgmt: Symptoms/Conditions Managed at Homegastrointestinal; obstetric/gynecologic Are You no Are You Currently Breastfeedingno Gastrointestinal Symptoms/ConditionsEGD 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 Symptoms/Conditionsc-secti on Barriers to Managing Healthnone Relationship/Environ: Lives Withsignificant other Living Arrangementshouse Resource/Environmental Concernsnone Anticipated Transition Toinpatient acute unit Services Anticipated at Transitionnone Tobacco Use: Tobacco Useno Pre-op Checklist: Arrival [id number] Arrival Time07:45 Procedure Typesleeve bariatric surgery NPOyes Last Food Ngfbfx31-Nni-5607 19:00 Last Clear Fluid Cwgkah46-Haf-0315 19:00 ID Band On Patientpatient ID (name) [...] 13-Feb-2022 07:57 by Lisa Duran (MIKE) Normal [facility] CORONAVIRUS 2019, SCREEN ASY MPTOMATICon 02-11-2022 Lab Specimen Source Nasal, Nasopharyngeal Normal [facility] Comment on above: Performed By: #### C OVSC #### [facility] [address] [place] [address] Coronavirus 2019 RNA by PCR, Screening Asymptomticon 02-11-2022 Coronavirus 2019 RNA by PCR, Screening Asymptomtic Not detected Normal See Below SX-Falpfch-A arma MAC2 303 Work Phone: Comment on [...] this test method. Fact sheet for providers: https://www.fda.gov/media/388755/download Fact sheet for patients: https://www.fda.gov/media/427559/download This test has received FDA Emergency Use Authorization (EUA) and has been verified for use by [facility] ([facility]). This test is only authorized for the duration of time that circumstances exist to justify the authorization of the emergency use of in vitro diagnostic tests for the detection of SARS-CoV-2 virus and/or diagnosis of COVID-19 infection under section 564(b)(1) of the Act, 21 U.S.C. 360bbb-3(b)(1), unless the authorization is terminated or revoked sooner.[facility] is certified under CLIA-88 as qualified to perform high complexity testing. Testing is performed in the [facility] laboratories located at [address] [place] [address]. Bariatric Surgery - Pre Opon 02-07-2022 Bariatric [...] you have meals ready for after surgery. 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 Be certain you have an appointment with your medical doctors who will need to tweak your prescription medications after surgery as you drop weight rapidly. Make sure you have follow up appointments 1-2 weeks after surgery and at the 6 week trace. Call phone # [phone] for any questions. You are scheduled for a: Sleeve Gastrectomy with Dr. Smith on 2022 YOU DO NOT NEED TO DO A BOWEL PREP. You will receive a phone call the day prior to surgery with your OR arrival time. Be sure to read over your Pre-Op book for final preparation for surgery. Make a shopping list and seed cone picker your supplements prior to surgery. Electronic prescriptions were sent to your pharmacy. Prescriptions for Omeprazole (antacid), Oxycodone (pain), and Ondansetron (anti-Nausea) have been sent to your retail pharmacy. Pick these up, these are for after surgery. Be sure to take the omeprazole, open the capsule and sprinkle over SF applesauce and take every day. DO NOT MISS A DOSE. Call with any questions! [phone] for Jennifer. COVID-19 Risk Consent for: Provider [...] given. 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 Will proceed as planned. Risks [...] 246 lbs. Last visit weight: 241 lbs. [place] weight 131 lbs. Target body weight 160 [...] eyesight problems. (more content not included)... Normal cottonTracks CBC AND DIFFERENTIALon 02-07 % AUTOMATED IMMATURE GRAN 0.1 % Normal 0.0 - 0.9 [facility] Comment on above: Result Comment: Larissa ture Granulocyte Count (IG) includes promyelocytes, myelocytes and metamyelocytes but does not include bands. Percent differential counts (%) should be interpreted in the context of the absolute cell counts (cells/L). Performed By: #### C BCDF ####[facility] [place] [address] Basophils (Bld) [#/Vol] 0.02 10*3/uL Normal 0.00 - 0.10 [facility] Comment on above: Performed By: #### C BCDF ####[facility] [place] [address] Basophils/100 WBC (Bld) 0.2 % Normal 0.0 - 2.0 [facility] Comment on above: Performed By: #### C BCDF ####[facility] [place] [address] Eosinophils (Bld) [#/Vol] 0.04 10*3/uL Normal 0.00 - 0.70 [facility] Comment on above: Performed By: #### C BCDF ####[address] [address] Eosinophils/100 WBC (Bld) 0.5 % Normal 0.0 - 6.0 [facility] Comment on above: Performed By: #### C BCDF ####[address] [address] Erythrocyte distribution width (RBC) [Ratio] 12.3 % Normal 11.5 - 14.5 [facility] Comment on above: Performed By: #### C BCDF ####[address] [address] Hematocrit (Bld) [Volume fraction] 42.4 % Normal 36.0 - 46.0 [facility] Comment on above: Performed By: #### C BCDF ####[address] [address] Hemoglobin (Bld) [Mass/Vol] 14.2 g/dL Normal 12.0 - 16.0 [facility] Comment on above: Performed By: #### C BCDF ####[address] [address] Lymphocytes (Bld) [#/Vol] 2.48 10*3/uL Normal 1.20 - 4.80 [facility] Comment on above: Performed By: #### C BCDF ####[address] [address] Lymphocytes/100 WBC (Bld) 30.0 % Normal 13.0 - 44.0 [facility] Comment on above: Performed By: #### C BCDF ####[address] [address] MCHC (RBC) [Mass/Vol] 33.5 g/dL Normal 32.0 - 36.0 [facility] Comment on above: Performed By: #### C BCDF ####[address] [address] MCV (RBC) [Entitic vol] 89 fL Normal 80 - 100 [facility] Comment on above: Performed By: #### C BCDF ####[facility] [place], [place] [address], [place] [address] Monocytes (Bld) [#/Vol] 0.39 10*3/uL Normal 0.10 - 1.00 [facility] Comment on above: Performed By: #### C BCDF ####[facility] [place], [place] [address], [place] [address] Monocytes/100 WBC (Bld) 4.7 % Normal 2.0 - 10.0 [facility] Comment on above: Performed By: #### C BCDF ####[facility] [place], [place] [address] [address] Neutrophils (Bld) [#/Vol] 5.34 10*3/uL Normal 1.20 - 7.70 [facility] Comment on above: Performed By: #### C BCDF ####[address] [place] [address] Neutrophils/100 WBC (Bld) 64.5 % Normal 40.0 - 80.0 [facility] Comment on above: Performed By: #### C BCDF ####[facility] [place], [place] [address], [place] [address] NUCLEATED RBC 0.0 /100 WBC Normal 0.0 - 0.0 [facility] Comment on above: Performed By: #### C BCDF ####[address] [place] [address] Platelets (Bld) [#/Vol] 305 10*3/uL Normal 150 - 450 [facility] Comment on above: Performed By: #### C BCDF ####[facility] [place], [place] [address], [place] [address] RBC 4.74 x10E12/L Normal 4.00 - 5.20 [facility] Comment on above: Performed By: #### C BCDF ####[facility] [place], [place] [address], [place] [address] WBC (Bld) [#/Vol] 8.3 10*3/uL Normal 4.4 - 11.3 [facility] Comment on above: Performed By: #### C BCDF ####[place] [address] [place] [address] COMPREHENSIVE PANELon 2021 Albumin [Mass/Vol] 4.4 g/dL Normal 3.4 - 5.0 [facility] Comment on above: Performed By: #### C MP #### [facility] [address] [place] [address] ALP [Catalytic activity/Vol] 62 U/L Normal 33 - 110 [facility] Comment on above: Performed By: #### C MP #### [facility] [address] [place] [address], [place] [address] ALT [Catalytic activity/Vol] 12 U/L Normal 7 - 45 [facility] Comment on above: Result Comment: [place] ents treated with Sulfasalazine may generate falsely decreased results for ALT. Performed By: #### C MP #### [address] [place] [address] Anion gap [Moles/Vol] 9 mmol/L Low 10 - 20 [facility] Comment on above: Performed By: #### C MP #### [address] [place] [address] AST [Catalytic activity/Vol] 13 U/L Normal 9 - 39 [facility] Comment on above: Performed By: #### C MP #### [address] [place] [address] Bilirubin [Mass/Vol] 0.4 mg/dL Normal 0.0 - 1.2 [facility] Comment on above: Performed By: #### C MP #### [address] [place] [address] Calcium [Mass/Vol] 9.1 mg/dL Normal 8.6 - 10.3 [facility] Comment on above: Performed By: #### C MP #### [address] [place] [address] Chloride [Moles/Vol] 104 mmol/L Normal 98 - 107 [facility] Comment on above: Performed By: #### C MP #### [address] [place] [address] Creatinine [Mass/Vol] 0.62 mg/dL Normal 0.50 - 1.05 [facility] Comment on above: Performed By: #### C MP #### [facility] [address] [place] [address], [place] [address] eGFR FEMALE >90 Normal >90 [facility] Comment on above: Result Comment: CALC ULATIONS OF ESTIMATED GFR ARE PERFORMED USING THE 2020 CKD-EPI STUDY REFIT EQUATION WITHOUT THE RACE VARIABLE FOR THE IDMS-TRACEABLE CREATININE METHODS. https://jasn.asnjournals.org/content//ASN.55914055 88 Performed By: #### C MP #### [address] [place] [address] Glucose [Mass/Vol] 87 mg/dL Normal 74 - 99 [facility] Comment on above: Performed By: #### C MP #### [address] [place] [address] HCO3 (Bld) [Moles/Vol] 30 mmol/L Normal 21 - 32 [facility] Comment on above: Performed By: #### C MP #### [address] [place] [address] Potassium [Moles/Vol] 4.2 mmol/L Normal 3.5 - 5.3 [facility] Comment on above: Performed By: #### C MP #### [address] [place] [address] Protein [Mass/Vol] 6.9 g/dL Normal 6.4 - 8.2 [facility] Comment on above: Performed By: #### C MP #### [address] [place] [address] Sodium [Moles/Vol] 139 mmol/L Normal 136 - 145 [facility] Comment on above: Performed By: #### C MP #### [address] [place] [address] Urea nitrogen [Mass/Vol] 13 mg/dL Normal 6 - 23 [facility] Comment on above: Performed By: #### C MP #### [address] [place] [address] Complete Blood Count + Diffe rentialon 02-07-2022 Basophils/100 WBC (Bld) 0.2 % 0.0 - 2.0 ZI-Fpgcegh-V arma MAC2 303 Work Phone: Erythrocyte distribution width (RBC) [Ratio] 12.3 % See Below GZ-Fimfknk-X arma MAC2 303 Work Phone: Comment on above: Reference Range: 11. 5 - 14.5 Hematocrit (Bld) [Volume fraction] 42.4 % See Below DD-Cgmbjhm-A arma MAC2 303 Work Phone: Comment on above: Reference Range: 36. 0 - 46.0 Hemoglobin (Bld) [Mass/Vol] 14.2 g/dL See Below WM-Tnnbhux-Q arma MAC2 303 Work Phone: Comment on above: Reference Range: 12. 0 - 16.0 Lymphocytes/100 WBC (Bld) 30.0 % See Below CY-Awsihbr-B arma MAC2 303 Work Phone: Comment on above: Reference Range: 13. 0 - 44.0 MCHC (RBC) [Mass/Vol] 33.5 g/dL See Below CA-Vakeebr-D arma MAC2 303 Work Phone: Comment on above: Reference Range: 32. 0 - 36.0 MCV (RBC) [Entitic vol] 89 fL 80 - 100 PB-Trxxgzg-I arma MAC2 303 Work Phone: Monocytes/100 WBC (Bld) 4.7 % 2.0 - 10.0 MA-Ehqqdzz-E arma MAC2 303 Work Phone: Neutrophils/100 WBC (Bld) 64.5 % See Below NA-Kcmpefm-X arma MAC2 303 Work Phone: Comment on above: Reference Range: 40. 0 - 80.0 Platelets (Bld) [#/Vol] 305 10*3/uL 150 - 450 SN-Hiscxim-N arma MAC2 303 Work Phone: RBC (Bld) [#/Vol] 4.74 {x10E12/L} See Below MG -Surgery-P arma MAC2 303 Work Phone: Comment on above: Reference Range: 4.0 0 - 5.20 WBC (Bld) [#/Vol] 8.3 10*3/uL 4.4 - 11.3 MG-Danica jose-P arma MAC2 303 Work Phone: Complete Blood Count + Differential 0.02 {x10E9/L} See Below CI-Lewukbz-P arma MAC2 303 Work Phone: Comment on above: Reference Range: 0.0 0 - 0.10 Complete Blood Count + Differential 0.04 {x10E9/L} See Below JM-Ozowxjg-K arma MAC2 303 Work Phone: Comment on above: Reference Range: 0.0 0 - 0.70 Complete Blood Count + Differential 0.39 {x10E9/L} See Below FF-Miyldko-E arma MAC2 303 Work Phone: Comment on above: Reference Range: 0.1 0 - 1.00 Complete Blood Count + Differential 2.48 {x10E9/L} See Below OH-Hbzlqkm-K arma MAC2 303 Work Phone: Comment on above: Reference Range: 1.2 0 - 4.80 Complete Blood Count + Differential 5.34 {x10E9/L} See Below AF-Iavjdot-G arma MAC2 303 Work Phone: Comment on above: Reference Range: 1.2 0 - 7.70 Complete Blood Count + Differential 0.5 % 0.0 - 6.0 WS-Zchzrzu-Y arma MAC2 303 Work Phone: Complete Blood Count + Differential 0.1 % 0.0 - 0.9 XF-Orgijzg-J arma MAC2 303 Work Phone: Comment on above: Immature Granulocyte Count (IG) includes promyelocytes, myelocytes and metamyelocytes but does not include bands. Percent differential counts (%) should be interpreted in the context of the absolute cell counts (cells/L). Complete Blood Count + Differential 0.0 {/100_WBC} 0.0 - 0.0 VL-Gmwirsm-X arma MAC2 303 Work Phone: Cult, Urineon 02-07-2022 Bacteria identified Cx Nom (U) JE-Iwrxrqo-S arma MAC2 303 Work Phone: Laboratory - Blood bankon ABO group Nom (Bld) O MG-Wright rgery-P arma MAC2 303 Work Phone: Blood group antibody screen Ql Negative QJ-Ukrmfye-K arma MAC2 303 Work Phone: Rh immune globulin screen (Bld) [Interp] Positive HL-Ssiznaw-Y arma MAC2 303 Work Phone: Laboratory - Chemistry and C hemistry - challengeon 02-07-2022 Albumin BCP dye [Mass/Vol] 4.4 g/dL 3.4 - 5.0 ID-Aebxmyu-J arma MAC2 303 Work Phone: ALP [Catalytic activity/Vol] 62 U/L 33 - 110 RC-Bbkrieq-E arma MAC2 303 Work Phone: ALT With P-5'-P [Catalytic activity/Vol] 12 U/L 7 - 45 VN-Dzypvsh-U arma MAC2 303 Work Phone: Comment on above: Patients treated wit h Sulfasalazine may generate falsely decreased results for ALT. Anion gap [Moles/Vol] 9 mmol/L below low threshold 10 - 20 QS-Vmtlhxd-H arma MAC2 303 Work Phone: AST With P-5'-P [Catalytic activity/Vol] 13 U/L 9 - 39 MV-Enhdeix-M arma MAC2 303 Work Phone: Bilirubin [Mass/Vol] 0.4 mg/dL 0.0 - 1.2 WM-Zadbind-I arma MAC2 303 Work Phone: Calcium [Mass/Vol] 9.1 mg/dL 8.6 - 10.3 MG-Danica jose-P arma MAC2 303 Work Phone: Chloride [Moles/Vol] 104 mmol/L 98 - 107 AT-Upxrexm-K arma MAC2 303 Work Phone: CO2 [Moles/Vol] 30 mmol/L 21 - 32 MG-Surger y-P arma MAC2 303 Work Phone: Creatinine [Mass/Vol] 0.62 mg/dL See Below QW-Ehhzggc-I arma MAC2 303 Work Phone: Comment on above: Reference Range: 0.5 0 - 1.05 Glucose [Mass/Vol] 87 mg/dL 74 - 99 MG-Danica jose-P arma MAC2 303 Work Phone: Potassium [Moles/Vol] 4.2 mmol/L 3.5 - 5.3 KF-Nmhnlhu-Y arma MAC2 303 Work Phone: Protein [Mass/Vol] 6.9 g/dL 6.4 - 8.2 MG-Danica jose-P arma MAC2 303 Work Phone: Sodium [Moles/Vol] 139 mmol/L 136 - 145 MG-Danica jose-P arma MAC2 303 Work Phone: Urea nitrogen [Mass/Vol] 13 mg/dL 6 - 23 RZ-Rxppgma-F arma MAC2 303 Work Phone: No Panel Informationon 02-07 >90 >90 WF-Ldichxy-N arma MAC2 303 Work Phone: Comment on above: CALCULATIONS OF YOGI MATED GFR ARE PERFORMED USING THE 2020 CKD-EPI STUDY REFIT EQUATION WITHOUT THE RACE VARIABLE FOR THE IDMS-TRACEABLE CREATININE METHODS.https://jasn.asnjournals.org/content/early/ASN. 5551721221 TYPE + SCREENon 02-07-2022 ABO TYPE O Normal [facility] Comment on above: Performed By: #### T +S ####[facility] [place] [address] RH TYPE Positive Normal [facility] Comment on above: Performed By: #### T +S ####[facility] [place] [address] Tobacco Screening.on 022 Fall risk assessment a) No falls within the last year IS-Jjumssv-I arma MAC2 303 Work Phone: Tobacco use status CPHS b) No TB-Lzeugay-I arma MAC2 303 Work Phone: Tobacco Screening. Large MG-Danica jose-P arma MAC2 303 Work Phone: UA MICROSCOPICon 02-07-2022 BACTERIA 1+ /HPF Abnormal [facility] Comment on above: Performed By: #### U AMIC #### [facility] [address] [place] [address] Mucus Ql (Urine sed) 3+ /LPF Normal [facility] Comment on above: Performed By: #### U AMIC #### [address] [place] [address] RBC 2 /HPF Normal 0-5 [facility] Comment on above: Performed By: #### U AMIC #### [facility] [address] [place] [address], [place] [address] SQUAMOUS EPITH. CELLS 7 /HPF Normal [facility] Comment on above: Performed By: #### U AMIC #### [facility] [address] [place] [address], [place] [address] WBC 1 /HPF Normal 0-5 [facility] Comment on above: Performed By: #### U AMIC #### [facility] [address] [place] [address], [place] [address] URINALYSIS WITH CULTURE IF I NDICATEDon 02-07-2022 Appearance (U) HAZY Normal CLEAR [facility] Comment on above: Performed By: #### U ARFX #### [facility] [address] [place] [address] Bilirubin Ql (U) Negative Normal NEGATIVE [facility] Comment on above: Performed By: #### U ARFX #### [facility] [address] [place] [address] Color (U) YELLOW Normal STRAW,YELLO W [facility] Comment on above: Performed By: #### U ARFX #### [facility] [address] [place] [address], [place] [address] Glucose Ql (U) Negative Normal NEGATIVE [facility] Comment on above: Performed By: #### U ARFX #### [address] [address] Hemoglobin Ql (U) Negative Normal NEGATIVE [facility] Comment on above: Performed By: #### U ARFX #### [address] [address] Ketones Ql (U) 20 (1+) Abnormal NEGATIVE [facility] Comment on above: Performed By: #### U ARFX #### [address] [address] Leukocyte esterase Test strip Ql (U) TRACE Abnormal NEGATIVE [facility] Comment on above: Performed By: #### U ARFX #### [address] [address] Nitrite Ql (U) Negative Normal NEGATIVE [facility] Comment on above: Performed By: #### U ARFX #### [address] [address] pH (U) 5.0 [pH] Normal 5.0 - 8.0 [facility] Comment on above: Performed By: #### U ARFX #### [address] [address] Protein Ql (U) Negative Normal NEGATIVE [facility] Comment on above: Performed By: #### U ARFX #### [address] [address] Specific gravity (U) [Rel density] 1.024 Normal 1.005 - 1.035 [facility] Comment on above: Performed By: #### U ARFX #### [address] [address] Urobilinogen (U) [Mass/Vol] mg/dL Normal 0.0 - 1.9 [facility] Comment on above: Performed By: #### U ARFX #### [address] [address] Lab Specimen Source Normal [facility] Comment on above: Performed By: #### U ARFX #### [address] [address] Performed By: #### U [facility] #### [facility] [address] [place] [address] Color (U) YELLOW See Below KM-Cfvzkzj-B arma MAC2 303 Work Phone: Comment on above: SOURCE: Reference Ra nge: STRAW,YELLOW Glucose Ql (U) Negative NEGATIVE MG-Surgery -P arma MAC2 303 Work Phone: Ketones Ql (U) 20 (1+) Abnormal NEGATIVE MG-Surgery -P arma MAC2 303 Work Phone: Leukocyte esterase Test strip Ql (U) TRACE Abnormal NEGATIVE FC-Fmfrakx-L arma MAC2 303 Work Phone: pH (U) 5.0 [pH] 5.0 - 8.0 RN-Vhkppkh-O arma MAC2 303 Work Phone: Protein (U) [Mass/Vol] Negative NEGATIVE ZZ-Suwkepe-K arma MAC2 303 Work Phone: RBC (U) [#/Vol] Negative NEGATIVE MG-Surger y-P arma MAC2 303 Work Phone: Specific gravity (U) [Rel density] 1.024 1 See Below ZM-Wwkhlzy-P arma MAC2 303 Work Phone: Comment on above: Reference Range: 1.0 05 - 1.035 URINALYSIS WITH CULTURE IF INDICATED Negative NEGATIVE EO-Obtggcq-C arma MAC2 303 Work Phone: URINALYSIS WITH CULTURE IF INDICATED <2.0 0.0 - 1.9 AY-Bvejcgz-K arma MAC2 303 Work Phone: URINALYSIS WITH CULTURE IF INDICATED HAZY CLEAR ZA-Ejolmus-P arma MAC2 303 Work Phone: URINE CULTURE,BACTERIALon URINE CULTURE,BACTERIAL PATIENT: LIANE RILEY LOCATION: [facility] BILL#: [id number] : 89 AGE: SEX: F ORDERED BY: KAMARI SMITH SOURCE: URINE COLLECTED: 02/07/22 11:16 ANTIBIOTICS AT [facility].: RECEIVED : 02/07/22 17:54 SITE: R Roseanne Ribeiro U L T S URINE CULTURE,BACTERIAL FINAL 02/09/22 08:31 MIXED URETHRAL BRITANY. Normal [facility] Comment on above: Performed By: #### [facility] ####[id number] [place] [address] Urinalysis, Microscopicon Urinalysis, Microscopic 3+ UN-Xxpejto-W arma MAC2 303 Work Phone: Urinalysis, Microscopic 1+ Abnormal GS-Mjzjnin-Z arma MAC2 303 Work Phone: Urinalysis, Microscopic 7 {/HPF} IK-Mfjrmvq-R arma MAC2 303 Work Phone: Urinalysis, Microscopic 2 {/HPF} 0-5 ZC-Mghduuq-Z arma MAC2 303 Work Phone: Urinalysis, Microscopic 1 {/HPF} 0-5 GI-Ybyopzl-L arma MAC2 303 Work Phone: Comment on [...] minutes-chew thoroughly. 5.Increase to daily multivitamin (2 Riner COMPLETE MVI-both at breakfast), continue with 1200-1500mg of calcium citrate per day (500-600mg at lunch, dinner AND before bed), start 500mcg of vitamin B12 per day (at breakfast) 6.Continue with (more content not included)... Normal [facility] VITAMIN Aon 12-20-2021 VITAMIN A 33.1 ug/dL Normal 18.9-57.3 [facility] Comment on above: Result Comment: Refe [...] Performed By: #### V TA #### [facility] [address] [place], [place] [id number] VIT B1-THIAMINE WHOLE BLDon 12-17-2021 VIT B1-THIAMINE WHOLE BLD 136 nmol/L Normal 70-180 [facility] Comment on above: Result Comment: INTE [...] developed and its performance characteristics determined by [facility]. It has not been cleared or approved by the [place] Food and Drug Administration. This test was performed in a CLIA certified laboratory and is intended for clinical purposes. Performed By: [facility] [address] [place], [place] [id number] Station Jailer: Alberto Yusuf MD, PhD Performed By: #### P TH #### [address] [id number] COPPERon 12-14-2021 COPPER 123 ug/dL Normal 80-158 [facility] Comment on above: Result Comment: Dete ction Limit = 5 Test(s) 933237-Pznssp, Serum or Plasma; 237185-Oavh, Plasma or Serum was developed and its performance characteristics determined by [facility]. It has not been cleared or approved by the Food and Drug Administration. Performed By: #### D RUGR #### [address] [id number] NICOTINE+METABOLITES,Son COTININE <5 Normal [facility] Comment on above: Performed By: #### N I+ME #### [facility] [address] [place] [address] NICOTINE <5 Normal [facility] Comment on above: Result Comment: Cons [...] developed and its performance characteristics determined by [employer]. It has not been cleared or approved by the US Food and Drug Administration. This test was performed in a CLIA certified laboratory and is intended for clinical purposes. Performed By: [facility] [address] [place] [address] Station Jailer: Alberto Yusuf MD, PhD Performed By: #### N I+ME #### [facility] [address] [place] [address] ZINCon 12-14-2021 ZINC 75 ug/dL Normal 44-115 [facility] Comment on above: Result Comment: Dete ction Limit = 5 Test(s) 261546-Qpsgkr, Serum or Plasma; 407978-Repq, Plasma or Serum was developed and its performance characteristics determined by [facility]. It has not been cleared or approved by the Food and Drug Administration. Performed By: #### [employer] #### [facility] [place], [place] [address] No Panel Informationon 12-12 LQ-Zjtyrij-C arma MAC2 303 Work Phone: [email or web address]?={ [email or web address]} DV-Xefkxzx-M arma MAC2 303 Work Phone: LX-Qthcamy-X arma MAC2 303 Work Phone: [facility] Surgical Pathology Depar tmenton 12-12-2021 [facility] Surgical Pathology Department Name LIANE RILEY Pathologist: TRACE BURTON MD Date of Procedure: 12/12/2021 Date Received: 12/12/2021 Date Reported 12/17/2021 Submitting Physician: KAMARI SMITH MD Location: [facility] Other External # FINAL DIAGNOSIS A. STOMACH, BIOPSIES: --OXYNTIC AND ANTRAL MUCOSA WITH NO SIGNIFICANT HISTOPATHOLOGICAL ABNORMALITIES. --HELICOBACTER IS NOT IDENTIFIED. B. GASTRIC FUNDUS, POLYPECTOMY: --FUNDIC GLAND POLYP, NO DYSPLASIA IDENTIFIED. Electronically Signed Out By TRACE BURTON MD/MLC By the signature on this report, the individual or group listed as making the Final Interpretation/Diagnosis certifies that they have reviewed this case. Diagnostic interpretation performed at [place] [address] Clinical History: Pre-op screening and heartburn A)Rule out H.Pylori Specimens Submitted As: A: ANTRUM,COLD BIOPSY B: FUNDUS POLYPS,COLD BIOPSY Gross Description: A: Received in formalin, labeled with the patient's name and [facility] number and antrum biopsy , are multiple [...] in toto in one cassette. RCC rcc/12/13/2021 [facility] Department of Pathology [address] [place] [address] Normal [facility] Comment on above: Performed By: #### P TH #### [address] [id number] Upper GI endoscopyon 022 Upper GI endoscopy PATIENTNAME Patient Name: Liane Riley EXAMDATE Procedure Date: 12/12/2021 8:14 AM PATIENTID PATIENTACCOUNTNUM PATIENTDOB Date of : 1990 ADMITTYPE Admit Type: Outpatient PATIENTROOM Site: [facility] Endoscopy Room 2 ETHNICITY Ethnicity: Unknown [...] results. CPT_CODES Procedure Code(s): --- Professional --- 62706, Esophagogastroduodenoscopy , flexible, transoral; with biopsy, single or multiple ICD_CODES Diagnosis Code(s): --- Professional --- K31.7, Polyp of stomach and duodenum R12, Heartburn Z01.818, Encounter for other preprocedural examination E66.01, Morbid (severe) obesity due to excess calories CODINGSTMT CPT copyright 2020 [employer]. All rights reserved. The codes documented in this report are preliminary and upon excel analyst review may be revised to meet current compliance requirements. ATTDRPART Attending Participation: I was present and participated during the entire procedure, including non-tavarez portions. SIGNATURENAME Kamari Smith MD SIGNATUREDATE 12/12/2021 8:38:53 AM SIGNATUREONFILEIND This report has been signed electronically. NUMADDENDA Number of Addenda: 0 INITIATEDON Note Initiated On: 12/12/2021 8:14 AM TOTPROCTIME Total Procedure Duration Time 0 hours 7 minutes 20 seconds Normal [facility] FERRITINon 12-11-2021 FERRITIN 61 ug/L Normal 8 - 150 [facility] Comment on above: Performed By: #### D RUGR #### [address] [id number] FREE T4 INDEXon 12-11-2021 FREE T4 INDEX 2.6 Normal 1.6 - 4.7 [facility] Comment on above: Performed By: #### D RUGR #### [address] [id number] T3 UPTAKE 30 % Normal 24 - 41 [facility] Comment on above: Performed By: #### D RUGR #### [address] [id number] T4 [Mass/Vol] 8.8 ug/dL Normal 4.5 - 11.1 [facility] Comment on above: Performed By: #### D RUGR #### [address] [id number] H. PYLORI BREATH TESTon 11-23 H. PYLORI BREATH TEST Negative Normal NEGATIVE [facility] Comment on above: Result Comment: ANTI [...] NEGATIVES. Performed By: #### D RUGR #### [address] [id number] HEMOGLOBIN A1Con 12-11-2021 Glucose [Mass/Vol] 100 mg/dL Normal [facility] Comment on above: Performed By: #### H BA1E #### [facility] [address] [place] [address] HbA1c (Bld) [Mass fraction] 5.1 % Normal [facility] Comment on above: Result Comment: Diag nosis of Diabetes-Adults Non-Diabetic: < or = 5.6% Increased risk for developing diabetes: 5.7-6.4% Diagnostic of diabetes: > or = 6.5% . Monitoring of Diabetes Age (y) Therapeutic Goal (%) Adults: >18 <7.0 Pediatrics: 13-18 <7.5 7-12 <8.0 0- 6 7.5-8.5 [employer]. Diabetes Care 33(S1), Mar 2009. Performed By: #### H BA1E #### [facility] [address] [place] [address] C Reactive Protein, Serumon 12-10-2021 CRP [Mass/Vol] 0.57 mg/dL MG-Surgery -P arma MAC2 303 Work Phone: Comment on above: REF VALUE< 1.00 C-REACTIVE PROTEINon 022 C-REACTIVE PROTEIN 0.57 mg/dL Normal [facility] Comment on above: Result Comment: REF VALUE < 1.00 Performed By: #### P TH #### [address] [id number] CBC AND DIFFERENTIALon 12-10 % AUTOMATED IMMATURE GRAN 0.3 % Normal 0.0 - 0.9 [facility] Comment on above: Result Comment: Larissa ture Granulocyte Count (IG) includes promyelocytes, myelocytes and metamyelocytes but does not include bands. Percent differential counts (%) should be interpreted in the context of the absolute cell counts (cells/L). Performed By: #### P TH #### [address] [id number] Basophils (Bld) [#/Vol] 0.04 10*3/uL Normal 0.00 - 0.10 [facility] Comment on above: Performed By: #### P TH #### [address] [id number] Basophils/100 WBC (Bld) 0.4 % Normal 0.0 - 2.0 [facility] Comment on above: Performed By: #### P TH #### [address] [id number] Eosinophils (Bld) [#/Vol] 0.05 10*3/uL Normal 0.00 - 0.70 [facility] Comment on above: Performed By: #### P TH #### [address] [id number] Eosinophils/100 WBC (Bld) 0.5 % Normal 0.0 - 6.0 [facility] Comment on above: Performed By: #### P TH #### [address] [id number] Erythrocyte distribution width (RBC) [Ratio] 12.7 % Normal 11.5 - 14.5 [facility] Comment on above: Performed By: #### P TH #### [address] [id number] Hematocrit (Bld) [Volume fraction] 43.3 % Normal 36.0 - 46.0 [facility] Comment on above: Performed By: #### P TH #### [address] [id number] Hemoglobin (Bld) [Mass/Vol] 14.6 g/dL Normal 12.0 - 16.0 [facility] Comment on above: Performed By: #### P TH #### [address] [id number] Lymphocytes (Bld) [#/Vol] 2.79 10*3/uL Normal 1.20 - 4.80 [facility] Comment on above: Performed By: #### P TH #### [address] [id number] Lymphocytes/100 WBC (Bld) 26.0 % Normal 13.0 - 44.0 [facility] Comment on above: Performed By: #### P TH #### [address] [id number] MCHC (RBC) [Mass/Vol] 33.7 g/dL Normal 32.0 - 36.0 [facility] Comment on above: Performed By: #### P TH #### [address] [id number] MCV (RBC) [Entitic vol] 91 fL Normal 80 - 100 [facility] Comment on above: Performed By: #### P TH #### [address] [id number] Monocytes (Bld) [#/Vol] 0.50 10*3/uL Normal 0.10 - 1.00 [facility] Comment on above: Performed By: #### P TH #### [address] [id number] Monocytes/100 WBC (Bld) 4.7 % Normal 2.0 - 10.0 [facility] Comment on above: Performed By: #### P TH #### [address] [id number] Neutrophils (Bld) [#/Vol] 7.33 10*3/uL Normal 1.20 - 7.70 [facility] Comment on above: Performed By: #### P TH #### [address] [id number] Neutrophils/100 WBC (Bld) 68.1 % Normal 40.0 - 80.0 [facility] Comment on above: Performed By: #### P TH #### [address] [id number] Platelets (Bld) [#/Vol] 357 10*3/uL Normal 150 - 450 [facility] Comment on above: Performed By: #### P TH #### [address] [id number] RBC 4.76 x10E12/L Normal 4.00 - 5.20 [facility] Comment on above: Performed By: #### P TH #### [address] [id number] WBC (Bld) [#/Vol] 10.7 10*3/uL Normal 4.4 - 11.3 [facility] Comment on above: Performed By: #### P TH #### [address] [id number] COAGULATION SCREENon 022 aPTT Coag (Bld) [Time] 40 s High 26 - 39 [facility] Comment on above: Result Comment: THE APTT IS NO LONGER USED FOR MONITORING UNFRACTIONATED HEPARIN THERAPY. FOR MONITORING HEPARIN THERAPY, USE THE HEPARIN ASSAY. Performed By: #### D RUGR #### [address] [id number] PT Coag (PPP) [Time] 12.0 s Normal 9.8 - 13.4 [facility] Comment on above: Performed By: #### D RUGR #### [address] [id number] PT, INR 1.0 Normal 0.9 - 1.1 [facility] Comment on above: Performed By: #### D RUGR #### [address] [id number] COMPREHENSIVE PANELon 2021 Albumin [Mass/Vol] 4.3 g/dL Normal 3.4 - 5.0 [facility] Comment on above: Performed By: #### P TH #### [address] [id number] ALP [Catalytic activity/Vol] 70 U/L Normal 33 - 110 [facility] Comment on above: Performed By: #### P TH #### [address] [id number] ALT [Catalytic activity/Vol] 13 U/L Normal 7 - 45 [facility] Comment on above: Result Comment: [place] ents treated with Sulfasalazine may generate falsely decreased results for ALT. Performed By: #### P TH #### [address] [id number] Anion gap [Moles/Vol] 12 mmol/L Normal 10 - 20 [facility] Comment on above: Performed By: #### P TH #### [address] [id number] AST [Catalytic activity/Vol] 14 U/L Normal 9 - 39 [facility] Comment on above: Performed By: #### P TH #### [address] [id number] Bilirubin [Mass/Vol] 0.5 mg/dL Normal 0.0 - 1.2 [facility] Comment on above: Performed By: #### P TH #### [address] [id number] Calcium [Mass/Vol] 8.9 mg/dL Normal 8.6 - 10.3 [facility] Comment on above: Performed By: #### P TH #### [address] [id number] Chloride [Moles/Vol] 101 mmol/L Normal 98 - 107 [facility] Comment on above: Performed By: #### P TH #### [address] [id number] Creatinine [Mass/Vol] 0.61 mg/dL Normal 0.50 - 1.05 [facility] Comment on above: Performed By: #### P TH #### [address] [id number] eGFR FEMALE >90 Normal >90 [facility] Comment on above: Result Comment: CALC ULATIONS OF ESTIMATED GFR ARE PERFORMED USING THE 2020 CKD-EPI STUDY REFIT EQUATION WITHOUT THE RACE VARIABLE FOR THE IDMS-TRACEABLE CREATININE METHODS. https://jasn.asnjournals.org/content/early/ASN.93335627 88 Performed By: #### P TH #### [address] [id number] Glucose [Mass/Vol] 86 mg/dL Normal 74 - 99 [facility] Comment on above: Performed By: #### P TH #### [address] [id number] HCO3 (Bld) [Moles/Vol] 29 mmol/L Normal 21 - 32 [facility] Comment on above: Performed By: #### P TH #### [address] [id number] Potassium [Moles/Vol] 3.8 mmol/L Normal 3.5 - 5.3 [facility] Comment on above: Performed By: #### P TH #### [address] [id number] Protein [Mass/Vol] 7.2 g/dL Normal 6.4 - 8.2 [facility] Comment on above: Performed By: #### P TH #### [address] [id number] Sodium [Moles/Vol] 138 mmol/L Normal 136 - 145 [facility] Comment on above: Performed By: #### P TH #### [address] [id number] Urea nitrogen [Mass/Vol] 9 mg/dL Normal 6 - 23 [facility] Comment on above: Performed By: #### P #### [address] [id number] Complete Blood Count + Diffe palak 12-10-2021 Basophils/100 WBC (Bld) 0.4 % 0.0 - 2.0 CX-Dnclfuv-L arma MAC2 303 Work Phone: Erythrocyte distribution width (RBC) [Ratio] 12.7 % See Below WW-Yndyzsz-H arma MAC2 303 Work Phone: Comment on above: Reference Range: 11. 5 - 14.5 Hematocrit (Bld) [Volume fraction] 43.3 % See Below VP-Qmffkmf-E arma MAC2 303 Work Phone: Comment on above: Reference Range: 36. 0 - 46.0 Hemoglobin (Bld) [Mass/Vol] 14.6 g/dL See Below QM-Dhkzpnd-E arma MAC2 303 Work Phone: Comment on above: Reference Range: 12. 0 - 16.0 Lymphocytes/100 WBC (Bld) 26.0 % See Below AU-Doqmxil-C arma MAC2 303 Work Phone: Comment on above: Reference Range: 13. 0 - 44.0 MCHC (RBC) [Mass/Vol] 33.7 g/dL See Below QF-Nujtrgd-V arma MAC2 303 Work Phone: Comment on above: Reference Range: 32. 0 - 36.0 MCV (RBC) [Entitic vol] 91 fL 80 - 100 XK-Jsptylh-U arma MAC2 303 Work Phone: Monocytes/100 WBC (Bld) 4.7 % 2.0 - 10.0 PG-Hcoumgs-N arma MAC2 303 Work Phone: Neutrophils/100 WBC (Bld) 68.1 % See Below XG-Yckuloq-J arma MAC2 303 Work Phone: Comment on above: Reference Range: 40. 0 - 80.0 Platelets (Bld) [#/Vol] 357 10*3/uL 150 - 450 OC-Kslxbvi-A arma MAC2 303 Work Phone: RBC (Bld) [#/Vol] 4.76 {x10E12/L} See Below MG -Surgery-P arma MAC2 303 Work Phone: Comment on above: Reference Range: 4.0 0 - 5.20 WBC (Bld) [#/Vol] 10.7 10*3/uL 4.4 - 11.3 MG-Wright rgery-P arma MAC2 303 Work Phone: Complete Blood Count + Differential 0.04 {x10E9/L} See Below PU-Gcnoisi-N arma MAC2 303 Work Phone: Comment on above: Reference Range: 0.0 0 - 0.10 Complete Blood Count + Differential 0.05 {x10E9/L} See Below LY-Wowsqro-K arma MAC2 303 Work Phone: Comment on above: Reference Range: 0.0 0 - 0.70 Complete Blood Count + Differential 0.50 {x10E9/L} See Below NS-Jfvganf-Y arma MAC2 303 Work Phone: Comment on above: Reference Range: 0.1 0 - 1.00 Complete Blood Count + Differential 2.79 {x10E9/L} See Below JN-Vgmvlfa-S arma MAC2 303 Work Phone: Comment on above: Reference Range: 1.2 0 - 4.80 Complete Blood Count + Differential 7.33 {x10E9/L} See Below OE-Ugpfbkc-U arma MAC2 303 Work Phone: Comment on above: Reference Range: 1.2 0 - 7.70 Complete Blood Count + Differential 0.5 % 0.0 - 6.0 YY-Hirixhr-Q arma MAC2 303 Work Phone: Complete Blood Count + Differential 0.3 % 0.0 - 0.9 HL-Wbtbcwt-I arma MAC2 303 Work Phone: Comment on above: Immature Granulocyte Count (IG) includes promyelocytes, myelocytes and metamyelocytes but does not include bands. Percent differential counts (%) should be interpreted in the context of the absolute cell counts (cells/L). Copper, Serumon 12-10-2021 Copper [Mass/Vol] 123 ug/dL 80-158 MG-Surg brian-P arma MAC2 303 Work Phone: Comment on above: Detection Limit = 5T est(s) 797629-Ppqvts, Serum or Plasma; [id number], Plasma or Serumwas developed and its performance characteristics determinedby [employer]. It has not been cleared or approved by the Foodand Drug Administration. DRUG SCREEN,URINE WITH REFLE X TO CONFIRMATIONon 12-10-2021 AMPHETAMINE SCREEN,U Negative Normal NEGATIVE [facility] Comment on above: Result Comment: CUTO FF LEVEL: 500 NG/ML Cross-reactivity has been reported with high concentrations of the following drugs: buproprion, chloroquine, chlorpromazine, ephedrine, mephentermine, fenfluramine, phentermine, phenylpropanolamine, pseudoephedrine, and propranolol. Performed By: #### D RUGR #### [address] [id number] BARBITURATES SCREEN,U Negative Normal NEGATIVE [facility] Comment on above: Result Comment: CUTO FF LEVEL: 200 NG/ML Performed By: #### D RUGR #### [address] [id number] BENZODIAZEPINES SCREEN,U Negative Normal NEGATIVE [facility] Comment on above: Result Comment: CUTO FF LEVEL: 200 NG/ML Performed By: #### D RUGR #### [address] [id number] CANNABINOIDS SCREEN,U Negative Normal NEGATIVE [facility] Comment on above: Result Comment: CUTO FF LEVEL: 50 NG/ML Performed By: #### D RUGR #### [address] [id number] COCAINE METABOLITE SCREEN,U Negative Normal NEGATIVE [facility] Comment on above: Result Comment: CUTO FF LEVEL: 150 NG/ML Performed By: #### D RUGR #### [address] [id number] DRUG SCREEN COMMENT SEE BELOW Normal [facility] Comment on above: Result Comment: Drug screen [...] directors. Performed By: #### D RUGR #### [address] [id number] FENTANYL SCREEN,URINE Negative Normal NEGATIVE [facility] Comment on above: Result Comment: CUTO FF LEVEL: 5 NG/ML Performed By: #### D RUGR #### [address] [id number] METHADONE SCREEN,U Negative Normal NEGATIVE [facility] Comment on above: Result Comment: CUTO FF LEVEL: 150 NG/ML The metabolite B-nrfzu-esrxdfpqtwxjzb (LAAM) is not detected by this method in concentrations that would be found in the urine of patients on LAAM therapy. Performed By: #### D RUGR #### [address] [id number] OPIATES SCREEN,U Negative Normal NEGATIVE [facility] Comment on above: Result Comment: CUTO FF LEVEL: 300 NG/ML The opiate screen does not detect fentanyl, meperidine, or tramadol. Oxycodone is not consistently detected (refer to Oxycodone Screen, Urine result). Performed By: #### D RUGR #### [address] [id number] OXYCODONE SCREEN,U Negative Normal NEGATIVE [facility] Comment on above: Result Comment: CUTO FF LEVEL: 100 NG/ML This test will accurately detect both oxycodone and oxymorphone. Performed By: #### D RUGR #### [address] [id number] PCP SCREEN,U Negative Normal NEGATIVE [facility] Comment on above: Result Comment: CUTO FF LEVEL: 25 NG/ML Cross-reactivity has been reported with dextromethorphan. Performed By: #### D RUGR #### [address] [id number] FOLATE, SERUMon 12-10-2021 Folate [Mass/Vol] 9.0 ng/mL Normal >5.0 [facility] [place] Comment on above: Result Comment: Low <3.4 Borderline 3.4-5.0 Normal >5.0 . Patients receiving more than 5 mg/day of biotin may have interference in test results. A sample should be taken no sooner than eight hours after previous dose. Contact the testing laboratory for additional information. Performed By: #### P TH #### [address] [id number] Ferritin, Serumon 12-10-2021 Ferritin [Mass/Vol] 61 ug/L 8 - 150 MG-Wright rgery-P arma MAC2 303 Work Phone: Folate, Serumon 12-10-2021 Folate [Mass/Vol] 9.0 ng/mL >5.0 MG-Surg brian-P arma MAC2 303 Work Phone: Comment on above: Low <3.4Borderline 3 .4-5.0Normal >5.0. Patients receiving more than 5 mg/day of biotin may have interference in test results. A sample should be taken no sooner than eight hours after previous dose. Contact the testing laboratory for additional information. HELICOBACTER PYLORI BREATH T ESTon 12-10-2021 CO2 post dose urea Ql (Exhl gas) Negative NEGATIVE QZ-Pswdnsn-D arma MAC2 303 Work Phone: Comment on [...] Phone: HbA1c (Bld) [Mass fraction] 5.1 % UB-Rvfhbgr-A arma MAC2 303 Work Phone: Comment on above: Diagnosis of Diabete s-Adults Non-Diabetic: < or = 5.6% Increased risk for developing diabetes: 5.7-6.4% Diagnostic of diabetes: > or = 6.5%. Monitoring of Diabetes Age (y) Therapeutic Goal (%) Adults: >18 <7.0 Pediatrics: 13-18 <7.5 7-12 <8.0 0- 6 7.5-8.5 [place]. Diabetes Care 33(S1), Mar 2009. IRON + TIBCon 12-10-2021 % SATURATION 17 % Low 25 - 45 [facility] Comment on above: Performed By: #### D RUGR #### [address] [id number] Iron [Mass/Vol] 67 ug/dL Normal 35 - 150 [facility] Comment on above: Performed By: #### D RUGR #### [address] [id number] TIBC 385 ug/dL Normal 240 - 445 [facility] Comment on above: Performed By: #### D RUGR #### [address] [id number] LIPID PANEL (CORONARY RISK 2 )on 12-10-2021 Cholesterol [Mass/Vol] 174 mg/dL Normal 0 - 199 [facility] Comment on above: Result Comment: . [...] dosing. Performed By: #### L IPID #### [address] [id number] Cholesterol in HDL [Mass/Vol] 39.0 mg/dL Abnormal [facility] Comment on above: Result Comment: . AGE VERY LOW LOW NORMAL HIGH 0-19 Y < 35 < 40 40-45 ---- 20-24 Y ---- < 40 >45 ---- >24 Y ---- < 40 40-60 >60 . Performed By: #### L IPID #### [address] [id number] Cholesterol in LDL [Mass/Vol] 101 mg/dL High 0 - 99 [facility] Comment on above: Result Comment: . NEAR BORD AGE DESIRABLE OPTIMAL HIGH HIGH VERY HIGH 0-19 Y 0 - 109 --- 110-129 >/= 130 ---- 20-24 Y 0 - 119 --- 120-159 >/= 160 ---- >24 Y 0 - 99 100-129 130-159 160-189 >/=190 . Performed By: #### L IPID #### [address] [id number] Cholesterol in VLDL [Mass/Vol] 34 mg/dL Normal 0 - 40 [facility] Comment on above: Performed By: #### L IPID #### [address] [id number] Cholesterol.total/C holesterol in HDL [Mass ratio] 4.5 {ratio} Normal [facility] Comment on above: Result Comment: REF VALUES DESIRABLE < 3.4 HIGH RISK > 5.0 Performed By: #### L IPID #### [facility] [address] [place], [place] [id number] Triglyceride [Mass/Vol] 169 mg/dL High 0 - 149 [facility] Comment on above: Result Comment: . [...] dosing. Performed By: #### L IPID #### [address] [id number] Laboratory - Chemistry and C hemistry - challengeon 12-10-2021 Albumin BCP dye [Mass/Vol] 4.3 g/dL 3.4 - 5.0 KM-Beiaxfe-K arma MAC2 303 Work Phone: ALP [Catalytic activity/Vol] 70 U/L 33 - 110 TH-Ugdbjus-B arma MAC2 303 Work Phone: ALT With P-5'-P [Catalytic activity/Vol] 13 U/L 7 - 45 VY-Xqkwgut-C arma MAC2 303 Work Phone: Comment on above: Patients treated wit h Sulfasalazine may generate falsely decreased results for ALT. Anion gap [Moles/Vol] 12 mmol/L 10 - 20 XU-Nmfunrb-M arma MAC2 303 Work Phone: AST With P-5'-P [Catalytic activity/Vol] 14 U/L 9 - 39 CA-Conbqly-A arma MAC2 303 Work Phone: Bilirubin [Mass/Vol] 0.5 mg/dL 0.0 - 1.2 PH-Baisvkk-Z arma MAC2 303 Work Phone: Calcium [Mass/Vol] 8.9 mg/dL 8.6 - 10.3 MG-Danica jose-P arma MAC2 303 Work Phone: Chloride [Moles/Vol] 101 mmol/L 98 - 107 AH-Iruszcg-L arma MAC2 303 Work Phone: CO2 [Moles/Vol] 29 mmol/L 21 - 32 MG-Surger y-P arma MAC2 303 Work Phone: Creatinine [Mass/Vol] 0.61 mg/dL See Below WS-Zratfus-Z arma MAC2 303 Work Phone: Comment on above: Reference Range: 0.5 0 - 1.05 Glucose [Mass/Vol] 86 mg/dL 74 - 99 MG-Danica jose-P arma MAC2 303 Work Phone: Iron [Mass/Vol] 67 ug/dL 35 - 150 MG-Surger y-P arma MAC2 303 Work Phone: Iron binding capacity [Mass/Vol] 385 ug/dL 240 - 445 VL-Jxiwptb-D arma MAC2 303 Work Phone: Potassium [Moles/Vol] 3.8 mmol/L 3.5 - 5.3 ZF-Kepswwy-L arma MAC2 303 Work Phone: Protein [Mass/Vol] 7.2 g/dL 6.4 - 8.2 MG-Danica jose-P arma MAC2 303 Work Phone: Sodium [Moles/Vol] 138 mmol/L 136 - 145 MG-Danica jose-P arma MAC2 303 Work Phone: T3RU 30 % 24 - 41 HP-Rkcyncl-Z arma MAC2 303 Work Phone: T4 [Mass/Vol] 8.8 ug/dL 4.5 - 11.1 MG-Surgery- P arma MAC2 303 Work Phone: Thiamine (Bld) [Mass/Vol] 136 nmol/L 70-180 QC-Fyeqlzq-E arma MAC2 303 Work Phone: Comment on [...] developed and its performance characteristics determined by [facility]. It has not been cleared or approved by the US Food and Drug Administration. This test was performed in a CLIA certified laboratory and is intended for clinical purposes.Performed By: [facility] [place] [address] [id number] Director: Alberto Yusuf MD, PhD Urea nitrogen [Mass/Vol] 9 mg/dL 6 - 23 VD-Slsfvdf-C arma MAC2 303 Work Phone: Laboratory - Coagulationon 0 12-10-2021 aPTT Coag (PPP) [Time] 40 s above high threshold 26 - 39 RZ-Lsetnjj-T arma MAC2 303 Work Phone: Comment on above: THE APTT IS NO LONGE R USED FOR MONITORING UNFRACTIONATED HEPARIN THERAPY. FOR MONITORING HEPARIN THERAPY, USE THE HEPARIN ASSAY. INR Coag (PPP) [Relative time] 1.0 {INR} 0.9 - 1.1 NG-Shgfxyd-Z arma MAC2 303 Work Phone: PT Coag (PPP) [Time] 12.0 s 9.8 - 13.4 HG-Wulpedy-F arma MAC2 303 Work Phone: Laboratory - Drug toxicology on 12-10-2021 Amphetamines Screen Ql (U) Negative NEGATIVE ZN-Skfhegk-D arma MAC2 303 Work Phone: Comment on above: CUTOFF LEVEL: 500 NG /ML Cross-reactivity has been reported with high concentrations of the following drugs: buproprion, chloroquine, chlorpromazine, ephedrine, mephentermine, fenfluramine, phentermine, phenylpropanolamine, pseudoephedrine, and propranolol. Barbiturates Screen Ql (U) Negative NEGATIVE IO-Qdvndzi-Q arma MAC2 303 Work Phone: Comment on above: CUTOFF LEVEL: 200 NG /ML Benzodiazepines Ql (U) Negative NEGATIVE LK-Ntltcik-G arma MAC2 303 Work Phone: Comment on above: CUTOFF LEVEL: 200 NG /ML Benzoylecgonine Screen Ql (U) Negative NEGATIVE UE-Ndbqnib-D arma MAC2 303 Work Phone: Comment on above: CUTOFF LEVEL: 150 NG /ML Cannabinoids Screen Ql (U) Negative NEGATIVE TR-Ajvdvkw-T arma MAC2 303 Work Phone: Comment on above: CUTOFF LEVEL: 50 NG/ ML Methadone Screen Ql (U) Negative NEGATIVE NW-Womrprb-U arma MAC2 303 Work Phone: Comment on above: CUTOFF LEVEL: 150 NG /ML The metabolite I-hmfzd-twefdvlzwscses (LAAM) is not detected by this method in concentrations that would be found in the urine of patients on LAAM therapy. Opiates Screen Ql (U) Negative NEGATIVE NC-Pxfgamt-I arma MAC2 303 Work Phone: Comment on above: CUTOFF LEVEL: 300 NG /ML The opiate screen does not detect fentanyl, meperidine, or tramadol. Oxycodone is not consistently detected (refer to Oxycodone Screen, Urine result). oxyCODONE+oxyMORpho ne Screen Ql (U) Negative NEGATIVE KM-Rsjjvpn-M arma MAC2 303 Work Phone: Comment on above: CUTOFF LEVEL: 100 NG /ML This test will accurately detect both oxycodone and oxymorphone. Phencyclidine Ql (U) Negative NEGATIVE EL-Purvaqu-S arma MAC2 303 Work Phone: Comment on above: CUTOFF LEVEL: 25 NG/ ML Cross-reactivity has been reported with dextromethorphan. Lipid Panelon 12-10-2021 Cholesterol [Mass/Vol] 174 mg/dL 0 - 199 EF-Tbvxhax-V arma MAC2 303 Work Phone: Comment on [...] Cholesterol in HDL [Mass/Vol] 39.0 mg/dL Abnormal MT-Whoxpyo-H arma MAC2 303 Work Phone: Comment on above: . AGE VERY LOW LOW N ORMAL HIGH 0-19 Y < 35 < 40 40-45 ---- 20- 24 Y ---- < 40 >45 ---- >24 Y ---- < 40 40-60 >60. Cholesterol in LDL [Mass/Vol] 101 mg/dL above high threshold 0 - 99 DA-Gouiwct-P arma MAC2 303 Work Phone: Comment on above: . NEAR BORD AGE MINDA RABLE OPTIMAL HIGH HIGH VERY HIGH 0-19 Y 0 - 109 --- 110-129 >/= 130 ---- 20-24 Y 0 - 119 --- 120-159 >/= 160 ---- >24 Y 0 - 99 100-129 130-159 160-189 >/=190. Cholesterol.total/C holesterol in HDL [Mass ratio] 4.5 {ratio} PP-Syxulve-G arma MAC2 303 Work Phone: Comment on above: REF VALUESDESIRABLE < 3.4HIGH RISK > 5.0 Triglyceride [Mass/Vol] 169 mg/dL above high threshold 0 - 149 ZX-Qtyynhm-C arma MAC2 303 Work Phone: Comment on [...] Lipid Panel 34 mg/dL 0 - 40 BD-Vatffhs-U arma MAC2 303 Work Phone: Nicotine+Metabolites, Serumo [...] developed and its performance characteristics determined by [employer]. It has not been cleared or approved by the US Food and Drug Administration. This test was performed in a CLIA certified laboratory and is intended for clinical purposes.Performed By: [facility] [place] [address] [id number] Director: Alberto Yusuf MD, PhD No Panel Informationon 12-10 >90 >90 YK-Ogygezo-Q arma MAC2 303 Work Phone: Comment on above: CALCULATIONS OF YOGI MATED GFR ARE PERFORMED USING THE 2020 CKD-EPI STUDY REFIT EQUATION WITHOUT THE RACE VARIABLE FOR THE IDMS-TRACEABLE CREATININE METHODS.https://jasn.asnjournals.org/content//ASN. 0763738091 Negative NEGATIVE WD-Xtyokte-Q arma MAC2 303 Work Phone: Comment on above: CUTOFF LEVEL: 5 NG/M L SEE BELOW CN-Holqkpc-E arma MAC2 303 Work Phone: Comment on [...] medical directors. 2.6 1 1.6 - 4.7 VR-Mmfrdhl-V arma MAC2 303 Work Phone: 17 % below low threshold 25 - 45 PF-Hlgacoq-J arma MAC2 303 Work Phone: Office Visit [...] per day. 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 Occasional Alcohol. No tobacco history. Brother [...] of present illness. Vitals Vital Signs Recorded: [id number] 12:30PM Heart Rate77 Rbtdsyjq080 Miwpswefn54 Height5 ft 4 in Mxzmya937 lb BMI Oevuozludi84.4 kg/m2 BSA Calculated2.14 Tobacco Useb) No Falls Screening (Age 18+)a) No falls within the last year O2 Dvcmegfrcz98 Physical Exam Physical Exam: Significantly overweight Appearance: [...] HORMONE,INTACT 81.8 pg/mL Normal 12.0 - 88.0 [facility] Comment on above: Performed By: #### P TH #### [address] [id number] Parathormone Intact, Serumon 12-10-2021 Parathyrin.intact [Mass/Vol] 81.8 pg/mL See Below ER-Moepiyq-R arma MAC2 303 Work Phone: Comment on above: Reference Range: 12. 0 - 88.0 TSHon 12-10-2021 TSH Qn 1.87 m[IU]/L Normal 0.44 - 3.98 [facility] Comment on above: Result Comment: TSH testing is performed using different testing methodology at [facility] than at other [facility]. Direct result comparisons should only be made within the same method. Performed By: #### P TH #### [address] [id number] TSH - Thyroid Stimulating Ho rmone, Serumon 12-10-2021 TSH Qn 1.87 m[IU]/L See Below JP-Xoxcsfw-I arma MAC2 303 Work Phone: Comment on above: Reference Range: 0.4 4 - 3.98 TSH testing is performed using different testing methodology at [facility] than at other [facility]. Direct result comparisons should only be made within the same method. Tobacco Screening.on 022 Fall risk assessment a) No falls within the last year MP-Cardiolog y-Kristen 320 Work Phone: Tobacco use status [facility]PHS b) No MP-Cardiolog y-Kristen 320 Work Phone: VITAMIN B12on 12-10-2021 Cobalamin (Vitamin B12) [Mass/Vol] 244 pg/mL Normal 211 - 911 [facility] Comment on above: Performed By: #### V TB12 #### [address] [id number] VITAMIN D, 25-HYDROXYon 11-22 VITAMIN D, 25-HYDROXY 31 ng/mL Normal [facility] Comment on above: Result Comment: . DEFICIENCY: < 20 NG/ML INSUFFICIENCY: 20-29 NG/ML SUFFICIENCY: 30-100 NG/ML THIS ASSAY ACCURATELY QUANTIFIES THE SUM OF VITAMIN D3, 25-HYDROXY AND VIT D2,25-HYDROXY. Performed By: #### V TDOH #### [address] [id number] Vitamin B12, Serumon 022 Cobalamin (Vitamin B12) [Mass/Vol] 244 pg/mL 211 - 911 WX-Awbljqs-W arma MAC2 303 Work Phone: Vitamin D 25-Hydroxyon 12-10 25-hydroxyvitamin D3 [Mass/Vol] 31 ng/mL EU-Npzvhnk-R arma MAC2 303 Work Phone: Comment on above: .DEFICIENCY: < 20 NG /MLINSUFFICIENCY: 20-29 NG/MLSUFFICIENCY: 30-100 NG/MLTHIS ASSAY ACCURATELY QUANTIFIES THE SUM OFVITAMIN D3, 25-HYDROXY AND VIT D2,25-HYDROXY. Zinc, Serumon 12-10-2021 Zinc [Mass/Vol] 75 ug/dL 44-115 MG-Surger y-P arma MAC2 303 Work Phone: Comment on above: Detection Limit = 5T est(s) 780929-Mzkxjc, Serum or Plasma; 855556-Sptx, Plasma or Serumwas developed and its performance characteristics determinedby [facility]. It has not been cleared or approved by the Foodand Drug Administration. Narrative Note - Outpatiento n 12-03-2021 Narrative Note - Outpatient Narrative Note: Description I spoke with pt reminding her of her upcoming EGD procedure with Dr Smith on 12/12. 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 Electronic Signatures: Zayra Gabriel (MIKE) (Signed 03-Dec-2021 14:23) Authored: Narrative Note - OP Last Updated: 03-Dec-2021 14:23 by Zayra Gabriel) Normal [facility] Dietition Noteon 11-07-2021 Dietition Note Chief Complaint [...] Hour; TAKE 1 TABLET DAILY DIRECTED; Therapy: [id number] to Recorded Dispense: 0 Days ; #: Sufficient Tablet; Refill: 0;For: Depression; GORDO = N; Record; Last Updated By: Alexa Morton; 11/06/2021 3:32:04 PM Provider Impressions Initial Bariatric Nutrition Assessment NAME:Linae PrakashDaphneTE: 11-07-2021 Surgeon: Cortes Patient is considering: RNYGB [...] protein sources. Patient has been attending the [employer] classes. Very motivated and asking several questions [...] to follow dietary recommendations. Pre-op/current weight: #246 [place] body weight: #120 Excess body weight: #126 [...] - Scheduling,Retrospective By Protocol Authorization Requested for: [id number] Cardiology - General Referral Evaluation and Treatment Evaluate AND Treat to provide clearance letter with risk stratification for Bariatric Surgery. Status: Active Requested for: [id number] AMA Intake Activity Log Entry by Jenelle Ugalde ([email or web address]) on 2021-11-05 19:05 Status Change: To Closed - Unable To Schedule-Patient Will Schedule With Encounter for vitamin deficiency screening C Reactive Protein, Serum; Status:Active - Retrospective By Protocol Authorization; Requested for:[id number]; Coagulation Screen; Status:Active - Retrospective By Protocol Authorization; Requested for:[id number]; Complete Blood Count + Differential; Status:Active - Retrospective Authorization; Requested for:[id number]; Comprehensive Metabolic Panel; Status:Active - Retrospective Authorization; Requested for:[id number]; Copper, Serum; Status:Active - Retrospective Authorization; Requested for:[id number]; Drug Screen, Urine With Reflex To Confirmation; Status:Active - Retrospective Authorization; Requested for:[id number]; Ferritin, Serum; Status:Active - Retrospective Authorization; Requested for:[id number]; Folate, Serum; Status:Active - Retrospective Authorization; Requested [...] 5) Adopt the recommendations of the program staking press operator so you develop healthy eating patterns. 6) Work with t (more content not included)... Normal [facility] AMYLASEon 08-31-2021 Amylase [Catalytic activity/Vol] 39 U/L Normal 25-115 [facility] Comment on above: Performed By: #### C VDTBH #### [facility] [address] [place] [address] Dr. Candi Bhatti CBC AUTO DIFFon 08-31-2021 BASO # 0.0 103/ul Normal 0.0-0.1 [facility] Comment on above: Performed By: #### C VDTBH #### [facility] [address] [place] [address] Dr. Candi Bhatti Basophils/100 WBC (Bld) 0.5 % Normal 0.2-2.0 [facility] Comment on above: Performed By: #### C VDTBH #### [facility] [address] [place] [address] Dr. Candi Bhatti EO # 0.0 103/ul Normal 0.0-0.7 [facility] Comment on above: Performed By: #### C VDTBH #### [facility] [address] [address] [address] Candi Bhatti Eosinophils/100 WBC (Bld) 0.3 % Critically low 0.9-7.0 [facility] Comment on above: Performed By: #### C VDTBH #### [facility] [address] [place] [address] Dr. Candi Bhatti Erythrocyte distribution width (RBC) [Ratio] 12.2 % Normal 11.0-15.0 [facility] Comment on above: Performed By: #### C VDTBH #### [facility] [address] [place] [address] Dr. Candi Bhatti Hematocrit (Bld) [Volume fraction] 46.3 % Normal 36.0-48.0 [facility] Comment on above: Performed By: #### C VDTBH #### [facility] [address] [place] [address] Dr. Candi Bhatti Hemoglobin (Bld) [Mass/Vol] 15.8 g/dL Normal 12.0-16.0 [facility] Comment on above: Performed By: #### C VDTBH #### [facility] [address] [place] [address] Dr. Candi Bhatti IG # 0.03 10e3/ul Normal 0.00-0.03 [facility] Comment on above: Performed By: #### C VDTBH #### [facility] [address] [place] [address] Dr. Candi Bhatti IG % 0.5 % Normal 0.0-0.5 [facility] Comment on above: Performed By: #### C VDTBH #### [facility] [address] [place] [address] Dr. aCndi Bhatti LYMPH # 0.8 103/ul Critically low 1.2-3.8 [facility] Comment on above: Performed By: #### C VDTBH #### [facility] [address] [place] [address] Dr. Candi Bhatti Lymphocytes/100 WBC (Bld) 12.3 % Critically low 20.5-60.0 [facility] Comment on above: Performed By: #### C VDTBH #### [facility] [address] [place] [address] Dr. Candi Bhatti MANUAL DIFF REQ NO Normal [facility] Comment on above: Performed By: #### C VDTBH #### [facility] [address] [place] [address] Dr. Candi Bhatti MCH (RBC) [Entitic mass] 30.8 pg Normal 26.7-34.0 [facility] Comment on above: Performed By: #### C VDTBH #### [facility] [address] [place] [address] Dr. Candi Bhatti MCHC (RBC) [Mass/Vol] 34.1 g/dL Normal 29.9-35.2 [facility] Comment on above: Performed By: #### C VDTBH #### [facility] [address] [place] [address] Dr. Candi Bhatti MCV (RBC) [Entitic vol] 90.3 fL Normal 81.0-99.0 [facility] Comment on above: Performed By: #### C VDTBH #### [facility] [address] [place] [address] Dr. Candi Bhatti MONO # 0.4 103/ul Normal 0.3-0.8 [facility] Comment on above: Performed By: #### C VDTBH #### [facility] [address] [place] [address] Dr. Candi Bhatti Monocytes/100 WBC (Bld) 6.3 % Normal 1.7-12.0 [facility] Comment on above: Performed By: #### C VDTBH #### [facility] [address] [place] [address] Dr. Candi Bhatti NEUT # 5.1 103/ul Normal 1.4-6.5 [facility] Comment on above: Performed By: #### C VDTBH #### [facility] [address] [place] [address] Dr. Candi Bhatti Neutrophils/100 WBC (Bld) 80.1 % Critically high 43.0-75.0 [facility] Comment on above: Performed By: #### C VDTBH #### [facility] [address] [place], [place] [id number] Dr. Candi Bhatti Platelet mean volume (Bld) [Entitic vol] 9.8 fL Normal 9.5-13.5 [facility] Comment on above: Performed By: #### C VDTBH #### [facility] [address] [place] [address] Dr. Candi Bhatti PLT 207 103/ul Normal 150-450 [facility] Comment on above: Performed By: #### C VDTBH #### [facility] [address] [place] [address] Dr. Candi Bhatti RBC 5.13 106/ul Normal 4.20-5.40 [facility] Comment on above: Performed By: #### C VDTBH #### [facility] [address] [place] [address] Dr. Candi Bhatti WBC 6.3 103/ul Normal 4.0-11.0 [facility] Comment on above: Performed By: #### C VDTBH #### [facility] [address] [place] [address] Dr. Candi Bhatti CULTURE URINEon 08-31-2021 CULTURE URINE Culture Observations : LIGHT GROWTH OF MIXED GENITAL BRITANY. NO POTENTIAL PATHOGENS SEEN. Normal [facility] Comment on above: Performed By: #### U RCX #### [facility] [address] [place] [address] Dr. Candi Bhatti ER URINE PROFILEon 2 Bilirubin Ql (U) Negative Normal NEGATIVE [facility] Comment on above: Performed By: #### P SHERIE RICARDO, ERUR #### [facility] [address] [place] [address] Dr. Candi Bhatti Clarity (U) CLEAR Normal CLEAR [facility] Comment on above: Performed By: #### P SHERIE RICARDO ERUR #### [facility] [address] [place] [address] Dr. Candi Bhatti Color (U) LT. YELLOW Normal YELLOW [facility] Comment on above: Performed By: #### P SHERIE RICARDO, ERUR #### [facility] [address] [address] [address] Candi AL A micrscopic examina tion will be performed if indicated. Normal [facility] Comment on above: Performed By: #### P SHERIE RICARDO, ERUR #### [facility] [address] [address] [address] Candi Bhatti Glucose Ql (U) Negative Normal NEGATIVE [facility] [place] [facility] Comment on above: Performed By: #### P SHERIE RICARDO, ERUR #### [facility] [address] [address] [address] Candi Bhatti Hemoglobin Ql (U) Negative Normal NEGATIVE [facility] Comment on above: Performed By: #### P SHERIE RICARDO, ERUR #### [facility] [address] [place] [address] Dr. Candi Bhatti Ketones Ql (U) Negative Normal NEGATIVE [facility] Comment on above: Performed By: #### P SHERIE RICARDO, ERUR #### [facility] [address] [address] [address] Candi Bhatti LEUKOCYTES SMALL Abnormal NEGATIVE [facility] Comment on above: Performed By: #### P SHERIE RICARDO, ERUR #### [facility] [address] [address] [address] Candi Bhatti Nitrite Ql (U) Negative Normal NEGATIVE [facility] [place] [facility] Comment on above: Performed By: #### P SHERIE RICARDO, ERUR #### [facility] [address] [address] [address] Candi Bhatti pH (U) 6.0 [pH] Normal 5-9 [facility] Comment on above: Performed By: #### P SHERIE RICARDO, ERUR #### [facility] [address] [address] [address] Candi Bhatti SPEC GRAVITY 1.025 Normal 1.005-<=1.0 25 [facility] Comment on above: Performed By: #### P SHERIE RICARDO, ERUR #### [facility] [address] [place] [address] Dr. Candi Bhatti UA PROTEIN Negative Normal NEGATIVE/ TRACE [facility] Comment on above: Performed By: #### P SHERIE RICARDO, ERUR #### [facility] [address] [address] [address] Cadni Bhatti UR MICRO IND INDICATED Normal [facility] Comment on above: Performed By: #### P SHERIE RICARDO, ERUR #### [facility] [address] [place] [address] Dr. Candi Bhatti Urobilinogen Qn (U) 0.2 {Tsering'U}/dL Normal 0.2 - 1. 0 [facility] Comment on above: Performed By: #### P SHERIE RICARDO, ERUR #### [facility] [address] [place] [address] Dr. Candi Bhatti LIPASEon 08-31-2021 Lipase [Catalytic activity/Vol] 56.0 U/L Critically low 73.0-393.0 [facility] Comment on above: Performed By: #### C MP, SOLEDAD, LIPA #### [facility] [address] [place] [address] Dr. Candi Bhatti URon 08-31-2021 , QUAL Negative Normal NEGATIVE [facility] Comment on above: Performed By: #### P SHERIE RICARDO, ERUR #### [facility] [address] [place] [address] Dr. Candi Bhatti PROF 14(COMP METB)on 022 Albumin [Mass/Vol] 3.9 g/dL Normal 3.4-5.0 [facility] Comment on above: Performed By: #### C VDTBH #### [facility] [address] [place] [address] Dr. Candi Bhatti Albumin/Globulin [Mass ratio] 0.9 {ratio} Normal [facility] Comment on above: Performed By: #### C VDTBH #### [facility] [address] [place] [address] Dr. Candi Bhatti ALP [Catalytic activity/Vol] 86 U/L Normal 46-116 [facility] Comment on above: Performed By: #### C VDTBH #### [facility] [address] [address] [address] Candi Bhatti ALT [Catalytic activity/Vol] 21 U/L Normal 14-59 [facility] Comment on above: Performed By: #### C VDTBH #### [facility] [address] [address] [address] Candi Bhatti Anion gap [Moles/Vol] 11.5 mmol/L Normal [facility] Comment on above: Performed By: #### C VDTBH #### [facility] [address] [address] [address] Candi Bhatti AST [Catalytic activity/Vol] 13 U/L Critically low 15-37 [facility] Comment on above: Performed By: #### C VDTBH #### [facility] [address] [address] [address] Candi Bhatti Bilirubin [Mass/Vol] 0.5 mg/dL Normal 0.2-1.0 [facility] Comment on above: Performed By: #### C VDTBH #### [facility] [address] [address] [address] Candi Bhatti Calcium [Mass/Vol] 8.6 mg/dL Normal 8.5-10.1 [facility] Comment on above: Performed By: #### C VDTBH #### [facility] [address] [address] [address] Candi Bhatti Chloride [Moles/Vol] 100 mmol/L Normal 98-107 [facility] Comment on above: Performed By: #### C VDTBH #### [facility] [address] [address] [address] Candi Bhatti CO2 [Moles/Vol] 28.1 mmol/L Normal 21.0-32.0 [facility] Comment on above: Performed By: #### C VDTBH #### [facility] [address] [address] [address] Candi Bhatti Creatinine [Mass/Vol] 0.79 mg/dL Normal 0.55-1.02 [facility] Comment on above: Performed By: #### C VDTBH #### [facility] [address] [address] [address] Candi Bhatti EGFR-AF CUBAN >60 Normal >=60 [facility] Comment on above: Performed By: #### C VDTBH #### [facility] [address] [address] [address] Candi Bhatti EGFR-NON AF CUBAN >60 Normal >=60 [facility] Comment on above: Performed By: #### C VDTBH #### [facility] [address] [address] [address] Candi Bhatti Globulin (S) [Mass/Vol] 4.4 g/dL Normal [facility] Comment on above: Performed By: #### C VDTBH #### [facility] [address] [place] [address] Dr. Candi Bhatti Glucose [Mass/Vol] 99 mg/dL Normal 74-106 [facility] Comment on above: Performed By: #### C VDTBH #### [facility] [address] [address] [address] Candi Bhatti Potassium [Moles/Vol] 3.6 mmol/L Normal 3.5-5.1 [facility] Comment on above: Performed By: #### C VDTBH #### [facility] [address] [address] [address] Candi Bhatti Protein [Mass/Vol] 8.3 g/dL Critically high 6.4-8.2 [facility] Comment on above: Performed By: #### C VDTBH #### [facility] [address] [address] [address] Candi Bhatti Sodium [Moles/Vol] 136 mmol/L Normal 136-145 [facility] Comment on above: Performed By: #### C VDTBH #### [facility] [address] [address] [address] Candi Bhatti Urea nitrogen [Mass/Vol] 7.0 mg/dL Normal 7.0-18.0 [facility] Comment on above: Performed By: #### C VDTBH #### [facility] [address] [address] [address] Candi Bhatti Urea nitrogen/Creatinine [Mass ratio] 8.9 mg/mg Normal [facility] Comment on above: Performed By: #### C VDTBH #### [facility] [address] [address] [address] Candi Bhatti URINE MICROSCOPIC ONLYon BACTERIA SMALL Abnormal NONE SEEN [facility] Comment on above: Performed By: #### P REGU, UMICRO, ERUR #### [facility] [address] [address] [address] Candi Bhatti Bacteria identified Cx Nom (U) INDICATED Normal [facility] Comment on above: Performed By: #### P REGU, UMICRO, ERUR #### [facility] [address] [address] [address] Candi Bhatti CAST NONE SEEN Normal NONE SEEN [facility] Comment on above: Performed By: #### P REGU, UMICRO, ERUR #### [facility] [address] [address] [address] Candi Bhatti Crystals LM Nom (Urine sed) NONE SEEN Normal NONE SEEN [facility] Comment on above: Performed By: #### P REGU, UMICRO, ERUR #### [facility] [address] [address] [address] Candi Bhatti Epithelial cells LM Ql (Urine sed) MODERATE Abnormal NONE SEEN /RARE [facility] Comment on above: Performed By: #### P REGU, UMICRO, ERUR #### [facility] [address] [address] [address] Candi Bhatti MUCOUS MODERATE Abnormal NONE SEEN [facility] Comment on above: Performed By: #### P REGU, UMICRO, ERUR #### [facility] [address] [address] [address] Candi Bhatti RBC NONE SEEN Abnormal 0-2 [facility] Comment on above: Performed By: #### P REGU, UMICRO, ERUR #### [facility] [address] [place], [place] [address] Dr. Candi Bhatti WBC 2-5 Abnormal NONE SEEN [facility] Comment on above: Performed By: #### P SHERIE RICARDO ERUR #### [facility] [address] [place], [place] [address] Dr. Candi Bhatti XR ABD FLAT UP_PA [...] ADRIANO MARSHALL Date: 2021-08-31 13:14 Normal [facility] US PELVIS AND TRANSVAGon US PELVIS [...] ADRIANO MARSHALL Date: 2021-07-05 14:43 Normal [facility] US PELVIS AND TRANSVAGon US PELVIS [...] WILMAN SIMEON Date: 2021-03-15 08:47 Normal [facility] CULTURE THROATon 02-02-2021 CULTURE THROAT Culture Observations : NORMAL RESPIRATORY BRITANY. Normal [facility] Comment on above: Performed By: #### [facility] #### [facility] [address] [place] [address] Dr. Candi Bhatti Covid-19 PCR ([facility])on 01-22 SARS-CoV-2 (COVID-19) RNA SHAR+probe Ql (Unsp spec) Not detected Normal NOT DETECTED [facility] Comment on above: Result Comment: This test is not yet approved or cleared by the [place] FDA. When there are no FDA-approved or cleared tests available, and other criteria are met, FDA can make tests available under an emergency access mechanism called an Emergency Use Authorization (EUA). The EUA for this test is supported by the [place] of Health and Human Service's (HHS's) declaration [...] SARS-CoV-2. Performed By: #### C VDTBH #### [facility] [address] [place] [address] Dr. Candi Bhatti INFLUENZA A AND B AGon 02-02 INFLUANE SEE BELOW Normal [facility] Comment on above: Result Comment: Nega tive for Flu A protein angiten. Infection due to Flu A cannot be ruled out. Flu A angiten in the sample may be below the detection limit of the test. Performed By: #### C VDTBH #### [facility] [address] [place] [address] Dr. Candi Bhatti INFLUBNEG SEE BELOW Normal [facility] Comment on above: Result Comment: Nega tive for Flu B protein antigen. Infection due to Flu B cannot be ruled out. Flu B antigen in the sample may be below the detection limit of the test. Performed By: #### C VDTBH #### [facility] [address] [place] [address] Dr. Candi Bhatti INFLUENZA A AG Negative Normal NEGATIVE SEE COMMENT [facility] Comment on above: Performed By: #### C VDTBH #### [facility] [address] [place] [address] Dr. Candi Bhatti INFLUENZA B AG Negative Normal NEGATIVE SEE COMMENT [facility] Comment on above: Performed By: #### C VDTBH #### [facility] [address] [place] [address] Dr. Candi Bhatti INTERNAL CONTROLS Within Normal Limits Normal Wi thin Normal Limits [facility] Comment on above: Performed By: #### C VDTBH #### [facility] [address] [place] [address] Dr. Candi Bhatti STREPT SCREENon 02-02-2021 STREP SCREEN A Negative Normal NEGATIVE [facility] [place] [facility] Comment on above: Performed By: #### C VDTB #### [facility] [address] [place] [address] [address] [address] Candi Bhatti Covid-19 PCR ([facility])on 11-22 SARS-CoV-2 (COVID-19) RNA SHAR+probe Ql (Unsp spec) Detected Critically abnormal NOT DETECTED [facility] Comment on above: Result Comment: This test is not yet approved or cleared by the [place] FDA. When there are no FDA-approved or cleared tests available, and other criteria are met, FDA can make tests available under an emergency access mechanism called an Emergency Use Authorization (EUA). The EUA for this test is supported by the [place] of Health and Human Service's (HHS's) declaration [...] longer be used). Performed By: #### C VDTB #### [facility] [address] [place] [address] Carol Short Vital Signs Date Time Vital Sign Value Performing Clinician Facility 07-05-2024 14:05-0400 Body mass index (BMI) [Ratio] 37.25 kg/m2 Aviir Work Phone: [facility] 07-05-2024 14:05-0400 Body weight 98.43 kg Aviir Work Phone: [facility] 07-05-2024 14:05-0400 Diastolic blood pressure 72 mm[Hg] Aviir Work Phone: [facility] 07-05-2024 14:05-0400 Systolic blood pressure 122 mm[Hg] Aviir Work Phone: [facility] 03-29-2024 15:32-0500 Body mass index (BMI) [Ratio] 33.13 kg/m2 Steev Major BOTANY TECHNICIAN Work Phone: [facility] 03-29-2024 15:32-0500 Body temperature 98.01 [degF] Steve Major BOTANY TECHNICIAN Work Phone: [facility] 03-29-2024 15:32-0500 Body weight 87.54 kg Steve Major BOTANY TECHNICIAN Work Phone: [facility] 03-29-2024 15:32-0500 Diastolic blood pressure 70 mm[Hg] Steve Major BOTANY TECHNICIAN Work Phone: [facility] 03-29-2024 15:32-0500 Heart rate 89 /min Steve Major BOTANY TECHNICIAN Work Phone: [facility] 03-29-2024 15:32-0500 Systolic blood pressure 120 mm[Hg] Steve Major BOTANY TECHNICIAN Work Phone: [facility] 06-21-2022 08:26-0400 Body mass index (BMI) [Ratio] 32.96 kg/m2 Referring Provider Unknown NG-Apdkucd-Gotkrulv [facility] Work Phone: 06-21-2022 08:26-0400 Body surface area Derived from formula 1.92 m2 Referring Provider Unknown UO-Yucuopk-Myrllzkb [facility] Work Phone: 06-21-2022 08:26-0400 Body weight 87.09 kg Referring Provider Unknown NT-Bebazce-Llpbvdvn [address] Work Phone: 03-20-2022 10:13-0500 Body mass index (BMI) [Ratio] 36.56 kg/m2 Referring Provider Unknown SQ-Sfosuit-Rrzbg [facility] [address] Work Phone: 03-20-2022 10:13-0500 Body surface area Derived from formula 2.01 m2 Referring Provider Unknown FA-Xwyvhvh-Svgdc [facility] [address] Work Phone: 03-20-2022 10:13-0500 Body weight 96.62 kg Referring Provider Unknown TF-Uqtcvyh-Sqbju [facility] [address] Work Phone: 02-25-2022 13:20-0500 Body mass index (BMI) [Ratio] 39.47 kg/m2 Referring Provider [facility] [address] [facility] Work Phone: 02-25-2022 13:20-0500 Body surface area Derived from formula 2.08 m2 Referring Provider [facility] [address] [facility] Work Phone: 02-25-2022 13:20-0500 Body temperature 97.6 [degF] Referring Provider Unknown [facility] [address] [place] Work Phone: 02-25-2022 13:20-0500 Body weight 104.3 kg Referring Provider Unknown [facility] [address] [facility] Work Phone: 02-25-2022 13:20-0500 Diastolic blood pressure 76 mm[Hg] Referring Provider Unknown [facility] [address] [facility] Work Phone: 02-25-2022 13:20-0500 Heart rate 94 /min Referring Provider Unknown [facility] [address] [facility] Work Phone: 02-25-2022 13:20-0500 Respiratory rate 20 /min Referring Provider Unknown [facility] [address] [facility] Work Phone: 02-25-2022 13:20-0500 SaO2% (BldA) [Mass fraction] 98 % Referring Provider Unknown [facility] [address] [place] Work Phone: 02-25-2022 13:20-0500 Systolic blood pressure 110 mm[Hg] Referring Provider Unknown [facility] [address] [place] Work Phone: 02-14-2022 18:47-0500 Body temperature 99.86 [degF] Pcp Unknown [facility] Other Phone (unformatted): [phone] 02-14-2022 18:47-0500 Diastolic blood pressure 69 mm[Hg] Pcp Unknown [facility] Other Phone (unformatted): [phone] 02-14-2022 18:47-0500 Heart rate 72 /min Pcp Unknown [facility] Other Phone (unformatted): [phone] 02-14-2022 18:47-0500 Respiratory rate 18 /min Pcp Unknown [facility] Other Phone (unformatted): [phone] 02-14-2022 18:47-0500 SaO2% (BldA) [Mass fraction] 95 % Pcp Unknown [facility] Other Phone (unformatted): [phone] 02-14-2022 18:47-0500 Systolic blood pressure 122 mm[Hg] Pcp Unknown [facility] Other Phone (unformatted): [phone] 02-07-2022 10:15-0500 Body height 162.56 cm Referring Provider Unknown YS-Yjgesbr-Eqabu [facility] [address] Work Phone: 02-07-2022 10:15-0500 Body mass index (BMI) [Ratio] 41.71 kg/m2 Referring Provider Unknown VC-Krjtjpb-Kdarc [facility] [address] Work Phone: 02-07-2022 10:15-0500 Body surface area Derived from formula 2.12 m2 Referring Provider Unknown NX-Dmuuwud-Hhfpq [facility] [address] Work Phone: 02-07-2022 10:15-0500 Body weight 110.22 kg Referring Provider Unknown ST-Ygcgcbe-Fglew [facility] [address] Work Phone: 02-07-2022 10:15-0500 Diastolic blood pressure 77 mm[Hg] Referring Provider Unknown LU-Cimguix-Ritqg [facility] [address] Work Phone: 02-07-2022 10:15-0500 Heart rate 68 /min Referring Provider Unknown BA-Zmtidyw-Nwpon [facility] [address] Work Phone: 02-07-2022 10:15-0500 SaO2% (BldA) [Mass fraction] 98 % Referring Provider Unknown RX-Usegeej-Banad [facility] Work Phone: 02-07-2022 10:15-0500 Systolic blood pressure 111 mm[Hg] Referring Provider Unknown VX-Dgmkkik-Zsjty [facility] [address] Work Phone: 12-10-2021 12:30-0400 Body height 162.56 cm Referring Provider Unknown BP-Fhmykkbdpc-Lduyi martha [address] Work Phone: 12-10-2021 12:30-0400 Body mass index (BMI) [Ratio] 42.4 kg/m2 Referring Provider Unknown ZP-Ylasoukddv-Uceei [address] Work Phone: 12-10-2021 12:30-0400 Body surface area Derived from formula 2.14 m2 Referring Provider Unknown KO-Jupiyuvggu-Pjbgx [address] Work Phone: 12-10-2021 12:30-0400 Body weight 112.04 kg Referring Provider Unknown RH-Lxktinnfiq-Vgnod [address] Work Phone: 12-10-2021 12:30-0400 Diastolic blood pressure 90 mm[Hg] Referring Provider Unknown PL-Gqiuyqfgzv-Xscoz [address]tha [address] Work Phone: 12-10-2021 12:30-0400 Heart rate 77 /min Referring Provider Unknown XC-Gtjshbuszs-Aegcr martha [address] Work Phone: 12-10-2021 12:30-0400 SaO2% (BldA) [Mass fraction] 98 % Referring Provider Unknown BI-Qtbxlnxhro-Tsvvu [address]tha [address] Work Phone: 12-10-2021 12:30-0400 Systolic blood pressure 116 mm[Hg] Referring Provider Unknown IQ-Mdddnlqpgk-Rmqcf martha [address] Work Phone: 11-06-2021 13:28-0400 Body height 162.56 cm Referring Provider [facility] [address] [facility] Work Phone: 11-06-2021 13:28-0400 Body mass index (BMI) [Ratio] 42.23 kg/m2 Referring Provider Unknown [facility] [address] [facility] Work Phone: 11-06-2021 13:28-0400 Body surface area Derived from formula 2.14 m2 Referring Provider Unknown [facility] [address] [facility] Work Phone: 11-06-2021 13:28-0400 Body weight 111.59 kg Referring Provider Unknown [facility] [address] [facility] Work Phone: Encounters Encounter Date Encounter Type Care Provider Facility Start: 09-20-2024 End: 09-20-2024 Bamboo flowsheet Rachid Matty DO Work Phone: [facility] Start: 09-20-2024 End: 09-20-2024 Bamboo flowsheet Rachid Matty DO Work Phone: [facility] Start: 07-05-2024 End: 07-05-2024 Bamboo flowsheet Rachid Matty DO Work Phone: [facility] Start: 07-05-2024 End: 07-05-2024 Bamboo flowsheet Rachid Matty DO Work Phone: [facility] Start: 07-05-2024 End: 07-05-2024 Office outpatient visit 15 minutes Rachid Matty DO Work Phone: [facility] Comment on above: Encounter for medica tion refill; Anxiety, generalized (CMS/HCC) Start: 07-05-2024 End: 07-05-2024 ambulatory RACHID MATTY Not Available Start: 03-29-2024 End: 03-29-2024 Office outpatient visit 25 minutes Steve Major BOTANY TECHNICIAN Work Phone: [facility] Comment on above: Bronchitis (Primary Dx); Cough, unspecified type Start: 03-29-2024 End: 03-29-2024 ambulatory STEVE MAJOR Not Available Start: 09-15-2023 End: 09-15-2023 ambulatory RACHID MATTY Not Available Start: 07-28-2023 End: 07-28-2023 ambulatory RACHID MATTY Not Available Start: 06-21-2022 Office outpatient vi sit 25 minutes Referring Provider Unknown UG[facility]Ctvbvtt[facility]akpp [facility] Work Phone: Start: 06-21-[address] Kamari Smith Faci lity:[id number] Start: 05-24-2022 Patient encounter procedure Referring Provider Unknown [facility] Work Phone: Start: 05-10-2022 Current tobacco non- user cad cap copd pv dm Referring Provider Unknown QM-Pjgnsfi-Yjwyk [facility] [address] Work Phone: Start: 03-20-2022 ambulatory PCP UNKNOWN Facility:1 [id number] Start: 03-20-2022 Postop follow up vis it related to original px Referring Provider Unknown PL-Pwtftop-Yhtlo [facility] [address] Work Phone: Start: 03-20-2022 ambulatory PCP UNKNOWN Facility:1 [id number] Start: 02-25-2022 Patient encounter procedure Referring Provider Unknown [facility] 1600 DO Work Phone: Start: 02-25-2022 ambulatory PCP UNKNOWN Facility:1 [id number] Start: 02-21-2022 ambulatory PCP UNKNOWN Facility:[id number] [id number] Start: 02-21-2022 Patient encounter procedure Referring Provider Unknown [facility] [address] [facility] Work Phone: Start: 02-21-2022 ambulatory PCP UNKNOWN Facility:[id number] Start: 02-15-2022 Chart Update Referring Prov ider Unknown EF-Yphoohp-Pnmvq [facility] [address] Work Phone: Start: 2022 End: 02-14-2022 Evaluation and management of inpatient Kamari Ac [facility] 734 01 Other Phone (unformatted): [phone] Start: 02-12-2022 Chart Update Referring Prov ider Unknown RH-Ysuafij-Rwexn [facility] [address] Work Phone: Start: 02-07-2022 ambulatory PCP UNKNOWN Facility:9 [id number] Start: 02-07-2022 Encounter for blood typing Dr. Kamari Smith [facility] Start: 02-07-2022 Encounter for preprocedural laboratory examination Dr. Kamari Smith [facility] Start: 02-07-2022 Office outpatient vi sit 25 minutes Referring Provider Unknown MI-Xxdaztt-Zvnmh [facility] [address] Work Phone: Start: 02-07-2022 ambulatory PCP UNKNOWN Facility:[id number] Start: 12-20-[address] YASH Cano [id number] Start: 12-20-2021 Patient encounter procedure Referring Provider Unknown [facility] [address] [facility] Work Phone: Start: 12-20-2021 YAMILETH, Provider : Lexi Gannon, Status: Pen, Time: 2:00 PM Referring Provider Unknown QA-Pfiyjzz-Iofeo [facility] [address] Work Phone: Start: 12-18-2021 Chart Update Referring Prov ider Unknown QA-Yuaxyjw-Najiv [facility] [address] Work Phone: Start: 12-12-2021 Encounter for other preprocedural examination Dr. Kamari Smith [facility] Start: 12-12-2021 ELBA, Provider: Kamari Smith, Status: Pen, Time: 7:30 AM Referring Provider Unknown MU-Dbxiniiobr-Zaejzjn e 320 Work Phone: Start: 12-12-2021 End: 12-12-2021 ambulatory PCP UNKNOWN Facility:[id number] Start: 12-10-2021 Office outpatient ne w 30 minutes Referring Provider Unknown PJ-Nigegvvqfp-Nadlxxe e 320 Work Phone: Start: 12-10-2021 ambulatory Torsten Victor Facility:9 360 Start: 11-07-2021 Patient encounter procedure Referring Provider Unknown [facility] Work Phone: Start: 11-07-2021 ambulatory PCP UNKNOWN Facility:1 [id number] Start: 11-06-[address] Kamari Smith Fac lity:[facility] Start: 10-31-2021 AUDIT Referring Prov ider Unknown VQ-Fqsnucr-Sgmiw MAC2 303 Work Phone: Start: 09-30-2021 Encounter for other preprocedural examination DR DOCTOR TERRY [facility] Start: 09-25-2021 End: 09-26-[address] DOCTOR TERRY Facility:H1 Start: 09-25-2021 End: 09-26-2021 Encounter for other preprocedural examination DR DOCTOR TERRY Facility:H1 Start: 08-31-2021 End: 08-31-[address] ADRIANO MARSHALL Facility:H1 Start: 07-05-2021 End: 07-06-[address] RACHID STARR Facility:H1 Start: 03-14-2021 End: 03-15-[address] RACHID STARR Facility:H1 Start: 02-02-2021 End: 02-02-[address] DOCTOR TERRY Facility:H1 Start: 12-01-2020 End: 12-01-[address] DOCTOR TERRY Facility:H1 Patient encounter status Referri ng Provider Unknown NI-Bfmpnzpopc-Xhbzzbc e 320 Work Phone: Preoperative state Referring Pro vider Unknown [facility] 3200 I Work Phone: Procedures Date Procedure Procedure Detail Performing Clinician Start: 07-05-2024 Urnls dip stick/tabl et rgnt non-auto w/o micrscp Rachid Matty DO Work Phone: Start: 03-29-2024 STATUS COVID-19/FLU Joycelyn dsay N Basilio BOTANY TECHNICIAN Work Phone: Start: 09-15-2023 Microscopic observat ion [Identifier] in Cervix by Cyto stain Rachid Matty DO Work Phone: Start: 09-15-2023 Cytp cerv/vag auto t hin layer prep mnl screen Rachid Matty DO Work Phone: Start: 02-07-2022 Antibody screen PCP UNK NOWN Comment on above: Performed By: #### T +S ####[address] [address] Dilation and curettage Refer ring Provider Unknown Removal of pilonidal cyst Re ferring Provider Unknown Tonsillectomy and adenoidectomy Referring Provider Unknown Plan of Treatment Date Care Activity Detail Author Start: 11-22-2024 Influenza vaccination Influenz a Vaccine (Season Ended) [facility] Start: 09-20-2024 End: 09-20-2024 Patient encounter procedure 09/20/2024 2:00 PM EDT Office Visit [facility] [address] [place] [phone] Rachid Starr, DO [address] [place] [address] [facility] Start: 09-14-2024 Screening for malign ant neoplasm of cervix [facility] Start: 07-05-2024 End: 07-05-2024 Patient encounter procedure 07/05/2024 1:50 PM EDT Office Visit [facility] [address] [place] [place] [phone] Rachid Starr, DO [address] [place], [place] [id number] Arrived [facility] Comment on above: Arrived Start: 08-13-2022 VIRFUDARCY, Provider : Linda Nova, Status: Pen, Time: 3:00 PM VIRFUVASH, Provider: Linda Nova, Status: Pen, Time: 3:00 PM [facility] Work Phone: Start: 08-13-2022 VIRFUDARCY, Provider : Meredith Snider, Status: Pen, Time: 2:00 PM VIRFUDARCY, Provider: Meredith Snider, Status: Pen, Time: 2:00 PM DE-Xgcqkre-U[facility]ir [facility] Work Phone: Start: 06-20-2022 VIRFUDARCY, Provider : Kamari Smith, Status: Pen, Time: 3:15 PM KENYAFUVASH, Provider: Kamari Smith, Status: Pen, Time: 3:15 PM JL-Gokcdwd-Xhgnlw [facility] Work Phone: Start: 05-10-2022 Patient encounter procedure [facility] Start: 05-10-2022 VIRFUVHOME, Provider : Kamari Smith, Status: Pen, Time: 8:45 AM VIRFUVHOME, Provider: Kamari Smith, Status: Pen, Time: 8:45 AM HC-Mtuwcmk-Xivuz MAC2 303 Work Phone: Start: 05-09-2022 Patient encounter procedure [facility] Start: 05-09-2022 VIRFUVHOME, Provider : Lexi Gannon, Status: Pen, Time: 9:30 AM VIRFUVHOME, Provider: Lexi Gannon, Status: Pen, Time: 9:30 AM FX-Fsxvzhw-Nkcmj MAC2 303 Work Phone: Start: 03-28-2022 VIRFUVHOME, Provider : Lexi Gannon, Status: Pen, Time: 9:30 AM VIRFUVHOME, Provider: Lexi Gannon, Status: Pen, Time: 9:30 AM CL-Rzdimuf-Pdjycqi [facility] Work Phone: Start: 03-20-2022 VIRFUVHOME, Provider : Linda Nova, Status: Pen, Time: 1:45 PM VIRFUVHOME, Provider: Linda Nova, Status: Pen, Time: 1:45 PM TK-Mjtttcj-Heiph MAC2 303 Work Phone: Start: 03-20-2022 Patient encounter procedure [facility] Start: 03-20-2022 VIRFUVHOME, Provider : Lexi Gannon, Status: Pen, Time: 11:00 AM VIRFUVHOME, Provider: Lexi Gannon, Status: Pen, Time: 11:00 AM BN-Migakdv-Gyelq MAC2 303 Work Phone: Start: 02-21-2022 Patient encounter procedure [facility] Start: 02-21-2022 VIRFUVHOME, Provider : Kamari Smith, Status: Pen, Time: 3:15 PM VIRFUVHOME, Provider: Kamari Smith, Status: Pen, Time: 3:15 PM BX-Rgcrcrl-Dcbit MAC2 303 Work Phone: Start: 02-21-2022 Patient encounter procedure [facility] [place] Start: 02-21-2022 YAMILETH, Provider : Lexi Gannon, Status: Pen, Time: 8:30 AM VIRFUVHOME, Provider: Lexi Gannon, Status: Pen, Time: 8:30 AM GF-Darrkde-Tgknb MAC2 303 Work Phone: Start: 2022 End: 02-14-2023 [facility] Other Phone (unformatted): [phone] Comment on above: PRE-OP 02/13/22 To be given 1 hour p reoperatively when patient is placed on-call to the OR. Start: 12-20-2021 YAMILETH, Provider : Lexi Gannon, Status: Pen, Time: 2:00 PM VIRFUVDIAE, Provider: Lexi Gannon, Status: Pen, Time: 2:00 PM CA-Dwlgupr-Tvnva MAC2 303 Work Phone: Start: 12-12-2021 VIRFUDARCY, Provider : Lexi Gannon, Status: Pen, Time: 3:00 PM VIRFUVHOME, Provider: Lexi Gannon, Status: Pen, Time: 3:00 PM RY-Fryhhki-Acyaydg[address] Work Phone: Start: 12-12-2021 EGDANS, Provider: Kamari Smith, Status: Pen, Time: 7:30 AM EGDANS, Provider: Kamari Smith, Status: Pen, Time: 7:30 AM VG-Lkxheze-Xdbgw MAC2 303 Work Phone: Start: 12-10-2021 NPV, Provider: Torsten Victor, Status: Pen, Time: 12:30 PM NPV, Provider: Torsten Victor, Status: Pen, Time: 12:30 PM PL[facility]zkxijt[facility] Work Phone: Payers Date Payer Category Payer [facility] 1.2.8 [id number] 1990 Unknown [id number] 2.16.84 0.1.702605.3.579.2.593 1990 Unknown [id number] 2.16.84 0.1.548241.3.579.2.593 1990 Unknown [id number] 2.16.84 0.1.647961.3.579.2.593 1990 Unknown [id number] 2.16.84 0.1.799807.3.579.2.593 1990 Unknown [id number] 2.16.84 0.1.983881.3.579.2.593 1990 Unknown [id number] 2.16.84 0.1.817316.3.579.2.593 1990 Unknown [id number] 2. 840.1.287683.3.579.2.356 1990 Unknown [id number] 2. 840.1.348142.3.579.2.356 1990 Unknown [id number] 2. 840.1.537112.3.579.2.356 1990 Unknown [id number] 2. 840.1.290791.3.579.2.356 1990 Unknown [id number] 2. 840.1.637350.3.579.2.356 1990 Unknown [id number] 2. 840.1.169408.3.579.2.356 1990 Unknown [id number] 2.16 840.1.516908.3.579.2.356 1990 Unknown [id number] 2. 840.1.103373.3.579.2.356 1990 Unknown [id number] 2.16. 840.1.160178.3.579.2.356 1990 Unknown [id number] 2.16.8 40.1.203474.3.579.2.6 1990 Unknown [id number] 2.16.8 40.1.434496.3.579.2.6 1990 Unknown [id number] 2.16.8 40.1.594271.3.579.2.6 1990 Unknown [id number] 2.16.8 40.1.289560.3.579.2.6 1990 Unknown [id number] 2.16.8 40.1.449213.3.579.2.6 1990 Unknown [id number] 2.16.84 0.1.192144.3.579.2.9 1990 Unknown [id number] 2.16.84 0.1.835654.3.579.2.9 1990 Unknown [id number] 2.16.84 0.1.415495.3.579.2.9 1990 Unknown [id number] 2.16.84 0.1.682297.3.579.2.1259 1959 Unknown [id number] Unknown Social History Date Type Detail Facility [facility] Other Phone (unformatted): [phone] Tobacco smoking consumption unknown [facility] Other Phone (unformatted): [phone] Start: 07-28-2023 End: 03-29-2024 Non-smoker Non-smoker TK-Pjiwtws-Drihl MAC 2 303 Work Phone: Start: 09-09-2022 Tobacco smoking status NHIS Never smoked tobacco [facility] Start: 07-28-2023 End: 03-29-2024 Tobacco use panel [facility] Start: 1990 Sex assigned at Female [facility] Start: 09-08-2022 Gender identity Identifies as female gender (finding) [facility] Functional Status Date Assessment Result Facility Functional observable [facility] Other Phone (unformatted): [phone] Mental Status Date Assessment Result Facility 02-14-2022 Cognitive functi ons :04 [facility] Other Phone (unformatted): [phone] Clinical Notes 02-12-2022 to 07-05-2024 Eufemia Viera LPN - 07/05/2024 1:50 PM Carline Major NP - 03/29/2024 3:20 PM EST Note Date & Type Note Facility 07-05-2024 History of Present illness Narrative Reason for Appointment: Patient ID: Liane Riley is a 34 y.o. female who presents for Med Refill (Patient present today to discuss medication/refill the Wellbutrin 300 mg and lexapro 10 mg medication.) Patient presents today for Consult appointment. MEDICATIONS Current Outpatient Medications Medication Instructions azithromycin (ZITHROMAX) 250 mg, Oral, Daily, Take 2 tabs on day 1 and 1 tab on days 2-5 then stop buPROPion XL (WELLBUTRIN XL) 300 mg, Oral, Daily, Do not crush, chew, or split. escitalopram (LEXAPRO) 10 mg, Oral, Daily FLUoxetine (PROZAC) 10 mg, Oral, Daily Levonorgestrel (Mirena, 52 MG,) 20 MCG/DAY intrauterine device 1 Intra Uterine Device, Yearly valACYclovir (Valtrex) 1 g tablet TAKE 2 TABLETS BY MOUTH EVERY 12 HOURS for 1 day. This dose is for when you have an outbreak. this is enough for 3 outbreaks ALLERGIES Allergies Allergen Reactions Nsaids Pt had bariatric surgery and cannot have PROBLEMS Active Ambulatory Problems Diagnosis Date Noted No Active Ambulatory Problems Resolved Ambulatory Problems Diagnosis Date Noted No Resolved Ambulatory Problems Past Medical History: Diagnosis Date COVID-19 PCOS (polycystic ovarian syndrome) Pelvic pain Weight gain HISTORY PAST MEDICAL HISTORY SOCIAL HISTORY Past Medical History: Diagnosis Date COVID-19 PCOS (polycystic ovarian syndrome) Pelvic pain Weight gain Social History Tobacco Use Smoking status: Never Smokeless tobacco: Not on file Substance Use Topics Alcohol use: Not on file Drug use: Not on file FAMILY HISTORY Family History Problem Relation Name Age of Onset Hypertension Father SURGICAL HISTORY Past Surgical History: Procedure Laterality Date SECTION, LOW TRANSVERSE CYST REMOVAL pylonidal cyst removal LOWER ENDOSCOPY 11/2021 PAP SMEAR 09/14/2019 negative TONSILLECTOMY REVIEW OF SYSTEMS Review of Systems: Review of Systems All other systems reviewed and are negative. OBJECTIVE Objective: Physical Exam Constitutional: Appearance: Normal appearance. She is well-developed. Cardiovascular: Rate and Rhythm: Normal rate and regular rhythm. Pulmonary: Effort: Pulmonary effort is normal. Breath sounds: Normal breath sounds. Abdominal: General: Bowel sounds are normal. There is no distension. Palpations: Abdomen is soft. Tenderness: There is no abdominal tenderness. There is no guarding or rebound. Musculoskeletal: General: No swelling. Normal range of motion. Right lower leg: No edema. Left lower leg: No edema. Neurological: Mental Status: She is alert and oriented to person, place, and time. Skin: General: Skin is warm and dry. Psychiatric: Mood and Affect: Mood normal. Behavior: Behavior normal. Vitals and nursing note reviewed. Exam conducted with a flagman present. Vitals: Estimated body mass index is 37.25 kg/m as calculated from the following: Height as of 09/09/22: 5' 4 . Weight as of this encounter: 217 lb. BP: 122/72 No LMP recorded. Patient has had an implant. ASSESSMENT & PLAN ICD-10-CM 1. Encounter for medication refill Z76.0 POCT urinalysis dipstick manually resulted Patient presents to office to have medication refilled. Refills will be sent to patients pharmacy. Patient to return to clinic for routine annual. Documented by Eufemia Viera LPN on behalf of: Rachid Starr DO documented in this encounter [facility] 03-29-2024 History of Present illness Narrative Images from the original note were not included. [address] , [address] [facility], [address] P: [phone] F: [phone] HPI Historian of HPI: patient Liane Riley is a 34 y.o. female who presents today to the Urgent Care with the following complaints and denials which have been present for 5 day(s). C/O Denies Symptom Comments [] [x] Runny Nose [] [x] Difficulty Swallowing [x] [] Sore Throat [x] [] Cough [] [x] Ear Pain [] [x] Fever [] [x] Chills [x] [] Nasal Congestion [] [x] Myalgia [] [x] Sinus Pain [x] [] Sinus Pressure Additional Comments: OTC cough/cold meds. Pt took a home COVID test and was negative. ROS A complete system ROS was performed and negative aside from the pertinent positives noted in the HPI and PE. Visit Vitals BP 120/70 Pulse 89 Temp 98 F Wt 193 lb BMI 33.13 kg/m OB Status Implant Smoking Status Never BSA 1.99 m IH Testing: PHYSICAL EXAM Physical Exam Vitals reviewed. Constitutional: General: She is not in acute distress. Appearance: Normal appearance. HENT: Head: Normocephalic and atraumatic. Right Ear: Hearing, tympanic membrane, ear canal and external ear normal. Left Ear: Hearing, tympanic membrane, ear canal and external ear normal. Nose: Nasal tenderness and congestion present. Right Turbinates: Enlarged and swollen. Left Turbinates: Enlarged and swollen. Right Sinus: Maxillary sinus tenderness present. Left Sinus: Maxillary sinus tenderness present. Mouth/Throat: Lips: [place]. Mouth: Mucous membranes are moist. Pharynx: Oropharynx is clear. Uvula midline. Posterior oropharyngeal erythema and postnasal drip present. Eyes: Extraocular Movements: Extraocular movements intact. Conjunctiva/sclera: Conjunctivae normal. Pupils: Pupils are equal, round, and reactive to light. Cardiovascular: Rate and Rhythm: Normal rate and regular rhythm. Pulses: Normal pulses. Heart sounds: Normal heart sounds. Pulmonary: Effort: Pulmonary effort is normal. No tachypnea, accessory muscle usage or respiratory distress. Breath sounds: Decreased air movement present. Decreased breath sounds present. No wheezing, rhonchi or rales. Musculoskeletal: General: Normal range of motion. Cervical back: Normal range of motion and neck supple. Skin: General: Skin is warm and dry. Findings: No rash. Neurological: General: No focal deficit present. Mental Status: She is alert and oriented to person, place, and time. Psychiatric: Mood and Affect: Mood normal. TREATMENT PLAN 1. Cough, unspecified type COVID 19 and Influenza A/B testing is negative in urgent care. New medication as directed. Acetaminophen or Ibuprofen for reduction of fever and pain. Increase fluids. Good handwashing. Discussed warning signs of worsening infection and when to report to ER. New toothbrush in 24 hours. Call office if symptoms have not started to improve within the next 72 hours. Patient verbalized understanding of instructions. - STATUS COVID-19/FLU - azithromycin (Zithromax) 250 MG tablet; Take 1 tablet (250 mg) by mouth Daily Take 2 tabs on day 1 and 1 tab on days 2-5 then stop Dispense: 6 tablet; Refill: 0 2. Bronchitis (Primary) -Take medication as prescribed below to completion -cough and deep breathe -May use Tylenol/Ibuprofen for pain/fever -May use OTC medication such as cough syrups especially at night time for relief, pseudoephedrine for nasal congestion, and/or Kimmy Pot or saline rinses. -Follow up with in 1 week if no improvement or go to the ED for worsening of symptoms such as SOB or CP - azithromycin (Zithromax) 250 MG tablet; Take 1 tablet (250 mg) by mouth Daily Take 2 tabs on day 1 and 1 tab on days 2-5 then stop Dispense: 6 tablet; Refill: 0 documented in this encounter [facility] 08-13-2022 Note Chief Complaint An interactive audio [...] status; GORDO = N; Verified Transmission to [facility] Ondansetron 4 MG Oral Tablet Disintegrating; 1-2 tablets every 6-8 hours as needed for nausea; Therapy: 04Feb2022 to (Last Rx:07Feb2022) Requested for: 08Feb2022 Ordered Rx By: Kamari Smith; Dispense: 0 Days ; #:60 Tablet; Refill: 5;For: Post-operative nausea and vomiting; GORDO = N; Verified Transmission to [facility] Provider Impressions Surgery Date:02-13-22 Surgeon: Cortes Procedure: sleeve gastrectomy ASSESSMENT: Current weight: 182 lbs Ht: 64 in. BMI: 31 Previous weight: 199.8 lbs (3.06.13) Initial start weight in pounds: 246.0 11-06-21 EBW in pounds: 101.0 Total weight change: -64 lbs %EBW Lost: 63% PROGRESS: Nutrition Interventions for last encounter (05.24.22) 1. Continue to eat 60 to 70 [...] son, not enough energy for resistance training Nausea/Vomiting/Diarrhea/Constipa tion: none READINESS TO LEARN: Motivation to learn: [...] You have lost (more content not included)... [employer] 05-24-2022 Chief complaint Narrative - Reported An interactive audio and video telecommunication system which permits real time communications between the patient (at the originating site) and provider (at the distant site) was utilized to provide this telehealth service.Verbal consent was requested and obtained from LIANE RILEY on this date, 05/24/2022 03:30 PM , for a telehealth visit.obesitynutrition follow-up post-op sleeve gastrectomy [facility] Work Phone: 05-24-2022 Note Chief [...] status; GORDO = N; Verified Transmission to [facility] Ondansetron 4 MG Oral Tablet Disintegrating; 1-2 tablets every 6-8 hours as needed for nausea; Therapy: 04Feb2022 to (Last Rx:07Feb2022) Requested for: 08Feb2022 Ordered Rx By: Kamari Smith; Dispense: 0 Days ; #:60 Tablet; Refill: 5;For: Post-operative nausea and vomiting; GORDO = N; Verified Transmission to [facility] Provider Impressions Follow Up Bariatric [...] 6.Continue with daily multivitamin (suggest purchasing 2 Riner COMPLETE MVI-both at breakfast), 9640-0655 mg of calcium citrate per day (500-600 [...] knowledge deficit r (more content not included)... [employer] 03-20-2022 Chief complaint Narrative - Reported An [...] surgery: Sleeve Gastrectomy . Surgery date: 02/13/22. QK-Leviebt-Omcuk MAC2 303 Work Phone: 02-21-2022 Note Chief [...] status; GORDO = N; Verified Transmission to [facility] Ondansetron 4 MG Oral Tablet Disintegrating; 1-2 tablets every 6-8 hours as needed for nausea; Therapy: 04Feb2022 to (Last Rx:07Feb2022) Requested for: 08Feb2022 Ordered Rx By: Kamari Smith; Dispense: 0 Days ; #:60 Tablet; Refill: 5;For: Post-operative nausea and vomiting; GORDO = N; Verified Transmission to [facility] Provider Impressions Follow Up Bariatric [...] minutes-chew thoroughly. 5.Increase to daily multivitamin (2 Riner COMPLETE MVI-both at breakfast), continue with 1200-1500mg [...] Summary Providers: Provider RoleProvider Name Kamari Dumont ReferringKamair Smith PrimaryUnknown, Pcp Note Recipients: Kamari Smith MD Unknown, PcpMD Discharge: Summary: Admission Date: .13-Feb-2022 07:35:00 Discharge [...] you should have a discussion with the staking press operator about progressing to a combination of full [...] symptoms. Discharge Medications (more content not included)... [facility] 2022 History of Present illness Narrative 32 [...] patient's weight was 243 lbs at pre-op visit.[place] weight 131 lbs.Target body weight 160 lbs.Severity of obesity is Class 2 which is a BMI of 35-39.9. HL-Uvzdqgw-Nwjjt MAC2 303 Work Phone: 2022 History of Present illness Narrative Type of Surgery: lap sleeve gastrectomy, surgery Date: 02/13/22.Weight:.Initial weight: 246 lbs.Last visit weight: 243 lbs.Current weight: 213 lbs.The patient's weight was 243 lbs at pre-op visit.[place] weight 131 lbs.Target body weight 160 lbs.Severity of obesity is Class 2 which is a BMI of 35-39.9.Diet Stage: regular food.Supplements: taking Omeprazole.Patient is using medications for reflux omeprazole.32 year old female presenting today for 3 month post op visit for sleeve gastrectomy performed 02/13/22.Baseline approximate BMI of 42 with related comorbidities of morbid obesity, PCOS, and Depression.3 month labs ordered HD-Jqcdftv-Ioxdr MAC2 303 Work Phone: 2022 History of Present illness Narrative Type of Surgery: lap sleeve gastrectomy, surgery Date: 02/13/22.Weight:.Initial weight: 246 lbs.Last visit weight: 213 lbs.Current weight: 192 lbs.The patient's weight was 243 lbs at pre-op visit.[place] weight 131 lbs.Target body weight 160 lbs.Severity [...] - deniesNo cp, palpitations, sob, LE edema JF-[facility]eckeuh[facility]rqzxcta [facility] Work Phone: 2022 Note PROCEDURE DETAILS Preoperative Diagnosis: class 3 obesity Postoperative Diagnosis: class 3 obesity Surgeon: cortes Resident/Fellow/Other Keyseating Machine Set Up Operator: [place]ville Procedure: robotic sleeve gastrectomy B/l tap [...] there was no hiatal hernia . 36 Czech ViSiGi tube was inserted by anesthesiologist and [...] Last Updated: 15-Feb-2022 10:47 by Kamari Smith) [facility] 02-12-2022 Note History & Physical R eviewed: [...] Last Updated: 13-Feb-2022 07:49 by Kamari Smith) [facility] Chief complaint Narrative - Reported An interactive audio and video telecommunication system which permits real time communications between the patient (at the originating site) and provider (at the distant site) was utilized to provide this telehealth service.post-op weight loss surgery (Gastric sleeve) 1 week nutrition follow-up session [facility] Work Phone: Evaluation note Diagnosis Bronchitis- Primary Bronchitis, not specified as acute or chronic Cough, unspecified type [facility] Encounter for medication refill Anxiety, generalized (CMS/HCC) documented in this encounter [facility] Narrative* 31-year-old woman needs an evaluation prior to gastric bypass surgery from a cardiac standpoint. She is physically very active. She walks 12,000 steps per day. 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 She had no angina syncope chest pain leg edema cough mopped to sputum production wheeze or arrhythmias. * Past medical history is negative hypertension, diabetes, stroke, heart attack, reticulocyte fever, heart murmur, claudication or deep vein thrombosis. She did have gestational diabetes. * Past surgical hist includes a pilonidal cyst x6, she had a tonsillectomy adenoidectomy, D&C, . * No known drug allergies * Medications reviewed VT-Tyvnfljajw-Eqzofsyi 320 Work Phone: History of Present illness Narrative* Type of Surgery: lap sleeve gastrectomy, surgery Date: 02/13/22. * Weight:. * Initial weight: 246 lbs. * Last visit weight: 241 lbs. * [place] weight 131 lbs. * Target body weight 160 lbs. * Severity of obesity is Class 3 which is a BMI of greater than or equal to 40. * The following clearances were received - Cardiac: cleared and Psych: cleared. * Sleep study results: no apnea. * EGD findings: Z line regular @37; multiple 1-3mm semi-sessile polyps. * no hiatal hernia, Vargas's esophagus not present. * H. Pylori is negative. * Lab results: Hgb: 14.6, Iron: 67/385/17, B12: 244, Vitamin D: 31, Hbg A1C: 5.1 and B1: 136. * Lifestyle: tox screen negative. * Comorbidities: depressed mood, infertility and polycystic ovarian syndrome. * 31 year old female presenting today for final pre-op visit for sleeve gastrectomy. Patient has approximate BMI of 42 with related comorbidities of morbid obesity, PCOS, and Depression. Patient has met insurance requirements and has been medically optimized for surgery. [address] Work Phone: History of Present illness Narrative* Type of Surgery: lap sleeve gastrectomy, surgery Date: 02/13/22. * Weight:. * Initial weight: 246 lbs. * Last visit weight: 241 lbs. * [place] weight 131 lbs. * Target body weight 160 lbs. * Severity of obesity is Class 3 which is a BMI of greater than or equal to 40. * The following clearances were received - Cardiac: cleared and Psych: cleared. * Sleep study results: no apnea. * EGD findings: Z line regular @37; multiple 1-3mm semi-sessile polyps. * no hiatal hernia, Vargas's esophagus not present. * H. Pylori is negative. * Lab results: Hgb: 14.6, Iron: 67/385/17, B12: 244, Vitamin D: 31, Hbg A1C: 5.1 and B1: 136. * Lifestyle: tox screen negative. * Comorbidities: depressed mood, infertility and polycystic ovarian syndrome. * 31 year old female presenting today for final pre-op visit for sleeve gastrectomy. Patient has approximate BMI of 42 with related comorbidities of morbid obesity, PCOS, and Depression. Patient has met insurance requirements and has been medically optimized for surgery. [address] [address] Work Phone: History of Present illness Narrative* Pre-Procedure Checklist * Allergies were reviewed: yes * Medications were reviewed: yes * Contraindications to Treatment: * Recent illness: DENIES . * Recent dental work: DENIES . * Recent surgery: Bariatric sugery 02/13. * Recent infections DENIES . * Planned dental work: DENIES . * Planned surgery: DENIES . * : DENIES . * PT IS NOT ON ANY ANTIBIOTICS OR ANTIMICROBIALS . -[facility] [address] DO Work Phone: History of Present illness Narrative* Pre-Procedure Checklist * Allergies were reviewed: yes * Medications were reviewed: yes * Contraindications to Treatment: * Recent illness: DENIES . * Recent dental work: DENIES . * Recent surgery: Bariatric sugery 02/13. * Recent infections DENIES . * Planned dental work: DENIES . * Planned surgery: DENIES . * : DENIES . * PT IS NOT ON ANY ANTIBIOTICS OR ANTIMICROBIALS . [id number] Work Phone: Hospital Discharge instructions* Additional Orders:Additional Instructions: Medications:- Medications should be [...] the use of your opioid pain medication andonly take as needed.- Slowly add your vitamins to your daily medication regimen as tolerated. You do not have to take them within the first few days after surgery if they are causing you nausea or other problems. - If you have medications that you still cannot tolerate by your first visit with yoursurgeon or dietitian, please discuss this. - You should be receiving or already have received the following medications for your postoperative course: a proton pump inhibitor for acid suppression (omeprazole, esomeprazole, pantoprazole), antinausea medication (ondansetron, metoclopramide), and painmedication (oxycodone, morphine, hydromorphone, hydrocodone). If you are [...] oxycodone or other opiates. If you remain constipateddespite these medications, please take milk of magnesia and call the office to notify us.Activity instructions: - No lifting, pulling, or pushing objects greater than 15 pounds for 4 weeks.- Activityotherwise as tolerated. - You may shower. Soap [...] protein shakes, sugar free jello, sugar free pudding,and creamy soups (no chunks). You will continue to drink clear liquids including water and crystal light. You should aim for 64 ounces of fluid per day, with about half of this being full liquids andhalf of this being clear liquids. Do not exceed 8 oz per hour.- After two weeks, you should have a discussion with the staking press operator about progressing to a combination of full [...] less than your normal.- More than 4 lo ose, watery bowel movements in 24 hours (diarrhea). - Any new concerning symptoms. [facility] Other Phone (unformatted): [phone] Summary Purpose Family History Unknown Family Member Name Dates Details No [...] DATE CREATED AUTHOR AUTHOR'S ORGANIZ ATION 03/20/2022 [facility] DATE CREATED AUTHOR AUTHOR'S ORGANIZ ATION 06/24/2022 [facility] DATE CREATED AUTHOR AUTHOR'S ORGANIZ ATION 08/31/2022 [employer] DATE CREATED AUTHOR AUTHOR'S ORGANIZ ATION 07/06/2024 [facility] EPIC <item> Privacy Markings (unrecogniz ed section and content) Section Author: Elizabeth Boateng PROHIBITION ON REDISCLOSURE OF CONFIDENTIAL INFORMATION This notice accompanies a disclosure of information concerning a client made to you with the consent of such client. Reason for Visit (unrecogniz ed section and content) Reason Comments Med Refill Patient present toda y to discuss medication/refill the Wellbutrin 300 mg and lexapro 10 mg medication. Care Teams (unrecognized sec tion and content) Global Program Manager Relationship Specialty Start Date End Date Steve Major NP [address] [place] [address] PCP - [facility] [employer] 07/22/24 FOR RECORDS PERTAINING TO PATIENTS WHO ARE [...] BE BASED ON THE PRIMARY CLINICAL RECORDS. [employer] [facility]. provides no warranty or guarantee of the accuracy or completeness of information in this document.
[2024-09-23 16:09] LABS: Age Gdln ACOG Testing Note (.); HPV Aptima Negative (Negative); IGP, Aptima HPV, rfx 16/18,45 Note (.)
== END 2024-09-20 21:56 | disposition home or self-care (01) ==
LOC: LAB 21:55
PROVIDERS: Visit Provider Obstetrics & Gynecology
DX: Z01.419 Encounter for gynecological examination (general) (routine) without abnormal findings (principal)
CPT/HCPCS: 87624; 88175